=== PATIENT | male | born 1950 | race Caucasian/White ===

== ENCOUNTER 2025-01-16 09:28 | Outpatient (REF) | payer MEDICARE, SELFPAY ==
--- OUTSIDE RECORDS SUMMARY | 2025-01-16 10:49 | XMS_ITS | Clinical Summary ---
Author Organization [employer] Address [address] [place] [address] Care Team Providers Care Seasonal Warehouse Associate Name Role Phone Pcp, No Primary Care Provider [phone] Allergies Active Allergy Reactions Criticality Noted Date Comments Amlodipine Swelling 05/29/2024 Medications atorvastatin (LIPITOR) 10 MG tablet TAKE 1 TABLET BY MOUTH EVERY DAY 05/11/2023 Active hydroCHLOROthiaz bert (HYDRODIURIL) 25 MG tablet TAKE 1 TABLET BY MOUTH EVERY DAY 05/11/2023 Active metoprolol (LOPRESSOR) 50 MG tablet TAKE 1 TABLET BY MOUTH EVERY DAY 04/25/2023 Active metoprolol (TOPROL-XL) 50 MG 24 hr tablet Take 1 tablet (50 mg total) by mouth 02/10/2023 Active Social History Tobacco Use Types Packs/Day Years Used Date Smoking Tobacco: Never Smokeless Tobacco: Never PHQ-2 Answer Date Recorded PHQ-2 Score Patient declined 05/29/2024 Sex and Gender Information Value Date Recorded Sex Assigned at Not on file Legal Sex Male 2:14 PM EDT Gender Identity Not on file Sexual Orientation Not on file Last Filed Vital Signs Vital Sign Reading Time Taken Comments Blood Pressure 158/94 05/29/2024 3:25 PM EDT Pulse 67 05/29/2024 3:24 PM EDT Temperature 36.6 ??C (97.8 ??F) 05/29/2024 3:24 PM ED T Respiratory Rate 17 05/29/2024 3:24 PM EDT Oxygen Saturation 97% 05/29/2024 3:24 PM EDT Inhaled Oxygen Concentration - - Weight - - Height - - Body Mass Index - - Plan of Treatment Health Maintenance Due Date Last Done Comments Colorectal Cancer: COLONOSCO PY Screening every 10 yrs (or Modifier) 1952 Depression: Screening Annual ly using PHQ-2/9 in Adults 18 yrs or above (or HM Modifier)([facility]) 1970 Hepatitis C Virus Infection in Adolescents and Adults: Screening (or Modifier) ([facility]) 1970 SDRI Screening Reminder: Krystal bell for all adults ([facility]) 1970 DTaP/Tdap/Td Vaccines ([facility]) (1 - Tdap) 1971 Colorectal Cancer Screening 45 -75 Yrs (or HM Modifier) 1997 Colorectal Cancer: FLEXIBLE SIGMOIDOSCOPY Screening every 5 yrs 1997 Colorectal Cancer: Fecal Imm unochemical Test (FIT) Annually [facility] 1997 Colorectal Cancer: High-sens itivity gFOBT Screening Annually [facility] 1997 Colorectal Cancer: Stool Col oguard Screening every 3 yrs 1997 Colorectal Cancer:CT Colonog jillian Screening every 5 yrs 1997 Zoster/Shingles Vaccine Seri es Screening: Adults aged 18+ yrs (or HM Modifiers)([facility]) (1 of 2) 2002 Pneumococcal Vaccination Scr eening: Patients 65+ yrs of age ([facility]) (1 of 1 - PCV) 2017 Flu Vaccination: Ages 65+: Y early High Dose Recommended (or Modifier)([facility]) 06/21/2024 09/23/2023, COVID-19 Vaccine Screening: Initial Series and Booster Status ([facility]) ( - 2023-25 season) 2024 RSV Vaccines (1 - 1-dose 75+ series) 2027 Lipid Screening: Every 5 yrs for Men aged 35+ (or HM Modifier) ([facility]) 10/24/2028 10/24/2023 Medical Devices Not on file Insurance [employer] MEDICARE Care Teams Seasonal Warehouse Associate Relationship Specialty Start Date End Date Pcp, No PCP - General Family Medicine 06/13/23
--- OUTSIDE RECORDS SUMMARY | 2025-01-16 10:49 | XMS_ITS | Encounter Summary ---
Author Organization [place] [address] Care Team Providers Care Rewrite Editor Name Role Phone Antonio Castellanos MD Primary Care Provider [phone] Encounter Details Date Type Department Care Team (Late st Contact Info) Description 01/02/2025 Telephone Gastroenterology - [address] [place] [id number] Sin Garvin MD [address] [place] [address] Social History Tobacco Use Types Packs/Day Years Used Date Smoking Tobacco: Never Smokeless Tobacco: Never Alcohol Use Standard Drinks/Week Comments Yes 8 (1 standard drink = 0.6 oz pure alcohol) tues and thurs only, about 4 beers/day when drinking Housing Instability Answer Date Recorde d Are you worried that in the next 2 months you may not have stable housing? No 10/25/2024 Food Access & Nutrition Answer Date Rec orded Do you have access to a vari ety of food including fruits and vegetables? Yes 10/25/2024 Access to Healthcare Answer Date Record ed Within the last 3 months, carissa w many times did you visit the emergency department for your medical care? 0 10/25/2024 Health Literacy Answer Date Recorded How often do you need to hav e someone help you when you read instructions, pamphlets, or other written material from your doctor or pharmacy? Never 10/25/2024 Caregiver: How often do you need to have someone help you when you read instructions, pamphlets, or other written material from your doctor or pharmacy? Not on file 10/25/2024 Financial Risk Answer Date Recorded How hard is it for you to pa y for the very basics like food, housing, medical care, and air conditioning / heating? Not very hard 10/25/2024 Transportation Answer Date Recorded Has the lack of transportati on kept you from meetings, work, or from getting things needed for daily living? No Has the lack of transportati on kept you from medical appointments or from getting medications? No 10/25/2024 Social Isolation Answer Date Recorded How often do you feel lonely or isolated from th ose around you? Never 10/25/2024 Food Risk Answer Date Recorded Within the past 12 months we worried whether our food would run out before we got money to buy more. Never true 10/25/2024 Within the past 12 months th e food we bought just didn't last and we didn't have money to get more. Never true 10/25/2024 Dependent Care Answer Date Recorded Do you need help finding or paying for care for your loved ones. For example, child daycare worker or elderly care for an older adult? No 10/25/2024 Education Answer Date Recorded Do you think completing more education or training, like finishing a GED, going to college, or learning a trade, would be helpful for you? No 10/25/2024 Employment and Income Answer Date Recor ded During the last four weeks, have you been actively looking for work? No 10/25/2024 Living Situation Answer Date Recorded What is your living situation? 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 documented in this encounter Plan of Treatment Upcoming Encounters Date Type Department Care Team (Late st Contact Info) Description 03/20/2025 2:30 PM EDT Office Visit Adult Medicine [facility] [address] [place] [phone] Thomas King PA [address] [place] [phone] documented as of this encounter Visit Diagnoses Not on filedocumented in this encounter Additional Health Concerns Infection Onset Date Last Indicated Resolved Time Hepatitis A 12/14/2024 12/14/2024 01/07/2025 7:04 PM EST Assessment Noted Time PHQ-9 Depression Total Score: 0 10/25/20 11:55 AM EST A fall risk assessment has been complete d for the patient 10/25/2024 11:56 AM EST documented as of this encounter Care Teams Rewrite Editor Relationship Specialty Start Date End Date Antonio Castellanos MD [address] [place] [id number] PCP - General Internal Medicine 12/19/24 documented as of this encounter
--- OUTSIDE RECORDS SUMMARY | 2025-01-16 10:49 | XMS_ITS | Encounter Summary ---
Author Organization [employer] [place] [address] Care Team Providers Care Bean Sprout Grower Name Role Phone Antonio Castellanos MD Primary Care Provider [phone] Reason for Visit * Reason Onset Date Comments Results 01/14/2025 Encounter Details Date Type Department Care Team (Late st Contact Info) Description 01/14/2025 Telephone Gastroenterology - [address] [place] [address] Nahum EliseELI grider Results Social History Tobacco Use Types Packs/Day Years [...] Record ed Within the last 3 months, ho w many times did you visit the [...] care for your loved ones. For example, children's counselor or elderly care for an older adult? [...] Progress Notes * Elise Sidhu MA - 01/14/2025 10:56 AM EST Spoke with patient. US looked good unchanged from last time. Call phlebotomy in [place] to [facility] appt. After he is booked please call back to book a follow up with Nadine. * Elise Sidhu MA - 01/14/2025 10:55 AM EST ----- Message from ISMA Arguelles sent at 01/11/2025 4:17 PM EST ----- Liver ultrasound looks good. Stable, unchanged 10mm lesion on liver. Phlebotomy as planned follow up as scheduled. documented in this encounter Plan of Treatment Upcoming Encounters Date Type Department Care Team (Late st Contact Info) Description 03/20/2025 2:30 PM EDT Office Visit Adult Medicine [address] [phone] Thomas King PA [address] [place] [phone] documented as of this encounter Visit Diagnoses Not on filedocumented in this encounter Additional Health Concerns Assessment Noted Time PHQ-9 Depression Total Score: 0 10/25/20 11:55 AM EST A fall risk assessment has been complete d for the patient 10/25/2024 11:56 AM EST documented as of this encounter Care Teams Bean Sprout Grower Relationship Specialty Start Date End Date Antonio Castellanos MD [address] [place] [id number] PCP - General Internal Medicine 12/19/24 documented as of this encounter
--- OUTSIDE RECORDS SUMMARY | 2025-01-16 10:49 | XMS_ITS | Clinical Summary ---
Author Organization [facility] [id number] [facility] Address [address] [place] [phone] Phone Care Team Providers Care [employer] Name Role Phone Antonio Castellanos MD Primary Care Provider Allergies Active Allergy Reactions Criticality Noted Date Comments Amlodipine 01/29/2022 Bilateral leg swelling Medications omeprazole (PriLOSEC) [address] capsule Take 1 capsule (20 mg total) by mouth 1 (one) time each day. Active fluticasone propionate (FLONASE) 50 mcg/actuation nasal spray 1 [place] by Nasal route daily. 07/18/20 23 Active atorvastatin (LIPITOR) 10 mg tablet Take 1 tablet (10 mg total) by mouth at bedtime. 90 tablet 1 11/08/20 24 Active metoprolol tartrate (LOPRESSOR) 50 mg tablet Take 1 tablet (50 mg total) by mouth 1 (one) time each day. 90 tablet 1 12/20/19 25 Active hydroCHLOROthi azide (HYDRODIURIL) 25 mg tablet Take 1 tablet (25 mg total) by mouth 1 (one) time each day. 90 tablet 1 12/20/19 25 Active lisinopriL (PRINIVIL,ZEST RIL) 20 mg tablet Take 1 tablet (20 mg total) by mouth 1 (one) time each day. 90 each 1 12/20/19 25 Active metoprolol tartrate (LOPRESSOR) 50 mg tablet Take 1 tablet (50 mg total) by mouth 1 (one) time each day. 90 tablet 10/25/20 24 025 Discontinued(Re order) lisinopriL (PRINIVIL,ZEST RIL) 10 mg tablet Take 2 tablets (20 mg total) by mouth at bedtime. 11/08/20 24 025 Discontinued hydroCHLOROthi azide (HYDRODIURIL) 25 mg tablet Take 1 tablet (25 mg total) by mouth 1 (one) time each day. 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 Hepatic steatosis 07/31/2020 Hyperlipidemia 07/31/2020 Colonic polyp 09/08/2014 Overview (09/10/2024): Hyperplastic polyp 01/16/2014 Elevated ferritin 09/08/2014 Overview (09/10/2024): 2 copies of H63D, felt to be at low risk for clinical hemochromatosis although susceptible to iron overload by Dr. Cronin Type II diabetes mellitus with renal manifestati ons 09/08/2014 Transaminitis 09/18/2012 Assessment & Plan (12/14/2024 3:59 PM EST): Elevated LFTs and abnormal MRI findings. MRI recommended follow up in 4-6 months, however patient does not remember any further work up. -Will start with U/S liver for reevaluation -Likely liver cyst or hemangioma Patient unaware of transaminitis workup in past, will order comprehensive liver workup. Avoidance or cutting back on alcohol consumption is recommended. Orders: Hepatitis C virus quantitative molecular study; Future Hepatitis A antibody total with reflex IgM; Future CBC and differential; Future Hepatic function panel; Future GGT; Future CARMICHAEL fibrotest liver diease; Future Ceruloplasmin; Future DAVID IFA with titer and pattern; Future Antimitochondrial antibody; Future Tissue transglutaminase, IgA; Future Endomysial antibody, IgA; Future Ferritin; Future Iron and TIBC; Future Protein electrophoresis, serum; Future US Abdomen Limited; Future Hepatitis B core antibody IgM; Future Hepatitis B surface antibody; Future Hepatitis B surface antigen with reflex to confirmation; Future Smooth muscle antibody IgG; Future Thyroid stimulating hormone; Future Essential hypertension, benign 06/02/2006 Rosacea 06/02/2006 Encounters Date Type Department Care Team Description 01/14/2025 Telephone Gastroenterology - [address] [facility] [address] [place] [phone] Sin Garvin MD 01/14/2025 Telephone Gastroenterology - [address] [phone] Elise Sidhu MA Results 01/14/2025 Telephone Gastroenterology - [address] [phone] Elise Sidhu MA 01/04/2025 Telephone Gastroenterology - [address] [facility] [address] [place] [phone] Lisa Thao MA rescheduling 01/02/2025 Telephone Gastroenterology - [address] [facility] [address] [phone] Sin Garvin MD 01/01/2025 Telephone Gastroenterology - [address] [phone] Nadine Gautam PA 12/31/2024 Telephone Gastroenterology - [address] [facility] [address] [phone] Sin Garvin MD 12/28/2024 8:48 AM EST - 12/28/2024 11:59 PM EST Hospital Encounter [facility] Ultrasound [address] [place] [address] Transaminitis Discharge Disposition: Home or Self Care 12/20/2024 2:20 PM EST Lab Draw Station - [address] [place] [phone] Transaminitis; Elevated TSH; Abnormal results of thyroid function studies 12/20/2024 1:30 PM EST Office Visit Adult [address] [phone] Thomas King PA Essential hypertension, benign (Primary Dx); CKD (chronic kidney disease) stage 2, GFR 60-89 ml/min 12/19/2024 Telephone Gastroenterology - [address] [place] [phone] Nadine Gautam PA 12/17/2024 Telephone Gastroenterology - [address] [place] [phone] Nadine Gautam PA 12/14/2024 1:55 PM EST Lab Draw Station - [address] [place] [phone] Transaminitis; Other specified symptoms and signs involving the digestive system and abdomen 12/14/2024 1:00 PM EST Office Visit Gastroenterology - [address] [place] [phone] Nadine Gautam PA Colon cancer screening (Primary Dx); Transaminitis; Other specified symptoms and signs involving the digestive system and abdomen 11/08/2024 3:15 PM EST Office Visit [address] [phone] Patricia Workman PA Essential hypertension, benign (Primary Dx) 10/25/2024 11:15 AM EST Office Visit Adult [address] [phone] Patricia Workman PA Encounter for annual wellness visit (AWV) in Medicare patient (Primary Dx); 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); Mixed hyperlipidemia; Obesity (BMI 30.0-34.9); Essential hypertension, benign; Prostate cancer screening; Stage 3a chronic kidney disease (CMS/HCC); Type 2 diabetes mellitus with diabetic microalbuminuria, 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); Microalbuminuria; Hyperplastic colonic polyp, unspecified part of colon from Last 3 Months Immunizations Name Administration Dates Next Due Hepatitis A Adult (Havrix; V aqta) 19yo and older 02/15/2024,08/17/2023 Hepatitis B (Zulikho-I-Zhgxm , Recombivax HB-Adult) 19yo and older 02/22/2024,09/21/2023,08/17/2023 Influenza Quadravalent, 0.5m l (Fluzone High-dose) 65yo and older 09/27/2022 Influenza Quadravalent, MDCK , 0.5ml, with preservative (Flucelvax) 6mo and older 08/19/2017 Influenza trivalent, 0.5mL ( Fluad) 65yo and older 10/25/2024,09/23/2023,09/27/2022,09/25,11/27/2020,10/10/2019,08/21/2018 Influenza trivalent, 0.5mL ( Fluzone High-dose) 65yo and older 09/23/2023,09/25/2021,11/27/2020,10/10,08/21/2018 Influenza trivalent, 0.5mL, preservative free (Fluarix; FluLaval; Fluzone) ages 6mo and older (Afluria) 3 years and older 08/13/2016,09/25/2015,09/09/2014,09/06,08/04/2012,11/05/2011,11/20/2010 ,10/24/2008,09/01/2007 Influenza trivalent, with pr eservative (Fluzone; Afluria) 6mo and older 08/13/2016,09/25/2015,09/09/2014,09/06,08/04/2012,11/05/2011,11/20/2010 ,10/24/2008,09/01/2007 Moderna (age 6mo & older) Bi valent, COVID-19, 0.5 mL or 0.25 mL dosage 09/27/2022 Moderna Covid-19 Bivalent, O riginal + Ba.1 (Non-US Tradename Spikevax Bivalent) 09/27/2022 Moderna SARS-CoV-2 COVID-19, mRNA, LNP-S, preservative free 10/22/2021,02/18/2021,01/19/2021 Pneumococcal conjugate 13 va lent (Prevnar 13, PCV13) 2mo and older 08/21/2018 Pneumococcal polysaccharide 23 valent (Pneumovax 23) 2yo and older 10/10/2019 Td Tetanus diptheria (Tdvax) 7yo and older 03/25/2005 Td, Unspecified 03/25/2005 Tdap Tetanus diptheria acell ular pertussis (Boostrix; Adacel) 7yo and older 03/31/2022,03/27/2012 Surgical History Surgery Date Site/Laterality Comments COLONOSCOPY 2002 PROCEDURE: HISTORICAL COLONOSCOPY; COMMENT: negative COLONOSCOPY W/ BIOPSIES 2013 PROCEDURE: ND COLONOSCOPY W/BIOPSY SINGLE/MULTIPLE; COMMENT: 5 mm sigmoid colon polyp: Hyperplastic polyp. KNEE SURGERY 1982 Right PROCEDURE: HISTORICAL KNEE SURGERY; COMMENT: scope r knee CHOLECYSTECTOMY 11/21/2022 - 11/20/2023 Medical History Medical History Date Comments Essential hypertension, benign 06/02/2006 D X:Essential hypertension, benign Rosacea 06/02/2006 DX:Rosacea Renal cell carcinoma (CMS/HCC) 08/10/2023 D X:Renal cell carcinoma (HCC); COMMENT: 08/13 left partial nephrectomy Colon polyp Family History Medical History Relation Name Comments Stroke Brother 1 Pancreatic cancer Father Diabetes Mother Asthma Son Colon cancer Neg Hx Relation Name Status Comments Brother 1 Brother 2 Alive Brother 3 Alive Brother 4 Alive Brother 5 Alive Daughter Alive Father (Age 69) Maternal Grandfather Maternal Grandmother Mother (Age 92) Paternal Grandfather Paternal Grandmother Son Alive Social History Tobacco Use Types Packs/Day Years Used Date Smoking Tobacco: Never Smokeless Tobacco: Never Tobacco Cessation:Counseling Given: Not Answered Alcohol Use Standard Drinks/Week Comments Yes 8 [...] for your loved ones. For example, children's author or elderly care for an older adult? [...] Orientation Straight 12/19/2024 9: 38 AM EST Obstetrics History Last Filed Vital Signs Vital Sign Reading Time Taken Comments Blood Pressure 126/82 12/20/2024 1:55 PM EST Pulse 68 12/20/2024 1:28 PM EST Temperature 36.1 ??C (97 ??F) 12/20/2024 1:28 PM EST Respiratory Rate 16 10/25/2024 11:50 AM EST Oxygen Saturation 98% 12/20/2024 1:28 PM EST Inhaled Oxygen Concentration - - Weight 97.1 kg (214 lb) 12/20/2024 1:28 PM EST Height 180.3 cm (5' 10.98 ) 12/20/2024 1:[address] Body Mass Index 29.86 12/20/2024 1:28 PM EST Plan of Treatment Upcoming Encounters Date Type Department Care Team (Late st Contact Info) Description 03/20/2025 2:30 PM EDT Office Visit Adult Medicine [address] [phone] Thomas King PA [address] [place] [phone] Health Maintenance Due Date Last Done Comments Diabetes: Annual Foot Exam 1962 Diabetes: Annual Retina Eye Exam 1962 Zoster Vaccines (1 of 2) 1971 RSV Immunization Patients 60+ Years Old (1 - Risk 60-74 years 1-dose series) 2012 Colorectal Cancer Screening: Colonoscopy 10/30/2022 COVID-19 Vaccine ( season) 2024 09/27/2022, 09/27/2022, 10/22/2021, Additional history exists Diabetes: Blood Sugar Control Test (HGBA1C) 04/25/2025 10/25/2024, 05/02/2024, 05/02/2024 Depression Screening 10/25/2025 10/25/2024 Diabetes: Annual Urine Albumin-Creatinine Ratio (uACR) 10/25/2025 10/25/2024, 08/23/2023 Diabetes: Annual GFR (Glomerular Filtration Rate) 10/25/2025 10/25/2024, 05/02/2024, 05/02/2024 Falls Risk Assessment 10/25/2025 10/25/2024 Hypertension/CHF/CAD Annual BMP Blood Test 10/25/2025 10/25/2024, 05/02/2024, 05/02/2024 Medicare Annual Wellness Visit 10/25/2025 10/25/2024 Social Influencers of Health Screening 10/25/2025 10/25/2024 Cholesterol Screening (Lipid Panel) 10/25/2029 10/25/2024, 10/24/2023 DTaP,Tdap,and Td Vaccines (5 - Td or Tdap) 03/31/2032 03/31/2022, 03/27/2012, 03/25/2005, Additional history exists Pneumococcal Vaccine: 50+ Years Completed 10/10/2019, 08/21/2018 Hepatitis A Vaccines Aged Out 02/15/2024, 08/17/20 23 No longer eligible based on patient's age to complete this topic Hepatitis B Vaccines Completed 02/22/2024, 09/21/2023, 08/17/2023 Influenza Vaccine Completed 10/25/2024, , 09/23/2023, Additional history exists Hepatitis C Screening Completed 12/14/2024, 023 HIB Vaccines Aged Out No longer eligi ble based on patient's age to complete this topic HPV Vaccines Aged Out No longer eligi ble based on patient's age to complete this topic IPV Vaccines Aged Out No longer eligi ble based on patient's age to complete this topic MMR Vaccines Aged Out No longer eligi ble based on patient's age to complete this topic Meningococcal ACWY Vaccine Aged Out N o longer eligible based on patient's age to complete this topic Meningococcal B Vacine Aged Out No lo nger eligible based on patient's age to complete this topic RSV Immunization Patients Under 20 months Aged Out No longer eligible based on patient's age to complete this topic Varicella Vaccines Aged Out No longer eligible based on patient's age to complete this topic Procedures Procedure Name Priority Date/Time Associated Diagnosis Comments US ABDOMEN LIMITED Routine 12/28/2024 9: 44 AM EST Transaminitis THYROXINE TOTAL Routine 12/20/2024 2:26 PM EST Elevated TSH Abnormal results of thyroid function studies TRIIODOTHYRONINE FREE Routine 12/20/2024 2:26 PM EST Elevated TSH HEMOCHROMATOSIS MUTATION Routine 025 2:26 PM EST Transaminitis SMOOTH MUSCLE ANTIBODY IGG Routine 12/20/2024 2:26 PM EST Transaminitis CERULOPLASMIN Routine 12/20/2024 2:26 PM EST Transaminitis ND PROTEIN ELECTROPHORETIC FRACTIONATION & QUANTITATION SERUM Routine 12/14/2024 1:59 PM EST Transaminitis THYROID STIMULATING HORMONE Routine 12/14/2024 1:59 PM EST Transaminitis Other specified symptoms and signs involving the digestive system and abdomen HEPATITIS ELR STATE REPORTATBLES Routine 12/14/2024 1:59 PM EST Transaminitis AST, ALT, BILIRUBIN ELR STATE REPORTABLES Routine 12/14/2024 1:59 PM EST Transaminitis HEPATITIS A ANTIBODY IGM Routine 025 1:59 PM EST Transaminitis PROTEIN, TOTAL Routine 12/14/2024 1:59 PM EST Transaminitis CBC WITH AUTO DIFFERENTIAL Routine 12/14/2024 1:59 PM EST Transaminitis HEPATITIS B SURFACE ANTIGEN WITH CONFIRMATION Routine 12/14/2024 1:59 PM EST Transaminitis HEPATITIS B SURFACE ANTIBODY Routine 12/14/2024 1:59 PM EST Transaminitis HEPATITIS B CORE ANTIBODY IGM Routine 12/14/2024 1:59 PM EST Transaminitis PROTEIN ELECTROPHORESIS, SERUM Routine 12/14/2024 1:59 PM EST Transaminitis IRON AND TIBC Routine 12/14/2024 1:59 PM EST Transaminitis FERRITIN Routine 12/14/2024 1:59 PM EST Transaminitis ENDOMYSIAL ANTIBODY, IGA Routine 025 1:59 PM EST Transaminitis TISSUE TRANSGLUTAMINASE, IGA Routine 12/14/2024 1:59 PM EST Transaminitis ANTIMITOCHONDRIAL ANTIBODY Routine 12/14/2024 1:59 PM EST Transaminitis DAVID IFA WITH TITER AND PATTERN Routine 12/14/2024 1:59 PM EST Transaminitis CARMICHAEL FIBROSURE Routine 12/14/2024 1:59 PM EST Transaminitis GAMMA GLUTAMYL TRANSFERASE Routine 12/14/2024 1:59 PM EST Transaminitis HEPATIC FUNCTION PANEL Routine 1:59 PM EST Transaminitis CBC AND DIFFERENTIAL Routine 12/14/2024 1:59 PM EST Transaminitis HEPATITIS A ANTIBODY TOTAL WITH REFLEX IGM Routine 12/14/2024 1:59 PM EST Transaminitis HEPATITIS C VIRUS QUANTITATIVE PCR Routine 12/14/2024 1:59 PM EST Transaminitis PROSTATE SPECIFIC ANTIGEN SCREEN Routine 10/25/2024 12:47 PM EST Prostate cancer screening LIPID PANEL WITH REFLEX TO DIRECT LDL Routine 10/25/2024 12:47 PM EST Mixed hyperlipidemia HEMOGLOBIN A1C Routine 10/25/2024 12:47 PM EST Type 2 diabetes mellitus with diabetic microalbuminuria, 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) COMPREHENSIVE METABOLIC PANEL Routine 10/25/2024 12:47 PM EST 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) Mixed hyperlipidemia Obesity (BMI 30.0-34.9) Essential hypertension, benign Prostate cancer screening Stage 3a chronic kidney disease (CMS/HCC) Type 2 diabetes mellitus with diabetic microalbuminuria, 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) Microalbuminuria Hyperplastic colonic polyp, unspecified part of colon MICROALBUMIN CREATININE URINE RATIO Routine 10/25/2024 12:47 PM EST Type 2 diabetes mellitus with diabetic microalbuminuria, 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) Microalbuminuria from Last 3 Months Results * US Abdomen Limited (12/28/2024 9:44 AM EST) Anatomical Region Laterality Modality Body Ultrasound 01/07/2025 12:1 2 PM EST Impressions 01/07/2025 12:16 PM EST Impression: 1. Stable 10 mm hypoechoic lesion in the right hepatic lobe for at least 2 years, reassuring for a benign process. 2. Patent, hepatopedal portal vein. 3. Status post cholecystectomy. -------- FINAL REPORT -------- Dictated By: Amy Gale Dictated Date: 01/07/2025 12:12 ET Assigned Physician: Amy Gale Reviewed and Electronically Signed By: Amy Gale Signed Date: 01/07/2025 12:16 ET Workstation ID: [id number] Transcribed By: Self Edit Transcribed Date: 01/07/2025 12:12 ET Narrative 01/07/2025 12:16 PM EST History: Transaminitis. Comparison: Abdominal ultrasound 6 12/16/22, 07/24/20 (outside studies), abdominal MRI 12/21/22 ([facility]) Findings: Real-time imaging of the abdomen, limited to the right upper quadrant, was performed. The hepatic echogenicity is moderately increased, with poor visualization of the alegria of the peripheral portal venous vasculature and limited penetration of the liver, consistent with fatty infiltration and/or fibrosis. Redemonstrated is a 9 x 7 x 10 mm round hypoechoic lesion in the right hepatic lobe, stable in size and appearance from 12/16/22, reassuring for a benign process. No enhancing hepatic lesion was identified on the 2022 MRI. The portal vein is patent and exhibits normal, hepatopedal flow. The gallbladder is absent, in keeping with interim cholecystectomy. The common duct is not identified. No dilatation of the intrahepatic biliary tree is seen. There is no ascites in the right upper quadrant. A survey view of the right kidney is remarkable for a 1.5 cm simple cortical cyst in the lower pole, unchanged. The pancreas is obscured by bowel gas shadowing and cannot be evaluated. The spleen is homogeneous and normal in size, measuring 12.5 cm in length. Procedure Note Amy Gale MD - 01/07/2025 History: Transaminitis. Comparison: Abdominal ultrasound 6 12/16/22, 07/24/20 (outside studies),abdominal MRI 12/21/22 ([facility]) Findings: Real-time imaging of the abdomen, limited to the right upper quadrant, wasperformed. The hepatic echogenicity is moderately increased, with poor visualizationof the alegria of the peripheral portal venous vasculature and limitedpenetration of the liver, consistent with fatty infiltration and/orfibrosis. Redemonstrated is a 9 x 7 x 10 mm round hypoechoic lesion in theright hepatic lobe, stable in size and appearance from 12/16/22, reassuringfor a benign process. No enhancing hepatic lesion was identified on [id number] MRI. The portal vein is patent and exhibits normal, hepatopedalflow. The gallbladder is absent, in keeping with interim cholecystectomy. Thecommon duct is not identified. No dilatation of the intrahepatic biliarytree is seen. There is no ascites in the right upper quadrant. A survey view of theright kidney is remarkable for a 1.5 cm simple cortical cyst in the lowerpole, unchanged. The pancreas is obscured by bowel gas shadowing andcannot be evaluated. The spleen is homogeneous and normal in size, measuring 12.5 cm inlength. IMPRESSION: Impression: 1. Stable 10 mm hypoechoic lesion in the right hepatic lobe for at least 2years, reassuring for a benign process. 2. Patent, hepatopedal portal vein. 3. Status post cholecystectomy. 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 This patient is negative for the C282Y pathogenic variant. Only 1% of individuals with a biochemical diagnosis of hereditary hemochromatosis (HH) have this genotype. Therefore, this result is consistent with a diagnosis of HH in an individual with clinical evidence of HH. However, this genotype does not predict a diagnosis of HH in an asymptomatic individual, as less than 2% of individuals with this genotype will develop symptoms or clinical evidence of this disorder. Disease diagnosis can only be made by demonstration of elevated iron stores. Genetic counseling is recommended to discuss the potential clinical implications of this result. Laboratory results and submitted clinical information reviewed by Ernie Torres, Ph.D.,[facility]. DETAILED ASSAY INFORMATION: Hereditary hemochromatosis (HH) is an autosomal recessive disorder of iron metabolism that can result in iron overload and potential organ failure. It is one of the most common genetic disorders in individuals of - ancestry, with an estimated carrier frequency of 10%. HH is caused by pathogenic variants in the HFE gene. Most individuals with HH (60-90%) are homozygous for the C282Y pathogenic variant. A smaller percentage of affected individuals are either compound heterozygous for the C282Y and H63D pathogenic variants (3%-8%), or homozygous for the H63D pathogenic variant (approximately 1%). METHODOLOGY: This assay detects two pathogenic variants in the HFE gene, C282Y (NM 542640.2: c.845G>A, p.Cxi908Ima) and H63D (NM 545466.2: c.187C>G, p.Qpk95Pku), that are commonly associated with HH. These variants are detected by multiplex-polymerase chain reaction (PCR) amplification, followed by restriction enzyme digestion and capillary electrophoresis. LIMITATIONS: This assay does not detect other pathogenic variants in the HFE gene that may be associated with HH. Although rare, false positive or false negative results may occur. All results should be interpreted in the context of clinical findings, relevant history, and other laboratory data. Health care providers, please contact your local [facility] genetic counselor or call [phone] ( ) for assistance with the interpretation of these results. This test was developed and its analytical performance characteristics have been determined by [facility]. It has not been cleared or approved by FDA. This assay has been validated pursuant to the CLIA regulations and is used for clinical purposes. For more information, please refer to http://education.[employer]/faq/hemochromatosis. (This link is being provided for informational/educational purposes only.) A portion of the testing was performed at [facility]. Reviewed and signed by Laboratory results and submitted clinical information reviewed by Ernie Torres, Ph.D.,[facility], Signed on 01/01/2025 at 09:10 Test Performed at: [facility] [address] ??[id number] ? I Rachel SOLIMAN, PhD, SARAH Blood Venous blood specimen / Unknown Venipuncture / Unknown 12/20/2024 2:26 PM EST 12/20/2024 4:12 PM EST us Nadine [facility] MOLECULAR DIAGNOSTICS ORDER GANESH Final Result [facility]IO ALBERTO PUENTE [address] [place] [address] * Smooth muscle antibody IgG (12/20/2024 2:26 PM EST) Pathologist [facility] Smooth Muscle (F-Actin) IgG Ab 8 <20 UNITS 12/24/2024 1:28 PM EST [facility] Comment: Interpretation: Negative Test performed at [facility], [address] [place], [place] ??[address] ? [phone] Olivia Douglass MD, PhD - [employer] Blood Venous blood specimen / Unknown Venipuncture / Unknown 12/20/2024 2:26 PM EST 12/20/2024 4:11 PM EST us [employer] PA LAB BLOOD ORDERABLES Final Resu lt [facility] [address] [place] [address] * Ceruloplasmin (12/20/2024 2:26 PM EST) Pathologist [facility] Ceruloplasmin 29 20 - 60 mg/dL 12/24/2024 3:30 AM EST [facility] Comment: Test performed at [facility], [address] [place], [place] ??[address] ? [phone] Olivia Douglass MD, PhD - [employer] Operator Blood Venous blood specimen / Unknown Venipuncture / Unknown 12/20/2024 2:26 PM EST 12/20/2024 4:11 PM EST us Nadine Gautam PA LAB BLOOD ORDERABLES Final Resu lt [facility] [address] [facility] [place] [address] * Triiodothyronine free (12/20/2024 2:26 PM EST) Pathologist [facility] T3, Free 310 230 - 420 pcg/dL LAB CHEMISTRY METHOD 12/20/2024 5:00 PM EST [facility] Blood Venous blood specimen / Unknown Venipuncture / Unknown 12/20/2024 2:26 PM EST 12/20/2024 4:11 PM EST us Nadine ASHBY LAB BLOOD ORDERABLES Final Resu lt [facility] [address] [place] [address], [place] [phone] * Thyroxine total (12/20/2024 2:26 PM EST) [facility] T4, Total 6.6 4.5 - 10.9 mcg/dL LAB CHEMISTRY METHOD 12/20/2024 5:05 PM EST [facility] Blood Venous blood specimen / Unknown Venipuncture / Unknown 12/20/2024 2:26 PM EST 12/20/2024 4:11 PM EST Nadine Gautam [place] LAB BLOOD ORDERABLES Final Resu lt Performing Organization Address [facility]/ZIP Co de Phone Number [facility] [address] [place] [address], [place] [phone] * Hepatitis ELR State reportatbles (12/14/2024 1:59 PM EST) [facility] Hep B Core IgM Negative Negative LAB CHEMISTRY METHOD 12/14/2024 9:59 PM EST [facility] Hep B Core Total Ab 12/14/2024 9:59 PM EST [facility] Hep B Surface Ag Confirmation 12/14/2024 9:59 PM EST [facility] Blood Venous blood specimen / Unknown Venipuncture / Unknown 12/14/2024 1:59 PM EST 12/14/2024 3:59 PM EST Nadine Gautam [place] LAB BLOOD ORDERABLES Final Resu lt Performing Organization Address City/[facility]/ZIP Co de Phone Number [facility] [address] [place] [address], [place] [phone] * Hepatitis B surface antigen with reflex to confirmation (12/14/2024 1:59 PM EST) Pathologist [facility] Hepatitis B Surface Ag Negative Negative LAB CHEMISTRY METHOD 12/14/2024 8:16 PM EST [facility] Blood Venous blood specimen / Unknown Venipuncture / Unknown 12/14/2024 1:59 PM EST 12/14/2024 3:59 PM EST Narrative [facility] - 12/14/2024 8:16 PM EST Over the counter supplements containing high doses of biotin may interfere with this assay. ??If interference is suspected, patients shoud be retested after refraining from biotin supplements for 72 hours. Nadine Gautam [place] LAB BLOOD ORDERABLES Final Resu lt Performing Organization Address [facility]/ZIP Co de Phone Number [facility] [address] [place] [address], [place] [phone] * PATHOLOGIST REVIEW PROTEIN ELECTROPHORESIS (12/14/2024 1:59 PM EST) Pathologist [facility] Pathologist Interpretation Reviewed by Adriana Bangura MD 12/17/2024 11:57 AM EST [facility] Blood Venous blood specimen / Unknown Venipuncture / Unknown 12/14/2024 1:59 PM EST 12/14/2024 3:59 PM EST Nadine Gautam [place] LAB BLOOD ORDERABLES Final Resu lt Performing Organization Address City/[facility]/ZIP Co de Phone Number [facility] [address] [place] [address], [place] [phone] * (ABNORMAL) AST, ALT, Bilirubin ELR state reportables (12/14/2024 1:59 PM EST) Pathologist [facility] ALT (SGPT) 111(H) 10 - 60 unit/L LAB CHEMISTRY METHOD 12/14/2024 9:59 PM EST [facility] AST (SGOT) 64(H) 10 - 42 unit/L LAB CHEMISTRY METHOD 12/14/2024 9:59 PM EST [facility] Bilirubin, Direct 0.3 0.0 - 0.3 mg/dL LAB CHEMISTRY METHOD 12/14/2024 9:59 PM EST [facility] Total Bilirubin 1.1 0.0 - 1.4 mg/dL LAB CHEMISTRY METHOD 12/14/2024 9:59 PM EST [facility] Blood Venous blood specimen / Unknown Venipuncture / Unknown 12/14/2024 1:59 PM EST 12/14/2024 3:59 PM EST Nadine ASHBY LAB BLOOD ORDERABLES Final Resu lt Performing Organization Address [facility] Co de Phone Number [facility] [address] [place] [address], [place] [phone] * (ABNORMAL) Hepatitis A antibody total with reflex IgM (12/14/2024 1:59 PM EST) Hep A Total Ab Positive( A) Negative LAB CHEMISTRY METHOD 12/14/2024 8:44 PM EST [facility] Blood Venous blood specimen / Unknown Venipuncture / Unknown 12/14/2024 1:59 PM EST 12/14/2024 3:59 PM EST Narrative [facility] - 12/14/2024 8:44 PM EST Over the counter supplements containing high doses of biotin may interfere with this assay. ??If interference is suspected, patients shoud be retested after refraining from biotin supplements for 72 hours. Nadine SAHBY LAB BLOOD ORDERABLES Final Resu lt Performing Organization Address [facility]/ZIP Co de Phone Number [facility] [address] [place] [address], [place] [phone] * CARMICHAEL fibrotest liver diease (12/14/2024 1:59 PM EST) CARMICHAEL FibroSure SEE SCANS 12/20/2024 8:09 AM EST [facility] Comment: CARMICHAEL FibroSure(R) Plus SEE REPORT UNDER SEPARATE COVER. REPORT WILL BE SENT TO THE ORDERING LABORATORY VIA PRINTER OR FAX. ADDITIONAL COPIES OF THE ORIGINAL REPORT MAY ALSO BE OBTAINED BY CALLING [facility] at [phone] Corrected result: Previously reported as See Below on 12/19/2024 at 1657 EST. Blood Venous blood specimen / Unknown Venipuncture / Unknown 12/14/2024 1:59 PM EST 12/14/2024 3:59 PM EST Nadine [employer] LAB BLOOD ORDERABLES Edited Res ult - Final [facility] [address] [place] [id number] * Endomysial antibody, IgA (12/14/2024 1:59 PM EST) Pathologist [facility] Endomysial IgA Negative Negative 12/19/2024 11:56 AM EST [facility] Blood Venous blood specimen / Unknown Venipuncture / Unknown 12/14/2024 1:59 PM EST 12/14/2024 3:59 PM EST Nadine Gautam [place] LAB BLOOD ORDERABLES Final Resu lt [facility] [address] [place] [address], [place] [phone] * DAVID IFA with titer and pattern (12/14/2024 1:59 PM EST) Pathologist [facility] DAVID Negative Negative 12/17/2024 10:12 AM EST [facility] Blood Venous blood specimen / Unknown Venipuncture / Unknown 12/14/2024 1:59 PM EST 12/14/2024 3:59 PM EST [facility] LAB BLOOD ORDERABLES Final Resu lt Performing Organization Address City/[facility]/ZIP Co de Phone Number [facility] [address] [place] [address], [place] [phone] * Hepatitis C virus quantitative molecular study (12/14/2024 1:59 PM EST) [facility] HCV Qual Interp Not Detected Not Detected LAB MOLECULAR DIAGNOSTICS METHOD 12/18/2024 11:29 AM EST [facility] Comment:HCV RNA not detected , unable to report quantitative results. Blood Venous blood specimen / Unknown Venipuncture / Unknown 12/14/2024 1:59 PM EST 12/14/2024 3:59 PM EST [facility] LAB BLOOD ORDERABLES Final Resu lt Performing Organization Address City/[facility]/ZIP Co de Phone Number [facility] [address] [place] [address], [place] [phone] * (ABNORMAL) CBC auto differential (12/14/2024 1:59 PM EST) [facility] WBC 9.0 4.8 - 10.8 K/mcL LAB HEMETOLOGY METHOD 12/14/2024 4:15 PM [facility] RBC 5.20 4.50 - 5.50 M/mcL LAB HEMETOLOGY METHOD 12/14/2024 4:15 PM [facility] Hemoglobin 15.9 13.5 - 17.5 g/dL LAB HEMETOLOGY METHOD 12/14/2024 4:15 PM [facility] Hematocrit 46.1 42.0 - 54.0 % LAB HEMETOLOGY METHOD 12/14/2024 4:15 PM [facility] MCV 89.0 79.0 - 98.0 FL LAB HEMETOLOGY METHOD 12/14/2024 4:15 PM [facility] MCH 30.7 27.0 - 32.0 pcg LAB HEMETOLOGY METHOD 12/14/2024 4:15 PM [facility] MCHC 34.5 32.0 - 37.0 g/dL LAB HEMETOLOGY METHOD 12/14/2024 4:15 PM [facility] RDW 12.6 11.0 - 15.0 % LAB HEMETOLOGY METHOD 12/14/2024 4:15 PM [facility] Platelets 262 130 - 400 K/mcL LAB HEMETOLOGY METHOD 12/14/2024 4:15 PM [facility] MPV 10.9 7.0 - 11.0 FL LAB HEMETOLOGY METHOD 12/14/2024 4:15 PM [facility] NRBC 0.0 <1.0 % LAB HEMETOLOGY METHOD 12/14/2024 4:15 PM [facility] NRBC Absolute 0.00 <0.10 K/mcL LAB HEMETOLOGY METHOD 12/14/2024 4:15 PM [facility] Neutrophils Relative 57.4 % LAB HEMETOLOGY METHOD 12/14/2024 4:15 PM [facility] Lymphocytes Relative 31.8 % LAB HEMETOLOGY METHOD 12/14/2024 4:15 PM [facility] Monocytes Relative 7.8 % LAB HEMETOLOGY METHOD 12/14/2024 4:15 PM [facility] Eosinophils Relative 1.7 % LAB HEMETOLOGY METHOD 12/14/2024 4:15 PM [facility] Basophils Relative 0.7 % LAB HEMETOLOGY METHOD 12/14/2024 4:15 PM [facility] Immature Granulocytes Relative 0.6 % LAB HEMETOLOGY METHOD 12/14/2024 4:15 PM [facility] Neutrophils Absolute 5.16 1.50 - 7.00 K/mcL LAB HEMETOLOGY METHOD 12/14/2024 4:15 PM EST [facility] Lymphocytes Absolute 2.85 1.00 - 5.00 K/[facility] LAB HEMETOLOGY METHOD 12/14/2024 4:15 PM EST [facility] Monocytes Absolute 0.70 0.20 - 1.00 K/[facility] LAB HEMETOLOGY METHOD 12/14/2024 4:15 PM EST [facility] Eosinophils Absolute 0.15 0.00 - 0.50 K/[facility] LAB HEMETOLOGY METHOD 12/14/2024 4:15 PM EST [facility] Basophils Absolute 0.06 0.00 - 0.20 K/[facility] LAB HEMETOLOGY METHOD 12/14/2024 4:15 PM [facility] Immature Granulocytes Absolute 0.05(H) 0.00 - 0.03 K/[facility] LAB HEMETOLOGY METHOD 12/14/2024 4:15 PM [facility] Blood Venous blood specimen / Unknown Venipuncture / Unknown 12/14/2024 1:59 PM EST 12/14/2024 3:59 PM EST us Nadine ASHBY LAB BLOOD ORDERABLES Final Resu lt [facility] [address] [place] [address], * (ABNORMAL) Iron and TIBC (12/14/2024 1:59 PM EST) Iron 246(H) 50 - 160 mcg/dL LAB CHEMISTRY METHOD 12/14/2024 8:14 PM EST [facility] TIBC 393 250 - 450 mcg/dL LAB CHEMISTRY METHOD 12/14/2024 8:14 PM [facility] Iron Saturation 63(H) 20 - 50 % LAB CHEMISTRY METHOD 12/14/2024 8:14 PM [facility] Blood Venous blood specimen / Unknown Venipuncture / Unknown 12/14/2024 1:59 PM EST 12/14/2024 3:59 PM EST Nadine ASHBY LAB BLOOD ORDERABLES Final Resu lt Performing Organization Address [facility]/ZIP Co de Phone Number [facility] [address] [place] [address], [place] [phone] * (ABNORMAL) Hepatitis A antibody IgM (12/14/2024 1:59 PM EST) Pathologist [facility] Hepatitis A Antibody IgM Positive( A) Negative LAB CHEMISTRY METHOD 12/14/2024 9:51 PM EST [facility] Blood Venous blood specimen / Unknown Venipuncture / Unknown 12/14/2024 1:59 PM EST 12/14/2024 3:59 PM EST Narrative [facility] - 12/14/2024 9:51 PM EST Over the counter supplements containing high doses of biotin may interfere with this assay. ??If interference is suspected, patients shoud be retested after refraining from biotin supplements for 72 hours. Nadine ASHBY LAB BLOOD ORDERABLES Final Resu lt Performing Organization Address [facility] Co de Phone Number [facility] [address] [place] [address], * Tissue transglutaminase, IgA (12/14/2024 1:59 PM EST) Pathologist [facility] Tissue Transglutaminase Ab, IgA Quant 2 <4 unit/mL LAB CHEMISTRY METHOD 12/19/2024 12:06 PM EST [facility] Tissue Transglutaminase Ab, IgA Negative Negative LAB CHEMISTRY METHOD 12/19/2024 12:06 PM EST [facility] Blood Venous blood specimen / Unknown Venipuncture / Unknown 12/14/2024 1:59 PM EST 12/14/2024 3:59 PM EST Nadine Gautam [place] LAB BLOOD ORDERABLES Final Resu lt Performing Organization Address City/[facility]/ZIP Co de Phone Number [facility] [address] [place] [address], [place] [phone] * Hepatitis B core antibody IgM (12/14/2024 1:59 PM EST) Hep B Core IgM Negative Negative LAB CHEMISTRY METHOD 12/14/2024 8:44 PM EST [facility] Blood Venous blood specimen / Unknown Venipuncture / Unknown 12/14/2024 1:59 PM EST 12/14/2024 3:59 PM EST Narrative [facility] - 12/14/2024 8:44 PM EST Over the counter supplements containing high doses of biotin may interfere with this assay. ??If interference is suspected, patients shoud be retested after refraining from biotin supplements for 72 hours. Nadine Gautam [place] LAB BLOOD ORDERABLES Final Resu lt Performing Organization Address [facility] Co de Phone Number [facility] [address] [place] [address], [place] [phone] * Antimitochondrial antibody (12/14/2024 1:59 PM EST) Mitochondrial Antibody Quantitative 5.3 <=20.0 units LAB CHEMISTRY METHOD 12/19/2024 11:56 AM EST [facility] Mitochondrial Antibody Qualitative Negative Negative LAB CHEMISTRY METHOD 12/19/2024 11:56 AM EST [facility] Blood Venous blood specimen / Unknown Venipuncture / Unknown 12/14/2024 1:59 PM EST 12/14/2024 3:59 PM EST Nadine Gautam [place] LAB BLOOD ORDERABLES Final Resu lt Performing Organization Address City/[facility]/ZIP Co de Phone Number [facility] [address] [place] [address], [place] [phone] * Hepatitis B surface antibody (12/14/2024 1:59 PM EST) [facility] Hepatitis B Surface Ab Negative Negative LAB CHEMISTRY METHOD 12/14/2024 8:05 PM EST [facility] Hepatitis B Surface Ab Quantitative 7.8 mIU/mL LAB CHEMISTRY METHOD 12/14/2024 8:05 PM EST [facility] Blood Venous blood specimen / Unknown Venipuncture / Unknown 12/14/2024 1:59 PM EST 12/14/2024 3:59 PM EST Narrative [facility] - 12/14/2024 8:05 PM EST >=10 mIU/mL is considered to be consistent with immunity. Nadine ASHBY LAB BLOOD ORDERABLES Final Resu lt Performing Organization Address [facility]/ZIP Co de Phone Number [facility] [address] [place] [address], [place] [phone] * (ABNORMAL) Thyroid stimulating hormone (12/14/2024 1:59 PM EST) [facility] TSH 5.37(H) 0.40 - 4.00 mcIU/mL LAB CHEMISTRY METHOD 12/17/2024 9:27 AM EST [facility] Blood Venous blood specimen / Unknown Venipuncture / Unknown 12/14/2024 1:59 PM EST 12/14/2024 3:59 PM EST Nadine ASHBY LAB BLOOD ORDERABLES Final Resu lt Performing Organization Address City/[facility]/ZIP Co de Phone Number [facility] [address] [place] [address], [place] [phone] * Protein electrophoresis, serum (12/14/2024 1:59 PM EST) [facility] Total Protein 7.8 6.0 - 8.0 g/dL LAB CHEMISTRY METHOD 12/17/2024 12:04 PM [facility] Albumin, Serum 4.0 2.9 - 4.1 g/dL LAB CHEMISTRY METHOD 12/17/2024 12:04 PM [facility] Alpha 1 Globulin (g/dL) 0.2 0.1 - 0.5 g/dL LAB CHEMISTRY METHOD 12/17/2024 12:04 PM [facility] Alpha 2 Globulin (g/dL) 1.3 0.7 - 1.5 g/dL LAB CHEMISTRY METHOD 12/17/2024 12:04 PM [facility] Beta (g/dL) 1.2 0.7 - 1.5 g/dL LAB CHEMISTRY METHOD 12/17/2024 12:04 PM [facility] Gamma Globulin (g/dL) 1.2 0.7 - 1.9 g/dL LAB CHEMISTRY METHOD 12/17/2024 12:04 PM [facility] SPEP Interpretation Essentially normal pattern. No M-George seen. LAB CHEMISTRY METHOD 12/17/2024 12:04 PM [facility] Blood Venous blood specimen / Unknown Venipuncture / Unknown 12/14/2024 1:59 PM EST 12/14/2024 3:59 PM EST Nadine ASHBY LAB BLOOD ORDERABLES Final Resu lt [facility] [address] [place] [address], * Protein, total (12/14/2024 1:59 PM EST) Total Protein 7.8 6.0 - 8.0 g/dL LAB CHEMISTRY METHOD 12/14/2024 10:11 PM [facility] Blood Venous blood specimen / Unknown Venipuncture / Unknown 12/14/2024 1:59 PM EST 12/14/2024 3:59 PM EST Nadine Rushingner [place] LAB BLOOD ORDERABLES Final Resu lt Performing Organization Address [facility]/ZIP Co de Phone Number [facility] [address] [place] [address], [place] [phone] * GGT (12/14/2024 1:59 PM EST) [facility] GGT 49 7 - 64 unit/L LAB CHEMISTRY METHOD 12/14/2024 8:04 PM EST [facility] Blood Venous blood specimen / Unknown Venipuncture / Unknown 12/14/2024 1:59 PM EST 12/14/2024 3:59 PM EST Nadine Gautam [place] LAB BLOOD ORDERABLES Final Resu lt Performing Organization Address [facility] de Phone Number [facility] [address] [place] [address], [place] [phone] * (ABNORMAL) Ferritin (12/14/2024 1:59 PM EST) [facility] Ferritin 1,013(H) 26 - 388 ng/mL LAB CHEMISTRY METHOD 12/14/2024 8:15 PM EST [facility] Blood Venous blood specimen / Unknown Venipuncture / Unknown 12/14/2024 1:59 PM EST 12/14/2024 3:59 PM EST [facility] LAB BLOOD ORDERABLES Final Resu lt Performing Organization Address [facility]/ZIP Co de Phone Number [facility] [address] [place] [address], [place] [phone] * (ABNORMAL) Hepatic function panel (12/14/2024 1:59 PM EST) [facility] Total Protein 7.8 6.0 - 8.0 g/dL LAB CHEMISTRY METHOD 12/14/2024 8:14 PM [facility] Albumin 4.4 3.2 - 5.0 g/dL LAB CHEMISTRY METHOD 12/14/2024 8:14 PM [facility] Total Bilirubin 1.1 0.0 - 1.4 mg/dL LAB CHEMISTRY METHOD 12/14/2024 8:14 PM [facility] Bilirubin, Direct 0.3 0.0 - 0.3 mg/dL LAB CHEMISTRY METHOD 12/14/2024 8:14 PM [facility] Bilirubin, Indirect 0.8 0.0 - 1.1 mg/dL LAB CHEMISTRY METHOD 12/14/2024 8:14 PM [facility] ALT (SGPT) 111(H) 10 - 60 unit/L LAB CHEMISTRY METHOD 12/14/2024 8:14 PM [facility] AST (SGOT) 64(H) 10 - 42 unit/L LAB CHEMISTRY METHOD 12/14/2024 8:14 PM [facility] Alkaline Phosphatase 66 42 - 121 unit/L LAB CHEMISTRY METHOD 12/14/2024 8:14 PM [facility] Blood Venous blood specimen / Unknown Venipuncture / Unknown 12/14/2024 1:59 PM EST 12/14/2024 3:59 PM EST us Nadine ASHBY LAB BLOOD ORDERABLES Final Resu lt [facility] [address] [place] [address], * Prostate specific antigen screen (10/25/2024 12:47 PM EST) PSA 1.87 0.00 - 4.00 ng/mL LAB CHEMISTRY METHOD 10/25/2024 4:59 PM EST [facility] Blood Venous blood specimen / Unknown Venipuncture / Unknown 10/25/2024 12:47 PM EST 10/25/2024 12:47 PM EST Narrative [facility] - 10/25/2024 4:59 PM EST The Siemens Advia Centaur Chemiluminescent Immunoassay is used. Results obtained with different assay methods or kits cannot be used interchangeably. Results cannot be interpreted as absolute evidence of the presence or absence of malignant disease. Patricia ASHBY LAB BLOOD ORDERABLES Final Re sult [facility] [address] [place] [address], [place] [phone] * Lipid panel with reflex to direct LDL (10/25/2024 12:47 PM EST) Cholesterol 124 0 - 200 mg/dL LAB CHEMISTRY METHOD 10/25/2024 4:50 PM EST [facility] Triglycerides 88 0 - 150 mg/dL LAB CHEMISTRY METHOD 10/25/2024 4:50 PM EST [facility] HDL 47 >=40 mg/dL LAB CHEMISTRY METHOD 10/25/2024 4:50 PM EST [facility] LDL Calculated 59 0 - 100 mg/dL LAB CHEMISTRY METHOD 10/25/2024 4:50 PM EST [facility] VLDL Cholesterol Damian 17.6 mg/dL LAB CHEMISTRY METHOD 10/25/2024 4:50 PM EST [facility] Non HDL Chol. (LDL+VLDL) 77 <145 mg/dL LAB CHEMISTRY METHOD 10/25/2024 4:50 PM EST [facility] Chol/HDL Ratio 2.6 0.0 - 4.4 LAB CHEMISTRY METHOD 10/25/2024 4:50 PM [facility] Blood Venous blood specimen / Unknown Venipuncture / Unknown 10/25/2024 12:47 PM EST 10/25/2024 12:47 PM EST us Patricia ASHBY LAB BLOOD ORDERABLES Final Re sult Performing Organization Address [facility]/ZIP Co de Phone Number [facility] [address] [place] [address], [place] [phone] * (ABNORMAL) Microalbumin creatinine urine ratio (10/25/2024 12:47 PM EST) Creatinine, Urine 371.0 mg/dL LAB CHEMISTRY METHOD 10/25/2024 3:52 PM EST [facility] Microalb, Ur 35.4(H) 0.0 - 29.0 mg/L LAB CHEMISTRY METHOD 10/25/2024 3:52 PM EST [facility] Microalb/Crea t Ratio 10 <30 mg/g creat LAB CHEMISTRY METHOD 10/25/2024 3:52 PM EST [facility] Urine Urine specimen from urethra / Unknown Non-blood Collection / Unknown 10/25/2024 12:47 PM EST 10/25/2024 12:47 PM EST us Patricia ASHBY LAB URINE ORDERABLES Final Re sult Performing Organization Address [facility] de Phone Number [facility] [address] [place] [address], [place] [phone] * Hemoglobin A1c (10/25/2024 12:47 PM EST) Hemoglobin A1C 5.9 <6.5 % LAB CHEMISTRY METHOD 10/25/2024 8:13 PM EST [facility] Mean Bld Glu Estim. 123 mg/dL LAB CHEMISTRY METHOD 10/25/2024 8:13 PM EST [facility] Blood Venous blood specimen / Unknown Venipuncture / Unknown 10/25/2024 12:47 PM EST 10/25/2024 12:47 PM EST us Patricia ASHBY LAB BLOOD ORDERABLES Final Re sult Performing Organization Address [facility]/ZIP Co de Phone Number [facility] [address] [place] [address], [place] [phone] * (ABNORMAL) Comprehensive metabolic panel (10/25/2024 12:47 PM EST) Sodium 136 133 - 145 mmol/L LAB CHEMISTRY METHOD 10/25/2024 4:50 PM [facility] Potassium 3.9 3.5 - 5.5 mmol/L LAB CHEMISTRY METHOD 10/25/2024 4:50 PM [facility] Chloride 101 96 - 110 mmol/L LAB CHEMISTRY METHOD 10/25/2024 4:50 PM [facility] CO2 28 21 - 32 mmol/L LAB CHEMISTRY METHOD 10/25/2024 4:50 PM [facility] Anion Gap 7 3 - 11 LAB CHEMISTRY METHOD 10/25/2024 4:50 PM [facility] Glucose 126(H) 70 - 100 mg/dL LAB CHEMISTRY METHOD 10/25/2024 4:50 PM [facility] BUN 17 5 - 25 mg/dL LAB CHEMISTRY METHOD 10/25/2024 4:50 PM [facility] Creatinine 1.24 0.70 - 1.30 mg/dL LAB CHEMISTRY METHOD 10/25/2024 4:50 PM [facility] eGFR 62 >=60 mL/min/1. 73m2 LAB CHEMISTRY METHOD 10/25/2024 4:50 PM [facility] Comment:Calculation based on the??Chronic Kidney Disease Epidemiology Collaboration (CKD-EPI) equation refit??without adjustment for race. BUN/Creatinine Ratio 13.7 LAB CHEMISTRY METHOD 10/25/2024 4:50 PM [facility] Calcium 9.7 8.5 - 10.5 mg/dL LAB CHEMISTRY METHOD 10/25/2024 4:50 PM [facility] AST (SGOT) 55(H) 10 - 42 unit/L LAB CHEMISTRY METHOD 10/25/2024 4:50 PM [facility] [facility] ALT (SGPT) 87(H) 10 - 60 unit/L LAB CHEMISTRY METHOD 10/25/2024 4:50 PM [facility] Alkaline Phosphatase 61 42 - 121 unit/L LAB CHEMISTRY METHOD 10/25/2024 4:50 PM [facility] Total Protein 7.7 6.0 - 8.0 g/dL LAB CHEMISTRY METHOD 10/25/2024 4:50 PM [facility] Albumin 4.3 3.2 - 5.0 g/dL LAB CHEMISTRY METHOD 10/25/2024 4:50 PM [facility] Total Bilirubin 1.2 0.0 - 1.4 mg/dL LAB CHEMISTRY METHOD 10/25/2024 4:50 PM [facility] Blood Venous blood specimen / Unknown Venipuncture / Unknown 10/25/2024 12:47 PM EST 10/25/2024 12:47 PM EST us Patricia ASHBY LAB BLOOD ORDERABLES Final Re sult [facility] [address] [place] [address], from Last 3 Months Insurance [employer] MED[employer]ARE [employer]VANTAGE Care Teams [employer] Relationship Specialty Start Date End Date Antonoi Castellanos MD [address] [place] [address] PCP - General Internal Medicine 12/19/24
--- OUTSIDE RECORDS SUMMARY | 2025-01-16 10:49 | XMS_ITS | Encounter Summary ---
Author Organization [employer] [address] Care Team Providers Care Nut Grinder Name Role Phone Antonio Castellanos MD Primary Care Provider [phone] Reason for Visit * Reason Onset Date Comments rescheduling 01/04/2025 Encounter Details Date Type Department Care Team (Late st Contact Info) Description 01/04/2025 Telephone Gastroenterology - [address] [place] [address] Lisa Thao MA rescheduling Social History Tobacco Use Types Packs/Day Years [...] for your loved ones. For example, child guidance counselor or elderly care for an older [...] as of this encounter Progress Notes * Lisa Thao MA - 01/04/2025 2:25 PM EST R/s colon from 01/29/25 to 02/12/25 @ 9:30am pvsc slitkzy documented in this encounter Plan of Treatment Upcoming Encounters Date Type Department Care Team (Late st Contact Info) Description 03/20/2025 2:30 PM EDT Office Visit Adult Medicine [address] [phone] Thomas King PA [address] [place] [address] documented as of this encounter Visit Diagnoses [...] documented as of this encounter Care Teams Nut Grinder Relationship Specialty Start Date End Date Antonio Castellanos MD [address] [place] [phone] PCP - General Internal Medicine 12/19/24 documented as of this encounter
--- OUTSIDE RECORDS SUMMARY | 2025-01-16 10:49 | XMS_ITS | Encounter Summary ---
Author Organization [place] [address] Care Team Providers Care Branch Director Name Role Phone Antonio Castellanos MD Primary Care Provider [phone] Encounter Details Date Type Department Care Team (Late st Contact Info) Description 01/14/2025 Telephone Gastroenterology - [address] [place] [address] [place], [place] Social History Tobacco Use Types Packs/Day Years [...] Notes * Elise Sidhu MA - 01/14/2025 10:50 AM EST ----- Message from ISMA Arguelles sent at 01/11/2025 4:17 PM EST ----- Liver ultrasound looks good. Stable, unchanged 10mm lesion on liver. Phlebotomy as planned follow up as scheduled. documented in this encounter Plan of Treatment Upcoming Encounters Date Type Department Care Team (Late st Contact Info) Description 03/20/2025 2:30 PM EDT Office Visit Adult Medicine [facility] [address] [place] [phone] Thomas King PA [address] [place] [address] documented as of this encounter Visit Diagnoses Not on filedocumented in this encounter Additional Health Concerns Assessment Noted Time PHQ-9 Depression Total Score: 0 10/25/20 11:55 AM EST A fall risk assessment has been complete d for the patient 10/25/2024 11:56 AM EST documented as of this encounter Care Teams Branch Director Relationship Specialty Start Date End Date Antonio Castellanos MD [address] [place] [phone] PCP - General Internal Medicine 12/19/24 documented as of this encounter
--- OUTSIDE RECORDS SUMMARY | 2025-01-16 10:49 | XMS_ITS | Encounter Summary ---
Author Organization [employer] [address] Care Team Providers Care It Service Delivery Manager Name Role Phone Antonio Castellanos MD Primary Care Provider [phone] Encounter Details Date Type Department Care Team (Late st Contact Info) Description 12/19/2024 Telephone Gastroenterology - [address] [place] [phone] Nadine Gautam PA [address] [place], [place] [phone] Social History Tobacco Use Types Packs/Day Years [...] for your loved ones. For example, child care lead teacher or elderly care for an older adult? [...] as of this encounter Progress Notes * ISMA Cordero - 12/20/2024 4:12 PM EST Spoke with Coco, she informed me she has spoke with cresencio regarding this patient and does not require any more information. * Danay Short MA - 12/19/2024 1:56 PM EST [facility] DEPT.COCO UGALDE [phone] HAS QUESTIONS RE: HEP A DIAGNOSIS. documented in this encounter Plan of Treatment Upcoming Encounters Date Type Department Care Team (Late st Contact Info) Description 03/20/2025 2:30 PM EDT Office Visit Adult Medicine [address] [phone] Thomas King PA [address] [place] [address] documented as of this encounter Visit Diagnoses [...] documented as of this encounter Care Teams It Service Delivery Manager Relationship Specialty Start Date End Date Antonio Castellanos MD [address] [place] [address] PCP - General Internal Medicine 12/19/24 documented as of this encounter
--- OUTSIDE RECORDS SUMMARY | 2025-01-16 10:49 | XMS_ITS | Encounter Summary ---
Author Organization [place] [address] Care Team Providers Care Planograph Operator Name Role Phone Antonio Castellanos MD Primary Care Provider [phone] Encounter Details Date Type Department Care Team (Late st Contact Info) Description 12/17/2024 Telephone Gastroenterology - [address] [place] [phone] Eve Gautam PA [address] [place], [place] [phone] Social History Tobacco Use Types Packs/Day Years [...] for your loved ones. For example, children's service worker or elderly care for an older [...] encounter Progress Notes * ISMA Cordero - 12/17/2024 12:01 PM ESTAddended by: EVE GAUTAM on: 12/17/2024 12:01 PM Modules accepted: Orders * ISMA Cordero - 12/17/2024 11:52 AM EST Spoke with patient regarding lab work. Suspicious for hemachromatosis, will order genetic testing for this disease. Reviewed positive Hep A results, patient is asymptomatic. Likely positive from previous infection. Will call once remainder of labwork comes in. Reviewed hemachromatosis workup and treatment if positive. U/S ordered, patient has not received scheduling call yet. F/u via phone once labs result. Recommend alcohol cessation, discussed at office visit. * Danay Short MA - 12/17/2024 9:26 AM EST Pt returned your missed call * ISMA Cordero - 12/17/2024 9:12 AM EST Called patient on mobile phone, left message to call back and discuss bloodwork results. Would liketo order additional testing, will put in orders please call to discuss. documented in this encounter Plan of Treatment Upcoming Encounters Date Type Department Care Team (Late st Contact Info) Description 03/20/2025 2:30 PM EDT Office Visit Adult Medicine [address] [phone] Thomas King PA [address] [place] [address] documented as of this encounter Results * Thyroxine total (12/20/2024 2:26 PM EST) T4, Total 6.6 4.5 - 10.9 mcg/dL LAB CHEMISTRY METHOD 12/20/2024 5:05 PM EST [facility] Blood Venous blood specimen / Unknown Venipuncture / Unknown 12/20/2024 2:26 PM EST 12/20/2024 4:11 PM EST Eve Gautam [place] LAB BLOOD ORDERABLES Final Resu lt Performing Organization Address City/[facility]/ZIP Co de Phone Number [facility] [address] [place] [address], [place] [phone] * Triiodothyronine free (12/20/2024 2:26 PM EST) [facility] T3, Free [phone] - 420 pcg/dL LAB CHEMISTRY METHOD 12/20/2024 5:00 PM EST [facility] Blood Venous blood specimen / Unknown Venipuncture / Unknown 12/20/2024 2:26 PM EST 12/20/2024 4:11 PM EST [facility] BLOOD ORDERABLES Final Resu lt Performing Organization Address [facility] Co de Phone Number [facility] [address] [place] [address], [place] [phone] * Hemochromatosis mutation (12/20/2024 2:26 PM EST) [facility] Hereditary Hemochromatosis See Below 01/01/2025 1:37 PM [...] submitted clinical information reviewed by Ernie Torres, Ph.D.,[facility]. DETAILED ASSAY INFORMATION: Hereditary hemochromatosis (HH) is [...] variants in the HFE gene, C282Y (NM 633381.2: c.845G>A, p.[id number]) and H63D (NM 730679.2: c.187C>G, p.[id number]), that are commonly associated with HH. These [...] Health care providers, please contact your local [employer]' genetic counselor or call [phone] ( ) for assistance with the interpretation of these results. This test was developed and its analytical performance characteristics have been determined by [employer] [facility]. It has not been cleared or approved by FDA. This assay has been validated pursuant to the CLIA regulations and is used for clinical purposes. For more information, please refer to http://education.[employer].com/faq/hemochromatosis. (This link is being provided for informational/educational purposes only.) A portion of the testing was performed at [facility]. Reviewed and signed by Laboratory results and submitted clinical information reviewed by Ernie Torres, Ph.D.,[facility], Signed on 01/01/2025 at 09:10 Test Performed at: [employer] [address] ??[phone] ? I Rachel SOLIMAN, PhD, SARAH Blood Venous blood specimen / Unknown Venipuncture / Unknown 12/20/2024 2:26 PM EST 12/20/2024 4:12 PM EST us Eve ASHBY LAB MOLECULAR DIAGNOSTICS ORDER GANESH Final Result [facility] [address] [place] [address] documented in this encounter Visit Diagnoses Diagnosis Transaminitis- Primary Nonspecific elevation of levels of transaminase or lactic acid dehydrogenase (LDH) Elevated TSH Other abnormal blood chemistry Abnormal results of thyroid function studies Nonspecific abnormal results of thyroid function study documented in this encounter Additional Health Concerns Infection Onset Date Last Indicated Resolved Time Hepatitis A 12/14/2024 12/14/2024 01/07/2025 7:04 PM EST Assessment Noted Time PHQ-9 Depression Total Score: 0 10/25/20 11:55 AM EST A fall risk assessment has been complete d for the patient 10/25/2024 11:56 AM EST documented as of this encounter Care Teams Planograph Operator Relationship Specialty Start Date End Date Antonio Castellanos MD [address] [place] [phone] PCP - General Internal Medicine 05/30/20 12/18/24 documented as of this encounter
--- OUTSIDE RECORDS SUMMARY | 2025-01-16 10:50 | XMS_ITS | Encounter Summary ---
Author Organization [email or web address] [address] Care Team Providers Care Mixed Crop And Livestock Farm Worker Name Role Phone Antonio Catsellanos MD Primary Care Provider [phone] Encounter Details Date Type Department Care Team (Late st Contact Info) Description 12/20/2024 2:20 PM EST Lab Draw Station - [address] [address] Transaminitis; Elevated TSH; Abnormal results of thyroid function studies Social History Tobacco Use Types Packs/Day Years [...] care for your loved ones. For example, childbirth educator or elderly care for an older adult? [...] AM EST documented as of this encounter Plan of Treatment Upcoming Encounters Date Type Department Care Team (Late st Contact Info) Description 03/20/2025 2:30 PM EDT Office Visit Adult Medicine [address] [phone] Thomas King PA [address] [place] [address] documented as of this encounter Procedures Procedure Name Priority Date/Time Associated Diagnosis Comments HEMOCHROMATOSIS MUTATION Routine 025 2:26 PM EST Transaminitis SMOOTH MUSCLE ANTIBODY IGG Routine 12/20/2024 2:26 PM EST Transaminitis CERULOPLASMIN Routine 12/20/2024 2:26 PM EST Transaminitis TRIIODOTHYRONINE FREE Routine 12/20/2024 2:26 PM EST Elevated TSH THYROXINE TOTAL Routine 12/20/2024 2:26 PM EST Elevated TSH Abnormal results of thyroid function studies documented in this encounter Results * Thyroxine total (12/20/2024 2:26 PM EST) T4, Total 6.6 4.5 - 10.9 mcg/dL LAB CHEMISTRY METHOD 12/20/2024 5:05 PM EST [facility] Blood Venous blood specimen / Unknown Venipuncture / Unknown 12/20/2024 2:26 PM EST 12/20/2024 4:11 PM EST Nadine ASHBY LAB BLOOD ORDERABLES Final Resu lt Performing Organization Address [facility]/State/ZIP Co de Phone Number [facility] [address] [place] [address], [place] [phone] * Triiodothyronine free (12/20/2024 2:26 PM EST) T3, Free 310 230 - 420 pcg/dL LAB CHEMISTRY METHOD 12/20/2024 5:00 PM EST [facility] Blood Venous blood specimen / Unknown Venipuncture / Unknown 12/20/2024 2:26 PM EST 12/20/2024 4:11 PM EST Naidne Gautam [place] LAB BLOOD ORDERABLES Final Resu lt [facility]LECT [facility] [address] [place] [address], * Hemochromatosis mutation (12/20/2024 2:26 PM EST) [facility] Hereditary Hemochromatosis See Below 01/01/2025 1:37 PM [...] submitted clinical information reviewed by Ernie Torres, Ph.D.,[facility]. DETAILED ASSAY INFORMATION: Hereditary hemochromatosis (HH) is [...] variants in the HFE gene, C282Y (NM 892928.2: c.845G>A, p.[id number]) and H63D (NM 866425.2: c.187C>G, p.[id number]), that are commonly associated with HH. These [...] Health care providers, please contact your local [employer]' genetic counselor or call [phone] ( ) for assistance with the interpretation of these results. This test was developed and its analytical performance characteristics have been determined by [employer] [facility]. It has not been cleared or approved by FDA. This assay has been validated pursuant to the CLIA regulations and is used for clinical purposes. For more information, please refer to http://education.[employer]/faq/hemochromatosis. (This link is being provided for informational/educational purposes only.) A portion of the testing was performed at [facility]. Reviewed and signed by Laboratory results and submitted clinical information reviewed by Ernie Torres, Ph.D.,[facility], Signed on 01/01/2025 at 09:10 Test Performed at: [employer] [address] ??[phone] ? I Rachel SOLIMAN, PhD, SARAH Blood Venous blood specimen / Unknown Venipuncture / Unknown 12/20/2024 2:26 PM EST 12/20/2024 4:12 PM EST Nadine ASHBY LAB MOLECULAR DIAGNOSTICS ORDER GANESH Final Result [facility] [address] [place] [address] * Smooth muscle antibody IgG (12/20/2024 2:26 PM EST) Smooth Muscle (F-Actin) IgG Ab 8 <20 UNITS 12/24/2024 1:28 PM EST [facility] Comment: Interpretation: Negative Test performed at [facility], [address], [place], [place] ??[address] ? [phone] Olivia Douglass MD, PhD - Coin Machine Operator Blood Venous blood specimen / Unknown Venipuncture / Unknown 12/20/2024 2:26 PM EST 12/20/2024 4:11 PM EST us Nadine Gautam PA LAB BLOOD ORDERABLES Final Resu lt Performing Organization Address [facility]/ZIP Co de Phone Number [facility] [address] [place] [address] * Ceruloplasmin (12/20/2024 2:26 PM EST) Ceruloplasmin 29 20 - 60 mg/dL 12/24/2024 3:30 AM EST [facility] Comment: Test performed at [facility], [address] [place], [place] ??[address] ? [phone] Olivia Douglass MD, PhD - Coin Machine Operator Blood Venous blood specimen / Unknown Venipuncture / Unknown 12/20/2024 2:26 PM EST 12/20/2024 4:11 PM EST us Nadine Gautam PA LAB BLOOD ORDERABLES Final Resu lt Performing Organization Address [facility]/ZIP Co de Phone Number [facility] [address] [place] [address] documented in this encounter Visit Diagnoses Diagnosis Transaminitis Nonspecific elevation of levels of transaminase or [...] documented as of this encounter Care Teams Mixed Crop And Livestock Farm Worker Relationship Specialty Start Date End Date Antonio Castellanos MD [address] [place] [address] PCP - General Internal Medicine 12/19/24 documented as of this encounter
--- OUTSIDE RECORDS SUMMARY | 2025-01-16 10:50 | XMS_ITS | Encounter Summary ---
Author Organization [employer] Address [address] [place] [address] Care Team Providers Care Pantry Goods Worker Name Role Phone Antonio Castellanos MD Primary Care Provider [phone] Reason for Visit * Reason Comments med review Encounter Details Date Type Department Care Team (Late st Contact Info) Description 12/20/2024 1:30 PM EST Office Visit Adult Medicine [address] [phone] Thomas King PA [address] [place] [address] Essential hypertension, benign (Primary Dx); CKD (chronic kidney disease) stage 2, GFR 60-89 ml/min Social History Tobacco Use Types Packs/Day Years [...] care for your loved ones. For example, childcare aide or elderly care for an older adult? [...] AM EST documented as of this encounter Last Filed Vital Signs Vital Sign Reading Time Taken Comments Blood Pressure 126/82 12/20/2024 1:55 PM EST Pulse 68 12/20/2024 1:28 PM EST Temperature 36.1 ??C (97 ??F) 12/20/2024 1:28 PM EST Respiratory Rate - - Oxygen Saturation 98% 12/20/2024 1:28 PM EST Inhaled Oxygen Concentration - - Weight 97.1 kg (214 lb) 12/20/2024 1:28 PM EST Height 180.3 cm (5' 10.98 ) 12/20/2024 1:[address] Body Mass Index 29.86 12/20/2024 1:28 PM EST documented in this encounter Ordered Prescriptions Prescription Sig Dispense Quantity Refills Last Filled Start Date End Date lisinopriL (PRINIVIL,ZESTRIL) 20 mg tablet Take 1 tablet (20 mg total) by mouth 1 (one) time each day. 90 each 1 12/20/2024 hydroCHLOROthiazide (HYDRODIURIL) 25 mg tablet Take 1 tablet (25 mg total) by mouth 1 (one) time each day. 90 tablet 1 12/20/2024 metoprolol tartrate (LOPRESSOR) 50 mg tablet Take 1 tablet (50 mg total) by mouth 1 (one) time each day. 90 tablet 1 12/20/2024 documented in this encounter Progress Notes * ISMA Esteves - 12/20/2024 1:30 PM EST CHIEF COMPLAINT: med review IDENTIFIER: Desean Celeste is a 74 y.o. old male. HPI: Patient is a 74-year-old male with history of hypertension, hyperlipidemia and diabetes who presents to the office today for blood pressure follow up. This is my first visit with this patient, PCP isDr. Castellanos. Patient was seen by colleague 10/25/2024 and 11/08/2024 during which blood pressure was elevated. He was started on lisinopril 10 mg which was later increased to 20 mg in addition to hydrochlorothiazide 25 mg daily and metoprolol 50 mg daily. Today blood pressure is initially 120/80 with repeat at the end of visit 126/82. He endorses compliance with antihypertensives, denies adverse effects. He further denies chest pain, palpitations, dizziness, lightheadedness or headaches. ROS: GENERAL: No malaise, significant weight loss or fever RESPIRATORY: No cough, wheezing or shortness of breath CARDIOVASCULAR: No chest pain, leg swelling or palpitations NEURO: No persistent headache, syncope, seizures, weakness or numbness PAST MEDICAL HISTORY: Patient Active Problem List Diagnosis Date Noted Microalbuminuria 10/25/2024 CKD (chronic kidney disease) stage 2, GFR 60-89 ml/min 08/23/2023 Obesity (BMI 30.0-34.9) 08/23/2023 Clear cell carcinoma of kidney (CMS/HCC) 08/10/2023 Cholelithiasis 07/31/2020 Hepatic steatosis 07/31/2020 Hyperlipidemia 07/31/2020 Colonic polyp 09/08/2014 Elevated ferritin 09/08/2014 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 KNEE SURGERY Right 1982 PROCEDURE: HISTORICAL KNEE SURGERY; COMMENT: scope r knee SOCIAL HISTORY: Social History Tobacco Use Smoking status: Never Smokeless tobacco: Never Substance Use Topics Alcohol use: Yes Alcohol/week: 8.0 standard drinks of alcohol Types: 8 Cans of beer per week Comment: tues and thurs only, about 4 beers/day when drinking FAMILY HISTORY: Family History Problem Relation Name Age of Onset Diabetes Mother Pancreatic cancer Father Stroke Brother Asthma Son Colon cancer Neg Hx Family Status Relation Name Status Mother at age 92 Father at age 69 Brother Brother Alive Brother Alive Brother Alive Brother Alive Daughter Alive Son Alive MGM MGF PGM PGF Neg Hx (Not Specified) No partnership data on file MEDICATIONS DISCONTINUED/REORDERED: Medications Discontinued During This Encounter Medication Reason lisinopriL (PRINIVIL,ZESTRIL) 10 mg tablet metoprolol tartrate (LOPRESSOR) 50 mg tablet Reorder hydroCHLOROthiazide (HYDRODIURIL) 25 mg tablet Reorder ACTIVE MEDICATIONS: Outpatient Medications Marked as Taking for the 12/20/24 encounter (Office Visit) with ISMA Esteves Medication Sig Dispense Refill hydroCHLOROthiazide (HYDRODIURIL) 25 mg tablet Take 1 tablet (25 mg total) by mouth 1 (one) time each day. 90 tablet 1 metoprolol tartrate (LOPRESSOR) 50 mg tablet Take 1 tablet (50 mg total) by mouth 1 (one) time eachday. 90 tablet 1 [DISCONTINUED] hydroCHLOROthiazide (HYDRODIURIL) 25 mg tablet Take 1 tablet (25 mg total) by mouth 1 (one) time each day. 90 tablet 1 [DISCONTINUED] lisinopriL (PRINIVIL,ZESTRIL) 10 mg tablet Take 2 tablets (20 mg total) by mouth at bedtime. [DISCONTINUED] metoprolol tartrate (LOPRESSOR) 50 mg tablet Take 1 tablet (50 mg total) by mouth 1 (one) time each day. 90 tablet 0 ALLERGIES: Allergies Allergen Reactions Amlodipine Bilateral leg swelling PHYSICAL EXAM: Visit Vitals BP 126/82 Pulse 68 Temp 36.1 ??C (97 ??F) (Temporal) Ht 1.803 m (70.98 ) Wt 97.1 kg (214 lb) SpO2 98% BMI 29.86 kg/m?? Smoking Status Never BSA 2.17 m?? APPEARANCE: Alert and in no acute distress HEART: RRR with normal S1 and S2, no murmurs, no gallops LUNG: clear to auscultation, no wheezing, rales, or rhonchi. Able to talk in full complete sentences NEURO: Awake, alert and oriented x 3. No focal neurological deficits LABS: Lab Results Component Value Date NA 136 10/25/2024 K 3.9 10/25/2024 CL 101 10/25/2024 CO2 28 10/25/2024 GLUCOSE 126 (H) 10/25/2024 BUN 17 10/25/2024 CREATININE 1.24 10/25/2024 CALCIUM 9.7 10/25/2024 PROT 7.8 12/14/2024 PROT 7.8 12/14/2024 PROT 7.8 12/14/2024 ALBUMIN 4.4 12/14/2024 BILITOT 1.1 12/14/2024 BILITOT 1.1 12/14/2024 AST 64 (H) 12/14/2024 AST 64 (H) 12/14/2024 ALT 111 (H) 12/14/2024 ALT 111 (H) 12/14/2024 ALKPHOS 66 12/14/2024 EGFR 62 10/25/2024 IMPRESSION: 1. Essential hypertension, benign 2. CKD (chronic kidney disease) stage 2, GFR 60-89 ml/min PLAN: Patient presents for blood pressure follow up. BP today is at goal. Continue lisinopril 20 mg daily, hydrochlorothiazide 25 mg daily and metoprolol 50 mg daily. Advised patient to monitor BP and contact office for low readings or if he develops dizziness/lightheadedness. Most recent renal function stable. Follow up in 3 months for routine care/medication review. All questions and concerns were addressed. Desean Celeste verbalizes understanding and agrees with this treatment plan. Patient was reminded to call or return to the office if any new or existing problemsarise. No orders of the defined types were placed in this encounter. None ISMA Esteves on 12/20/2024 at 1:58 PM EST Today's documentation was made using voice recognition software.This note may contain grammatical errors secondary to this software. documented in this encounter Plan of Treatment Upcoming Encounters Date Type Department Care Team (Late st Contact Info) Description 03/20/2025 2:30 PM EDT Office Visit Adult Medicine [address] [phone] Thomas King PA [address] [place] [address] documented as of this encounter Visit Diagnoses Diagnosis Essential hypertension, benign- Primary CKD (chronic kidney disease) stage 2, GFR 60-89 ml/min Chronic kidney disease, Stage II (mild) documented in this encounter Discontinued Medications Medication Sig Discontinue Reason Start Date End Da te lisinopriL (PRINIVIL,ZESTRIL) 10 mg tablet Take 2 tablets (20 mg total) by mouth at bedtime. 11/08/2024 12/20/2024 metoprolol tartrate (LOPRESSOR) 50 mg tablet Take 1 tablet (50 mg total) by mouth 1 (one) time each day. Reorder 10/25/2024 12/20/2024 hydroCHLOROthiazide (HYDRODIURIL) 25 mg tablet Take 1 tablet (25 mg total) by mouth 1 (one) time each day. Reorder 11/08/2024 12/20/2024 documented as of this encounter Additional Health Concerns Infection Onset Date Last Indicated Resolved Time Hepatitis A 12/14/2024 12/14/2024 01/07/2025 7:04 PM EST Assessment Noted Time PHQ-9 Depression Total Score: 0 10/25/20 11:55 AM EST A fall risk assessment has been complete d for the patient 10/25/2024 11:56 AM EST documented as of this encounter Care Teams Pantry Goods Worker Relationship Specialty Start Date End Date Antonio Castellanos MD [address] [place] [address] PCP - General Internal Medicine 12/19/24 documented as of this encounter
--- OUTSIDE RECORDS SUMMARY | 2025-01-16 10:50 | XMS_ITS | Encounter Summary ---
Author Organization [facility] Address [address] [place] [address] Care Team Providers Care Flyer Maker Name Role Phone Antonio Castellanos MD Primary Care Provider [phone] Reason for Referral * Imaging (Routine) - Closed Specialty Diagnoses / Procedures Referred By Contac t Referred To Contact Radiology Diagnoses Transaminitis Procedures US Abdomen Limited Nadine Gautam PA [address] [address] Phone: tel: fax: [address] [address] Phone: tel: Referral ID Status Reason Start Date Expiration Date Visits Re quested Visits Authorized [id number] Closed 12/14/2024 12/14/2025 1 1 Reason for Visit * Imaging (Routine) - Closed Specialty Diagnoses / Procedures Referred By Contac t Referred To Contact Radiology Diagnoses Transaminitis Procedures US Abdomen Limited Nadine Gautam PA [address] [address] Phone: tel: fax: [address] [address] Phone: tel: Referral ID Status Reason Start Date Expiration Date Visits Re quested Visits Authorized [id number] Closed 12/14/2024 12/14/2025 1 1 Encounter Details Date Type Department Care Team (Latest Contact Info) Description 12/28/2024 8:48 AM EST - 12/28/2024 11:59 PM [facility] Hospital Encounter [facility] Ultrasound [address] [place] [address] Transaminitis Discharge Disposition: Home or Self Care Social History Tobacco Use Types Packs/Day Years [...] care for your loved ones. For example, director child abuse therapy or elderly care for an older adult? [...] AM EST documented as of this encounter Medications at Time of Discharge atorvastatin (LIPITOR) 10 mg tablet Take 1 tablet (10 mg total) by mouth at bedtime. 90 tablet 1 11/08/2024 fluticasone propionate (FLONASE) 50 mcg/actuation nasal spray 1 [place] by Nasal route daily. 07/18/2023 hydroCHLOROthiazi de (HYDRODIURIL) 25 mg tablet Take 1 tablet (25 mg total) by mouth 1 (one) time each day. 90 tablet 1 12/20/2024 lisinopriL (PRINIVIL,ZESTRIL ) 20 mg tablet Take 1 tablet (20 mg total) by mouth 1 (one) time each day. 90 each 1 12/20/2024 metoprolol tartrate (LOPRESSOR) 50 mg tablet Take 1 tablet (50 mg total) by mouth 1 (one) time each day. 90 tablet 1 12/20/2024 omeprazole (PriLOSEC) [address] capsule Take 1 capsule (20 mg total) by mouth 1 (one) time each day. documented as of this encounter Discharge Disposition Disposition Code Departure Means Destination Home or Self Care documented in this encounter Progress Notes * ISMA Cordero - 12/28/2024 9:00 AM EST Liver ultrasound looks good. Stable, unchanged 10mm lesion on liver. Phlebotomy as planned follow up as scheduled. documented in this encounter Plan of Treatment Upcoming Encounters Date Type Department Care Team (Late st Contact Info) Description 03/20/2025 2:30 PM EDT Office Visit [facility] [address] [place] [phone] Thomas King PA [address] [place] [address] documented as of this encounter Procedures Procedure Name Priority Date/Time Associated Diagnosis Comments US ABDOMEN LIMITED Routine 12/28/2024 9: 44 AM EST Transaminitis documented in this encounter Results * US Abdomen Limited (12/28/2024 9:44 [...] Signed Date: 01/07/2025 12:16 ET Workstation ID: [id number] Transcribed By: Self Edit Transcribed Date: 01/07/2025 12:12 ET Narrative 01/07/2025 12:16 PM EST History: Transaminitis. Comparison: Abdominal ultrasound 6 12/16/22, 07/24/20 (outside studies), abdominal MRI 12/21/22 ([facility]) Findings: Real-time imaging of the abdomen, [...] 6 12/16/22, 07/24/20 (outside studies),abdominal MRI 12/21/22 ([facility]) Findings: Real-time imaging of the abdomen, [...] No enhancing hepatic lesion was identified on [id number] MRI. The portal vein is patent and [...] Signed Date: 01/07/2025 12:16 ET Workstation ID: [id number] Transcribed By: Self Edit Transcribed Date: 01/07/2025 12:12 ET us Nadine ASHBY IMG US PROCEDURES Final Result documented in this encounter Visit Diagnoses Diagnosis Transaminitis Nonspecific elevation of levels of transaminase or lactic acid dehydrogenase (LDH) documented in this encounter Additional Health Concerns Infection Onset Date Last Indicated Resolved Time Hepatitis A 12/14/2024 12/14/2024 01/07/2025 7:04 PM EST Assessment Noted Time PHQ-9 Depression Total Score: 0 10/25/20 11:55 AM EST A fall risk assessment has been complete d for the patient 10/25/2024 11:56 AM EST documented as of this encounter Care Teams Flyer Maker Relationship Specialty Start Date End Date Antonio Castellanos MD [address] [place] [address] PCP - General Internal Medicine 12/19/24 documented as of this encounter
--- OUTSIDE RECORDS SUMMARY | 2025-01-16 10:50 | XMS_ITS | Encounter Summary ---
Author Organization [employer] [place] [address] Care Team Providers Care Tower Crane Operator Name Role Phone Antonio Castellanos MD Primary Care Provider [phone] Encounter Details Date Type Department Care Team (Late st Contact Info) Description 12/31/2024 Telephone Gastroenterology - [address] [facility] [address] [place] [phone] Sin Garvin MD [address] [place] [address] Social History Tobacco Use Types Packs/Day Years [...] for your loved ones. For example, children's literature professor or elderly care for an older adult? [...] as of this encounter Progress Notes * Caity Worley - 12/31/2024 4:05 PM EST Pt called to cx 01/03/25 colon, not feeling well, please call to r/s documented in this encounter Plan of Treatment Upcoming Encounters Date Type Department Care Team (Late st Contact Info) Description 03/20/2025 2:30 PM EDT Office Visit Adult Medicine [facility] [address] [place] [phone] Thomas King PA [address] [place] [address] documented as of this encounter Visit Diagnoses [...] documented as of this encounter Care Teams Tower Crane Operator Relationship Specialty Start Date End Date Antonio Castellanos MD [address] [place] [address] PCP - General Internal Medicine 12/19/24 documented as of this encounter
--- OUTSIDE RECORDS SUMMARY | 2025-01-16 10:50 | XMS_ITS | Encounter Summary ---
Author Organization [employer] [place] [address] Care Team Providers Care Plant Protection Supervisor Name Role Phone Antonio Castellanos MD Primary Care Provider [phone] Encounter Details Date Type Department Care Team (Late st Contact Info) Description 01/14/2025 Telephone Gastroenterology - [address] [facility] [address] [place] [phone] Sin Garvin MD [address] [place] [address] Social History Tobacco Use Types Packs/Day Years [...] your loved ones. For example, child care attendant school or elderly care for an older adult? [...] Notes * Elise Sidhu MA - 01/14/2025 3:07 PM EST Refaxed all information/ please call patient to book. * Maria Elena Beckett - 01/14/2025 2:44 PM EST PT CALLED STATING THAT [facility] DO[facility]T HAVE THE ORDER FOR THE WEEKLY BLOOD DRAW. PLEASE CALL PT AFTER ORDER IS PLACED. documented in this encounter Plan of Treatment Upcoming Encounters Date Type Department Care Team (Late st Contact Info) Description 03/20/2025 2:30 PM EDT Office Visit Adult Medicine [facility] [address] [place] [phone] Thomas King PA [address] [place] [address] documented as of this encounter Visit Diagnoses Not on filedocumented in this encounter Additional Health Concerns Assessment Noted Time PHQ-9 Depression Total Score: 0 10/25/20 11:55 AM EST A fall risk assessment has been complete d for the patient 10/25/2024 11:56 AM EST documented as of this encounter Care Teams Plant Protection Supervisor Relationship Specialty Start Date End Date Antonio Castellanos MD [address] [place] [address] PCP - General Internal Medicine 12/19/24 documented as of this encounter
--- OUTSIDE RECORDS SUMMARY | 2025-01-16 10:50 | XMS_ITS | Encounter Summary ---
Author Organization [place] [address] Care Team Providers Care Belting And Webbing Inspector Name Role Phone Antonio Castellanos MD Primary Care Provider Encounter Details Date Type Department Care Team (Late st Contact Info) Description 01/01/2025 Telephone Gastroenterology - [address] [place] [phone] Nadine Gautam PA [address] [place], [place] [phone] Social History Tobacco Use Types Packs/Day Years [...] care for your loved ones. 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 Reviewedthis diagnosis in depth, likely cause of elevated LFTs and iron levels. Please discuss these results with descendents as well as it is genetic. Treatment is phlebotomy with goal to reduce iron stores. This will manage symptoms, preventing complications like liver damage and heart disease. Plan: Phlebotomy weekly x 1 month Hold if hemoglobin less than 12 Will see patient after 1 month to recheck labs and likely decrease to every other week until ferritin at/around 50. We discussed after reaching the desired iron reduction, the patient will enter maintenance phase, where iron levels are kept within the normal range to prevent re-accumulation. Frequency of phlebotomy is typically performed every 2-3 months in this phase. Without phlebotomy, iron levels will re-accumulate. documented in this encounter Plan of Treatment Upcoming Encounters Date Type Department Care Team (Late st Contact Info) Description 03/20/2025 2:30 PM EDT Office Visit Adult Medicine [address] [phone] Thomas King PA [address] [place] [address] documented as of this encounter Visit Diagnoses [...] documented as of this encounter Care Teams Belting And Webbing Inspector Relationship Specialty Start Date End Date Antonio Castellanos MD [address] [place] [address] PCP - General Internal Medicine 12/19/24 documented as of this encounter
== END 2025-01-16 09:29 | disposition home or self-care (01) ==
LOC: HO.BBR 09:28
PROVIDERS: PCP Internal Medicine; Visit Provider Internal Medicine Gastroenterology
DX: Z13.89 Encounter for screening for other disorder (principal)

== ENCOUNTER 2025-01-23 10:42 | Outpatient (REF) | payer MEDICARE, SELFPAY ==
--- OUTSIDE RECORDS SUMMARY | 2025-01-23 12:46 | XMS_ITS | Encounter Summary ---
Author Organization [employer] [place] [address] Care Team Providers Care Assistant Professor Of Spanish Name Role Phone Antonio Castellanos MD Primary Care Provider [phone] Encounter Details Date Type Department Care Team (Late st Contact Info) Description 01/14/2025 Telephone Gastroenterology - [address] [place] [address] Hope [place], [place] Social History Tobacco Use Types Packs/Day [...] for your loved ones. For example, childcare center director or elderly care for an older adult? [...] 2:30 PM EDT Office Visit Adult Medicine [facility] [address] [place] [phone] Thomas King PA [address] [place] [address] documented as of this encounter Visit Diagnoses Not on filedocumented in this encounter Additional Health Concerns Assessment Noted Time PHQ-9 Depression Total Score: 0 10/25/20 11:55 AM EST A fall risk assessment has been complete d for the patient 10/25/2024 11:56 AM EST documented as of this encounter Care Teams Assistant Professor Of Spanish Relationship Specialty Start Date End Date Antonio Castellanos MD [address] [place] [address] PCP - General Internal Medicine 12/19/24 documented as of this encounter
--- OUTSIDE RECORDS SUMMARY | 2025-01-23 12:46 | XMS_ITS | Clinical Summary ---
Author Organization [facility] Address [address] [place] [address] Care Team Providers Care Portable Sawmill Operator Name Role Phone Pcp, No Primary Care Provider [phone] Allergies Active Allergy Reactions Criticality Noted Date [...] Adults 18 yrs or above (or HM Modifier)([facility]) 1970 Hepatitis C Virus Infection in Adolescents and Adults: Screening (or Modifier) ([facility]) 1970 SDMO Screening Reminder: Krystal bell for all adults ([facility]) 1970 DTaP/Tdap/Td Vaccines ([facility]) (1 - Tdap) 1971 Colorectal Cancer Screening 45 -75 Yrs (or HM Modifier) 1997 Colorectal Cancer: FLEXIBLE SIGMOIDOSCOPY Screening every 5 yrs 1997 Colorectal Cancer: Fecal Imm unochemical Test (FIT) Annually [facility] 1997 Colorectal Cancer: High-sens itivity gFOBT Screening Annually [facility] 1997 Colorectal Cancer: Stool Col oguard Screening every 3 yrs 1997 Colorectal Cancer:CT Colonog jillian Screening every 5 yrs 1997 Zoster/Shingles Vaccine Seri es Screening: Adults aged 18+ yrs (or HM Modifiers)([facility]) (1 of 2) 2002 Pneumococcal Vaccination Scr eening: Patients 65+ yrs of age ([facility]) (1 of 1 - PCV) 2017 Flu Vaccination: Ages 65+: Y early High Dose Recommended (or Modifier)([facility]) 06/21/2024 09/23/2023, COVID-19 Vaccine Screening: Initial Series and Booster Status ([facility]) ( - 2023-25 season) 2024 RSV Vaccines (1 - 1-dose 75+ series) 2027 Lipid Screening: Every 5 yrs for Men aged 35+ (or HM Modifier) ([facility]) 10/24/2028 10/24/2023 Medical Devices Not on file Insurance [employer] MEDICARE Care Teams Portable Sawmill Operator Relationship Specialty Start Date End Date Pcp, No PCP - General Family Medicine 06/13/23
--- OUTSIDE RECORDS SUMMARY | 2025-01-23 12:46 | XMS_ITS | Encounter Summary ---
Author Organization [place] [address] Care Team Providers Care Cold Rolling Machine Setter Name Role Phone Antonio Castellanos MD Primary Care Provider [phone] Encounter Details Date Type Department Care Team (Late st Contact Info) Description 01/14/2025 Telephone Gastroenterology - [address] [facility] [address] [place] [phone] Sin Garvin MD [address] [place] [address] Social History Tobacco Use Types Packs/Day Years [...] your loved ones. For example, child care giver or elderly care for an older adult? [...] 2:44 PM EST PT CALLED STATING THAT [facility] DOESN[facility]T HAVE THE ORDER FOR THE WEEKLY BLOOD DRAW. PLEASE CALL PT AFTER ORDER IS PLACED. documented in this encounter Plan of Treatment Upcoming Encounters Date Type Department Care Team (Late st Contact Info) Description 03/20/2025 2:30 PM EDT Office Visit Adult Medicine [facility] [address] [place] [phone] Thomas King PA [address] [place] [address] documented as of this encounter Visit Diagnoses Not on filedocumented in this encounter Additional Health Concerns Assessment Noted Time PHQ-9 Depression Total Score: 0 10/25/20 11:55 AM EST A fall risk assessment has been complete d for the patient 10/25/2024 11:56 AM EST documented as of this encounter Care Teams Cold Rolling Machine Setter Relationship Specialty Start Date End Date Antonio Castellanos MD [address] [place] [phone] PCP - General Internal Medicine 12/19/24 documented as of this encounter
--- OUTSIDE RECORDS SUMMARY | 2025-01-23 12:46 | XMS_ITS | Encounter Summary ---
Author Organization [facility] Address [address] [place] [address] Care Team Providers Care Money Market Dealer Name Role Phone Antonio Castellanos MD Primary Care Provider [phone] Reason for Referral * Imaging (Routine) - Closed Specialty Diagnoses / Procedures Referred By Contac t Referred To Contact Radiology Diagnoses Transaminitis Procedures US Abdomen Limited Nadine Gautam PA [address] [address] Phone: tel: fax: [address] [address] Phone: tel: Referral ID Status Reason Start Date Expiration Date Visits Re quested Visits Authorized [id number] Closed 12/14/2024 12/14/2025 1 1 Reason for Visit * Imaging (Routine) - Closed Specialty Diagnoses / Procedures Referred By Contac t Referred To Contact Radiology Diagnoses Transaminitis Procedures US Abdomen Limited Nadine Gautam PA [address] [address] Phone: tel: fax: [address] [phone] Phone: tel: Referral ID Status Reason Start Date Expiration Date Visits Re quested Visits Authorized [id number] Closed 12/14/2024 12/14/2025 1 1 Encounter Details Date Type Department Care Team (Latest Contact Info) Description 12/28/2024 8:48 AM EST - 12/28/2024 11:59 PM [facility] Hospital Encounter [facility] Ultrasound [address] [place] [address] Transaminitis Discharge Disposition: Home or [...] care for your loved ones. For example, early childhood teacher or elderly care for an older [...] propionate (FLONASE) 50 mcg/actuation nasal spray 1 [place] by Nasal route daily. 07/18/2023 hydroCHLOROthiazi de [...] Description 03/20/2025 2:30 PM EDT Office Visit [facility] [address] [place] [address] Thomas King PA [address] [place] [address] documented as of this encounter Procedures Procedure [...] Signed Date: 01/07/2025 12:16 ET Workstation ID: [id number] Transcribed By: Self Edit Transcribed Date: 01/07/2025 12:12 ET Narrative 01/07/2025 12:16 PM EST History: Transaminitis. Comparison: Abdominal ultrasound 6 12/16/22, 07/24/20 (outside studies), abdominal MRI 12/21/22 ([facility]) Findings: Real-time imaging of the abdomen, limited [...] 6 12/16/22, 07/24/20 (outside studies),abdominal MRI 12/21/[address] ([facility]) Findings: Real-time imaging of the abdomen, limited [...] No enhancing hepatic lesion was identified on [id number] MRI. The portal vein is patent and [...] Signed Date: 01/07/2025 12:16 ET Workstation ID: [id number] Transcribed By: Self Edit Transcribed Date: 01/07/2025 [...] documented as of this encounter Care Teams Money Market Dealer Relationship Specialty Start Date End Date Antonio Castellanos MD [address] [place] [id number] PCP - General Internal Medicine 12/19/24 documented as of this encounter
--- OUTSIDE RECORDS SUMMARY | 2025-01-23 12:46 | XMS_ITS | Encounter Summary ---
Author Organization [employer] [place] [address] Care Team Providers Care Customer Operations Representative Name Role Phone Antonio Castellanos MD Primary Care Provider [phone] Reason for Visit * Reason Onset Date Comments rescheduling 01/04/2025 Encounter Details Date Type Department Care Team (Late st Contact Info) Description 01/04/2025 Telephone Gastroenterology - [address] [place] [address] Lisa Thao MA rescheduling Social [...] as of this encounter Progress Notes * iLsa Thao MA - 01/04/2025 2:25 PM EST R/s colon from 01/29/25 to 02/12/25 @ 9:30am [email or web address] documented in this encounter Plan of Treatment Upcoming Encounters Date Type Department Care Team (Late st Contact Info) Description 03/20/2025 2:30 PM EDT Office Visit Adult Medicine [address] [address] Thomas King PA [address] [place] [address] documented as of this encounter Visit Diagnoses [...] documented as of this encounter Care Teams Customer Operations Representative Relationship Specialty Start Date End Date Antonio Castellanos MD [address] [place] [phone] PCP - General Internal Medicine 12/19/24 documented as of this encounter
--- OUTSIDE RECORDS SUMMARY | 2025-01-23 12:46 | XMS_ITS | Clinical Summary ---
Author Organization [facility] [address] [facility] Address [address] [place] [phone] Phone Care Team Providers Care Stair Builder Name Role Phone Antonio Castellanos MD Primary Care Provider [phone] Allergies Active Allergy Reactions Criticality Noted Date Comments Amlodipine 01/29/2022 Bilateral leg swelling Medications omeprazole (PriLOSEC) [address] capsule Take 1 capsule (20 mg total) by mouth 1 (one) time each day. Active fluticasone propionate (FLONASE) 50 mcg/actuation nasal spray 1 [place] by Nasal route daily. 07/18/2023 Active atorvastatin (LIPITOR) 10 mg tablet Take 1 tablet (10 mg total) by mouth at bedtime. 90 tablet 1 11/08/2024 Active metoprolol tartrate (LOPRESSOR) 50 mg tablet Take 1 tablet (50 mg total) by mouth 1 (one) time each day. 90 tablet 1 12/20/2024 Active hydroCHLOROthia zide (HYDRODIURIL) 25 mg tablet Take 1 tablet (25 mg total) by mouth 1 (one) time each day. 90 tablet 1 12/20/2024 Active lisinopriL (PRINIVIL,ZESTR IL) 20 mg tablet Take 1 tablet (20 mg total) by mouth 1 (one) time each day. 90 each 1 12/20/2024 Active Active Problems Problem Noted Date Diagnosed Date [...] 01/14/2025 Telephone Gastroenterology - 299 [address] 299 [facility] [address] [phone] Sin Garvin MD 01/14/2025 Telephone Gastroenterology - [address] [place] [phone] Elise Sidhu MA Results 01/14/2025 Telephone Gastroenterology - [address] [facility] [address] [phone] Elise Sidhu MA 01/04/2025 Telephone Gastroenterology - [address] [phone] Lisa Thao MA rescheduling 01/02/2025 Telephone Gastroenterology - [address] [place] [phone] Sin Garvin MD 01/01/2025 Telephone Gastroenterology - [address] [place] [phone] Nadine Gautam PA 12/31/2024 Telephone Gastroenterology - [address] [place] [phone] Sin Garvin MD 12/28/2024 8:48 AM EST - 12/28/2024 11:59 PM EST Hospital Encounter [facility] Ultrasound [address] [place] [address] Transaminitis Discharge Disposition: Home or Self Care 12/20/2024 2:20 PM EST Lab Draw Station - [address] [phone] Transaminitis; Elevated TSH; Abnormal results of thyroid function studies 12/20/2024 1:30 PM EST Office Visit Adult Medicine [address] [phone] Thomas King PA Essential hypertension, benign (Primary Dx); CKD (chronic kidney disease) stage 2, GFR 60-89 ml/min 12/19/2024 Telephone Gastroenterology - [address] [place] [phone] Nadine Gautam PA 12/17/2024 Telephone Gastroenterology - [address] [place] [phone] Nadine Gautam PA 12/14/2024 1:55 PM EST Lab Draw Station - [address] [place] [phone] Transaminitis; Other specified symptoms and signs involving the digestive system and abdomen 12/14/2024 1:00 PM EST Office Visit Gastroenterology - [address] [place] [phone] Nadine Gautam PA Colon cancer screening (Primary Dx); Transaminitis; Other specified symptoms and signs involving the digestive system and abdomen 11/08/2024 3:15 PM EST Office Visit Adult [address] [phone] Patricia Workman PA Essential hypertension, benign (Primary Dx) 10/25/2024 11:15 AM EST Office Visit Adult [address] [phone] Patricia Workman PA Encounter for annual wellness [...] aqta) 19yo and older 02/15/2024,08/17/2023 Hepatitis B (Muxbfar-C-Ebzls , Recombivax HB-Adult) 19yo and older 02/22/2024,09/21/2023,08/17/2023 [...] COMMENT: negative COLONOSCOPY W/ BIOPSIES 2013 PROCEDURE: MN COLONOSCOPY W/BIOPSY SINGLE/MULTIPLE; COMMENT: 5 mm sigmoid [...] cm (5' 10.98 ) 12/20/2024 1:28 PM EST Body Mass Index 29.86 12/20/2024 1:28 PM EST Plan of Treatment Upcoming Encounters Date Type Department Care Team (Late st Contact Info) Description 03/20/2025 2:30 PM EDT Office Visit Adult Medicine [facility] [address] [place] [phone] Thomas King PA [address] [place] [address] Health Maintenance Due Date Last Done Comments [...] Procedure Name Priority Date/Time Associated Diagnosis Comments EXTERNAL CLINICAL LAB 01/17/2025 US ABDOMEN LIMITED Routine 12/28/2024 9: 44 AM EST Transaminitis THYROXINE TOTAL Routine 12/20/2024 2:26 PM EST Elevated TSH Abnormal results of thyroid function studies TRIIODOTHYRONINE FREE Routine 12/20/2024 2:26 PM EST Elevated TSH HEMOCHROMATOSIS MUTATION Routine 025 2:26 PM EST Transaminitis SMOOTH MUSCLE ANTIBODY IGG Routine 12/20/2024 2:26 PM EST Transaminitis CERULOPLASMIN Routine 12/20/2024 2:26 PM EST Transaminitis MN PROTEIN ELECTROPHORETIC FRACTIONATION & QUANTITATION SERUM Routine [...] Microalbuminuria from Last 3 Months Results * External clinical lab (01/17/2025) us Provider [facility] LAB BLOOD ORDERABLES Fin al Result * US Abdomen Limited (12/28/2024 9:44 AM [...] Signed Date: 01/07/2025 12:16 ET Workstation ID: [id number] Transcribed By: Self Edit Transcribed Date: 01/07/2025 12:12 ET Narrative 01/07/2025 12:16 PM EST History: Transaminitis. Comparison: Abdominal ultrasound 6 12/16/22, 07/24/20 (outside studies), abdominal MRI 12/21/22 ([facility]) Findings: Real-time imaging of the abdomen, limited [...] 6 12/16/22, 07/24/20 (outside studies),abdominal MRI 12/21/22 ([facility]) Findings: Real-time imaging of the abdomen, limited [...] No enhancing hepatic lesion was identified on [id number] MRI. The portal vein is patent and [...] Signed Date: 01/07/2025 12:16 ET Workstation ID: [id number] Transcribed By: Self Edit Transcribed Date: 01/07/2025 12:12 ET Nadine ASHBY [facility] [place] PROCEDURES Final Result * Hemochromatosis mutation [...] clinical information reviewed by Ernie Torres, Ph.D.,[facility]. DETAILED ASSAY INFORMATION: Hereditary hemochromatosis (HH) is [...] variants in the HFE gene, C282Y (NM 014534.2: c.845G>A, p.Ihk149Asy) and H63D (NM 287941.2: c.187C>G, p.Pcp16Pod), that are commonly associated with HH. These [...] Health care providers, please contact your local [facility]' genetic counselor or call [phone] ( ) for assistance with the interpretation of these results. This test was developed and its analytical performance characteristics have been determined by [facility]. It has not been cleared or approved by FDA. This assay has been validated pursuant to the CLIA regulations and is used for clinical purposes. For more information, please refer to http://education.Getonic/faq/hemochromatosis. (This link is being provided for informational/educational purposes only.) A portion of the testing was performed at [facility]. Reviewed and signed by Laboratory results and submitted clinical information reviewed by Ernie Torres, Ph.D.,[facility], Signed on 01/01/2025 at 09:10 Test Performed at: [facility] [address] ??[phone] ? I Rachel SOLIMAN, PhD, SARAH Blood Venous blood specimen / Unknown Venipuncture / Unknown 12/20/2024 2:26 PM EST 12/20/2024 4:12 PM EST Nadine ASHBY LAB MOLECULAR DIAGNOSTICS ORDER GANESH Final Result [facility] [address] [place] [address] * Smooth muscle antibody IgG (12/20/2024 2:26 PM EST) Smooth Muscle (F-Actin) IgG Ab 8 <20 UNITS 12/24/2024 1:28 PM EST [facility] Comment: Interpretation: Negative Test performed at [facility], [address] , [place], [place] ??[address] ? [phone] Olivia Douglass MD, PhD - [employer] Blood Venous blood specimen / Unknown Venipuncture / Unknown 12/20/2024 2:26 PM EST 12/20/2024 4:11 PM EST Nadine Gautam PA LAB BLOOD ORDERABLES Final Resu lt [facility] [address] [place] [address] * Ceruloplasmin (12/20/2024 2:26 PM EST) Ceruloplasmin 29 20 - 60 mg/dL 12/24/2024 3:30 AM EST [facility] Comment: Test performed at [facility], [address] , [place], [place] ??[address] ? [phone] Olivia Douglass MD, PhD - [employer] Blood Venous blood specimen / Unknown Venipuncture / Unknown 12/20/2024 2:26 PM EST 12/20/2024 4:11 PM EST [employer] PA LAB BLOOD ORDERABLES Final Resu lt Performing Organization Address [facility]/ZIP Co de Phone Number [facility] [address] [place] [address] * Triiodothyronine free (12/20/2024 2:26 PM EST) T3, Free 310 230 - 420 pcg/dL LAB CHEMISTRY METHOD 12/20/2024 5:00 PM EST [facility] Blood Venous blood specimen / Unknown Venipuncture / Unknown 12/20/2024 2:26 PM EST 12/20/2024 4:11 PM EST [facility] Gautam PA LAB BLOOD ORDERABLES Final Resu lt Performing Organization Address City/[facility]/ZIP Co de Phone Number [facility] [address] [place] [address], [place] [phone] * Thyroxine total (12/20/2024 2:26 PM EST) [facility] T4, Total 6.6 4.5 - 10.9 mcg/dL LAB CHEMISTRY METHOD 12/20/2024 5:05 PM EST [facility] Blood Venous blood specimen / Unknown Venipuncture / Unknown 12/20/2024 2:26 PM EST 12/20/2024 4:11 PM EST Nadine Gautam RI LAB BLOOD ORDERABLES Final Resu lt [facility] [address] [place] [address], [place] [phone] * Hepatitis ELR State reportatbles (12/14/2024 1:59 PM EST) [facility] Hep B Core IgM Negative Negative LAB CHEMISTRY METHOD 12/14/2024 9:59 PM EST [facility] Hep B Core Total Ab 12/14/2024 9:59 PM EST [facility] Hep B Surface Ag Confirmation 12/14/2024 9:59 PM EST [facility] Blood Venous blood specimen / Unknown Venipuncture / Unknown 12/14/2024 1:59 PM EST 12/14/2024 3:59 PM EST Nadine Gautam RI LAB BLOOD ORDERABLES Final Resu lt [facility] [address] [place] [address], [place] [phone] * Hepatitis B surface antigen with reflex to confirmation (12/14/2024 1:59 PM EST) [facility] Hepatitis B Surface Ag Negative Negative LAB [...] ORDERABLES Final Resu lt Performing Organization Address City/[facility]/ZIP Co de Phone Number [facility] [address] [place] [address], [place] [phone] * PATHOLOGIST REVIEW PROTEIN ELECTROPHORESIS (12/14/2024 1:59 PM EST) Pathologist Interpretation Reviewed by Adriana Bangura MD 12/17/2024 11:57 AM EST [facility] Blood Venous blood specimen / Unknown Venipuncture / Unknown 12/14/2024 1:59 PM EST 12/14/2024 3:59 PM EST Nadine ASHBY LAB BLOOD ORDERABLES Final Resu lt Performing Organization Address [facility]/ZIP Co de Phone Number [facility] [address] [place] [address], [place] [phone] * (ABNORMAL) AST, ALT, Bilirubin ELR state reportables (12/14/2024 1:59 PM EST) ALT (SGPT) 111(H) 10 - 60 unit/L [...] EST 12/14/2024 3:59 PM EST Nadine Gautam RI LAB BLOOD ORDERABLES Final Resu lt Performing Organization Address [facility] de Phone Number [facility] [address] [place] [address], [place] [phone] * (ABNORMAL) Hepatitis A antibody total with reflex IgM (12/14/2024 1:59 PM EST) [facility] Hep A Total Ab Positive( A) Negative [...] Nadine ASHBY LAB BLOOD ORDERABLES Final Resu Performing Organization Address [facility] Co de Phone Number [facility] [address] [place] [address], [place] [phone] * CARMICHAEL fibrotest liver diease (12/14/2024 1:59 PM EST) [facility] CARMICHAEL FibroSure SEE SCANS 12/20/2024 8:09 AM EST [employer] Comment: CARMICHAEL FibroSure(R) Plus SEE REPORT UNDER SEPARATE COVER. REPORT WILL BE SENT TO THE ORDERING LABORATORY VIA PRINTER OR FAX. ADDITIONAL COPIES OF THE ORIGINAL REPORT MAY ALSO BE OBTAINED BY CALLING [facility] CLIENT [facility] at [phone] Corrected result: Previously reported as See Below on 12/19/2024 at 1657 EST. Blood Venous blood specimen / Unknown Venipuncture / Unknown 12/14/2024 1:59 PM EST 12/14/2024 3:59 PM EST [employer] PA LAB BLOOD ORDERABLES Edited Res ult - Final [facility] [address] [place] [address] * Endomysial antibody, IgA (12/14/2024 1:59 PM EST) Endomysial IgA Negative Negative 12/19/2024 11:56 AM EST [facility] Blood Venous blood specimen / Unknown Venipuncture / Unknown 12/14/2024 1:59 PM EST 12/14/2024 3:59 PM EST [facility] LAB BLOOD ORDERABLES Final Resu lt Performing Organization Address City/[facility]/ZIP Co de Phone Number [facility] [address] [place] [address], [place] [phone] * DAVID IFA with titer and pattern (12/14/2024 1:59 PM EST) DAVID Negative Negative 12/17/2024 10:12 AM EST [facility] Blood Venous blood specimen / Unknown Venipuncture / Unknown 12/14/2024 1:59 PM EST 12/14/2024 3:59 PM EST [facility] LAB BLOOD ORDERABLES Final Resu lt Performing Organization Address City/[facility]/ZIP Co de Phone Number [facility] [address] [place] [address], [place] [phone] * Hepatitis C virus quantitative molecular study (12/14/2024 1:59 PM EST) [facility] HCV Qual Interp Not Detected Not Detected LAB MOLECULAR DIAGNOSTICS METHOD 12/18/2024 11:29 AM EST [facility] Comment:HCV RNA not detected , unable to report quantitative results. Blood Venous blood specimen / Unknown Venipuncture / Unknown 12/14/2024 1:59 PM EST 12/14/2024 3:59 PM EST us Nadine ASHBY LAB BLOOD ORDERABLES Final Resu lt [facility] [address] [place] [address], * (ABNORMAL) CBC auto differential (12/14/2024 1:59 PM EST) [facility] WBC 9.0 4.8 - 10.8 K/mcL LAB HEMETOLOGY METHOD 12/14/2024 4:15 PM [facility] RBC 5.20 4.50 - 5.50 M/mcL LAB HEMETOLOGY METHOD 12/14/2024 4:15 PM [facility] Hemoglobin 15.9 13.5 - 17.5 g/dL LAB HEMETOLOGY METHOD 12/14/2024 4:15 PM [facility] Hematocrit 46.1 42.0 - 54.0 % LAB HEMETOLOGY METHOD 12/14/2024 4:15 PM [facility] MCV 89.0 79.0 - 98.0 FL LAB HEMETOLOGY METHOD 12/14/2024 4:15 PM [facility] MCH 30.7 27.0 - 32.0 pcg LAB HEMETOLOGY METHOD 12/14/2024 4:15 PM [facility] MCHC 34.5 32.0 - 37.0 g/dL LAB HEMETOLOGY METHOD 12/14/2024 4:15 PM [facility] RDW 12.6 11.0 - 15.0 % LAB HEMETOLOGY METHOD 12/14/2024 4:15 PM [facility] Platelets 262 130 - 400 K/mcL LAB HEMETOLOGY METHOD 12/14/2024 4:15 PM [facility] MPV 10.9 7.0 - 11.0 FL LAB HEMETOLOGY METHOD 12/14/2024 4:15 PM [facility] NRBC 0.0 <1.0 % LAB HEMETOLOGY METHOD 12/14/2024 4:15 PM [facility] NRBC Absolute 0.00 <0.10 K/mcL LAB HEMETOLOGY METHOD 12/14/2024 4:15 PM [facility] Neutrophils Relative 57.4 % LAB HEMETOLOGY METHOD 12/14/2024 4:15 PM [facility] Lymphocytes Relative 31.8 % LAB HEMETOLOGY METHOD 12/14/2024 4:15 PM [facility] Monocytes Relative 7.8 % LAB HEMETOLOGY METHOD 12/14/2024 4:15 PM [facility] Eosinophils Relative 1.7 % LAB HEMETOLOGY METHOD 12/14/2024 4:15 PM [facility] Basophils Relative 0.7 % LAB HEMETOLOGY METHOD 12/14/2024 4:15 PM [facility] Immature Granulocytes Relative 0.6 % LAB HEMETOLOGY METHOD 12/14/2024 4:15 PM [facility] Neutrophils Absolute 5.16 1.50 - 7.00 K/mcL LAB HEMETOLOGY METHOD 12/14/2024 4:15 PM [facility] Lymphocytes Absolute 2.85 1.00 - 5.00 K/mcL LAB HEMETOLOGY METHOD 12/14/2024 4:15 PM [facility] Monocytes Absolute 0.70 0.20 - 1.00 K/mcL LAB HEMETOLOGY METHOD 12/14/2024 4:15 PM EST [facility] Eosinophils Absolute 0.15 0.00 - 0.50 K/[facility] LAB HEMETOLOGY METHOD 12/14/2024 4:15 PM EST [facility] Basophils Absolute 0.06 0.00 - 0.20 K/mcL LAB HEMETOLOGY METHOD 12/14/2024 4:15 PM EST [facility] Immature Granulocytes Absolute 0.05(H) 0.00 - 0.03 K/[facility] LAB HEMETOLOGY METHOD 12/14/2024 4:15 PM EST [facility] Blood Venous blood specimen / Unknown Venipuncture / Unknown 12/14/2024 1:59 PM EST 12/14/2024 3:59 PM EST us Nadine ASHBY LAB BLOOD ORDERABLES Final Resu lt Performing Organization Address [facility]/ZIP Co de Phone Number [facility] [address] [place] [address], * (ABNORMAL) Iron and TIBC (12/14/2024 1:59 PM EST) Iron 246(H) 50 - 160 mcg/dL LAB CHEMISTRY METHOD 12/14/2024 8:14 PM EST [facility] TIBC 393 250 - 450 mcg/dL LAB CHEMISTRY METHOD 12/14/2024 8:14 PM EST [facility] Iron Saturation 63(H) 20 - 50 % LAB CHEMISTRY METHOD 12/14/2024 8:14 PM EST [facility] Blood Venous blood specimen / Unknown Venipuncture / Unknown 12/14/2024 1:59 PM EST 12/14/2024 3:59 PM EST Nadine ASHBY LAB BLOOD ORDERABLES Final Resu lt [facility] [address] [place] [address], [place] [phone] * (ABNORMAL) Hepatitis A antibody IgM (12/14/2024 1:59 PM EST) [facility] Hepatitis A Antibody IgM Positive( A) Negative [...] ORDERABLES Final Resu lt Performing Organization Address City/[facility]/ZIP Co de Phone Number [facility] [address] [place] [address], [place] [phone] * Tissue transglutaminase, IgA (12/14/2024 1:59 PM EST) [facility] Tissue Transglutaminase Ab, IgA Quant 2 <4 [...] Resu lt [facility] [address] [place] [address], [place] [phone] * Hepatitis B core antibody IgM (12/14/2024 1:59 PM EST) [facility] Hep B Core IgM Negative Negative LAB [...] Final Resu lt Performing Organization Address [facility]/ZIP Co de Phone Number [facility] [address] [place] [address], [place] [phone] * Antimitochondrial antibody (12/14/2024 1:59 PM EST) [facility] Mitochondrial Antibody Quantitative 5.3 <=20.0 units LAB CHEMISTRY METHOD 12/19/2024 11:56 AM EST [facility] Mitochondrial Antibody Qualitative Negative Negative LAB CHEMISTRY METHOD 12/19/2024 11:56 AM EST [facility] Blood Venous blood specimen / Unknown Venipuncture / Unknown 12/14/2024 1:59 PM EST 12/14/2024 3:59 PM EST Nadine ASHBY LAB BLOOD ORDERABLES Final Resu lt [facility] [address] [place] [address], [place] [phone] * Hepatitis B surface antibody (12/14/2024 1:59 PM EST) [facility] Hepatitis B Surface Ab Negative Negative LAB [...] considered to be consistent with immunity. Nadine Gautam RI LAB BLOOD ORDERABLES Final Resu lt Performing Organization Address [facility]/ZIP Co de Phone Number [facility] [address] [place] [address], [place] [phone] * (ABNORMAL) Thyroid stimulating hormone (12/14/2024 1:59 PM EST) TSH 5.37(H) 0.40 - 4.00 mcIU/mL LAB CHEMISTRY METHOD 12/17/2024 9:27 AM EST [facility] Blood Venous blood specimen / Unknown Venipuncture / Unknown 12/14/2024 1:59 PM EST 12/14/2024 3:59 PM EST Nadine Gautam RI LAB BLOOD ORDERABLES Final Resu lt Performing Organization Address City/[facility]/ZIP Co de Phone Number [facility] [address] [place] [address], [place] [phone] * Protein electrophoresis, serum (12/14/2024 1:59 PM EST) Total Protein 7.8 6.0 - 8.0 g/dL LAB CHEMISTRY METHOD 12/17/2024 12:04 PM EST [facility] Albumin, Serum 4.0 2.9 - 4.1 g/dL LAB CHEMISTRY METHOD 12/17/2024 12:04 PM EST [facility] Alpha 1 Globulin (g/dL) 0.2 0.1 - 0.5 g/dL LAB CHEMISTRY METHOD 12/17/2024 12:04 PM [facility] Alpha 2 Globulin (g/dL) 1.3 0.7 - 1.5 g/dL LAB CHEMISTRY METHOD 12/17/2024 12:04 PM [facility] Beta (g/dL) 1.2 0.7 - 1.5 g/dL LAB CHEMISTRY METHOD 12/17/2024 12:04 PM [facility] Gamma Globulin (g/dL) 1.2 0.7 - 1.9 g/dL LAB CHEMISTRY METHOD 12/17/2024 12:04 PM [facility] SPEP Interpretation Essentially normal pattern. No M-George seen. LAB CHEMISTRY METHOD 12/17/2024 12:04 PM [facility] Blood Venous blood specimen / Unknown Venipuncture / Unknown 12/14/2024 1:59 PM EST 12/14/2024 3:59 PM EST [employer] [facility] LAB BLOOD ORDERABLES Final Resu lt Performing Organization Address City/[facility]/ZIP Co de Phone Number [facility] [address] [place] [address], [place] [phone] * Protein, total (12/14/2024 1:59 PM EST) Total Protein 7.8 6.0 - 8.0 g/dL LAB CHEMISTRY METHOD 12/14/2024 10:11 PM EST [facility] Blood Venous blood specimen / Unknown Venipuncture / Unknown 12/14/2024 1:59 PM EST 12/14/2024 3:59 PM EST [facility] LAB BLOOD ORDERABLES Final Resu lt Performing Organization Address City/[facility]/ZIP Co de Phone Number [facility] [address] [place] [address], [place] [phone] * GGT (12/14/2024 1:59 PM EST) Pathologist [facility] GGT 49 7 - 64 unit/L LAB CHEMISTRY METHOD 12/14/2024 8:04 PM EST [facility] Blood Venous blood specimen / Unknown Venipuncture / Unknown 12/14/2024 1:59 PM EST 12/14/2024 3:59 PM EST Nadine Gautam RI LAB BLOOD ORDERABLES Final Resu lt [facility] [address] [place] [address], [place] [phone] * (ABNORMAL) Ferritin (12/14/2024 1:59 PM EST) Pathologist [facility] Ferritin 1,013(H) 26 - 388 ng/mL LAB CHEMISTRY METHOD 12/14/2024 8:15 PM EST [facility] Blood Venous blood specimen / Unknown Venipuncture / Unknown 12/14/2024 1:59 PM EST 12/14/2024 3:59 PM EST Nadine Gautam RI LAB BLOOD ORDERABLES Final Resu lt Performing Organization Address City/[facility]/ZIP Co de Phone Number [facility] [address] [place] [address], [place] [phone] * (ABNORMAL) Hepatic function panel (12/14/2024 1:59 PM EST) Pathologist [facility] Total Protein 7.8 6.0 - 8.0 g/dL LAB CHEMISTRY METHOD 12/14/2024 8:14 PM EST [facility] Albumin 4.4 3.2 - 5.0 g/dL LAB CHEMISTRY METHOD 12/14/2024 8:14 PM [facility] Total Bilirubin 1.1 0.0 - 1.4 mg/dL LAB CHEMISTRY METHOD 12/14/2024 8:14 PM EST [facility] Bilirubin, Direct 0.3 0.0 - 0.3 mg/dL LAB CHEMISTRY METHOD 12/14/2024 8:14 PM EST [facility] Bilirubin, Indirect 0.8 0.0 - 1.1 mg/dL LAB CHEMISTRY METHOD 12/14/2024 8:14 PM [facility] ALT (SGPT) 111(H) 10 - 60 unit/L LAB CHEMISTRY METHOD 12/14/2024 8:14 PM [facility] AST (SGOT) 64(H) 10 - 42 unit/L LAB CHEMISTRY METHOD 12/14/2024 8:14 PM [facility] Alkaline Phosphatase 66 42 - 121 unit/L LAB CHEMISTRY METHOD 12/14/2024 8:14 PM [facility] Blood Venous blood specimen / Unknown Venipuncture / Unknown 12/14/2024 1:59 PM EST 12/14/2024 3:59 PM EST us Nadine ASHBY LAB BLOOD ORDERABLES Final Resu lt [facility] [address] [place] [address], * Prostate specific antigen screen (10/25/2024 12:47 [...] the presence or absence of malignant disease. us Patricia ASHBY LAB BLOOD ORDERABLES Final Re sult [facility] [address] [place] [address], [place] [phone] * Lipid panel with reflex to direct [...] 4.4 LAB CHEMISTRY METHOD 10/25/2024 4:50 PM EST [facility] Blood Venous blood specimen / Unknown Venipuncture / Unknown 10/25/2024 12:47 PM EST 10/25/2024 12:47 PM EST us Patricia ASHBY LAB BLOOD ORDERABLES Final Re sult [facility] [address] [place] [address], [place] [phone] * (ABNORMAL) Microalbumin creatinine urine ratio (10/25/2024 12:47 PM EST) Creatinine, Urine 371.0 mg/dL LAB CHEMISTRY METHOD 10/25/2024 3:52 PM EST [facility] Microalb, Ur 35.4(H) 0.0 - 29.0 mg/L LAB CHEMISTRY METHOD 10/25/2024 3:52 PM [facility] Microalb/Crea t Ratio 10 <30 mg/g creat LAB CHEMISTRY METHOD 10/25/2024 3:52 PM EST [facility] Urine Urine specimen from urethra / Unknown Non-blood Collection / Unknown 10/25/2024 12:47 PM EST 10/25/2024 12:47 PM EST us Patricia ASHBY LAB URINE ORDERABLES Final Re sult Performing Organization Address [facility]/ZIP Co de Phone Number [facility] [address] [place] [address], [place] [phone] * Hemoglobin A1c (10/25/2024 12:47 PM EST) Hemoglobin A1C 5.9 <6.5 % LAB CHEMISTRY METHOD 10/25/2024 8:13 PM EST [facility] Mean Bld Glu Estim. 123 mg/dL LAB CHEMISTRY METHOD 10/25/2024 8:13 PM [facility] Blood Venous blood specimen / Unknown Venipuncture / Unknown 10/25/2024 12:47 PM EST 10/25/2024 12:47 PM EST us Patricia ASHBY LAB BLOOD ORDERABLES Final Re sult [facility] [address] [place] [address], [place] [phone] * (ABNORMAL) Comprehensive metabolic panel (10/25/2024 12:47 PM EST) Sodium 136 133 - 145 mmol/L LAB CHEMISTRY METHOD 10/25/2024 4:50 PM EST [facility] Potassium 3.9 3.5 - 5.5 mmol/L LAB CHEMISTRY METHOD 10/25/2024 4:50 PM [facility] Chloride 101 96 - 110 mmol/L LAB CHEMISTRY METHOD 10/25/2024 4:50 PM [facility] CO2 28 21 - 32 mmol/L LAB CHEMISTRY METHOD 10/25/2024 4:50 PM [facility] Anion Gap 7 3 - 11 LAB CHEMISTRY METHOD 10/25/2024 4:50 PM [facility] Glucose 126(H) 70 - 100 mg/dL LAB CHEMISTRY METHOD 10/25/2024 4:50 PM [facility] BUN 17 5 - 25 mg/dL LAB CHEMISTRY METHOD 10/25/2024 4:50 PM [facility] Creatinine 1.24 0.70 - 1.30 mg/dL LAB CHEMISTRY METHOD 10/25/2024 4:50 PM [facility] eGFR 62 >=60 mL/min/1. 73m2 LAB CHEMISTRY METHOD 10/25/2024 4:50 PM [facility] Comment:Calculation based on the??Chronic Kidney Disease Epidemiology Collaboration (CKD-EPI) equation refit??without adjustment for race. BUN/Creatinine Ratio 13.7 LAB CHEMISTRY METHOD 10/25/2024 4:50 PM [facility] Calcium 9.7 8.5 - 10.5 mg/dL LAB CHEMISTRY METHOD 10/25/2024 4:50 PM [facility] AST (SGOT) 55(H) 10 - 42 unit/L LAB CHEMISTRY METHOD 10/25/2024 4:50 PM [facility] ALT (SGPT) 87(H) 10 - 60 unit/L LAB CHEMISTRY METHOD 10/25/2024 4:50 PM [facility] Alkaline Phosphatase 61 42 - 121 unit/L LAB CHEMISTRY METHOD 10/25/2024 4:50 PM EST [facility] Total Protein 7.7 6.0 - 8.0 g/dL LAB CHEMISTRY METHOD 10/25/2024 4:50 PM EST [facility] Albumin 4.3 3.2 - 5.0 g/dL LAB CHEMISTRY METHOD 10/25/2024 4:50 PM EST [facility] Total Bilirubin 1.2 0.0 - 1.4 mg/dL LAB CHEMISTRY METHOD 10/25/2024 4:50 PM EST [facility] Blood Venous blood specimen / Unknown Venipuncture / Unknown 10/25/2024 12:47 PM EST 10/25/2024 12:47 PM EST us Patricia ASHBY LAB BLOOD ORDERABLES Final Re sult [facility] [address] [place] [address], from Last 3 Months Insurance [employer] MEDICARE [employer]VANTAGE Care Teams Stair Builder Relationship Specialty Start Date End Date Antonio Castellanos MD [address] [place] [id number] PCP - General Internal Medicine 12/19/24
--- OUTSIDE RECORDS SUMMARY | 2025-01-23 12:46 | XMS_ITS | Encounter Summary ---
Author Organization [place] [address] Care Team Providers Care Rag Cutting Machine Feeder Name Role Phone Antonio Castellanos MD Primary Care Provider [phone] Encounter Details Date Type Department Care Team (Late st Contact Info) Description 01/02/2025 Telephone Gastroenterology - [address] [facility] [address] [place] [phone] Sin Garvin MD [address] [place] [address] Social History Tobacco Use Types Packs/Day Years [...] your loved ones. For example, child care centre manager or elderly care for an older adult? 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 documented in this encounter Plan of Treatment Upcoming Encounters Date Type Department Care Team (Late st Contact Info) Description 03/20/2025 2:30 PM EDT Office Visit Adult Medicine [facility] [address] [place] [phone] Thomas King PA [address] [place] [address] documented as of this encounter Visit Diagnoses [...] documented as of this encounter Care Teams Rag Cutting Machine Feeder Relationship Specialty Start Date End Date Antonio Castellanos MD [address] [place] [address] PCP - General Internal Medicine 12/19/24 documented as of this encounter
--- OUTSIDE RECORDS SUMMARY | 2025-01-23 12:46 | XMS_ITS | Encounter Summary ---
Author Organization [email or web address] [address] Care Team Providers Care Slubber Hand Name Role Phone Antonio Castellanos MD Primary Care Provider [phone] Reason for Visit * Reason Onset Date Comments Results 01/14/2025 Encounter Details Date Type Department Care Team (Late st Contact Info) Description 01/14/2025 Telephone Gastroenterology - [address] [place] [address] Nahum EliseELI grider Results Social [...] for your loved ones. For example, child and family counselor or elderly care for an older [...] unchanged from last time. Call phlebotomy in [place] to counts include 234 beds at the [facility] appt. After he is booked please call [...] 2:30 PM EDT Office Visit Adult Medicine [address] [phone] Thomas King PA [address] [place] [address] documented as of this encounter Visit Diagnoses Not on filedocumented in this encounter Additional Health Concerns Assessment Noted Time PHQ-9 Depression Total Score: 0 10/25/20 11:55 AM EST A fall risk assessment has been complete d for the patient 10/25/2024 11:56 AM EST documented as of this encounter Care Teams Slubber Hand Relationship Specialty Start Date End Date Antonio Castellanos MD [address] [place] [address] PCP - General Internal Medicine 12/19/24 documented as of this encounter
--- OUTSIDE RECORDS SUMMARY | 2025-01-23 12:46 | XMS_ITS | Encounter Summary ---
Author Organization [place] [address] Care Team Providers Care Gang Worker Name Role Phone Antonio Castellanos MD Primary Care Provider [phone] Encounter Details Date Type Department Care Team (Late st Contact Info) Description 01/01/2025 Telephone Gastroenterology - [address] [place] [phone] Nadine Gautam PA [address] [place], [place] [phone] Social History Tobacco Use Types Packs/Day Years [...] for your loved ones. For example, child welfare specialist or elderly care for an older adult? [...] 2:30 PM EDT Office Visit Adult Medicine [address] [address] Thomas King PA [address] [place] [address] documented as of this encounter Visit Diagnoses [...] documented as of this encounter Care Teams Gang Worker Relationship Specialty Start Date End Date Antonio Castellanos MD [address] [place] [address] PCP - General Internal Medicine 12/19/24 documented as of this encounter
--- OUTSIDE RECORDS SUMMARY | 2025-01-23 12:46 | XMS_ITS | Encounter Summary ---
Author Organization [employer] [place] [address] Care Team Providers Care Marble Helper Name Role Phone Antonio Castellanos MD Primary Care Provider [phone] Encounter Details Date Type Department Care Team (Late st Contact Info) Description 12/31/2024 Telephone Gastroenterology - [address] [facility] [address] [place] [phone] Sin Garvin MD [address] [place] [address] Social History Tobacco Use Types Packs/Day Years [...] your loved ones. For example, child care group leader or elderly care for an older adult? [...] 2:30 PM EDT Office Visit Adult Medicine [facility] [address] [place] [phone] Thomas King PA [address] [place] [address] documented as of this encounter Visit Diagnoses [...] documented as of this encounter Care Teams Marble Helper Relationship Specialty Start Date End Date Antonio Castellanos MD [address] [place] [address] PCP - General Internal Medicine 12/19/24 documented as of this encounter
== END 2025-01-23 10:43 | disposition home or self-care (01) ==
LOC: HO.BBR 10:42
PROVIDERS: PCP Internal Medicine; Visit Provider Internal Medicine Gastroenterology
DX: Z13.89 Encounter for screening for other disorder (principal)

== ENCOUNTER 2025-01-30 09:52 | Outpatient (REF) | payer MEDICARE, SELFPAY ==
--- OUTSIDE RECORDS SUMMARY | 2025-01-30 11:00 | XMS_ITS | Encounter Summary ---
Author Organization [employer] [place] [address] Care Team Providers Care Carton Stenciler Name Role Phone Antonio Castellanos MD Primary Care Provider [phone] Reason for Visit * Reason Onset Date Comments Results 01/14/2025 Encounter Details Date Type Department Care Team (Late st Contact Info) Description 01/14/2025 Telephone Gastroenterology - [address] [place] [address] Nahum EliseELI grider Results Social [...] loved ones. For example, child care attendant or elderly care for an older adult? [...] unchanged from last time. Call phlebotomy in [place] to [facility] appt. After he is booked [...] 2:30 PM EDT Office Visit Adult Medicine [address] [phone] Thomas King PA [address] [place] [address] documented as of this encounter Visit Diagnoses Not on filedocumented in this encounter Additional Health Concerns Assessment Noted Time PHQ-9 Depression Total Score: 0 10/25/20 11:55 AM EST A fall risk assessment has been complete d for the patient 10/25/2024 11:56 AM EST documented as of this encounter Care Teams Carton Stenciler Relationship Specialty Start Date End Date Antonio Castellanos MD [address] [place] [address] PCP - General Internal Medicine 12/19/24 documented as of this encounter
--- OUTSIDE RECORDS SUMMARY | 2025-01-30 11:00 | XMS_ITS | Encounter Summary ---
Author Organization [place] [address] Care Team Providers Care Sort Operations Supervisor Name Role Phone Antonio Castellanos MD Primary Care Provider [phone] Reason for Visit * Reason Onset Date Comments rescheduling 01/04/2025 Encounter Details Date Type Department Care Team (Late st Contact Info) Description 01/04/2025 Telephone Gastroenterology - [address] [place] [address] Lisa Thao [place] rescheduling Social [...] for your loved ones. For example, child protection specialist or elderly care for an older [...] 2:30 PM EDT Office Visit Adult Medicine [address] [phone] Thomas King PA [address] [place] [address] documented as of this encounter Visit Diagnoses [...] documented as of this encounter Care Teams Sort Operations Supervisor Relationship Specialty Start Date End Date Antonio Castellanos MD [address] [place] [address] PCP - General Internal Medicine 12/19/24 documented as of this encounter
--- OUTSIDE RECORDS SUMMARY | 2025-01-30 11:00 | XMS_ITS | Encounter Summary ---
Author Organization [place] [address] Care Team Providers Care Supplier Relationship Director Name Role Phone Antonio Castellanos MD Primary Care Provider [phone] Encounter Details Date Type Department Care Team (Late st Contact Info) Description 01/01/2025 Telephone Gastroenterology - [address] [place] [phone] Nadine Gautam PA [address] [place], [place] [phone] Social History Tobacco Use Types Packs/Day Years [...] care for your loved ones. For example, manager child or elderly care for an older adult? [...] 2:30 PM EDT Office Visit Adult Medicine [address] [phone] Thomas King PA [address] [place] [address] documented as of this encounter Visit Diagnoses [...] documented as of this encounter Care Teams Supplier Relationship Director Relationship Specialty Start Date End Date Antonio Castellanos MD [address] [place] [address] PCP - General Internal Medicine 12/19/24 documented as of this encounter
--- OUTSIDE RECORDS SUMMARY | 2025-01-30 11:00 | XMS_ITS | Clinical Summary ---
Author Organization [facility] Address [address] [place] [phone] Phone Care Team Providers Care Well Shooter Name Role Phone Antonio Castellanos MD Primary Care Provider [phone] Allergies Active Allergy Reactions Criticality Noted Date Comments Amlodipine 01/29/2022 Bilateral leg swelling Medications omeprazole (PriLOSEC) [address] capsule Take 1 capsule (20 mg total) by mouth 1 (one) time each day. Active fluticasone propionate (FLONASE) 50 mcg/actuation nasal spray 1 [employer] by Nasal route daily. 07/18/2023 Active atorvastatin [...] 01/14/2025 Telephone Gastroenterology - 299 [address] 299 [facility] [address] [phone] Sin Garvin MD 01/14/2025 Telephone Gastroenterology - [address] [place] [phone] Elise Sidhu MA Results 01/14/2025 Telephone Gastroenterology - 299 [address] [facility] [address] [phone] Elise Sidhu MA 01/04/2025 Telephone Gastroenterology - [address] [phone] Lisa Thao MA rescheduling 01/02/2025 Telephone Gastroenterology - [address] [place] [phone] Sin Garvin MD 01/01/2025 Telephone Gastroenterology - [address] [place] [phone] Nadine Gautam PA 12/31/2024 Telephone Gastroenterology - [address] [place] [phone] Sin Garvin MD 12/28/2024 8:48 AM EST - 12/28/2024 11:59 PM EST Hospital Encounter [facility] Ultrasound [address] [place] [address] Transaminitis Discharge Disposition: Home or Self Care 12/20/2024 2:20 PM EST Lab Draw Station - [address] [phone] Transaminitis; Elevated TSH; Abnormal results of thyroid function studies 12/20/2024 1:30 PM EST Office Visit Adult Medicine [address] [phone] Thomas King PA Essential hypertension, benign (Primary Dx); CKD (chronic kidney disease) stage 2, GFR 60-89 ml/min 12/19/2024 Telephone Gastroenterology - [address] [place] [phone] Nadine Gautam PA 12/17/2024 Telephone Gastroenterology - [address] [place] [phone] Nadine Gautam PA 12/14/2024 1:55 PM EST Lab Draw Station - [address] [place] [phone] Transaminitis; Other specified symptoms and signs involving the digestive system and abdomen 12/14/2024 1:00 PM EST Office Visit Gastroenterology - [address] [phone] Nadine Gautam PA Colon cancer screening (Primary Dx); Transaminitis; Other specified symptoms and signs involving the digestive system and abdomen 11/08/2024 3:15 PM EST Office Visit Adult [address] [phone] Patricia Workman PA Essential hypertension, benign (Primary Dx) from Last 3 Months Immunizations Name Administration Dates Next Due Hepatitis A Adult (Havrix; V aqta) 19yo and older 02/15/2024,08/17/2023 Hepatitis B (Zwwlcna-G-Hwxeh , Recombivax HB-Adult) 19yo and older 02/22/2024,09/21/2023,08/17/2023 [...] COMMENT: negative COLONOSCOPY W/ BIOPSIES 2013 PROCEDURE: MA COLONOSCOPY W/BIOPSY SINGLE/MULTIPLE; COMMENT: 5 mm sigmoid colon polyp: Hyperplastic polyp. KNEE SURGERY 1983 Right PROCEDURE: HISTORICAL KNEE SURGERY; COMMENT: scope [...] loved ones. For example, child and family services specialist or elderly care for an older [...] 2:30 PM EDT Office Visit Adult Medicine [address] [phone] Thomas King PA [address] [place] [address] Health Maintenance Due Date Last Done Comments [...] Date/Time Associated Diagnosis Comments EXTERNAL CLINICAL LAB 01/24/2025 EXTERNAL CLINICAL LAB 01/17/2025 US ABDOMEN LIMITED Routine 12/28/2024 9: 44 AM EST Transaminitis THYROXINE TOTAL Routine 12/20/2024 2:26 PM EST Elevated TSH Abnormal results of thyroid function studies TRIIODOTHYRONINE FREE Routine 12/20/2024 2:26 PM EST Elevated TSH HEMOCHROMATOSIS MUTATION Routine 025 2:26 PM EST Transaminitis SMOOTH MUSCLE ANTIBODY IGG Routine 12/20/2024 2:26 PM EST Transaminitis CERULOPLASMIN Routine 12/20/2024 2:26 PM EST Transaminitis MA PROTEIN ELECTROPHORETIC FRACTIONATION & QUANTITATION SERUM Routine [...] PCR Routine 12/14/2024 1:59 PM EST Transaminitis MICROALBUMIN CREATININE URINE RATIO Routine 10/25/2024 12:47 PM EST Type 2 diabetes mellitus with diabetic microalbuminuria, 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) Microalbuminuria COMPREHENSIVE METABOLIC PANEL Routine 10/25/2024 12:47 PM EST 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) Mixed hyperlipidemia Obesity (BMI 30.0-34.9) Essential hypertension, benign Prostate cancer screening Stage 3a chronic kidney disease (CMS/HCC) Type 2 diabetes mellitus with diabetic microalbuminuria, 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 us Provider [facility] LAB BLOOD ORDERABLES [...] Signed Date: 01/07/2025 12:16 ET Workstation ID: [id number] Transcribed By: Self Edit Transcribed Date: 01/07/2025 [...] No enhancing hepatic lesion was identified on [id number] MRI. The portal vein is patent and [...] Signed Date: 01/07/2025 12:16 ET Workstation ID: [id number] Transcribed By: Self Edit Transcribed Date: 01/07/2025 12:12 ET us Nadine ASHBY Peter US PROCEDURES Final Result * Hemochromatosis mutation [...] submitted clinical information reviewed by Ernie Torres, Ph.D.,[facility], [place]. DETAILED ASSAY INFORMATION: Hereditary hemochromatosis (HH) is [...] variants in the HFE gene, C282Y (NM 417448.2: c.845G>A, p.[id number]) and H63D (NM 921632.2: c.187C>G, p.[id number]), that are commonly associated with HH. These [...] Health care providers, please contact your local [facility]' genetic counselor or call [phone] ( ) for assistance with the interpretation of these results. This test was developed and its analytical performance characteristics have been determined by [facility]. It has not been cleared or approved by FDA. This assay has been validated pursuant to the CLIA regulations and is used for clinical purposes. For more information, please refer to http://education.[employer]/faq/hemochromatosis. (This link is being provided for informational/educational purposes only.) A portion of the testing was performed at [facility]. Reviewed and signed by Laboratory results and submitted clinical information reviewed by Ernie Torres, Ph.D.,[facility] [place], Signed on 01/01/2025 at 09:10 Test Performed at: [facility] [address] ??[id number] ? I Rachel SOLIMAN, PhD, SARAH Blood Venous blood specimen / Unknown Venipuncture / Unknown 12/20/2024 2:26 PM EST 12/20/2024 4:12 PM EST us Nadine Gautam [employer] LAB MOLECULAR DIAGNOSTICS ORDER GANESH Final Result Performing Organization Address City/[facility]/ZIP Co de Phone Number [facility] [address] [place] [address] * Smooth muscle antibody IgG (12/20/2024 2:26 PM EST) Smooth Muscle (F-Actin) IgG Ab 8 <20 UNITS 12/24/2024 1:28 PM EST [facility] Comment: Interpretation: Negative Test performed at [facility], [address] [place], [place] ??[address] ? [phone] Olivia Douglass MD, PhD - [facility]ise [facility]er Blood Venous blood specimen / Unknown Venipuncture / Unknown 12/20/2024 2:26 PM EST 12/20/2024 4:11 PM EST [email or web address] PA LAB BLOOD ORDERABLES Final Resu lt Performing Organization Address City/[facility]/ZIP Co de Phone Number [facility] [address] [place] [address] * Ceruloplasmin (12/20/2024 2:26 PM EST) Ceruloplasmin 29 20 - 60 mg/dL 12/24/2024 3:30 AM EST [facility] Comment: Test performed at [facility], [address], [place], [place] ??[address] ? [phone] Olivia Douglass MD, PhD - Raise Miner Blood Venous blood specimen / Unknown Venipuncture / Unknown 12/20/2024 2:26 PM EST 12/20/2024 4:11 PM EST us Nadine Rushingner PA LAB BLOOD ORDERABLES Final Resu lt [facility] [address] [place] [address] * Triiodothyronine free (12/20/2024 2:26 PM EST) T3, Free 310 230 - 420 pcg/dL LAB CHEMISTRY METHOD 12/20/2024 5:00 PM EST [facility] Blood Venous blood specimen / Unknown Venipuncture / Unknown 12/20/2024 2:26 PM EST 12/20/2024 4:11 PM EST Nadine Gautam PA LAB BLOOD ORDERABLES Final Resu lt Performing Organization Address [facility]/ZIP Co de Phone Number [facility] [address] [place] [address], [place] [phone] * Thyroxine total (12/20/2024 2:26 PM EST) T4, Total 6.6 4.5 - 10.9 mcg/dL LAB CHEMISTRY METHOD 12/20/2024 5:05 PM EST [facility] Blood Venous blood specimen / Unknown Venipuncture / Unknown 12/20/2024 2:26 PM EST 12/20/2024 4:11 PM EST us SEJENT PA LAB BLOOD ORDERABLES Final Resu lt [facility] [address] [place] [address], [place] [phone] * Hepatitis ELR State reportatbles (12/14/2024 1:59 PM EST) Pathologist [facility] Hep B Core IgM Negative Negative LAB CHEMISTRY METHOD 12/14/2024 9:59 PM EST [facility] Hep B Core Total Ab 12/14/2024 9:59 PM EST [facility] Hep B Surface Ag Confirmation 12/14/2024 9:59 PM EST [facility] Blood Venous blood specimen / Unknown Venipuncture / Unknown 12/14/2024 1:59 PM EST 12/14/2024 3:59 PM EST Nadine ASHBY LAB BLOOD ORDERABLES Final Resu lt Performing Organization Address [facility] Co de Phone Number [facility] [address] [place] [address], [place] [phone] * Hepatitis B surface antigen with reflex to confirmation (12/14/2024 1:59 PM EST) [facility] Hepatitis B Surface Ag Negative Negative LAB CHEMISTRY METHOD 12/14/2024 8:16 PM EST [facility] Blood Venous blood specimen / Unknown Venipuncture / Unknown 12/14/2024 1:59 PM EST 12/14/2024 3:59 PM EST Narrative [facility] - 12/14/2024 8:16 PM EST Over the counter supplements containing high doses of biotin may interfere with this assay. ??If interference is suspected, patients shoud be retested after refraining from biotin supplements for 72 hours. us Nadine ASHBY LAB BLOOD ORDERABLES Final Resu lt Performing Organization Address City/[facility]/ZIP Co de Phone Number [facility] [address] [place] [address], [place] [phone] * PATHOLOGIST REVIEW PROTEIN ELECTROPHORESIS (12/14/2024 1:59 PM EST) Pathologist Interpretation Reviewed by Adriana Bangura MD 12/17/2024 11:57 AM [facility] Blood Venous blood specimen / Unknown Venipuncture / Unknown 12/14/2024 1:59 PM EST 12/14/2024 3:59 PM EST Nadine ASHBY LAB BLOOD ORDERABLES Final Resu lt Performing Organization Address City/[facility]/ZIP Co de Phone Number [facility] [address] [place] [address], [place] [phone] * (ABNORMAL) AST, ALT, Bilirubin ELR state reportables (12/14/2024 1:59 PM EST) ALT (SGPT) 111(H) 10 - 60 unit/L LAB CHEMISTRY METHOD 12/14/2024 9:59 PM [facility] AST (SGOT) 64(H) 10 - 42 unit/L LAB CHEMISTRY METHOD 12/14/2024 9:59 PM [facility] Bilirubin, Direct 0.3 0.0 - 0.3 mg/dL LAB CHEMISTRY METHOD 12/14/2024 9:59 PM [facility] Total Bilirubin 1.1 0.0 - 1.4 mg/dL LAB CHEMISTRY METHOD 12/14/2024 9:59 PM [facility] Blood Venous blood specimen / Unknown Venipuncture / Unknown 12/14/2024 1:59 PM EST 12/14/2024 3:59 PM EST Nadine Gautam AL LAB BLOOD ORDERABLES Final Resu lt Performing Organization Address City/[facility]/ZIP Co de Phone Number [facility] [address] [place] [address], [place] [phone] * (ABNORMAL) Hepatitis A antibody total with reflex IgM (12/14/2024 1:59 PM EST) Pathologist [facility] Hep A Total Ab Positive( A) Negative LAB CHEMISTRY METHOD 12/14/2024 8:44 PM EST [facility] Blood Venous blood specimen / Unknown Venipuncture / Unknown 12/14/2024 1:59 PM EST 12/14/2024 3:59 PM EST Narrative [facility] - 12/14/2024 8:44 PM EST Over the counter supplements containing high doses of biotin may interfere with this assay. ??If interference is suspected, patients shoud be retested after refraining from biotin supplements for 72 hours. Nadine Gautam [employer] LAB BLOOD ORDERABLES Final Resu lt Performing Organization Address [facility]/ZIP Co de Phone Number [facility] [address] [place] [address], [place] [phone] * CARMICHAEL fibrotest liver diease (12/14/2024 1:59 PM EST) Pathologist [facility] CARMICHAEL FibroSure SEE SCANS 12/20/2024 8:09 AM EST [facility] Comment: CARMICHAEL FibroSure(R) Plus SEE REPORT UNDER SEPARATE COVER. REPORT WILL BE SENT TO THE ORDERING LABORATORY VIA PRINTER OR FAX. ADDITIONAL COPIES OF THE ORIGINAL REPORT MAY ALSO BE OBTAINED BY CALLING [facility] CLIENT SERVICES at [phone] Corrected result: Previously reported as See Below on 12/19/2024 at 1657 EST. Blood Venous blood specimen / Unknown Venipuncture / Unknown 12/14/2024 1:59 PM EST 12/14/2024 3:59 PM EST Nadine Gautam [employer] LAB BLOOD ORDERABLES Edited Res ult - Final [facility] [address] [place] [address] * Endomysial antibody, IgA (12/14/2024 1:59 PM EST) [facility] Endomysial IgA Negative Negative 12/19/2024 11:56 AM EST [facility] Blood Venous blood specimen / Unknown Venipuncture / Unknown 12/14/2024 1:59 PM EST 12/14/2024 3:59 PM EST us Nadine Gautam PA LAB BLOOD ORDERABLES Final Resu lt Performing Organization Address City/[facility]/ZIP Co de Phone Number [facility] [address] [place] [address], [place] [phone] * DAVID IFA with titer and pattern (12/14/2024 1:59 PM EST) [facility] DAVID Negative Negative 12/17/2024 10:12 AM EST [facility] Blood Venous blood specimen / Unknown Venipuncture / Unknown 12/14/2024 1:59 PM EST 12/14/2024 3:59 PM EST us Nadine ASHBY LAB BLOOD ORDERABLES Final Resu lt Performing Organization Address [facility] Co de Phone Number [facility] [address] [place] [address], [place] [phone] * Hepatitis C virus quantitative molecular study (12/14/2024 1:59 PM EST) [facility] HCV Qual Interp Not Detected Not Detected LAB MOLECULAR DIAGNOSTICS METHOD 12/18/2024 11:29 AM EST [facility] Comment:HCV RNA not detected , unable to report quantitative results. Blood Venous blood specimen / Unknown Venipuncture / Unknown 12/14/2024 1:59 PM EST 12/14/2024 3:59 PM EST us Nadine Gautam PA LAB BLOOD ORDERABLES Final Resu lt Performing Organization Address City/[facility]/ZIP Co de Phone Number [facility] [address] [place] [address], * (ABNORMAL) CBC auto differential (12/14/2024 1:59 PM EST) [facility] WBC 9.0 4.8 - 10.8 K/mcL LAB HEMETOLOGY METHOD 12/14/2024 4:15 PM EST [facility] RBC 5.20 4.50 - 5.50 M/mcL LAB HEMETOLOGY METHOD 12/14/2024 4:15 PM EST [facility] Hemoglobin 15.9 13.5 - 17.5 g/dL LAB HEMETOLOGY METHOD 12/14/2024 4:15 PM [facility] Hematocrit 46.1 42.0 - 54.0 % LAB HEMETOLOGY METHOD 12/14/2024 4:15 PM [facility] MCV 89.0 79.0 - 98.0 FL LAB HEMETOLOGY METHOD 12/14/2024 4:15 PM [facility] MCH 30.7 27.0 - 32.0 pcg LAB HEMETOLOGY METHOD 12/14/2024 4:15 PM [facility] MCHC 34.5 32.0 - 37.0 g/dL LAB HEMETOLOGY METHOD 12/14/2024 4:15 PM [facility] RDW 12.6 11.0 - 15.0 % LAB HEMETOLOGY METHOD 12/14/2024 4:15 PM [facility] Platelets 262 130 - 400 K/mcL LAB HEMETOLOGY METHOD 12/14/2024 4:15 PM [facility] MPV 10.9 7.0 - 11.0 FL LAB HEMETOLOGY METHOD 12/14/2024 4:15 PM [facility] NRBC 0.0 <1.0 % LAB HEMETOLOGY METHOD 12/14/2024 4:15 PM [facility] NRBC Absolute 0.00 <0.10 K/mcL LAB HEMETOLOGY METHOD 12/14/2024 4:15 PM [facility] Neutrophils Relative 57.4 % LAB HEMETOLOGY METHOD 12/14/2024 4:15 PM [facility] Lymphocytes Relative 31.8 % LAB HEMETOLOGY METHOD 12/14/2024 4:15 PM [facility] Monocytes Relative 7.8 % LAB HEMETOLOGY METHOD 12/14/2024 4:15 PM [facility] Eosinophils Relative 1.7 % LAB HEMETOLOGY METHOD 12/14/2024 4:15 PM [facility] Basophils Relative 0.7 % LAB HEMETOLOGY METHOD 12/14/2024 4:15 PM [facility] Immature Granulocytes Relative 0.6 % LAB HEMETOLOGY METHOD 12/14/2024 4:15 PM [facility] Neutrophils Absolute 5.16 1.50 - 7.00 K/mcL LAB HEMETOLOGY METHOD 12/14/2024 4:15 PM [facility] Lymphocytes Absolute 2.85 1.00 - 5.00 K/mcL LAB HEMETOLOGY METHOD 12/14/2024 4:15 PM [facility] Monocytes Absolute 0.70 0.20 - 1.00 K/mcL LAB HEMETOLOGY METHOD 12/14/2024 4:15 PM [facility] Eosinophils Absolute 0.15 0.00 - 0.50 K/mcL LAB HEMETOLOGY METHOD 12/14/2024 4:15 PM [facility] Basophils Absolute 0.06 0.00 - 0.20 K/mcL LAB HEMETOLOGY METHOD 12/14/2024 4:15 PM [facility] Immature Granulocytes Absolute 0.05(H) 0.00 - 0.03 K/mcL LAB HEMETOLOGY METHOD 12/14/2024 4:15 PM EST [facility] Blood Venous blood specimen / Unknown Venipuncture / Unknown 12/14/2024 1:59 PM EST 12/14/2024 3:59 PM EST Nadine Gautam AL LAB BLOOD ORDERABLES Final Resu lt Performing Organization Address [facility]/ZIP Co de Phone Number [facility] [address] [place] [address], [place] [phone] * (ABNORMAL) Iron and TIBC (12/14/2024 1:59 PM EST) Pathologist [facility] Iron 246(H) 50 - 160 mcg/dL LAB CHEMISTRY METHOD 12/14/2024 8:14 PM EST [facility] TIBC 393 250 - 450 mcg/dL LAB CHEMISTRY METHOD 12/14/2024 8:14 PM EST [facility] Iron Saturation 63(H) 20 - 50 % LAB CHEMISTRY METHOD 12/14/2024 8:14 PM EST [facility] Blood Venous blood specimen / Unknown Venipuncture / Unknown 12/14/2024 1:59 PM EST 12/14/2024 3:59 PM EST Nadine Gautam AL LAB BLOOD ORDERABLES Final Resu lt Performing Organization Address City/[facility]/ZIP Co de Phone Number [facility] [address] [place] [address], [place] [phone] * (ABNORMAL) Hepatitis A antibody IgM (12/14/2024 1:59 PM EST) Hepatitis A Antibody IgM Positive( A) Negative LAB CHEMISTRY METHOD 12/14/2024 9:51 PM EST [facility] Blood Venous blood specimen / Unknown Venipuncture / Unknown 12/14/2024 1:59 PM EST 12/14/2024 3:59 PM EST Narrative [facility] - 12/14/2024 9:51 PM EST Over the counter supplements containing high doses of biotin may interfere with this assay. ??If interference is suspected, patients shoud be retested after refraining from biotin supplements for 72 hours. us Nadine ASHBY LAB BLOOD ORDERABLES Final Resu lt Performing Organization Address [facility] Co de Phone Number [facility] [address] [place] [address], [place] [phone] * Tissue transglutaminase, IgA (12/14/2024 1:59 PM EST) Tissue Transglutaminase Ab, IgA Quant 2 <4 unit/mL LAB CHEMISTRY METHOD 12/19/2024 12:06 PM EST [facility] Tissue Transglutaminase Ab, IgA Negative Negative LAB CHEMISTRY METHOD 12/19/2024 12:06 PM EST [facility] Blood Venous blood specimen / Unknown Venipuncture / Unknown 12/14/2024 1:59 PM EST 12/14/2024 3:59 PM EST Nadine ASHBY LAB BLOOD ORDERABLES Final Resu lt Performing Organization Address [facility] de Phone Number [facility] [address] [place] [address], [place] [phone] * Hepatitis B core antibody IgM (12/14/2024 1:59 PM EST) Pathologist [facility] Hep B Core IgM Negative Negative LAB CHEMISTRY METHOD 12/14/2024 8:44 PM EST [facility] Blood Venous blood specimen / Unknown Venipuncture / Unknown 12/14/2024 1:59 PM EST 12/14/2024 3:59 PM EST Narrative [facility] - 12/14/2024 8:44 PM EST Over the counter supplements containing high doses of biotin may interfere with this assay. ??If interference is suspected, patients shoud be retested after refraining from biotin supplements for 72 hours. Nadine ASHBY LAB BLOOD ORDERABLES Final Resu lt Performing Organization Address [facility]/ZIP Co de Phone Number [facility] [address] [place] [address], [place] [phone] * Antimitochondrial antibody (12/14/2024 1:59 PM EST) Pathologist [facility] Mitochondrial Antibody Quantitative 5.3 <=20.0 units LAB CHEMISTRY METHOD 12/19/2024 11:56 AM EST [facility] Mitochondrial Antibody Qualitative Negative Negative LAB CHEMISTRY METHOD 12/19/2024 11:56 AM EST [facility] Blood Venous blood specimen / Unknown Venipuncture / Unknown 12/14/2024 1:59 PM EST 12/14/2024 3:59 PM EST Nadine ASHBY LAB BLOOD ORDERABLES Final Resu lt Performing Organization Address [facility] de Phone Number [facility] [address] [place] [address], [place] [phone] * Hepatitis B surface antibody (12/14/2024 1:59 PM EST) [facility] Hepatitis B Surface Ab Negative Negative LAB CHEMISTRY METHOD 12/14/2024 8:05 PM EST [facility] Hepatitis B Surface Ab Quantitative 7.8 mIU/mL LAB CHEMISTRY METHOD 12/14/2024 8:05 PM EST [facility] Blood Venous blood specimen / Unknown Venipuncture / Unknown 12/14/2024 1:59 PM EST 12/14/2024 3:59 PM EST Narrative [facility] - 12/14/2024 8:05 PM EST >=10 mIU/mL is considered to be consistent with immunity. Nadine Gautam AL LAB BLOOD ORDERABLES Final Resu lt Performing Organization Address [facility]/ZIP Co de Phone Number [facility] [address] [place] [address], [place] [phone] * (ABNORMAL) Thyroid stimulating hormone (12/14/2024 1:59 PM EST) Pathologist [facility] TSH 5.37(H) 0.40 - 4.00 mcIU/mL LAB CHEMISTRY METHOD 12/17/2024 9:27 AM EST [facility] Blood Venous blood specimen / Unknown Venipuncture / Unknown 12/14/2024 1:59 PM EST 12/14/2024 3:59 PM EST Nadine ASHBY LAB BLOOD ORDERABLES Final Resu lt Performing Organization Address [facility]/ZIP Co de Phone Number [facility] [address] [place] [address], * Protein electrophoresis, serum (12/14/2024 1:59 PM EST) [facility] Total Protein 7.8 6.0 - 8.0 g/dL LAB CHEMISTRY METHOD 12/17/2024 12:04 PM [facility] Albumin, Serum 4.0 2.9 - 4.1 g/dL LAB CHEMISTRY METHOD 12/17/2024 12:04 PM [facility] Alpha 1 Globulin (g/dL) 0.2 0.1 - 0.5 g/dL LAB CHEMISTRY METHOD 12/17/2024 12:04 PM [facility] Alpha 2 Globulin (g/dL) 1.3 0.7 - 1.5 g/dL LAB CHEMISTRY METHOD 12/17/2024 12:04 PM [facility] Beta (g/dL) 1.2 0.7 - 1.5 g/dL LAB CHEMISTRY METHOD 12/17/2024 12:04 PM [facility] Gamma Globulin (g/dL) 1.2 0.7 - 1.9 g/dL LAB CHEMISTRY METHOD 12/17/2024 12:04 PM EST [facility] SPEP Interpretation Essentially normal pattern. No M-George seen. LAB CHEMISTRY METHOD 12/17/2024 12:04 PM EST [facility] Blood Venous blood specimen / Unknown Venipuncture / Unknown 12/14/2024 1:59 PM EST 12/14/2024 3:59 PM EST Nadine Gautam PA LAB BLOOD ORDERABLES Final Resu lt Performing Organization Address City/[facility]/ZIP Co de Phone Number [facility] [address] [place] [address], [place] [phone] * Protein, total (12/14/2024 1:59 PM EST) Total Protein 7.8 6.0 - 8.0 g/dL LAB CHEMISTRY METHOD 12/14/2024 10:11 PM EST [facility] Blood Venous blood specimen / Unknown Venipuncture / Unknown 12/14/2024 1:59 PM EST 12/14/2024 3:59 PM EST Nadine Gauatm PA LAB BLOOD ORDERABLES Final Resu lt Performing Organization Address [facility]/ZIP Co de Phone Number [facility] [address] [place] [address], [place] [phone] * GGT (12/14/2024 1:59 PM EST) Pathologist [facility] GGT 49 7 - 64 unit/L LAB CHEMISTRY METHOD 12/14/2024 8:04 PM EST [facility] Blood Venous blood specimen / Unknown Venipuncture / Unknown 12/14/2024 1:59 PM EST 12/14/2024 3:59 PM EST us Nadine Gautam PA LAB BLOOD ORDERABLES Final Resu lt [facility] [address] [place] [address], [place] [phone] * (ABNORMAL) Ferritin (12/14/2024 1:59 PM EST) [facility] Ferritin 1,013(H) 26 - 388 ng/mL LAB CHEMISTRY METHOD 12/14/2024 8:15 PM EST [facility] Blood Venous blood specimen / Unknown Venipuncture / Unknown 12/14/2024 1:59 PM EST 12/14/2024 3:59 PM EST us Nadine ASHBY LAB BLOOD ORDERABLES Final Resu lt [facility] [address] [place] [address], [place] [phone] * (ABNORMAL) Hepatic function panel (12/14/2024 1:59 PM EST) [facility] Total Protein 7.8 6.0 - 8.0 g/dL LAB CHEMISTRY METHOD 12/14/2024 8:14 PM [facility] Albumin 4.4 3.2 - 5.0 g/dL LAB CHEMISTRY METHOD 12/14/2024 8:14 PM [facility] Total Bilirubin 1.1 0.0 - 1.4 mg/dL LAB CHEMISTRY METHOD 12/14/2024 8:14 PM [facility] Bilirubin, Direct 0.3 0.0 - 0.3 mg/dL LAB CHEMISTRY METHOD 12/14/2024 8:14 PM [facility] Bilirubin, Indirect 0.8 0.0 - 1.1 mg/dL LAB CHEMISTRY METHOD 12/14/2024 8:14 PM [facility] ALT (SGPT) 111(H) 10 - 60 unit/L LAB CHEMISTRY METHOD 12/14/2024 8:14 PM [facility] AST (SGOT) 64(H) 10 - 42 unit/L LAB CHEMISTRY METHOD 12/14/2024 8:14 PM [facility] Alkaline Phosphatase 66 42 - 121 unit/L LAB CHEMISTRY METHOD 12/14/2024 8:14 PM [facility] Blood Venous blood specimen / Unknown Venipuncture / Unknown 12/14/2024 1:59 PM EST 12/14/2024 3:59 PM EST us Nadine ASHBY LAB BLOOD ORDERABLES Final Resu lt [facility] [address] [place] [address], [place] [phone] * Lipid panel with reflex to direct LDL (10/25/2024 12:47 PM EST) Cholesterol 124 0 - 200 mg/dL LAB CHEMISTRY METHOD 10/25/2024 4:50 PM [facility] Triglycerides 88 0 - 150 mg/dL LAB CHEMISTRY METHOD 10/25/2024 4:50 PM [facility] HDL 47 >=40 mg/dL LAB CHEMISTRY METHOD 10/25/2024 4:50 PM [facility] LDL Calculated 59 0 - 100 mg/dL LAB CHEMISTRY METHOD 10/25/2024 4:50 PM [facility] VLDL Cholesterol Damian 17.6 mg/dL LAB CHEMISTRY METHOD 10/25/2024 4:50 PM [facility] Non HDL Chol. (LDL+VLDL) 77 <145 mg/dL LAB CHEMISTRY METHOD 10/25/2024 4:50 PM [facility] Chol/HDL Ratio 2.6 0.0 - 4.4 LAB CHEMISTRY METHOD 10/25/2024 4:50 PM [facility] Blood Venous blood specimen / Unknown Venipuncture / Unknown 10/25/2024 12:47 PM EST 10/25/2024 12:47 PM EST us Patricia ASHBY LAB BLOOD ORDERABLES Final Re sult [facility] [address] [place] [address], [place] [phone] * (ABNORMAL) Microalbumin creatinine urine ratio (10/25/2024 12:47 PM EST) Creatinine, Urine 371.0 mg/dL LAB CHEMISTRY METHOD 10/25/2024 3:52 PM EST [facility] Microalb, Ur 35.4(H) 0.0 - 29.0 mg/L LAB CHEMISTRY METHOD 10/25/2024 3:52 PM EST [facility] Microalb/Crea t Ratio 10 <30 mg/g creat LAB CHEMISTRY METHOD 10/25/2024 3:52 PM EST [facility] Urine Urine specimen from urethra / Unknown Non-blood Collection / Unknown 10/25/2024 12:47 PM EST 10/25/2024 12:47 PM EST us Patricia ASHBY LAB URINE ORDERABLES Final Re sult [facility] [address] [place] [address], [place] [phone] * Hemoglobin A1c (10/25/2024 12:47 PM EST) Hemoglobin A1C 5.9 <6.5 % LAB CHEMISTRY METHOD 10/25/2024 8:13 PM EST [facility] Mean Bld Glu Estim. 123 mg/dL LAB CHEMISTRY METHOD 10/25/2024 8:13 PM EST [facility] Blood Venous blood specimen / Unknown Venipuncture / Unknown 10/25/2024 12:47 PM EST 10/25/2024 12:47 PM EST us Particia ASHBY LAB BLOOD ORDERABLES Final Re sult [facility] [address] [place] [address], [place] [phone] * (ABNORMAL) Comprehensive metabolic panel (10/25/2024 12:47 PM EST) Sodium 136 133 - 145 mmol/L LAB CHEMISTRY METHOD 10/25/2024 4:50 PM EST [facility] Potassium 3.9 3.5 - 5.5 mmol/L LAB CHEMISTRY METHOD 10/25/2024 4:50 PM [facility] Chloride 101 96 - 110 mmol/L LAB CHEMISTRY METHOD 10/25/2024 4:50 PM [facility] CO2 28 21 - 32 mmol/L LAB CHEMISTRY METHOD 10/25/2024 4:50 PM [facility] Anion Gap 7 3 - 11 LAB CHEMISTRY METHOD 10/25/2024 4:50 PM [facility] Glucose 126(H) 70 - 100 mg/dL LAB CHEMISTRY METHOD 10/25/2024 4:50 PM [facility] BUN 17 5 - 25 mg/dL LAB CHEMISTRY METHOD 10/25/2024 4:50 PM [facility] Creatinine 1.24 0.70 - 1.30 mg/dL LAB CHEMISTRY METHOD 10/25/2024 4:50 PM [facility] eGFR 62 >=60 mL/min/1. 73m2 LAB CHEMISTRY METHOD 10/25/2024 4:50 PM [facility] Comment:Calculation based on the??Chronic Kidney Disease Epidemiology Collaboration (CKD-EPI) equation refit??without adjustment for race. BUN/Creatinine Ratio 13.7 LAB CHEMISTRY METHOD 10/25/2024 4:50 PM [facility] Calcium 9.7 8.5 - 10.5 mg/dL LAB CHEMISTRY METHOD 10/25/2024 4:50 PM [facility] AST (SGOT) 55(H) 10 - 42 unit/L LAB CHEMISTRY METHOD 10/25/2024 4:50 PM [facility] ALT (SGPT) 87(H) 10 - 60 unit/L LAB CHEMISTRY METHOD 10/25/2024 4:50 PM [facility] Alkaline Phosphatase 61 42 - 121 unit/L LAB CHEMISTRY METHOD 10/25/2024 4:50 PM [facility] Total Protein 7.7 6.0 - 8.0 g/dL LAB CHEMISTRY METHOD 10/25/2024 4:50 PM [facility] Albumin 4.3 3.2 - 5.0 g/dL LAB CHEMISTRY METHOD 10/25/2024 4:50 PM [facility] Total Bilirubin 1.2 0.0 - 1.4 mg/dL LAB CHEMISTRY METHOD 10/25/2024 4:50 PM [facility] Blood Venous blood specimen / Unknown Venipuncture / Unknown 10/25/2024 12:47 PM EST 10/25/2024 12:47 PM EST Patricia ASHBY LAB BLOOD ORDERABLES Final Re sult [facility] [address] [place] [address], from Last 3 Months or Most Recently Relevant to Health Maintenance Insurance [employer]AGE Care Teams Well Shooter Relationship Specialty Start Date End Date Antonio Castellanos MD [address] [place] [phone] PCP - General Internal Medicine 12/19/24
--- OUTSIDE RECORDS SUMMARY | 2025-01-30 11:00 | XMS_ITS | Encounter Summary ---
Author [place] [address] Care Team Providers Care Drop Wire Aligner Name Role Phone Antonio Castellanos MD Primary Care Provider Encounter Details Date Type Department Care Team (Late st Contact Info) Description 01/14/2025 Telephone Gastroenterology - [address] [place] [address] [place], [place] Social History Tobacco Use Types Packs/Day [...] for your loved ones. 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 [...] 2:30 PM EDT Office Visit Adult Medicine [facility] [address] [place] [phone] Thomas King PA [address] [place] [address] documented as of this encounter Visit Diagnoses Not on filedocumented in this encounter Additional Health Concerns Assessment Noted Time PHQ-9 Depression Total Score: 0 10/25/20 11:55 AM EST A fall risk assessment has been complete d for the patient 10/25/2024 11:56 AM EST documented as of this encounter Care Teams Drop Wire Aligner Relationship Specialty Start Date End Date Antonio Castellanos MD [address] [place] [id number] PCP - General Internal Medicine 12/19/24 documented as of this encounter
--- OUTSIDE RECORDS SUMMARY | 2025-01-30 11:00 | XMS_ITS | Encounter Summary ---
Author Organization [employer] Address [address] [facility] [place] [address] Care Team Providers Care Sexual Assault Social Worker Name Role Phone Pcp, No Primary Care Provider [phone] Reason for Visit * Reason Comments Respiratory Encounter Details Date Type Department Care Team (Late st Contact Info) Description 01/24/2025 4:50 PM EST Office Visit Dario [id number] [place] [address] Roselia Gold NP [address] [place] [address] Other acute sinusitis, recurrence not specified (Primary Dx); Hypertension, unspecified type; Subacute cough Social History Tobacco Use Types Packs/Day Years Used Date Smoking Tobacco: Never Smokeless Tobacco: Never PHQ-2 Answer Date Recorded PHQ-2 Score Patient declined 01/24/2025 Sex and Gender Information Value Date Recorded Sex Assigned at Not on file Legal Sex Male 2:14 PM EDT Gender Identity Not on file Sexual Orientation Not on file documented as of this encounter Last Filed Vital Signs Vital Sign Reading Time Taken Comments Blood Pressure 109/76 01/24/2025 4:48 PM EST Pulse 96 01/24/2025 4:48 PM EST Temperature 36.8 ??C (98.2 ??F) 01/24/2025 4:48 PM ES T Respiratory Rate 18 01/24/2025 4:48 PM EST Oxygen Saturation 97% 01/24/2025 4:48 PM EST Inhaled Oxygen Concentration - - Weight - - Height - - Body Mass Index - - documented in this encounter Functional Status * Is the person deaf or does he/she have serious difficulty hearing? Answer Date of Assessment Author * Is this person blind or does he/she have serious difficulty seeing even when wearing glasses? Answer Date of Assessment Author * Does this person have serious difficulty walking or climbing stairs? Answer Date of Assessment Author * Does this person have difficulty dressing or bathing? Answer Date of Assessment Author * Because of a physical, mental, or emotional condition, does this person have difficulty doing errands alone such as visiting a doctor's office or shopping? Answer Date of Assessment Author documented as of this encounter Mental Status * Because of a physical, mental, or emotional condition, does this person have serious difficulty concentrating, remembering, or making decisions? Answer Entry Date Author documented in this encounter Patient Instructions * Patient Instructions* Roselia Gold NP - 01/24/2025 4:50 PM EST Images from the original note were not included. Seek immediate emergency medical attention if you experience sudden vision loss or eye pain, severeor worsening abdominal pain, difficulty swallowing, stiff neck, shortness of breath, coughing or vomiting up blood, chest pain, increased fever, unexplained weight loss, or blood in stool. Report to the nearest emergency department for any of the following: Fever >99.9??F, flank pain,nausea/vomiting, or abdominal pain. If symptoms do not improve within 2-3 days of treatment or do not fully resolve return to [facility] or primary care provider for re-evaluation. It is important to promptly share test results with your healthcare provider. [facility] is committed to supporting you with your chronic healthcare needs. It is important that you develop a relationship with a primary care provider who can manage your preventative and chronic care needs. [facility] cannot perform your annual physical or order your preventative screeningtests, all of which are an important part of your overall healthcare. If you do not have a primary care provider, [facility] can help you by giving you a list of primary care providers in your areathat are accepting new patients. If you have health insurance, your health insurance company can also assist you with finding a primary care provider. Your blood pressure was found to be in an acceptable range today and we recommend a follow up bloodpressure appointment in 3-4 months as long as your health does not change. Blood pressure varies from day to day and we want to ensure your blood pressure is not rising higher than recommended. Occasi onal/periodic blood pressure checks are always helpful. If changes in your health occur during thistime, please have your blood pressure checked sooner. High Blood Pressure Seek Medical Attention If You: Think you are have having a reaction to medications you are taking Have recurrent headaches or feel dizzy Have swelling in your ankles Have trouble with your vision What is High Blood Pressure? High blood pressure (also called hypertension) is when your blood moves through your arteries at a higher pressure than normal and that forces your heart to work harder to pump the blood. What are the Complications of High Blood Pressure? When your blood pressure gets too high or stayshigh for a long time, it can cause health problems such as: Kidney disease or kidney failure Heart attack and heart failure Stroke Vision problems Circulation problems, poor blood supply to the legs How are the causes of High Blood Pressure? There are many different causes and your provider can help you find out what might be causing your pressure to be too high. What are the Signs of High Blood Pressure? High blood pressure doesn???t usually have warning signsor symptoms, so many people don???t realize they have it and that is why regular monitoring is important. Prevention and Treatment: Often high blood pressure can be controlled with lifestyle changes and when necessary, medications. Adopting heart healthy habits can help: Maintain a Healthy Weight Eat a heart healthy diet full of vegetables, fruits and whole grains that are high in fiber Be Physically Active every day Find heart healthy ways to reduce stress and increase relaxation Don???t use tobacco products Limit your intake of alcohol, caffeine and salt Monitor your blood pressure regularly: ask your provider how often Take your medications as prescribed, even when you???re feeling well 12/2016 www.[employer] 1.866.389.MAXIMILIANO (6247 Blood Pressure Medications and You High Blood Pressure Medications Your provider has determined you need prescription medication, in addition to lifestyle changes, tocontrol your high blood pressure. By treating high blood pressure, you can help prevent a stroke, heart attack, heart failure, kidney failure and peripheral artery disease. What types of high blood pressure medications are available? There are many medications, known as antihypertensives, available by prescription to lower your blood pressure. Your provider has selected a medication determined to be most appropriate for you. People often respond differently to medications. Most people go through a trial period to find the medication that works best for them. Give your body a chance to adjust to the medication. It may take some time, but the results will usually be worth it. If you don't feel well after taking a medication, let your healthcare provider know so he/she can adjust your treatment. Never change or stop taking your blood pressure medication without discussing with your healthcare provider first. Tell all of your healthcare providers about all of the lkkh-ykn-jkhjukt and prescription medications you are taking. Always read the labels and warnings of myar-mgb-uiuhoio (OTC) medications. Some medications and supplements can raise your blood pressure and/or interfere with the effectiveness of your blood pressure medication. A few examples of OTC medications to be cautious of include cold and flu remedies suchas nasal decongestants, non-steroidal anti-inflammatory drugs (NSAIDs) such as ibuprofen, and diet pills. If you are unsure if you can take an OTC medication, ask your pharmacist or healthcare provider before taking. Even if you're feeling fine, NEVER cut back or stop taking your blood pressure medication. Take your medication exactly as prescribed and never adjust or stop taking without discussing with your healthcare provider. Taking your medication every other day or splitting in half to make them last longer may cause your blood pressure to rise to dangerous levels. If you feel your diet, increased physical activity or other lifestyle changes have lowered your blood pressure, review your measurements with your healthcare provider. Keep appointments with your healthcare providers. It's very important to monitor your progress and make adjustments to your treatment to keep your blood pressure under control. High blood pressure is a lifelong condition, and by partnering with yourhealthcare team, you can successfully reach your treatment goals and enjoy the benefits of better health. A catalan to better control of your blood pressure is a good partnership with your healthcare team. Seek immediate emergency medical attention if you experience severe or worsening abdominal pain, difficulty swallowing, stiff neck, shortness of breath, coughing or vomiting up blood, chest pain, increased fever, unexplained weight loss, or blood in stool. If your symptoms do not improve within 72 hours, follow up with [facility] or your primary care provider. If your symptoms are not resolved within 2 weeks, follow up with your primary care provider. If you are taking fqxb-oaw-fbwaspa medication(s), follow the dosing instructions included in the packaging, unless otherwise instructed by your provider. It is important to notify your primary care provider of all medications you are taking, including tdob-vtr-xhymzrs medications. /[id number] Sinusitis What is a Sinusitis? Sinusitis is redness, soreness and inflammation (or swelling) of the sinuses. The sinuses are air pockets within the bones of your face (above and below your eyes and in the middle of your forehead).Mucus normally drains out of the sinus space and air circulates through by way of your nose. The inflammation with sinusitis traps the air and mucus allowing bacterial and other germs to grow and possibly cause an infection. Causes of sinusitis Most sinus infections are caused by viruses (colds, upper respiratory infections) or allergies. Less common are infections caused by bacteria. Symptoms of sinusitis The symptoms of sinusitis (facial pain or pressure, headache, cough, feeling tired, etc) are similar if your condition is caused by a viral or bacterial infection. Treatment of sinusitis Most cases of sinusitis are related to a viral infection and resolve on their own within 10 days. Viral infections do not require antibiotic treatment however over the counter medications may be recommended to help relieve symptoms such as acetaminophen or ibuprofen for pain, saline sprays to moisten and clean the sinuses and/or decongestants. Take these medicines only as directed by your health care provider. REMEMBER: Do not give aspirin to children because of the association with Linda???s syndrome and decongestants such as pseudoephedrine (i.e. Sudafed) should not be taken if you have high blood pressure, heart disease, or a history of stroke. Sinusitis caused by a bacterial infection is treated with an antibiotic. These are medicines that will help kill the bacteria causing the infection. Home Care Recommendations: Rest and drink plenty of water/fluids (unless your doctor has told you otherwise) Use a humidifier or run a hot shower to create steam 3-4 times a day for approximately 10 minutes at a time (This helps lessen congestion) Use salt water sprays (saline sprays) as directed Apply a warm, moist washcloth to your face 3-4 times a day If you were prescribed an antibiotic finish it all even if you start to feel better Avoid tobacco smoke and other environmental irritants Seek Medical Care Immediately from your primary care doctor, urgent care center or emergency room, if: You have increasing pain or severe headaches You have nausea, vomiting, or drowsiness You have swelling around your face You have vision problems You have a stiff neck You have trouble breathing You develop a fever of 101.2 or higher. Follow up with your primary care provider if your symptoms get worse or do not improve within 3 to 5 days. Seek immediate emergency medical attention if you experience severe or worsening abdominal pain, difficulty swallowing, stiff neck, shortness of breath, coughing or vomiting up blood, chest pain, increased fever, unexplained weight loss, or blood in stool. If you are taking sijj-dzv-wmffmou medication(s) follow the dosing instructions included in the packaging, unless otherwise instructed by your provider. It is important to notify your primary care provider of all medications you are taking, including hona-tpy-duidcau medications. If your symptoms do not improve within 72 hours or if increasing frequency or severity of symptoms occurs, follow up with your primary care provider. /[id number] Bronchitis Instructions If your symptoms do not improve within 72 hours, follow up with your primary care provider. Bronchitis Facts What is bronchitis? Bronchitis is inflammation in the tubes (bronchial tubes) that carry air to your lungs. When you get bronchitis, the tubes become irritated and mucus (a thick fluid) is made. Bronchitis usually lasts10 days to 2 weeks, although a slight cough can last longer because of the irritation of the breathing tubes. What causes bronchitis? Most bronchitis (90%) is caused by viral infections that go away on their own. Only 10% is caused by bacteria (antibiotics only work against bacterial infections, not viral ones). Bronchitis may occur just when you think you are getting over a cold, since the same viruses that cause colds can also cause bronchitis. How is bronchitis spread? Bronchitis is spread when the germs are sprayed into the air or onto people???s hands when they cough or sneeze. You can get bronchitis by breathing in the germs or by touching an object or person that is coated with the germs and then touching your nose or mouth. If you smoke or are exposed to smoke or toxic fumes, you are more likely to get bronchitis and have it longer. What are the signs and symptoms of bronchitis? Coughing with or without phlegm Pain with breathing Wheezing (whistling when you breathe) Fever <100.4??F (usually lasts 48 hrs) Cold-like symptoms: stuffy or runny nose, sore or scratchy throat, or muscle aches How is bronchitis treated? Antibiotics are not needed for most people with bronchitis. Treating the symptoms is the best way to feel better. Some self-care remedies include: Try fdic-nrn-bdnaita pain and fever relievers. Acetaminophen (Tylenol??) or ibuprofen (Motrin?? or Advil??) may help reduce pain and low-grade fevers. Follow the directions and precautions printed onthe box. Do not take acetaminophen if you also take any other medicine that contains acetaminophen. Never give children aspirin because of its link to Linda???s syndrome. Use a cool mist humidifier. This helps to keep the air moist. Doing so helps thin out your mucus, making it easier to cough it up. Clean the humidifier daily to prevent bacteria and/or fungus from growing. Get extra rest. Sleep helps your body fight the infection. Unless your doctor told you to limit fluid intake, try to drink 8-10 (soda-can sized) glasses of liquids each day while awake. This helps thin the mucus so it can be coughed up more easily. Avoid caffeinated liquids. Wash your hands frequently and cover your mouth while coughing or sneezing. This will help prevent the spread of infection to other people. Avoid exposure to irritants, such as tobacco smoke. Wear a mask when the air is polluted, or if you???re exposed to irritants at work. How can I prevent bronchitis? Avoid smoking and exposure to secondhand smoke. Smoke prevents your lungs from fighting infection, it raises your risk of getting lung disease such as emphysema and harms the heart and lungs. If you are having trouble quitting, ask your primary care provider or [facility] practitioner for help. Get a flu shot every year. Many cases of bronchitis result from influenza viruses. Getting a flu shot every year can help protect you from getting the flu, and in turn, may reduce your risk of bronchitis. Consider getting a pneumonia shot. If you are 65 or older, smoke, or have risk factors such as heart disease, diabetes, asthma or emphysema, the pneumonia shot may help prevent complications from bronchitis. What if I don???t feel better? Bronchitis can turn into a more serious condition such as pneumonia. Follow up with your primary care provider within 72 hours if symptoms do not improve or sooner if any new symptoms develop. Seek immediate medical care if the following symptoms develop: Worsening cough Shortness of breath Difficulty breathing Chest pain Temperature is greater than 100.4??F Breathing fast (24 breaths/min or faster) Heart rate is greater than 100 documented in this encounter Progress Notes * Roselia Gold NP - 01/24/2025 4:50 PM EST Subjective Patient ID: Desean Celeste is a 74 y.o. male. Chief Complaint Patient presents with Respiratory HPI Pt presents with nasal congestion, runny nose, post nasal drip, and cough x3 weeks. No fevers/chills. No SOB/wheezing. Respiratory Duration of current symptoms: 3 weeks Onset quality: Suddenly Cough Characteristics: nonproductive Nonproductive Cough: dry Associated symptoms: cough, nasal congestion, postnasal drip and runny nose Associated symptoms: no myalgias, no chest pain, no chest tightness, no chills, no appetite change,no diarrhea, no ear pain, no fatigue, no fever, no headaches, no malaise, no nausea, no nocturnal dyspnea, no rash, no shortness of breath, no sinus pain, no sneezing, no sore throat, no diaphoresis,no swollen glands, no syncope, no unexpected weight change, no vomiting, no wheezing and no other Treatments tried: Oqce-ydo-xsdvcmx medication (Aspirin, cough syrup) Response to treatment: Relieved symptoms Relief: mild relief Special considerations: None apply Review of Systems Constitutional: Negative for appetite change, chills, diaphoresis, fatigue, fever and unexpected weight change. HENT: Positive for congestion, postnasal drip and rhinorrhea. Negative for ear pain, sinus pain, sneezing and sore throat. Respiratory: Positive for cough. Negative for chest tightness, shortness of breath and wheezing. Cardiovascular: Negative for chest pain. Gastrointestinal: Negative for diarrhea, nausea and vomiting. Musculoskeletal: Negative for myalgias. Skin: Negative for rash. Neurological: Negative for syncope and headaches. Social History Tobacco Use Smoking Status Never Smokeless Tobacco Never Past Medical History: Diagnosis Date Chronic kidney disease stage 2 High cholesterol Hypertension No past surgical history on file. No family history on file. Objective Physical Exam Constitutional: General: He is not in acute distress. Appearance: Normal appearance. He is well-developed. HENT: Head: Normocephalic. Right Ear: Hearing and external ear normal. There is impacted cerumen. Left Ear: Hearing and external ear normal. There is impacted cerumen. Nose: Mucosal edema, congestion and rhinorrhea present. Right Turbinates: Swollen. Left Turbinates: Swollen. Right Sinus: Maxillary sinus tenderness present. No frontal sinus tenderness. Left Sinus: Maxillary sinus tenderness present. No frontal sinus tenderness. Mouth/Throat: Lips: [place]. Mouth: Mucous membranes are moist. Pharynx: Oropharynx is clear. Uvula midline. Posterior oropharyngeal erythema present. Eyes: General: Right eye: No discharge. Left eye: No discharge. Conjunctiva/sclera: Conjunctivae normal. Cardiovascular: Rate and Rhythm: Normal rate and regular rhythm. Heart sounds: Normal heart sounds. No murmur heard. Pulmonary: Effort: Pulmonary effort is normal. No respiratory distress. Breath sounds: Normal breath sounds. No decreased breath sounds, wheezing or rhonchi. Musculoskeletal: Cervical back: Normal range of motion and neck supple. Lymphadenopathy: Cervical: No cervical adenopathy. Neurological: General: No focal deficit present. Mental Status: He is alert and oriented to person, place, and time. Mental status is at baseline. Psychiatric: Behavior: Behavior normal. Thought Content: Thought content normal. Judgment: Judgment normal. Assessment HPI provided by Self Based on today's visit:history and physical exam only, as no relevant testing deemed necessary patient's visit diagnosis is/includes 1. Hypertension, unspecified type Patient has a history of chronic conditions and those listed in the visit diagnoses were reviewed today. They are currently stable on medications. Treatment plan includes: Plan Orders Placed: No orders of the defined types were placed in this encounter. Medications ordered this visit No prescriptions requested or ordered in this encounter Current medication list and any new medications prescribed or recommended today were reviewed with the patient and specific instructions were provided Yes Provider Recommendations 1. Hypertension, unspecified type Blood pressure WNL at today???s visit, with history of hypertension. Encouraged patient to continuemedication as directed and return to [facility] or follow- up with PCP for re-evaluation of BP within the next 2-4 months. 2. Other acute sinusitis, recurrence not specified (Primary) - amoxicillin (AMOXIL) 875 MG tablet; Take 1 tablet (875 mg total) by mouth 2 (two) times a day for5 days Dispense: 10 tablet; Refill: 0 3. Subacute cough - benzonatate (TESSALON) 100 MG capsule; Swallow whole one (100mg) capsule by mouth 3 times a day as needed.Do not break, chew, dissolve, cut or crush. Dispense: 30 capsule; Refill: 0 Patient advised to contact PCP at the end of this visit to inform primary care provider of this visit, including any prescribed medications, and follow-up visit with provider if provider deems necessary. Patient advised to follow-up with PCP or urgent care if symptoms persist beyond 72 hours. If patient does not have PCP, advised to call insurance carrier or local hospital to help obtain one. Advised to follow-up with urgent care or emergency room immediately for new or worsening symptoms. [facility] or concerns at or in the event of an emergency, call [phone]. Discussed with patient proper administration and side effects of medications (OTC and/or prescribed). Discussed s/s that would warrant further treatment or examination and to follow-up with PCP/ UC if symptoms persist or worsen Patient/ guardian verbalizes understanding and agrees with plan of carein accordance with guidelines and scope of practice. Patient should go to the Emergency Department immediately if you experience any: -chest pain -shortness of breath -severe dizziness -acute abdominal pain -visual disturbances or eye pain -severe nausea/vomitting and unable to tolerate oral fluid replacement -drooling or difficulty swallowing Follow up care instructions were provided and reviewed?with the Patient. All questions were answered. Patient verbalized understanding of plan of care today. documented in this encounter Plan of Treatment Not on file documented as of this encounter Visit Diagnoses Diagnosis Other acute sinusitis, recurrence not specified- Primary Hypertension, unspecified type Subacute cough documented in this encounter Care Teams Sexual Assault Social Worker Relationship Specialty Start Date End Date Pcp, No PCP - General Family Medicine 06/13/23 documented as of this encounter
--- OUTSIDE RECORDS SUMMARY | 2025-01-30 11:00 | XMS_ITS | Clinical Summary ---
Author Organization [employer] [place] [employer] Address [address] [place] [address] Care Team Providers Care Instrumentation Chemist Name Role Phone Pcp, No Primary Care Provider [phone] Allergies Active Allergy Reactions Criticality Noted Date Comments Amlodipine Swelling 05/29/2024 Medications atorvastatin (LIPITOR) 10 MG tablet TAKE 1 TABLET BY MOUTH EVERY DAY 05/11/2023 Active hydroCHLOROthia zide (HYDRODIURIL) 25 MG tablet TAKE 1 TABLET BY MOUTH EVERY DAY 05/11/2023 Active metoprolol (LOPRESSOR) 50 MG tablet TAKE 1 TABLET BY MOUTH EVERY DAY 04/25/2023 Active metoprolol (TOPROL-XL) 50 MG 24 hr tablet Take 1 tablet (50 mg total) by mouth 02/10/2023 Active lisinopriL (PRINIVIL) 20 MG tablet Take 1 tablet (20 mg total) by mouth 12/20/2024 Active omeprazole (PriLOSEC) 20 MG capsule Take 1 capsule (20 mg total) by mouth Active benzonatate (TESSALON) 100 MG capsule Swallow whole one (100mg) capsule by mouth 3 times a day as needed.Do not break, chew, dissolve, cut or crush. 30 capsule 01/24/2025 02/01/20 25 Active amoxicillin (AMOXIL) 875 MG tablet Take 1 tablet (875 mg total) by mouth 2 (two) times a day for 5 days 10 tablet 01/24/2025 01/30/20 25 Encounters Date Type Department Care Team Description 01/24/2025 4:50 PM EST Office Visit [id number] [address] [place], [place] [id number] Roselia Gold NP Other acute sinusitis, recurrence not specified (Primary Dx); Hypertension, unspecified type; Subacute cough from Last 3 Months Social History Tobacco Use Types Packs/Day Years [...] Adults 18 yrs or above (or HM Modifier)([facility]) 1970 SDOH Screening Reminder: Krystal edlldoug for all adults ([facility]) 1970 Colorectal Cancer Screening 45 -75 Yrs (or HM Modifier) 1997 Colorectal Cancer: FLEXIBLE SIGMOIDOSCOPY Screening every 5 yrs 1997 Colorectal Cancer: Fecal Immunochemical Test (FIT) Annually [facility] 1997 Colorectal Cancer: High-sens itivity gFOBT Screening Annually [facility] 1997 Colorectal Cancer: Stool Col oguard Screening every 3 yrs 1997 Colorectal Cancer:CT Colonog jillian Screening every 5 yrs 1997 Zoster/Shingles Vaccine Seri es Screening: Adults aged 18+ yrs (or HM Modifiers)([facility]) (1 of 2) 2002 Flu Vaccination: Ages 65+: Y early High Dose Recommended (or Modifier)([facility]) 06/21/2024 09/23/2023, 09/23/2023, 09/27/2022 COVID-19 Vaccine Screening: Initial Series and Booster Status ([facility]) ( season) 2024 09/27/2022, 10/22/2021, 02/18/2021, Additional history exists RSV Vaccines (1 - 1-dose 75+ series) 2027 Lipid Screening: Every 5 yrs for Men aged 35+ (or HM Modifier) ([facility]) 10/25/2029 10/25/2024, 10/24/2023 DTaP/Tdap/Td Vaccines ([facility]) (3 - Td or Tdap) 03/31/2032 03/31/2022, 03/27/2012, 03/25/2005 Pneumococcal Vaccination Scr eening: Patients 65+ yrs of age ([facility]) Completed 10/10/2019, 08/21/2018 Hepatitis C Virus Infection in Adolescents and Adults: Screening (or Modifier) ([facility]) Completed 12/14/2024 Medical Devices Not on file Insurance [facility] MEDICARE Care Teams Instrumentation Chemist Relationship Specialty Start Date End Date Pcp, No PCP - General Family Medicine 06/13/23
--- OUTSIDE RECORDS SUMMARY | 2025-01-30 11:00 | XMS_ITS | Encounter Summary ---
Author Organization [place] [address] Care Team Providers Care Quarry Plant Crusher Operator Name Role Phone Antonio Castellanos MD Primary Care Provider [phone] Encounter Details Date Type Department Care Team (Late st Contact Info) Description 01/02/2025 Telephone Gastroenterology - [address] [facility] [address] [place] [phone] Sin Garvin MD [address] [place] [address] Social History Tobacco Use Types Packs/Day Years [...] care for your loved ones. For example, maternal child nurse or elderly care for an older adult? 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 documented in this encounter Plan of Treatment Upcoming Encounters Date Type Department Care Team (Late st Contact Info) Description 03/20/2025 2:30 PM EDT Office Visit Adult Medicine [facility] [address] [place] [phone] Thomas King PA [address] [place] [phone] documented as of this encounter Visit Diagnoses [...] documented as of this encounter Care Teams Quarry Plant Crusher Operator Relationship Specialty Start Date End Date Antonio Castellanos MD [address] [place] [id number] PCP - General Internal Medicine 12/19/24 documented as of this encounter
--- OUTSIDE RECORDS SUMMARY | 2025-01-30 11:00 | XMS_ITS | Encounter Summary ---
Author Organization [place] [address] Care Team Providers Care Social Work Program Coordinator Name Role Phone Antonio Castellanos MD Primary Care Provider [phone] Encounter Details Date Type Department Care Team (Late st Contact Info) Description 12/31/2024 Telephone Gastroenterology - [address] [facility] [address] [place] [phone] Sin Garvin MD [address] [place] [address] Social History Tobacco Use Types Packs/Day Years [...] 2:30 PM EDT Office Visit Adult Medicine [facility] [address] [place] [phone] Thomas King PA [address] [place] [address] documented as of this encounter Visit Diagnoses [...] documented as of this encounter Care Teams Social Work Program Coordinator Relationship Specialty Start Date End Date Antonio Castellanos MD [address] [place] [phone] PCP - General Internal Medicine 12/19/24 documented as of this encounter
--- OUTSIDE RECORDS SUMMARY | 2025-01-30 11:00 | XMS_ITS | Encounter Summary ---
Author Organization [place] [address] Care Team Providers Care Director Cost Name Role Phone Antonio Castellanos MD Primary Care Provider [phone] Encounter Details Date Type Department Care Team (Late st Contact Info) Description 01/14/2025 Telephone Gastroenterology - [address] [place] [phone] Sin Garvin MD [address] [place] [address] Social History Tobacco Use Types Packs/Day Years [...] for your loved ones. For example, child advocate or elderly care for an older adult? [...] 2:44 PM EST PT CALLED STATING THAT [facility] DOESN[facility]T HAVE THE ORDER FOR THE WEEKLY BLOOD DRAW. PLEASE CALL PT AFTER ORDER IS PLACED. documented in this encounter Plan of Treatment Upcoming Encounters Date Type Department Care Team (Late st Contact Info) Description 03/20/2025 2:30 PM EDT Office Visit Adult Medicine [facility] [address] [place] [phone] Thomas King PA [address] [place] [phone] documented as of this encounter Visit Diagnoses Not on filedocumented in this encounter Additional Health Concerns Assessment Noted Time PHQ-9 Depression Total Score: 0 10/25/20 11:55 AM EST A fall risk assessment has been complete d for the patient 10/25/2024 11:56 AM EST documented as of this encounter Care Teams Director Cost Relationship Specialty Start Date End Date Antonio Castellanos MD [address] [place] [phone] PCP - General Internal Medicine 12/19/24 documented as of this encounter
== END 2025-01-30 09:53 | disposition home or self-care (01) ==
LOC: HO.BBR 09:52
PROVIDERS: PCP Internal Medicine; Visit Provider Internal Medicine Gastroenterology
DX: Z13.89 Encounter for screening for other disorder (principal)

== ENCOUNTER 2025-02-06 08:43 | Outpatient (REF) | payer MEDICARE, SELFPAY | END 2025-02-06 08:44 | disposition home or self-care (01) | LOC: HO.BBR 08:43 | PROVIDERS: PCP Internal Medicine; Visit Provider Internal Medicine Gastroenterology | DX: Z13.89 Encounter for screening for other disorder (principal) ==

== ENCOUNTER 2025-02-27 12:52 | Outpatient (REF) | payer MEDICARE, SELFPAY ==
--- OUTSIDE RECORDS SUMMARY | 2025-02-27 15:01 | XMS_ITS | Encounter Summary ---
Author Organization [employer] Address [address] [facility] [place] [address] Care Team Providers Care Fortune Cookie Maker Name Role Phone Emanuel BLISS MD, Antonio Apairciotista Primary Care Provi fernando Reason for Visit * Reason Comments Nose Complaint Encounter Details Date Type Department Care Team (Late st Contact Info) Description 02/25/2025 10:00 AM EDT Office Visit [id number] [place] [address] Nitish Medina, AC [address] [place] [address] Subacute cough (Primary Dx); Acute pharyngitis, unspecified etiology; Hypertension, unspecified type; Postnasal drip Social History Tobacco Use Types Packs/Day Years Used Date Smoking Tobacco: Never Passive Smoke Exposure: Never Smokeless Tobacco: Never Tobacco Cessation:Counseling Given: Yes PHQ-2 Answer Date Recorded PHQ-2 Score Patient declined 02/25/2025 Sex and Gender Information Value Date Recorded Sex Assigned at Not on file Legal Sex Male 2:14 PM EDT Gender Identity Not on file Sexual Orientation Not on file documented as of this encounter Last Filed Vital Signs Vital Sign Reading Time Taken Comments Blood Pressure 115/75 02/25/2025 9:55 AM EDT Pulse 64 02/25/2025 9:55 AM EDT Temperature 36.5 ??C (97.7 ??F) 02/25/2025 9:55 AM ED T Respiratory Rate 18 02/25/2025 9:55 AM EDT Oxygen Saturation 100% 02/25/2025 9:55 AM EDT Inhaled Oxygen Concentration - - Weight [...] this encounter Patient Instructions * Patient Instructions* Nitish Medina NP - 02/25/2025 10:00 AM EDT Images from the original note were not included. Seek immediate emergency medical attention if you experience severe or worsening abdominal pain, difficulty swallowing, stiff neck, shortness of breath, coughing or vomiting up blood, chest pain, increased fever, unexplained weight loss, or blood in stool. If you are taking ketg-doi-cluirql medication(s) follow the dosing instructions included in the packaging, unless otherwise instructed by your provider. It is important to notify your primary care provider of all medications you are taking, including cadc-grp-pocrybj medications. If your symptoms do not improve within 72 hours or if increasing frequency or severity of symptoms occurs, follow up with your primary care provider. /[id number] Bronchitis Instructions If your symptoms do not [...] feel better. Some self-care remedies include: Try gqfu-fya-hanukba pain and fever relievers. Acetaminophen (Tylenol??) or [...] quitting, ask your primary care provider or [facility] practitioner for help. Get a flu shot [...] faster) Heart rate is greater than 100 Seek immediate emergency medical attention if you [...] or do not fully resolve return to [facility] or primary care provider for re-evaluation. It is important to promptly share test results with your healthcare provider. [facility] is committed to supporting you with your chronic healthcare needs. It is important that you develop a relationship with a primary care provider who can manage your preventative and chronic care needs. [facility] cannot perform your annual physical or order your preventative screeningtests, all of which are an important part of your overall healthcare. If you do not have a primary care provider, [facility] can help you by giving you a [...] thistime, please have your blood pressure checked sooner . High Blood Pressure Seek Medical Attention If [...] your blood pressure gets too high or stays high for a long time, it can cause [...] prescribed, even when you???re feeling well 12/2016 www.[email or web address] 1.866.389.MAXIMILIANO (1037 Blood Pressure Medications and You High Blood [...] your healthcare providers about all of the xzsl-luf-jijsmts and prescription medications you are taking. Always read the labels and warnings of ithc-xfa-jekgvci (OTC) medications. Some medications and supplements can [...] a good partnership with your healthcare team. documented in this encounter Progress Notes * Nitish Medina NP - 02/25/2025 10:00 AM EDT Subjective Patient ID: Desean Celeste is a 74 y.o. male. Chief Complaint Patient presents with Nose Complaint HPI Patient reports cough triggered by a tickling sensation back of the throat for 7 weeks, worsening over the last 2 days. Respiratory Duration of current symptoms: 2 days Onset quality: Suddenly Cough Characteristics: productive of sputum Productive Cough comment: Unknown Associated symptoms: cough, postnasal drip, runny nose and sore throat Associated symptoms: no myalgias, no chest pain, no chest tightness, no chills, no congestion, no appetite change, no diarrhea, no ear pain, no fatigue, no fever, no headaches, no malaise, no nausea,no nocturnal dyspnea, no rash, no shortness of breath, no sinus pain, no sneezing, no diaphoresis, no swollen glands, no syncope, no unexpected weight change, no vomiting, no wheezing and no other Treatments tried: Prescription medication Response to treatment: No change Review of Systems Constitutional: Negative for activity change, appetite change, chills, diaphoresis, fatigue, fever and unexpected weight change. HENT: Positive for postnasal drip, rhinorrhea and sore throat. Negative for congestion, dental problem, ear pain, sinus pressure, sinus pain and sneezing. Respiratory: Positive for cough. Negative for apnea, chest tightness, shortness of breath and wheezing. Cardiovascular: Negative for chest pain and palpitations. Gastrointestinal: Negative for abdominal pain, diarrhea, nausea and vomiting. Musculoskeletal: Negative for arthralgias and myalgias. Skin: Negative for rash. Neurological: Negative for dizziness, syncope and headaches. Hematological: Negative for adenopathy. Social History Tobacco Use Smoking Status Never Passive exposure: Never Smokeless Tobacco Never Past Medical History: Diagnosis Date Chronic kidney disease stage 2 GERD (gastroesophageal reflux disease) High cholesterol Hypertension Past Surgical History: Procedure Laterality Date CHOLECYSTECTOMY 2022 LAPAROSCOPIC PARTIAL NEPHRECTOMY Left 2022 No family history on file. Objective Physical Exam Constitutional: General: He is not in acute distress. Appearance: Normal appearance. He is well-developed and well-groomed. He is not ill-appearing, toxic-appearing or diaphoretic. HENT: Head: Normocephalic and atraumatic. Right Ear: Hearing, tympanic membrane, ear canal and external ear normal. Left Ear: Hearing, tympanic membrane, ear canal and external ear normal. Nose: Nose normal. Mouth/Throat: Lips: [place]. Mouth: Mucous membranes are moist. Pharynx: Oropharynx is clear. Uvula midline. Posterior oropharyngeal erythema and postnasal drip present. No pharyngeal swelling, oropharyngeal exudate or uvula swelling. Tonsils: No tonsillar exudate or tonsillar abscesses. 0 on the right. 0 on the left. Neck: Trachea: Trachea normal. Cardiovascular: Rate and Rhythm: Normal rate and regular rhythm. Pulses: Normal pulses. Heart sounds: Normal heart sounds, S1 normal and S2 normal. No systolic murmur is present. No diastolic murmur is present. Pulmonary: Effort: Pulmonary effort is normal. Breath sounds: Normal breath sounds and air entry. No stridor, decreased air movement or transmitted upper airway sounds. No decreased breath sounds, wheezing, rhonchi or rales. Musculoskeletal: Cervical back: Normal range of motion and neck supple. Lymphadenopathy: Head: Right side of head: No submental, submandibular, tonsillar, preauricular, posterior auricular or occipital adenopathy. Left side of head: No submental, submandibular, tonsillar, preauricular, posterior auricular or occipital adenopathy. Cervical: No cervical adenopathy. Right cervical: No superficial, deep or posterior cervical adenopathy. Left cervical: No superficial, deep or posterior cervical adenopathy. Skin: General: Skin is warm and dry. Capillary Refill: Capillary refill takes less than 2 seconds. Findings: No rash. Neurological: General: No focal deficit present. Mental Status: He is alert and oriented to person, place, and time. Psychiatric: Attention and Perception: Attention and perception normal. Mood and Affect: Mood and affect normal. Speech: Speech normal. Behavior: Behavior normal. Behavior is cooperative. Thought Content: Thought content normal. Judgment: Judgment normal. Assessment HPI provided by Self Based on today's visit:history, physical exam and all relevant testing completed in clinic today patient's visit diagnosis is/includes 1. Subacute cough 2. Acute pharyngitis, unspecified etiology 3. Hypertension, unspecified type 4. Postnasal drip Patient has a history of chronic conditions and those listed in the visit diagnoses were reviewed today. They are currently stable on medications. Treatment plan includes: Plan Orders Placed: Orders Placed This Encounter Procedures Strep Molecular POCT Medications ordered this visit No prescriptions requested or ordered in this encounter Current medication list and any new medications prescribed or recommended today were reviewed with the patient and specific instructions were provided Yes Provider Recommendations Follow up with PCP for further evaluation of cough to rule out adverse effect from PEDRO PABLO inhibitor, patient verbalizes understanding. Follow up care instructions were provided and reviewed?with the Patient. All questions were answered. Patient verbalized understanding of plan of care today. I have reviewed with the patient the importance of following up with a Primary Care Provider (PCP) for overall management of preventative and chronic care needs. : Yes, PHQ-2 Total Score: (Proxy-Rptd) 0 documented in this encounter Plan of Treatment Not on file documented as of this encounter Procedures Procedure Name Priority Date/Time Associated Diagnosis Comments STREP MOLECULAR POCT Routine 02/25/2025 10:13 AM EDT Acute pharyngitis, unspecified etiology documented in this encounter Results * Strep Molecular POCT (02/25/2025 10:13 AM EDT) Pathologist [facility] POC MOLECULAR STREP A Negative Negative, Invalid, Not Tested, ERRONEOUS [place] [id number] INTERNAL CONTROLS VALID Yes--Test working appropriately [place] [id number] Expiration Date [id number] [place] [id number] Lot Number [id number] [place] [id number] TEST BRAND NAME_ STREP MOLECULAR ID Now Strep [place] [id number] Throat 02/25/2025 10:1 3 AM EDT Nitish Medina NP POINT OF CARE TEST ORDERABLES Final Result [facility] [id number] [address] [place] [address], documented in this encounter Visit Diagnoses Diagnosis Subacute cough- Primary Acute pharyngitis, unspecified etiology Hypertension, unspecified type Postnasal drip documented in this encounter Care Teams Fortune Cookie Maker Relationship Specialty Start Date End Date Antonio Castellanos III, MD [address] [place], [place] PCP - General Internal Medicine 02/25/25 documented as of this encounter
--- OUTSIDE RECORDS SUMMARY | 2025-02-27 15:01 | XMS_ITS | Encounter Summary ---
Author Organization [facility] Address [address] [place] [address] Care Team Providers Care Freight Claim Investigator Name Role Phone Antonio Castellanos MD Primary Care Provider [phone] Reason for Visit * Reason Comments Follow-up labwork Encounter Details Date Type Department Care Team (Latest Contact Info) Description 02/21/2025 10:30 AM EDT Office Visit Gastroenterology - [address] [place] [phone] Nadine Gautam PA [address] [place], [place] [id number] Hereditary hemochromatosis (CMS/HCC) (Primary Dx) Social History Tobacco Use Types Packs/Day Years [...] your loved ones. For example, early childhood specialist or elderly care for an older [...] Sign Reading Time Taken Comments Blood Pressure - - Pulse - - Temperature - - Respiratory Rate - - Oxygen Saturation - - Inhaled Oxygen Concentration - - Weight 94.8 kg (209 lb) 02/21/2025 10:07 AM EDT Height 180.3 cm (5' 11 ) 02/21/2025 10:07 AM EDT Body Mass Index 29.15 02/21/2025 10:07 AM EDT documented in this encounter Progress Notes * ISMA Cordero - 02/21/2025 10:30 AM EDTAssociated Problem(s): Hereditary hemochromatosis (CMS/HCC) Marked improvement in liver function tests and ferritin since Dec 2024 on repeat lab work completedtoday. Decrease phlebotomy to every other week x 4 weeks then recheck lab work. Order placed for future labs, phlebotomy schedule pending ferritin goal of <50. Maintenance phlebotomy every 2-3 months when target ferritin level achieved. Orders: CBC and differential; Future Iron and TIBC; Future Ferritin; Future Hepatic function panel; Future CBC and differential; Standing Iron and TIBC; Standing Ferritin; Standing Hepatic function panel; Future * ISMA Cordero - 02/21/2025 10:30 AM EDT Images from the original note were not included. CHIEF COMPLAINT: Follow-up (labwork) HPI: Desean Celeste is a 74 y.o. old male who was originally referred to us by Antonio Castellanos MD now presents to the gastroenterology department today for a follow up of hemachromatosis Started weekly phlebotomies around first week of January. Completed weekly x 4 weeks. Last phlebotomywas February 13. Feeling well Denies GI concerns. Tolerating phlebotomy well. Colonoscopy recently completed, polyp resected, recommend 5-year recall. ROS: GENERAL: No malaise, significant weight loss or fever HEENT: No changes in hearing or vision, nose bleeds or swallowing problems NECK: No lumps, goiter, pain or significant neck swelling RESPIRATORY: No cough, wheezing or shortness of breath CARDIOVASCULAR: No chest pain, leg swelling or palpitations GI: No hematochezia, melena, nausea/vomiting MUSCULOSKELETAL: No joint pain or swelling, back pain, or muscle pain. SKIN: No lesions, rash or itching The remainder of the review of systems is reviewed and negative. 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) Microalbuminuria Hereditary hemochromatosis (CMS/HCC) Past Medical History: Diagnosis Date Colon polyp Essential hypertension, benign 06/02/2006 DX:Essential hypertension, benign Renal cell carcinoma 08/10/2023 DX:Renal cell carcinoma (HCC); COMMENT: 08/13 left partial nephrectomy Rosacea 06/02/2006 DX:Rosacea PAST SURGICAL HISTORY: Past Surgical History: Procedure Laterality Date CHOLECYSTECTOMY 2022 COLONOSCOPY 2002 PROCEDURE: HISTORICAL COLONOSCOPY; COMMENT: negative COLONOSCOPY W/ BIOPSIES 2013 PROCEDURE: [place] COLONOSCOPY W/BIOPSY SINGLE/MULTIPLE; COMMENT: 5 mm sigmoid [...] Brother Asthma Son Colon cancer Neg Hx ACTIVE MEDICATIONS: Current Outpatient Medications Medication Sig Dispense Refill atorvastatin (LIPITOR) 10 mg tablet TAKE 1 TABLET BY MOUTH EVERYDAY AT BEDTIME 90 tablet 1 fluticasone propionate (FLONASE) 50 mcg/actuation nasal spray 1 Supply by Nasal route daily. hydroCHLOROthiazide (HYDRODIURIL) 25 mg tablet Take 1 tablet (25 mg total) by mouth 1 (one) time each day. 90 tablet 1 lisinopriL (PRINIVIL,ZESTRIL) 20 mg tablet Take 1 tablet (20 mg total) by mouth 1 (one) time each day. 90 each 1 metoprolol tartrate (LOPRESSOR) 50 mg tablet Take 1 tablet (50 mg total) by mouth 1 (one) time eachday. 90 tablet 1 omeprazole (PriLOSEC) [address] capsule Take 1 capsule (20 mg total) by mouth 1 (one) time each day. No current facility-administered medications for this visit. ALLERGIES: Allergies Allergen Reactions Amlodipine Bilateral leg swelling PHYSICAL EXAM: Visit Vitals Ht 1.803 m (71 ) Wt 94.8 kg (209 lb) BMI 29.15 kg/m?? Smoking Status Never BSA 2.15 m?? APPEARANCE: Alert and in no acute distress EYES: PERRLA, conjunctiva and sclera normal. MOUTH/THROAT: no erythema or exudates ABDOMEN: soft non tender, no ascites, guarding, or rebound, no organomegaly. EXTREMITIES: Extremities warm and well perfused SKIN: Skin color, texture, turgor normal. NEURO: Awake, alert and oriented, normal ROM LABS: Lab Results Component Value Date WBC 6.9 02/21/2025 HGB 14.1 02/21/2025 HCT 41.6 (L) 02/21/2025 MCV 93.5 02/21/2025 PLT 279 02/21/2025 Lab Results Component Value Date NA 136 10/25/2024 K 3.9 10/25/2024 CL 101 10/25/2024 CO2 28 10/25/2024 BUN 17 10/25/2024 CREATININE 1.24 10/25/2024 CALCIUM 9.7 10/25/2024 PROT 7.2 02/21/2025 BILITOT 0.8 02/21/2025 ALKPHOS 67 02/21/2025 ALT 52 02/21/2025 AST 43 (H) 02/21/2025 GLUCOSE 126 (H) 10/25/2024 ntains abnormal data Hepatic function panel Order: [id number] Status: Final result Visible to patient: Yes (seen) Dx: Hereditary hemochromatosis (CMS/HCC) 0 Result Notes Component Ref Range & Units 10:54 (02/21/25) 2 mo ago (12/14/24) 2 mo ago (12/14/24) 2 mo ago (12/14/24) 2 mo ago (12/14/24) 3 mo ago (10/25/24) Total Protein 6.0 - 8.0 g/dL 7.2 7.8 7.8 7.8 7.7 Albumin 3.2 - 5.0 g/dL 3.8 4.4 4.3 Total Bilirubin 0.0 - 1.4 mg/dL 0.8 1.1 1.1 1.2 Bilirubin, Direct 0.0 - 0.3 mg/dL 0.2 0.3 0.3 Bilirubin, Indirect 0.0 - 1.1 mg/dL 0.6 0.8 ALT (SGPT) 10 - 60 unit/L 52 111 High 111 High 87 High AST (SGOT) 10 - 42 unit/L 43 High 64 High 64 High 55 High Alkaline Phosphatase 42 - 121 unit/L 67 66 61 Ferritin Order: [id number] Status: Final result Visible to patient: Yes (seen) Dx: Hereditary hemochromatosis (CMS/HCC) 0 Result Notes Component Ref Range & Units 10:54 2 mo ago Ferritin 26 - 388 ng/mL 234 1,013 [facility] Order: [id number] Status: Final result Visible to patient: Yes (seen) Dx: Hereditary hemochromatosis (CMS/HCC) 0 Result Notes Component Ref Range & Units 10:54 2 mo ago Iron 50 - 160 mcg/dL 137 246 High TIBC 250 - 450 mcg/dL 408 393 Iron Saturation 20 - 50 % 34 63 [facility] Spec[facility] Collected: 02/21/25 10:54 EDT Last Resulted: 02/21/25 12:57 EDT Assessment/Plan Assessment & Plan Hereditary hemochromatosis (CMS/HCC) Marked improvement in liver function tests and ferritin since Dec 2024 on repeat lab work completedtoday. Decrease phlebotomy to every other week x 4 weeks then recheck lab work. Order placed for future labs, phlebotomy schedule pending ferritin goal of <50. Maintenance phlebotomy every 2-3 months when target ferritin level achieved. Orders: CBC and differential; Future Iron and TIBC; Future Ferritin; Future Hepatic function panel; Future CBC and differential; Standing Iron and TIBC; Standing Ferritin; Standing Hepatic function panel; Future Follow up in about 6 months (around 08/23/2025) for Recheck. Gastroenterology and Hepatology Practice [facility] [email or web address] [phone] [place] [id number] ISMA Cordero * Lisa Thao MA - 02/21/2025 10:30 AM EDT SENT NEW ORDER FOR TO [facility] FOR BI WEEKLY PHLEBOTOMIES documented in this encounter Plan of Treatment Upcoming Encounters Date Type Department Care Team (Late st Contact Info) Description 03/20/2025 2:30 PM EDT Office Visit [facility] [address] [place] [phone] Thomas King PA [address] [place] [address] Scheduled Orders Name Type Priority Associated Diagnoses Orde r Schedule CBC and differential Lab Routine Hereditary hemochromatosis (CMS/HCC) Every 4 weeks for 3 Occurrences starting 02/21/2025 until 02/21/2026 Iron and TIBC Lab Routine Hereditary hemochromatosis (CMS/HCC) Every 4 weeks for 3 Occurrences starting 02/21/2025 until 02/21/2026 Ferritin Lab Routine Hereditary hemochromatosis (CMS/HCC) Every 4 weeks for 3 Occurrences starting 02/21/2025 until 02/21/2026 Hepatic function panel Lab Routine Hereditary hemochromatosis (CMS/HCC) Expected: 03/23/2025, Expires: 02/21/2026 documented as of this encounter Results * (ABNORMAL) Hepatic function panel (02/21/2025 10:54 AM EDT) Total Protein 7.2 6.0 - 8.0 g/dL LAB CHEMISTRY METHOD 02/21/2025 1:02 PM EDT [facility] Albumin 3.8 3.2 - 5.0 g/dL LAB CHEMISTRY METHOD 02/21/2025 1:02 PM EDT [facility] Total Bilirubin 0.8 0.0 - 1.4 mg/dL LAB CHEMISTRY METHOD 02/21/2025 1:02 PM EDT [facility] Bilirubin, Direct 0.2 0.0 - 0.3 mg/dL LAB CHEMISTRY METHOD 02/21/2025 1:02 PM EDT [facility] Bilirubin, Indirect 0.6 0.0 - 1.1 mg/dL LAB CHEMISTRY METHOD 02/21/2025 1:02 PM EDT [facility] ALT (SGPT) 52 10 - 60 unit/L LAB CHEMISTRY METHOD 02/21/2025 1:02 PM EDT [facility] AST (SGOT) 43(H) 10 - 42 unit/L LAB CHEMISTRY METHOD 02/21/2025 1:02 PM EDT [facility] Alkaline Phosphatase 67 42 - 121 unit/L LAB CHEMISTRY METHOD 02/21/2025 1:02 PM EDT [facility] Blood Venous blood specimen / Unknown Venipuncture / Unknown 02/21/2025 10:54 AM EDT 02/21/2025 11:23 AM EDT Nadine ASHBY LAB BLOOD ORDERABLES Final Resu lt Performing Organization Address City/[facility]/ZIP Co de Phone Number [facility] [address] [place] [address], * Ferritin (02/21/2025 10:54 AM EDT) [facility] Ferritin 234 26 - 388 ng/mL LAB CHEMISTRY METHOD 02/21/2025 1:02 PM EDT [facility] Blood Venous blood specimen / Unknown Venipuncture / Unknown 02/21/2025 10:54 AM EDT 02/21/2025 11:23 AM EDT Nadine Gautam DC LAB BLOOD ORDERABLES Final Resu lt [facility] [address] [place] [address], [place] [phone] * Iron and TIBC (02/21/2025 10:54 AM EDT) Iron 137 50 - 160 mcg/dL LAB CHEMISTRY METHOD 02/21/2025 12:57 PM EDT [facility] TIBC 408 250 - 450 mcg/dL LAB CHEMISTRY METHOD 02/21/2025 12:57 PM EDT [facility] Iron Saturation 34 20 - 50 % LAB CHEMISTRY METHOD 02/21/2025 12:57 PM EDT [facility] Blood Venous blood specimen / Unknown Venipuncture / Unknown 02/21/2025 10:54 AM EDT 02/21/2025 11:23 AM EDT us Nadine ASHBY LAB BLOOD ORDERABLES Final Resu lt [facility] [address] [place] [address], documented in this encounter Visit Diagnoses Diagnosis Hereditary hemochromatosis (CMS/HCC)- Primary Hereditary hemochromatosis documented in this encounter Additional Health Concerns Assessment Noted Time PHQ-9 Depression Total Score: 0 10/25/20 24 11:55 AM EST A fall risk assessment has been complete d for the patient 10/25/2024 11:56 AM EST documented as of this encounter Care Teams Freight Claim Investigator Relationship Specialty Start Date End Date Antonio Castellanos MD [address] [place] [phone] PCP - General Internal Medicine 12/19/24 documented as of this encounter
--- OUTSIDE RECORDS SUMMARY | 2025-02-27 15:01 | XMS_ITS | Clinical Summary ---
Author Organization [facility] [address] [facility] Address [address] [place] [phone] Phone Care Team Providers Care Director [employer] Name Role Phone Antonio Castellanos MD Primary Care Provider Allergies Active Allergy Reactions Criticality Noted Date Comments Amlodipine 01/29/2022 Bilateral leg swelling Medications omeprazole (PriLOSEC) [address] capsule Take 1 capsule (20 mg total) by mouth 1 (one) time each day. Active metoprolol tartrate (LOPRESSOR) 50 mg tablet [...] day. 90 each 1 12/20/19 25 Active atorvastatin (LIPITOR) 10 mg tablet TAKE 1 TABLET BY MOUTH EVERYDAY AT BEDTIME 90 tablet 1 02/13/20 25 Active fluticasone propionate (FLONASE) 50 mcg/actuation nasal spray Administer 1 spray into each nostril 2 (two) times a day. Shake gently. Before first use, prime pump. After use, clean tip and replace cap. 16 g 02/28/20 25 Active cetirizine (ZyrTEC) 10 mg tablet Take 1 tablet (10 mg total) by mouth 1 (one) time each day. 90 each 02/28/20 25 Active fluticasone propionate (FLONASE) 50 mcg/actuation nasal spray 1 [place] by Nasal route daily. 07/18/20 23 025 Discontinued(Re order) atorvastatin (LIPITOR) 10 mg tablet Take 1 tablet (10 mg total) by mouth at bedtime. 90 tablet 1 11/08/20 24 025 Discontinued Active Problems Problem Noted Date Diagnosed Date Hereditary hemochromatosis 02/21/2025 Assessment & Plan (02/21/2025 4:58 PM EDT): Marked improvement in liver function tests and ferritin since Dec 2024 on repeat lab work completed today. Decrease phlebotomy to every other week x [...] Standing Ferritin; Standing Hepatic function panel; Future Microalbuminuria 10/25/2024 CKD (chronic kidney disease) stage [...] Encounters Date Type Department Care Team Description 02/27/2025 10:00 AM EDT Hospital Encounter [address] [phone] Subacute cough 02/27/2025 9:45 AM EDT Office Visit Adult Medicine [address] [phone] Patricia Workman PA Subacute cough (Primary Dx) 02/25/2025 Telephone Gastroenterology - [address] [place] [phone] Lisa Thao MA Results 02/21/2025 10:30 AM EDT Office Visit Gastroenterology - [address] [phone] Nadine Gautam PA Hereditary hemochromatosis (CMS/HCC) (Primary Dx) 02/14/2025 Telephone Gastroenterology - [address] [phone] Lisa Thao MA Results 02/12/2025 Lab Requisition [facility] - Main Lab [address] [place] [phone] Sin Garvin MD Encounter for screening for malignant neoplasm of colon 02/01/2025 Telephone Gastroenterology - [address] [place] [address] Lindsay Lowery MA 01/14/2025 Telephone Gastroenterology - [address] [place] [address] Sin Garvin MD 01/14/2025 Telephone Gastroenterology - [address] [place] [phone] Elise Sidhu MA Results 01/14/2025 Telephone Gastroenterology - [address] [place] [phone] Elise Sidhu MA 01/04/2025 Telephone Gastroenterology - [address] [place] [phone] Lisa Thao MA rescheduling 01/02/2025 Telephone Gastroenterology - [address] [place] [phone] Sin Garvin MD 01/01/2025 Telephone Gastroenterology - [address] [place] [phone] Nadine Gautam PA 12/31/2024 Telephone Gastroenterology - [address] [place] [phone] Sin Garvin MD 12/28/2024 8:48 AM EST - 12/28/2024 11:59 PM EST Hospital Encounter [facility] Ultrasound [address] [place] [address] Transaminitis Discharge Disposition: Home or Self Care 12/20/2024 2:20 PM EST Lab Draw Station - [address] [place] [phone] Transaminitis; Elevated TSH; Abnormal results of thyroid function studies 12/20/2024 1:30 PM EST Office Visit Adult [address] [phone] Thomas King PA Essential hypertension, benign (Primary Dx); CKD (chronic kidney disease) stage 2, GFR 60-89 ml/min 12/19/2024 Telephone Gastroenterology - [address] [place] [phone] Nadine Gautam PA 12/17/2024 Telephone Gastroenterology - [address] [phone] Nadine Gautam PA 12/14/2024 1:55 PM EST Lab Draw Station - [address] [place] [address] [place] [address] Transaminitis; Other specified symptoms and signs involving the digestive system and abdomen 12/14/2024 1:00 PM EST Office Visit Gastroenterology - [address] [phone] Nadine Gautam PA Colon cancer screening (Primary Dx); Transaminitis; Other specified symptoms and signs involving the digestive system and abdomen from Last 3 Months Immunizations Name Administration Dates Next Due Hepatitis A Adult (Havrix; V aqta) 19yo and older 02/15/2024,08/17/2023 Hepatitis B (Xojpxym-V-Fmseu , Recombivax HB-Adult) 19yo and older 02/22/2024,09/21/2023,08/17/2023 [...] COMMENT: negative COLONOSCOPY W/ BIOPSIES 2013 PROCEDURE: UT COLONOSCOPY W/BIOPSY SINGLE/MULTIPLE; COMMENT: 5 mm sigmoid colon polyp: Hyperplastic polyp. KNEE SURGERY 1983 Right PROCEDURE: HISTORICAL KNEE SURGERY; COMMENT: scope r knee CHOLECYSTECTOMY 11/21/2022 - 11/20/2023 Medical History Medical History Date Comments Essential hypertension, benign 06/02/2006 D X:Essential hypertension, benign Rosacea 06/02/2006 DX:Rosacea Renal cell carcinoma 08/10/2023 DX:Renal ce ll carcinoma (HCC); COMMENT: 08/13 left partial nephrectomy [...] for your loved ones. For example, child adolescent care or elderly care for an older adult? [...] Sign Reading Time Taken Comments Blood Pressure 114/74 02/27/2025 9:49 AM EDT Pulse 56 02/27/2025 9:49 AM EDT Temperature 36.3 ??C (97.3 ??F) 02/27/2025 9:49 AM ED T Respiratory Rate 16 10/25/2024 11:50 AM EST Oxygen Saturation 98% 02/27/2025 9:49 AM EDT Inhaled Oxygen Concentration - - Weight 94.9 kg (209 lb 4.8 oz) 02/27/2025 9:49 A M EDT Height 180.3 cm (5' 10.98 ) 02/27/2025 9:49 AM E DT Body Mass Index 29.2 02/27/2025 9:49 AM EDT Plan of Treatment Upcoming Encounters Date Type Department Care Team (Late st Contact Info) Description 03/20/2025 2:30 PM EDT Office Visit Adult Medicine [facility] [address] [place] [phone] Thomas King PA [address] [place] [address] Health Maintenance Due Date Last Done Comments Diabetes: Annual Foot Exam 1962 Diabetes: Annual Retina Eye Exam 1962 Zoster Vaccines (1 of 2) 1971 RSV Immunization Adult Patients (1 - Risk 60-74 years 1-dose series) 2012 COVID-19 Vaccine ( season) 2024 09/27/2022, 09/27/2022, 10/22/2021, Additional history exists Diabetes: Blood Sugar Control Test (HGBA1C) 04/25/2025 10/25/2024, 05/02/2024, 05/02/2024 Diabetes: Annual Urine Albumin-Creatinine Ratio (uACR) 10/25/2025 10/25/2024, 08/23/2023 Diabetes: Annual GFR (Glomerular Filtration Rate) 10/25/2025 10/25/2024, 05/02/2024, 05/02/2024 Falls Risk Assessment 10/25/2025 10/25/2024 Hypertension/CHF/CAD Annual BMP Blood Test 10/25/2025 10/25/2024, 05/02/2024, 05/02/2024 Medicare Annual Wellness Visit 10/25/2025 10/25/2024 Social Influencers of Health Screening 10/25/2025 10/25/2024 Depression Screening 02/25/2026 02/25/2025 Cholesterol Screening (Lipid Panel) 10/25/2029 10/25/2024, 10/24/2023 DTaP,Tdap,and Td Vaccines (5 - Td or Tdap) 03/31/2032 03/31/2022, 03/27/2012, 03/25/2005, Additional history exists Colorectal Cancer Screening: Colonoscopy 02/12/2035 02/12/2025, 09/18/2010 Pneumococcal Vaccine: 50+ Years Completed 10/10/2019, 08/21/2018 [...] age to complete this topic Meningococcal B Vaccine Aged Out No l onger eligible based on patient's age to complete this topic RSV Immunization Patients Under 20 months Aged Out No longer eligible based on patient's age to complete this topic Varicella Vaccines Aged Out No longer eligible based on patient's age to complete this topic Procedures Procedure Name Priority Date/Time Associated Diagnosis Comments XR CHEST 2 VIEWS Routine 02/27/2025 10:27 AM EDT Subacute cough CBC WITH AUTO DIFFERENTIAL Routine 02/21/2025 10:54 AM EDT Hereditary hemochromatosis (CMS/HCC) HEPATIC FUNCTION PANEL Routine 10:54 AM EDT Hereditary hemochromatosis (CMS/HCC) FERRITIN Routine 02/21/2025 10:54 AM EDT Hereditary hemochromatosis (CMS/HCC) IRON AND TIBC Routine 02/21/2025 10:54 AM EDT Hereditary hemochromatosis (CMS/HCC) CBC AND DIFFERENTIAL Routine 02/21/2025 10:54 AM EDT Hereditary hemochromatosis (CMS/HCC) EXTERNAL COLONOSCOPY REPORT Routine 02/12/2025 4:49 PM EDT TISSUE EXAM Routine 02/12/2025 Encounter for screening for malignant neoplasm of colon EXTERNAL CLINICAL LAB 01/31/2025 EXTERNAL CLINICAL LAB 01/24/2025 EXTERNAL CLINICAL LAB [...] CERULOPLASMIN Routine 12/20/2024 2:26 PM EST Transaminitis UT PROTEIN ELECTROPHORETIC FRACTIONATION & QUANTITATION SERUM Routine [...] microalbuminuria, without long-term current use of insulin ([facility]) Microalbuminuria COMPREHENSIVE METABOLIC PANEL Routine 10/25/2024 12:47 PM EST 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) Mixed hyperlipidemia Obesity (BMI 30.0-34.9) Essential hypertension, benign Prostate cancer screening Stage 3a chronic kidney disease ([facility]/HCC) Type 2 diabetes mellitus with diabetic microalbuminuria, without long-term current use of insulin ([facility]/HCC) Microalbuminuria Hyperplastic colonic polyp, unspecified part of colon HEMOGLOBIN A1C Routine 10/25/2024 12:47 PM EST Type 2 diabetes mellitus with diabetic microalbuminuria, without long-term current use of insulin ([facility]) LIPID PANEL WITH REFLEX TO DIRECT LDL Routine 10/25/2024 12:47 PM EST Mixed hyperlipidemia from Last 3 Months or Most Recently Relevant to Health Maintenance Results * XR Chest 2 Views (02/27/2025 10:27 AM EDT) Anatomical Region Laterality Modality Body Radiographic Tammy ging 02/27/2025 1:39 PM EDT Impressions 02/27/2025 1:46 PM EDT Possible nipple shadow in the left lower lung. ??Recommend repeat imaging with nipple markers. ??No evidence of an acute chest process. POS - [id number] -------- FINAL REPORT -------- Dictated By: Flor Gonzalez Dictated Date: 02/27/2025 13:39 ET Assigned Physician: Flor Gonzalez Reviewed and Electronically Signed By: Flor Gonzalez Signed Date: 02/27/2025 13:46 ET Workstation ID: [id number] Transcribed By: Self Edit Transcribed Date: 02/27/2025 13:39 ET Narrative 02/27/2025 1:46 PM EDT EXAM: Chest x-ray HISTORY: ??Cough. COMPARISON: 02/18/2020 FINDINGS: PA and lateral views of the chest were performed. ?? No focal infiltrate, pleural effusion, or evidence of pulmonary edema. ??Subcentimeter nodular opacity in the left lower lung could potentially represent a nipple shadow. ??Heart is not enlarged. ??Mediastinal contours are stable. Multilevel bridging endplate osteophytes. Procedure Note Flor Gonzalez MD - 02/27/2025 EXAM: Chest x-ray HISTORY: Cough. COMPARISON: 02/18/2020 FINDINGS: PA and lateral views of the chest were performed. No focal infiltrate, pleural effusion, or evidence of pulmonary edema.Subcentimeter nodular opacity in the left lower lung could potentiallyrepresent a nipple shadow. Heart is not enlarged. Mediastinal contoursare stable. Multilevel bridging endplate osteophytes. IMPRESSION: Possible nipple shadow in the left lower lung. Recommend repeat imagingwith nipple markers. No evidence of an acute chest process. POS - [id number] -------- FINAL REPORT -------- Dictated By: Flor Gonzalez Dictated Date: 02/27/2025 13:39 ET Assigned Physician: Flor Gonzalez Reviewed and Electronically Signed By: Flor Gonzalez Signed Date: 02/27/2025 13:46 ET Workstation ID: [id number] Transcribed By: Self Edit Transcribed Date: 02/27/2025 13:39 ET us Patricia ASHBY IMG XR PROCEDURES Final Resul t * (ABNORMAL) CBC auto differential (02/21/2025 10:54 AM EDT) Only the most recent of2 resultswithin the time period is included. WBC 6.9 4.8 - 10.8 K/mcL LAB HEMETOLOGY METHOD 02/21/2025 11:37 AM EDT [facility] RBC 4.50 4.50 - 5.50 M/mcL LAB HEMETOLOGY METHOD 02/21/2025 11:37 AM EDT [facility] Hemoglobin 14.1 13.5 - 17.5 g/dL LAB HEMETOLOGY METHOD [facility]25 [facility] Hematocrit 41.6(L) 42.0 - 54.0 % LAB HEMETOLOGY METHOD 02/21/2025 11:37 AM [facility] MCV 93.5 79.0 - 98.0 FL LAB HEMETOLOGY METHOD 02/21/2025 11:37 AM [facility] MCH 31.7 27.0 - 32.0 pcg LAB HEMETOLOGY METHOD 02/21/2025 11:37 AM [facility] MCHC 33.9 32.0 - 37.0 g/dL LAB HEMETOLOGY METHOD 02/21/2025 11:37 AM [facility] RDW 13.2 11.0 - 15.0 % LAB HEMETOLOGY METHOD 02/21/2025 11:37 AM [facility] Platelets 279 130 - 400 K/mcL LAB HEMETOLOGY METHOD 02/21/2025 11:37 AM [facility] MPV 10.9 7.0 - 11.0 FL LAB HEMETOLOGY METHOD 02/21/2025 11:37 AM [facility] NRBC 0.0 <1.0 % LAB HEMETOLOGY METHOD 02/21/2025 11:37 AM [facility] NRBC Absolute 0.00 <0.10 K/mcL LAB HEMETOLOGY METHOD 02/21/2025 11:37 AM [facility] Neutrophils Relative 58.3 % LAB HEMETOLOGY METHOD 02/21/2025 11:37 AM [facility] Lymphocytes Relative 28.0 % LAB HEMETOLOGY METHOD 02/21/2025 11:37 AM [facility] Monocytes Relative 9.9 % LAB HEMETOLOGY METHOD 02/21/2025 11:37 AM [facility] Eosinophils Relative 2.6 % LAB HEMETOLOGY METHOD 02/21/2025 11:37 AM EDT [facility] Basophils Relative 0.9 % LAB HEMETOLOGY METHOD 02/21/2025 11:37 AM EDT [facility] Immature Granulocytes Relative 0.3 % LAB HEMETOLOGY METHOD 02/21/2025 11:37 AM EDT [facility] Neutrophils Absolute 4.05 1.50 - 7.00 K/mcL LAB HEMETOLOGY METHOD 02/21/2025 11:37 AM EDT [facility] Lymphocytes Absolute 1.94 1.00 - 5.00 K/mcL LAB HEMETOLOGY METHOD 02/21/2025 11:37 AM EDT [facility] Monocytes Absolute 0.69 0.20 - 1.00 K/mcL LAB HEMETOLOGY METHOD 02/21/2025 11:37 AM EDT [facility] Eosinophils Absolute 0.18 0.00 - 0.50 K/mcL LAB HEMETOLOGY METHOD 02/21/2025 11:37 AM EDT [facility] Basophils Absolute 0.06 0.00 - 0.20 K/mcL LAB HEMETOLOGY METHOD 02/21/2025 11:37 AM EDT [facility] Immature Granulocytes Absolute 0.02 0.00 - 0.03 K/mcL LAB HEMETOLOGY METHOD 02/21/2025 11:37 AM EDT [facility] Blood Venous blood specimen / Unknown Venipuncture / Unknown 02/21/2025 10:54 AM EDT 02/21/2025 11:25 AM EDT us Nadine ASHBY LAB BLOOD ORDERABLES Final Resu lt [facility] [address] [place] [address], * Iron and TIBC (02/21/2025 10:54 AM EDT) Only the most recent of2 resultswithin the time period is included. Iron 137 50 - 160 mcg/dL LAB CHEMISTRY METHOD 02/21/2025 12:57 PM EDT [facility] TIBC 408 250 - 450 mcg/dL LAB CHEMISTRY METHOD 02/21/2025 12:57 PM EDT [facility] Iron Saturation 34 20 - 50 % LAB CHEMISTRY METHOD 02/21/2025 12:57 PM EDT [facility] Blood Venous blood specimen / Unknown Venipuncture / Unknown 02/21/2025 10:54 AM EDT 02/21/2025 11:23 AM EDT Nadine Gautam [place] LAB BLOOD ORDERABLES Final Resu lt Performing Organization Address [facility]/ZIP Co de Phone Number [facility] [address] [place] [address], * Ferritin (02/21/2025 10:54 AM EDT) Only the most recent of2 resultswithin the time period is included. Pathologist [facility] Ferritin 234 26 - 388 ng/mL LAB CHEMISTRY METHOD 02/21/2025 1:02 PM EDT [facility] Blood Venous blood specimen / Unknown Venipuncture / Unknown 02/21/2025 10:54 AM EDT 02/21/2025 11:23 AM EDT Nadine [facility] LAB BLOOD ORDERABLES Final Resu lt Performing Organization Address City/[facility]/ZIP Co de Phone Number [facility] [address] [place] [address], [place] [phone] * (ABNORMAL) Hepatic function panel (02/21/2025 10:54 AM EDT) Only the most recent of2 resultswithin the time period is included. Total Protein 7.2 6.0 - 8.0 g/dL LAB CHEMISTRY METHOD 02/21/2025 1:02 PM EDT [facility] Albumin 3.8 3.2 - 5.0 g/dL LAB CHEMISTRY METHOD 02/21/2025 1:02 PM EDT [facility] Total Bilirubin 0.8 0.0 - 1.4 mg/dL LAB CHEMISTRY METHOD 02/[facility]2025 [facility] Bilirubin, Direct 0.2 0.0 - 0.3 mg/dL LAB CHEMISTRY METHOD 02/21/2025 1:02 PM EDT [facility] Bilirubin, Indirect 0.6 0.0 - 1.1 mg/dL LAB CHEMISTRY METHOD 02/21/2025 1:02 PM [facility] ALT (SGPT) 52 10 - 60 unit/L LAB CHEMISTRY METHOD 02/21/2025 1:02 PM [facility] AST (SGOT) 43(H) 10 - 42 unit/L LAB CHEMISTRY METHOD 02/21/2025 1:02 PM [facility] Alkaline Phosphatase 67 42 - 121 unit/L LAB CHEMISTRY METHOD 02/21/2025 1:02 PM [facility] Blood Venous blood specimen / Unknown Venipuncture / Unknown 02/21/2025 10:54 AM EDT 02/21/2025 11:23 AM EDT Nadine ASHBY LAB BLOOD ORDERABLES Final Resu lt [facility] [address] [place] [address], * External Colonoscopy Report (02/12/2025 4:49 PM EDT) Anatomical Region Laterality Modality Endoscopy Historical Provider GI~PROCEDURE ORDERABLES F inal Result * Tissue Exam (02/12/2025) Final Diagnosis Rectum, polyp: Tubular adenoma. 02/13/2025 3:06 PM EDT [facility] Clinical Information Screening for colorectal malignant neoplasm Polyp 02/13/2025 3:06 PM EDT [facility] Gross Description A. Colon, rectum polyp: With labeled rectum polyp . Received in formalin is a 0.3 cm irregular gasca mucosal tissue fragment which is wrapped in paper and submitted in toto in one cassette, one piece, multiple levels on one slide. PARAS 02/13/2025 3:06 PM EDT [facility] Disclaimer Unless otherwise specified, all tissue is 10% NB formalin fixed and paraffin embedded. 02/13/2025 3:06 PM EDT [facility] Tissue Colon structure / Unknown 02/12/2025 02/12/2025 3:34 PM EDT Sin Garvin MD LAB PATHOLOGY ORDERABLES Yasmin l Result [facility] [address] [place] [address], [place] [phone] * External clinical lab (01/31/2025) Only the most recent of3 resultswithin the time period is included. us [...] Signed Date: 01/07/2025 12:16 ET Workstation ID: [id number] Transcribed By: Self Edit Transcribed Date: 01/07/2025 12:12 ET Narrative 01/07/2025 12:16 PM EST History: Transaminitis. Comparison: Abdominal ultrasound 6 12/16/22, 07/24/20 (outside studies), abdominal MRI 12/21/22 ([facility]) Findings: Real-time imaging of the abdomen, limited [...] 6 12/16/22, 07/24/20 (outside studies),abdominal MRI 12/21/22 ([facility]) Findings: Real-time imaging of the abdomen, limited [...] No enhancing hepatic lesion was identified on [id number] MRI. The portal vein is patent and [...] Signed Date: 01/07/2025 12:16 ET Workstation ID: [id number] Transcribed By: Self Edit Transcribed Date: 01/07/2025 12:12 ET Nadine ASHBY [facility] US PROCEDURES Final Result * Hemochromatosis mutation [...] submitted clinical information reviewed by Ernie Torres, Ph.D.,MINO,[facility]. DETAILED ASSAY INFORMATION: Hereditary hemochromatosis (HH) [...] variants in the HFE gene, C282Y (NM 951989.2: c.845G>A, p.Lab466Mez) and H63D (NM 239838.2: c.187C>G, p.Otk35Iuu), that are commonly associated with HH. These [...] Health care providers, please contact your local [employer]' genetic counselor or call [phone] ( ) for assistance with the interpretation of these results. This test was developed and its analytical performance characteristics have been determined by [employer] [facility]. It has not been cleared or approved by FDA. This assay has been validated pursuant to the CLIA regulations and is used for clinical purposes. For more information, please refer to http://education.[employer].com/faq/hemochromatosis. (This link is being provided for informational/educational purposes only.) A portion of the testing was performed at [facility]. Reviewed and signed by Laboratory results and submitted clinical information reviewed by Ernie Torres, Ph.D.,MINO,[employer], Signed on 01/01/2025 at 09:10 Test Performed at: [employer] [address] ??[id number] ? I Rachel SOLIMAN, PhD, SARAH Blood Venous blood specimen / Unknown Venipuncture / Unknown 12/20/2024 2:26 PM EST 12/20/2024 4:12 PM EST [employer] [facility] LAB MOLECULAR DIAGNOSTICS ORDER GANESH Final Result Performing Organization Address City/[facility]/ZIP Co de Phone Number [facility] [address] [place] [address] * Smooth muscle antibody IgG (12/20/2024 2:26 PM EST) Smooth Muscle (F-Actin) IgG Ab 8 <20 UNITS 12/24/2024 1:28 PM EST [facility] Comment: Interpretation: Negative Test performed at [facility], [email or web address] [place], [place] ??[address] ? [phone] Olivia Douglass MD, PhD - [employer] Blood Venous blood specimen / Unknown Venipuncture / Unknown 12/20/2024 2:26 PM EST 12/20/2024 4:11 PM EST Nadine Gautam PA LAB BLOOD ORDERABLES Final Resu lt Performing Organization Address City/[facility]/ZIP Co de Phone Number [facility] [address] [place] [address] * Ceruloplasmin (12/20/2024 2:26 PM EST) Ceruloplasmin 29 20 - 60 mg/dL 12/24/2024 3:30 AM EST [facility] Comment: Test performed at [facility], [address] [place], [place] ??[address] ? [phone] Olivia Douglass MD, PhD - [employer] Inspector Blood Venous blood specimen / Unknown Venipuncture / Unknown 12/20/2024 2:26 PM EST 12/20/2024 4:11 PM EST Nadine ASHBY LAB BLOOD ORDERABLES Final Resu lt [address] [place] [address] * Triiodothyronine free (12/20/2024 2:26 PM EST) Pathologist [facility] T3, Free 310 230 - 420 pcg/dL LAB CHEMISTRY METHOD 12/20/2024 5:00 PM EST [facility] Blood Venous blood specimen / Unknown Venipuncture / Unknown 12/20/2024 2:26 PM EST 12/20/2024 4:11 PM EST Nadine ASHBY LAB BLOOD ORDERABLES Final Resu lt Performing Organization Address [facility]/ZIP Co de Phone Number [facility] [address] [place] [address], [place] [phone] * Thyroxine total (12/20/2024 2:26 PM EST) [facility] T4, Total 6.6 4.5 - 10.9 mcg/dL LAB CHEMISTRY METHOD 12/20/2024 5:05 PM EST [facility] Blood Venous blood specimen / Unknown Venipuncture / Unknown 12/20/2024 2:26 PM EST 12/20/2024 4:11 PM EST Nadine Gautam [place] LAB BLOOD ORDERABLES Final Resu lt Performing Organization Address City/[facility]/ZIP Co de Phone Number [facility] [address] [place] [address], [place] [phone] * Hepatitis ELR State reportatbles (12/14/2024 1:59 PM EST) [facility] Hep B Core IgM Negative Negative LAB CHEMISTRY METHOD 12/14/2024 9:59 PM EST [facility] Hep B Core Total Ab 12/14/2024 9:59 PM EST [facility] Hep B Surface Ag Confirmation 12/14/2024 9:59 PM EST [facility] Blood Venous blood specimen / Unknown Venipuncture / Unknown 12/14/2024 1:59 PM EST 12/14/2024 3:59 PM EST Nadine [facility] LAB BLOOD ORDERABLES Final Resu lt Performing Organization Address [facility]/ZIP Co de Phone Number [facility] [address] [place] [address], [place] [phone] * Hepatitis B surface antigen with reflex to confirmation (12/14/2024 1:59 PM EST) Pathologist [facility] Hepatitis B Surface Ag Negative Negative LAB CHEMISTRY METHOD 12/14/2024 8:16 PM EST [facility] Blood Venous blood specimen / Unknown Venipuncture / Unknown 12/14/2024 1:59 PM EST 12/14/2024 3:59 PM EST Narrative [facility] - 12/14/2024 8:16 PM EST Over the counter supplements containing high doses of biotin may interfere with this assay. ??If interference is suspected, patients shoud be retested after refraining from biotin supplements for 72 hours. [facility] BLOOD ORDER[facility]LES Final Resu lt [facility] [address] [place] [address], [place] [phone] * PATHOLOGIST REVIEW PROTEIN ELECTROPHORESIS (12/14/2024 1:59 PM EST) Pathologist Interpretation Reviewed by Adriana Bangura MD 12/17/2024 11:57 AM EST [facility] Blood Venous blood specimen / Unknown Venipuncture / Unknown 12/14/2024 1:59 PM EST 12/14/2024 3:59 PM EST Nadine ASHBY LAB BLOOD ORDERABLES Final Resu lt [facility] [address] [place] [address], [place] [phone] * (ABNORMAL) AST, ALT, Bilirubin ELR state reportables (12/14/2024 1:59 PM EST) Pathologist [facility] ALT (SGPT) 111(H) 10 - 60 unit/L LAB CHEMISTRY METHOD 12/14/2024 9:59 PM EST [facility] AST (SGOT) 64(H) 10 - 42 unit/L LAB CHEMISTRY METHOD 12/14/2024 9:59 PM EST [facility] Bilirubin, Direct 0.3 0.0 - 0.3 mg/dL LAB CHEMISTRY METHOD 12/14/2024 9:59 PM EST [facility] Total Bilirubin 1.1 0.0 - 1.4 mg/dL LAB CHEMISTRY METHOD 12/14/2024 9:59 PM EST [facility] Blood Venous blood specimen / Unknown Venipuncture / Unknown 12/14/2024 1:59 PM EST 12/14/2024 3:59 PM EST Nadine Gautam [facility] LAB BLOOD ORDERABLES Final Resu lt [facility] [address] [place] [address], [place] [phone] * (ABNORMAL) Hepatitis A antibody total with reflex IgM (12/14/2024 1:59 PM EST) Pathologist [facility] Hep A Total Ab Positive( A) Negative LAB CHEMISTRY METHOD 12/14/2024 8:44 PM EST [facility] Blood Venous blood specimen / Unknown Venipuncture / Unknown 12/14/2024 1:59 PM EST 12/14/2024 3:59 PM EST Narrative [facility] - 12/14/2024 8:44 PM EST Over the counter supplements containing high doses of biotin may interfere with this assay. ??If interference is suspected, patients shoud be retested after refraining from biotin supplements for 72 hours. Nadine ASHBY LAB BLOOD ORDERABLES Final Resu lt [facility] [address] [place] [address], [place] [phone] * CARMICHAEL fibrotest liver diease (12/14/2024 1:59 PM EST) Pathologist [facility] CARMICHAEL FibroSure SEE SCANS 12/20/2024 8:09 AM EST [facility] Comment: CARMICHAEL FibroSure(R) Plus SEE REPORT UNDER SEPARATE COVER. REPORT WILL BE SENT TO THE ORDERING LABORATORY VIA PRINTER OR FAX. ADDITIONAL COPIES OF THE ORIGINAL REPORT MAY ALSO BE OBTAINED BY CALLING [facility] CLIENT SERVICES at [phone] Corrected result: Previously reported as See Below on 12/19/2024 at 1657 EST. Blood Venous blood specimen / Unknown Venipuncture / Unknown 12/14/2024 1:59 PM EST 12/14/2024 3:59 PM EST Nadine ASHBY LAB BLOOD ORDERABLES Edited Res ult - Final [facility] [address] [place] [address] * Endomysial antibody, IgA (12/14/2024 1:59 PM EST) Pathologist [facility] Endomysial IgA Negative Negative 12/19/2024 11:56 AM EST [facility] Blood Venous blood specimen / Unknown Venipuncture / Unknown 12/14/2024 1:59 PM EST 12/14/2024 3:59 PM EST Nadine ASHBY LAB BLOOD ORDERABLES Final Resu lt Performing Organization Address City/[facility]/ZIP Co de Phone Number [facility] [address] [place] [address], [place] [phone] * DAVID IFA with titer and pattern (12/14/2024 1:59 PM EST) [facility] DAVID Negative Negative 12/17/2024 10:12 AM EST [facility] Blood Venous blood specimen / Unknown Venipuncture / Unknown 12/14/2024 1:59 PM EST 12/14/2024 3:59 PM EST Nadine Gautam [facility] LAB BLOOD ORDERABLES Final Resu lt Performing Organization Address [facility]/ZIP Co de Phone Number [facility] [address] [place] [address], [place] [phone] * Hepatitis C virus quantitative molecular study (12/14/2024 1:59 PM EST) [facility] HCV Qual Interp Not Detected Not Detected LAB MOLECULAR DIAGNOSTICS METHOD 12/18/2024 11:29 AM EST [facility] Comment:HCV RNA not detected , unable to report quantitative results. Blood Venous blood specimen / Unknown Venipuncture / Unknown 12/14/2024 1:59 PM EST 12/14/2024 3:59 PM EST Nadine Gautam [facility] LAB BLOOD ORDERABLES Final Resu lt Performing Organization Address City/[facility]/ZIP Co de Phone Number [facility] [address] [place] [address], [place] [phone] * (ABNORMAL) Hepatitis A antibody IgM (12/14/2024 1:59 PM EST) [facility] Hepatitis A Antibody IgM Positive( A) Negative LAB CHEMISTRY METHOD 12/14/2024 9:51 PM EST [facility] Blood Venous blood specimen / Unknown Venipuncture / Unknown 12/14/2024 1:59 PM EST 12/14/2024 3:59 PM EST Narrative [facility] - 12/14/2024 9:51 PM EST Over the counter supplements containing high doses of biotin may interfere with this assay. ??If interference is suspected, patients shoud be retested after refraining from biotin supplements for 72 hours. Nadine ASHBY LAB BLOOD ORDERABLES Final Resu lt [facility] [address] [place] [address], [place] [phone] * Tissue transglutaminase, IgA (12/14/2024 1:59 PM EST) Tissue Transglutaminase Ab, IgA Quant 2 <4 unit/mL LAB CHEMISTRY METHOD 12/19/2024 12:06 PM EST [facility] Tissue Transglutaminase Ab, IgA Negative Negative LAB CHEMISTRY METHOD 12/19/2024 12:06 PM EST [facility] Blood Venous blood specimen / Unknown Venipuncture / Unknown 12/14/2024 1:59 PM EST 12/14/2024 3:59 PM EST Nadine Gautam [place] LAB BLOOD ORDERABLES Final Resu lt [facility] [address] [place] [address], [place] [phone] * Hepatitis B core antibody IgM (12/14/2024 1:59 PM EST) Hep B Core IgM Negative Negative LAB CHEMISTRY METHOD 12/14/2024 8:44 PM EST [facility] Blood Venous blood specimen / Unknown Venipuncture / Unknown 12/14/2024 1:59 PM EST 12/14/2024 3:59 PM EST Narrative [facility] - 12/14/2024 8:44 PM EST Over the counter supplements containing high doses of biotin may interfere with this assay. ??If interference is suspected, patients shoud be retested after refraining from biotin supplements for 72 hours. Nadine ASHBY LAB BLOOD ORDERABLES Final Resu lt Performing Organization Address [facility]/ZIP Co de Phone Number [facility] [address] [place] [address], [place] [phone] * Antimitochondrial antibody (12/14/2024 1:59 PM EST) Pathologist [facility] Mitochondrial Antibody Quantitative 5.3 <=20.0 units LAB CHEMISTRY METHOD 12/19/2024 11:56 AM EST [facility] Mitochondrial Antibody Qualitative Negative Negative LAB CHEMISTRY METHOD 12/19/2024 11:56 AM EST [facility] Blood Venous blood specimen / Unknown Venipuncture / Unknown 12/14/2024 1:59 PM EST 12/14/2024 3:59 PM EST Nadine Gautam [facility] LAB BLOOD ORDERABLES Final Resu lt Performing Organization Address [facility] Co de Phone Number [facility] [address] [place] [address], [place] [phone] * Hepatitis B surface antibody (12/14/2024 1:59 PM EST) Hepatitis B Surface Ab Negative Negative LAB CHEMISTRY METHOD 12/14/2024 8:05 PM EST [facility] Hepatitis B Surface Ab Quantitative 7.8 mIU/mL LAB CHEMISTRY METHOD 12/14/2024 8:05 PM EST [facility] Blood Venous blood specimen / Unknown Venipuncture / Unknown 12/14/2024 1:59 PM EST 12/14/2024 3:59 PM EST Narrative [facility] - 12/14/2024 8:05 PM EST >=10 mIU/mL is considered to be consistent with immunity. Nadine Gautam [facility] LAB BLOOD ORDERABLES Final Resu lt Performing Organization Address [facility]/ZIP Co de Phone Number [facility] [address] [place] [address], [place] [phone] * (ABNORMAL) Thyroid stimulating hormone (12/14/2024 1:59 PM EST) Pathologist [facility] TSH 5.37(H) 0.40 - 4.00 mcIU/mL LAB CHEMISTRY METHOD 12/17/2024 9:27 AM EST [facility] Blood Venous blood specimen / Unknown Venipuncture / Unknown 12/14/2024 1:59 PM EST 12/14/2024 3:59 PM EST Nadine [facility] LAB BLOOD ORDERABLES Final Resu lt Performing Organization Address [facility]/ZIP Co de Phone Number [facility] [address] [place] [address], [place] [phone] * Protein electrophoresis, serum (12/14/2024 1:59 PM EST) [facility] Total Protein 7.8 6.0 - 8.0 g/dL LAB CHEMISTRY METHOD 12/17/2024 12:04 PM EST [facility] Albumin, Serum 4.0 2.9 - 4.1 g/dL LAB CHEMISTRY METHOD 12/17/2024 12:04 PM [facility] Alpha 1 Globulin (g/dL) 0.2 0.1 - 0.5 g/dL LAB CHEMISTRY METHOD 12/17/2024 12:04 PM EST [facility] Alpha 2 Globulin (g/dL) 1.3 0.7 - 1.5 g/dL LAB CHEMISTRY METHOD 12/17/2024 12:04 PM EST [facility] Beta (g/dL) 1.2 0.7 - 1.5 g/dL LAB CHEMISTRY METHOD 12/17/2024 12:04 PM [facility] Gamma Globulin (g/dL) 1.2 0.7 - 1.9 g/dL LAB CHEMISTRY METHOD 12/17/2024 12:04 PM [facility] SPEP Interpretation Essentially normal pattern. No M-George seen. LAB CHEMISTRY METHOD 12/17/2024 12:04 PM [facility] Blood Venous blood specimen / Unknown Venipuncture / Unknown 12/14/2024 1:59 PM EST 12/14/2024 3:59 PM EST Nadine Gautam [facility] LAB BLOOD ORDERABLES Final Resu lt Performing Organization Address [facility]/ZIP Co de Phone Number [facility] [address] [place] [address], [place] [phone] * Protein, total (12/14/2024 1:59 PM EST) Pathologist [facility] Total Protein 7.8 6.0 - 8.0 g/dL LAB CHEMISTRY METHOD 12/14/2024 10:11 PM EST [facility] Blood Venous blood specimen / Unknown Venipuncture / Unknown 12/14/2024 1:59 PM EST 12/14/2024 3:59 PM [facility] Final Resu lt [facility] [address] [place] [address], [place] [phone] * GGT (12/14/2024 1:59 PM EST) Pathologist [facility] GGT 49 7 - 64 unit/L LAB CHEMISTRY METHOD 12/14/2024 8:04 PM [facility] Blood Venous blood specimen / Unknown Venipuncture / Unknown 12/14/2024 1:59 PM EST 12/14/2024 3:59 PM EST Nadine ASHBY LAB BLOOD ORDERABLES Final Resu lt [facility] [address] [place] [address], [place] [phone] * Lipid panel with reflex to direct LDL (10/25/2024 12:47 PM EST) Pathologist [facility] Cholesterol 124 0 - 200 mg/dL LAB CHEMISTRY METHOD 10/25/2024 4:50 PM EST [facility] Triglycerides 88 0 - 150 mg/dL LAB CHEMISTRY METHOD 10/25/2024 4:50 PM [facility] HDL 47 >=40 mg/dL LAB CHEMISTRY METHOD 10/25/2024 4:50 PM [facility] LDL Calculated 59 0 - 100 mg/dL LAB CHEMISTRY METHOD 10/25/2024 4:50 PM EST [facility] VLDL Cholesterol Damian 17.6 mg/dL LAB CHEMISTRY METHOD 10/25/2024 4:50 PM EST [facility] Non HDL Chol. (LDL+VLDL) 77 <145 mg/dL LAB CHEMISTRY METHOD 10/25/2024 4:50 PM [facility] Chol/HDL Ratio 2.6 0.0 - 4.4 LAB CHEMISTRY METHOD 10/25/2024 4:50 PM [facility] Blood Venous blood specimen / Unknown Venipuncture / Unknown 10/25/2024 12:47 PM EST 10/25/2024 12:47 PM EST Patricia ASHBY LAB BLOOD ORDERABLES Final Re sult Performing Organization Address [facility]/ZIP Co de Phone Number [facility] [address] [place] [address], [place] [phone] * (ABNORMAL) Microalbumin creatinine urine ratio (10/25/2024 12:47 PM EST) [facility] Creatinine, Urine 371.0 mg/dL LAB CHEMISTRY METHOD 10/25/2024 3:52 PM EST [facility] Microalb, Ur 35.4(H) 0.0 - 29.0 mg/L LAB CHEMISTRY METHOD 10/25/2024 3:52 PM EST [facility] Microalb/Crea t Ratio 10 <30 mg/g creat LAB CHEMISTRY METHOD 10/25/2024 3:52 PM EST [facility] Urine Urine specimen from urethra / Unknown Non-blood Collection / Unknown 10/25/2024 12:47 PM EST 10/25/2024 12:47 PM EST us Patricia ASHBY LAB URINE ORDERABLES Final Re sult Performing Organization Address [facility]/ZIP Co de Phone Number [facility] [address] [place] [address], [place] [phone] * Hemoglobin A1c (10/25/2024 12:47 PM EST) [facility] Hemoglobin A1C 5.9 <6.5 % LAB CHEMISTRY METHOD 10/25/2024 8:13 PM EST [facility] Mean Bld Glu Estim. 123 mg/dL LAB CHEMISTRY METHOD 10/25/2024 8:13 PM EST [facility] Blood Venous blood specimen / Unknown Venipuncture / Unknown 10/25/2024 12:47 PM EST 10/25/2024 12:47 PM EST us Patricia ASHBY LAB BLOOD ORDERABLES Final Re sult Performing Organization Address [facility]/ZIP Co de Phone Number [facility] [address] [place] [address], [place] [phone] * (ABNORMAL) Comprehensive metabolic panel (10/25/2024 12:47 PM EST) Sodium 136 133 - 145 mmol/L LAB CHEMISTRY METHOD 10/25/2024 4:50 PM [facility] Potassium 3.9 3.5 - 5.5 mmol/L LAB CHEMISTRY METHOD 10/25/2024 4:50 PM [facility] Chloride 101 96 - 110 mmol/L LAB CHEMISTRY METHOD 10/25/2024 4:50 PM [facility] CO2 28 21 - 32 mmol/L LAB CHEMISTRY METHOD 10/25/2024 4:50 PM [facility] Anion Gap 7 3 - 11 LAB CHEMISTRY METHOD 10/25/2024 4:50 PM [facility] Glucose 126(H) 70 - 100 mg/dL LAB CHEMISTRY METHOD 10/25/2024 4:50 PM [facility] BUN 17 5 - 25 mg/dL LAB CHEMISTRY METHOD 10/25/2024 4:50 PM [facility] Creatinine 1.24 0.70 - 1.30 mg/dL LAB CHEMISTRY METHOD 10/25/2024 4:50 PM [facility] eGFR 62 >=60 mL/min/1. 73m2 LAB CHEMISTRY METHOD 10/25/2024 4:50 PM [facility] Comment:Calculation based on the??Chronic Kidney Disease Epidemiology Collaboration (CKD-EPI) equation refit??without adjustment for race. BUN/Creatinine Ratio 13.7 LAB CHEMISTRY METHOD 10/25/2024 4:50 PM [facility] Calcium 9.7 8.5 - 10.5 mg/dL LAB CHEMISTRY METHOD 10/25/2024 4:50 PM [facility] AST (SGOT) 55(H) 10 - 42 unit/L LAB CHEMISTRY METHOD 10/25/2024 4:50 PM [facility] ALT (SGPT) 87(H) 10 - 60 unit/L LAB CHEMISTRY METHOD 10/25/2024 4:50 PM [facility] Alkaline Phosphatase 61 42 - 121 unit/L LAB CHEMISTRY METHOD 10/25/2024 4:50 PM EST [facility] Total Protein 7.7 6.0 - 8.0 g/dL LAB CHEMISTRY METHOD 10/25/2024 4:50 PM EST [facility] Albumin 4.3 3.2 - 5.0 g/dL LAB CHEMISTRY METHOD 10/25/2024 4:50 PM [facility] Total Bilirubin 1.2 0.0 - 1.4 mg/dL LAB CHEMISTRY METHOD 10/25/2024 4:50 PM EST [facility] Blood Venous blood specimen / Unknown Venipuncture / Unknown 10/25/2024 12:47 PM EST 10/25/2024 12:47 PM EST us Patricia ASHBY LAB BLOOD ORDERABLES Final Re sult [facility] [address] [place] [address], from Last 3 Months or Most Recently Relevant to Health Maintenance Insurance [employer] MED[employer]ARE [employer]AGE Care Teams Director [employer] Relationship Specialty Start Date End Date Antonio Castellanos MD [address] [place] [id number] PCP - General Internal Medicine 12/19/24
--- OUTSIDE RECORDS SUMMARY | 2025-02-27 15:01 | XMS_ITS | Encounter Summary ---
Author Organization [employer] Address [address] [place] [address] Care Team Providers Care Police Officer Name Role Phone Antonio Castellanos MD Primary Care Provider [phone] Reason for Visit * Reason Comments Cough X 1 and 1/2 month Encounter Details Date Type Department Care Team (Late st Contact Info) Description 02/27/2025 9:45 AM EDT Office Visit Adult Medicine [facility] [address] [place] [address] Patricia Workman PA [address] [place] [address] Subacute cough (Primary Dx) Social History Tobacco Use Types [...] your loved ones. For example, director child development center or elderly care for an older adult? [...] 02/27/2025 9:49 AM ED T Respiratory Rate - - Oxygen Saturation 98% 02/27/2025 9:49 AM EDT Inhaled Oxygen Concentration - - Weight 94.9 kg (209 lb 4.8 oz) 02/27/2025 9:49 A M EDT Height 180.3 cm (5' 10.98 ) 02/27/2025 9:49 AM E DT Body Mass Index 29.2 02/27/2025 9:49 AM EDT documented in this encounter Ordered Prescriptions Prescription Sig Dispense Quantity Refills Last Filled Start Date End Date cetirizine (ZyrTEC) 10 mg tablet Take 1 tablet (10 mg total) by mouth 1 (one) time each day. 90 each 02/27/2025 fluticasone propionate (FLONASE) 50 mcg/actuation nasal spray Administer 1 spray into each nostril 2 (two) times a day. Shake gently. Before first use, prime pump. After use, clean tip and replace cap. 16 g 02/27/2025 documented in this encounter Plan of Treatment Upcoming Encounters Date Type Department Care Team (Late st Contact Info) Description 03/20/2025 2:30 PM EDT Office Visit Adult Medicine [address] [phone] Thomas King PA [address] [place] [phone] documented as of this encounter Results * XR Chest 2 Views (02/27/2025 10:27 AM EDT) Anatomical Region Laterality Modality Body Radiographic Tammy ging 02/27/2025 1:39 PM EDT Impressions 02/27/2025 1:46 PM EDT Possible nipple shadow in the left lower lung. ??Recommend repeat imaging with nipple markers. ??No evidence of an acute chest process. POS - [id number] -------- FINAL REPORT -------- Dictated By: Flor Gonzalez Dictated Date: 02/27/2025 13:39 ET Assigned Physician: Flor Gonzalez Reviewed and Electronically Signed By: Flor Gonzalez Signed Date: 02/27/2025 13:46 ET Workstation ID: [id number] Transcribed By: Self Edit Transcribed Date: 02/27/2025 [...] of an acute chest process. POS - [id number] -------- FINAL REPORT -------- Dictated By: Flor Gonzalez Dictated Date: 02/27/2025 13:39 ET Assigned Physician: Flor Gonzalez Reviewed and Electronically Signed By: Flor Gonzalez Signed Date: 02/27/2025 13:46 ET Workstation ID: [id number] Transcribed By: Self Edit Transcribed Date: 02/27/2025 13:39 ET us Patricia ASHBY IMG XR PROCEDURES Final Resul t documented in this encounter Visit Diagnoses Diagnosis Subacute cough- Primary Subacute cough documented in this encounter Discontinued Medications Medication Sig Discontinue Reason Start Date End Da te fluticasone propionate (FLONASE) 50 mcg/actuation nasal spray 1 [place] by Nasal route daily. Reorder 07/18/2023 02/27/2025 documented as of this encounter Additional Health Concerns Assessment Noted Time PHQ-9 Depression Total Score: 0 02/26/20 10:45 AM EDT A fall risk assessment has been complete d for the patient 10/25/2024 11:56 AM EST documented as of this encounter Care Teams Police Officer Relationship Specialty Start Date End Date Antonio Castellanos MD [address] [place] [id number] PCP - General Internal Medicine 12/19/24 documented as of this encounter
--- OUTSIDE RECORDS SUMMARY | 2025-02-27 15:01 | XMS_ITS | Encounter Summary ---
Author Organization [email or web address] [address] Care Team Providers Care Licensed Veterinary Technician Name Role Phone Antonio Castellanos MD Primary Care Provider [phone] Reason for Visit * Reason Onset Date Comments Results 02/25/2025 Encounter Details Date Type Department Care Team (Late st Contact Info) Description 02/25/2025 Telephone Gastroenterology - [address] [place] [address] Lisa Thao MA Results Social History Tobacco Use Types Packs/Day [...] your loved ones. For example, child welfare director or elderly care for an older [...] Progress Notes * Lisa Thao MA - 02/25/2025 2:44 PM EDT Per Nadine bautista pt below message ----- Message from ISMA Arguelles sent at 02/21/2025 5:00 PM EDT ----- Please let patient know marked improvement in liver and ferritin levels. LFTs are basically back tonormal ranges (yay!) and ferritin is 234 (like expected). Decrease to every other week phlebotomy and repeat labwork after 4 weeks as discussed in off ice. documented in this encounter Plan of Treatment Upcoming Encounters Date Type Department Care Team (Late st Contact Info) Description 03/20/2025 2:30 PM EDT Office Visit Adult Medicine [facility] [address] [place] [phone] Thomas King PA [address] [place] [address] documented as of this encounter Visit Diagnoses Not on filedocumented in this encounter Additional Health Concerns Assessment Noted Time PHQ-9 Depression Total Score: 0 02/26/20 10:45 AM EDT A fall risk assessment has been complete d for the patient 10/25/2024 11:56 AM EST documented as of this encounter Care Teams Licensed Veterinary Technician Relationship Specialty Start Date End Date Antonio Castellanos MD [address] [place] [address] PCP - General Internal Medicine 12/19/24 documented as of this encounter
--- OUTSIDE RECORDS SUMMARY | 2025-02-27 15:01 | XMS_ITS | Encounter Summary ---
Author Organization [place] [address] Care Team Providers Care Central Office Maintainer Name Role Phone Antonio Castellanos MD Primary Care Provider [phone] Encounter Details Date Type Department Care Team (Late st Contact Info) Description 02/27/2025 10:00 AM EDT Hospital Encounter XRAY - [place] [address] [place] [address] Subacute cough Social History Tobacco Use Types [...] your loved ones. For example, early childhood associate or elderly care for an older adult? [...] 2:30 PM EDT Office Visit Adult Medicine [address] [phone] Thomas King PA [address] [place] [address] documented as of this encounter Procedures Procedure Name Priority Date/Time Associated Diagnosis Comments XR CHEST 2 VIEWS Routine 02/27/2025 10:2 7 AM EDT Subacute cough documented in this encounter Results * XR Chest 2 Views (02/27/2025 10:27 AM EDT) Anatomical Region Laterality Modality Body Radiographic Tammy ging 02/27/2025 1:39 PM EDT Impressions 02/27/2025 1:46 PM EDT Possible nipple shadow in the left lower lung. ??Recommend repeat imaging with nipple markers. ??No evidence of an acute chest process. POS - [id number] -------- FINAL REPORT -------- Dictated By: Flor Gonzalez Dictated Date: 02/27/2025 13:39 ET Assigned Physician: Flor Gonzalez Reviewed and Electronically Signed By: Flor Gonzalez Signed Date: 02/27/2025 13:46 ET Workstation ID: [id number] Transcribed By: Self Edit Transcribed Date: 02/27/2025 [...] of an acute chest process. POS - [id number] -------- FINAL REPORT -------- Dictated By: Flor Gonzalez Dictated Date: 02/27/2025 13:39 ET Assigned Physician: Flor Gonzalez Reviewed and Electronically Signed By: Flor Gonzalez Signed Date: 02/27/2025 13:46 ET Workstation ID: [id number] Transcribed By: Self Edit Transcribed Date: 02/27/2025 13:39 ET us Patricia ASHBY IMG XR PROCEDURES Final Resul t documented in this encounter Visit Diagnoses Diagnosis Subacute cough documented in this encounter Additional Health Concerns Assessment Noted Time PHQ-9 Depression Total Score: 0 02/26/20 25 10:45 AM EDT A fall risk assessment has been complete d for the patient 10/25/2024 11:56 AM EST documented as of this encounter Care Teams Central Office Maintainer Relationship Specialty Start Date End Date Antonio Castellanos MD [address] [place] [id number] PCP - General Internal Medicine 12/19/24 documented as of this encounter
--- OUTSIDE RECORDS SUMMARY | 2025-02-27 15:01 | XMS_ITS | Clinical Summary ---
Author Organization [id number] Address [address] [place] [address] Care Team Providers Care Die Engraver Name Role Phone Emanuel BLISS MD, Antonio Sheikh Primary Care Provi fernando Allergies Active Allergy Reactions Criticality Noted Date Comments Amlodipine Swelling 05/29/2024 Medications atorvastatin (LIPITOR) 10 MG tablet TAKE 1 TABLET BY MOUTH EVERY DAY 3 Active hydroCHLOROthia zide (HYDRODIURIL) 25 MG tablet TAKE 1 TABLET BY MOUTH EVERY DAY 3 Active metoprolol (LOPRESSOR) 50 MG tablet TAKE 1 TABLET BY MOUTH EVERY DAY 3 Active lisinopriL (PRINIVIL) 20 MG tablet Take 1 tablet (20 mg total) by mouth 5 Active omeprazole (PriLOSEC) 20 MG capsule Take 1 capsule (20 mg total) by mouth Active fluticasone propionate (Flonase Allergy Relief) 50 mcg/actuation nasal spray Instill 1 spray into each nostril daily Active metoprolol (TOPROL-XL) 50 MG 24 hr tablet Take 1 tablet (50 mg total) by mouth 3 02/26/20 25 Discontinue d(Duplicate order) amoxicillin (AMOXIL) 875 MG tablet Take 1 tablet (875 mg total) by mouth 2 (two) times a day for 5 days 10 tablet 5 01/30/20 25 benzonatate (TESSALON) 100 MG capsule Swallow whole one (100mg) capsule by mouth 3 times a day as needed.Do not break, chew, dissolve, cut or crush. 30 capsule 5 02/01/20 25 Encounters Date Type Department Care Team Description 02/25/2025 10:00 AM EDT Office Visit [id number] [address] [place] [address] Nitish Medina NP Subacute cough (Primary Dx); Acute pharyngitis, unspecified etiology; Hypertension, unspecified type; Postnasal drip 01/24/2025 4:50 PM EST Office Visit [id number] [place] [address] Roselia Gold NP Other acute sinusitis, recurrence not specified (Primary Dx); Hypertension, unspecified type; Subacute cough from Last 3 Months Immunizations Name Administration Dates Next Due Hepatitis A 02/15/2024,08/17/2023 Hepatitis B 02/22/2024,09/21/2023,08/17/2023 Tdap 03/31/2022,03/27/2012 Social History Tobacco Use Types Packs/Day Years [...] Screening every 10 yrs (or Modifier) 1950 [facility] Screening Reminder: Krystal bell for all adults ([facility]) 1970 Colorectal Cancer Screening 45 -75 Yrs (or HM Modifier) 1997 Colorectal Cancer: FLEXIBLE SIGMOIDOSCOPY Screening every 5 yrs 1997 Colorectal Cancer: Fecal Immunochemical Test (FIT) Annually [facility] 1997 Colorectal Cancer: High-sens itivity gFOBT Screening Annually [facility] 1997 Colorectal Cancer: Stool Col oguard Screening every 3 yrs 1997 Colorectal Cancer:CT Colonog jillian Screening every 5 yrs 1997 Zoster/Shingles Vaccine Seri es Screening: Adults aged 18+ yrs (or HM Modifiers)([facility]) (1 of 2) 2002 COVID-19 Vaccine Screening: Initial Series and Booster Status ([facility]) ( season) 2024 09/27/2022, 10/22/2021, 02/18/2021, Additional history exists Flu Vaccination: Ages 65+: Y early High Dose Recommended (or Modifier)([facility]) 06/21/2025 09/23/2023, 09/23/2023, 09/27/2022 Depression: Screening Annual ly using PHQ-2/9 in Adults 18 yrs or above (or HM Modifier)([facility]) 02/23/2026 02/23/2025 RSV Vaccines (1 - 1-dose 75+ series) 2027 Lipid Screening: Every 5 yrs for Men aged 35+ (or HM Modifier) ([facility]) 10/25/2029 10/25/2024, 10/24/2023 DTaP/Tdap/Td Vaccines ([facility]) (3 - Td or Tdap) 03/31/2032 03/31/2022, 03/27/2012, 03/25/2005 Pneumococcal Vaccination Scr eening: Patients 50+ yrs of age ([facility]) Completed 10/10/2019, 08/21/2018 Hepatitis C Virus Infection in Adolescents and Adults: Screening (or Modifier) ([facility]) Completed 12/14/2024 [employer] Devices Not on file Procedures Procedure Name Priority Date/Time Associated Diagnosis Comments STREP MOLECULAR POCT Routine 02/25/2025 10:13 AM EDT Acute pharyngitis, unspecified etiology from Last 3 Months Results * Strep Molecular POCT (02/25/2025 10:13 AM EDT) Pathologist [facility] POC MOLECULAR STREP A Negative Negative, Invalid, Not Tested, STACEY MONTROSE [id number] INTERNAL CONTROLS VALID Yes--Test working appropriately GALO [id number] Expiration Date [id number] GALO [id number] Lot Number [id number] GALO [id number] TEST BRAND NAME_ STREP MOLECULAR ID Now Strep GALO [id number] [facility] 02/25/2025 10:1 3 AM EDT us Nitish Medina [facility] LE[facility]ER POINT OF CARE TEST ORDERABLES Final Result GALO [id number] [address] [place] [address], [place] from Last 3 Months Insurance [employer] MEDICARE Care Teams Die Engraver Relationship Specialty Start Date End Date Antonio Castellanos III, MD [address] [place] [address] PCP - General Internal Medicine 02/25/25
--- OUTSIDE RECORDS SUMMARY | 2025-02-27 15:01 | XMS_ITS | Encounter Summary ---
Author [place] [address] Care Team Providers Care Manufacturing Controls Engineer Name Role Phone Antonio Castellanos MD Primary Care Provider [phone] Encounter Details Date Type Department Care Team (Late st Contact Info) Description 02/12/2025 Lab Requisition [facility] - Main Lab [address] [facility] [place] [phone] Sin Garvin MD [address] [address] Encounter for screening for malignant neoplasm of colon Social History Tobacco Use Types Packs/Day Years [...] your loved ones. 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 [...] PM EDT Office Visit Adult Medicine [address] [phone] Thomas King PA [address] [place] [address] documented as of this encounter Procedures Procedure Name Priority Date/Time Associated Diagnosis Comments TISSUE EXAM Routine 02/12/2025 Encounter for screening for malignant neoplasm of colon documented in this encounter Results * Tissue Exam (02/12/2025) Final Diagnosis Rectum, polyp: Tubular adenoma. 02/13/2025 3:06 PM EDT [facility] Clinical Information Screening for colorectal malignant neoplasm Polyp 02/13/2025 3:06 PM EDT [facility] Gross Description A. Colon, rectum polyp: With labeled rectum polyp . Received in formalin is a 0.3 cm irregular gasca mucosal tissue fragment which is wrapped in paper and submitted in toto in one cassette, one piece, multiple levels on one slide. PARAS 02/13/2025 3:06 PM EDT [facility] Disclaimer Unless otherwise specified, all tissue is 10% NB formalin fixed and paraffin embedded. 02/13/2025 3:06 PM EDT [facility] Tissue Colon structure / Unknown 02/12/2025 02/12/2025 3:34 PM EDT us Sin Garvin MD LAB PATHOLOGY ORDERABLES Yasmin isaac Result [facility] [address] [place] [address], documented in this encounter Visit Diagnoses Diagnosis Encounter for screening for malignant neoplasm of colon documented in this encounter Additional Health Concerns Assessment Noted Time PHQ-9 Depression Total Score: 0 10/25/20 11:55 AM EST A fall risk assessment has been complete d for the patient 10/25/2024 11:56 AM EST documented as of this encounter Care Teams Manufacturing Controls Engineer Relationship Specialty Start Date End Date Antonio Castellanos MD [address] [place] [address] PCP - General Internal Medicine 12/19/24 documented as of this encounter
== END 2025-02-27 12:53 | disposition home or self-care (01) ==
LOC: HO.BBR 12:52
PROVIDERS: PCP Internal Medicine; Visit Provider Internal Medicine Gastroenterology
DX: Z13.89 Encounter for screening for other disorder (principal)

== ENCOUNTER 2025-03-13 08:50 | Outpatient (REF) | payer MEDICARE, SELFPAY ==
--- OUTSIDE RECORDS SUMMARY | 2025-03-13 09:22 | XMS_ITS | Encounter Summary ---
Author Organization [place] [address] Care Team Providers Care Timber Grader Name Role Phone Antonio Castellanos MD Primary Care Provider [phone] Encounter Details Date Type Department Care Team (Late st Contact Info) Description 02/12/2025 Lab Requisition [facility] - Main Lab [address] [facility] [employer] [place] [phone] Sin Garvin MD [address] [address] Encounter for screening for malignant neoplasm of [...] for your loved ones. For example, childcare worker or elderly care for an older [...] 2:30 PM EDT Office Visit Adult Medicine [address] [phone] Thomas King PA [address] [place] [address] documented as of this encounter Procedures Procedure Name Priority Date/Time Associated Diagnosis Comments TISSUE EXAM Routine 02/12/2025 Encounter for screening for malignant neoplasm of colon documented in this encounter Results * Tissue Exam (02/12/2025) Final Diagnosis Rectum, polyp: Tubular adenoma. 02/13/2025 3:06 PM EDT [facility] Clinical Information Screening for colorectal malignant neoplasm Polyp 02/13/2025 3:06 PM EDT [facility] Gross Description A. Colon, rectum polyp: With labeled rectum polyp . Received in formalin is a 0.3 cm irregular gasca mucosal tissue fragment which is wrapped in paper and submitted in toto in one cassette, one piece, multiple levels on one slide. PARAS 02/13/2025 3:06 PM EDT [facility] Disclaimer Unless otherwise specified, all tissue is 10% NB formalin fixed and paraffin embedded. 02/13/2025 3:06 PM EDT [facility] Tissue Colon structure / Unknown 02/12/2025 02/12/2025 3:34 PM EDT us Sin Garvin MD LAB PATHOLOGY ORDERABLES Yasmin isaac Result [facility]) [facility] [address] [place] [address], documented in this encounter Visit Diagnoses Diagnosis Encounter for screening for malignant neoplasm of colon documented in this encounter Additional Health Concerns Assessment Noted Time PHQ-9 Depression Total Score: 0 10/25/20 11:55 AM EST A fall risk assessment has been complete d for the patient 10/25/2024 11:56 AM EST documented as of this encounter Care Teams Timber Grader Relationship Specialty Start Date End Date Antonio Castellanos MD [address] [place] [address] PCP - General Internal Medicine 12/19/24 documented as of this encounter
--- OUTSIDE RECORDS SUMMARY | 2025-03-13 09:22 | XMS_ITS | Clinical Summary ---
Author Organization [facility] Address [address] [place] [phone] Phone Care Team Providers Care Manager Wind Name Role Phone Antonio Castellanos MD Primary Care Provider [phone] Allergies Active Allergy Reactions Criticality Noted Date [...] day. 90 tablet 1 12/20/19 25 Active atorvastatin (LIPITOR) 10 [...] each day. 90 each 02/28/20 25 Active losartan (Cozaar) 50 mg tablet Take 1 tablet (50 mg total) by mouth 1 (one) time each day. 90 each 1 03/06/20 25 Active fluticasone propionate (FLONASE) 50 mcg/actuation nasal spray 1 [place] by Nasal route daily. 07/18/20 23 025 Discontinued(Re order) atorvastatin (LIPITOR) 10 mg tablet Take 1 tablet (10 mg total) by mouth at bedtime. 90 tablet 1 11/08/20 24 025 Discontinued lisinopriL (PRINIVIL,ZEST RIL) 20 mg tablet Take 1 tablet (20 mg total) by mouth 1 (one) time each day. 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 Hepatic steatosis 07/31/2020 Hyperlipidemia 07/31/2020 Colonic polyp 09/08/2014 Overview (09/10/2024): Hyperplastic polyp 01/16/2014 Elevated ferritin 09/08/2014 Overview (09/10/2024): 2 copies of H63D, felt to be at low risk for clinical hemochromatosis although susceptible to iron overload by Dr. Cronin Type II diabetes mellitus wi th renal manifestations (CMS/HCC V24, CMS/HCC V28) 09/08/2014 Transaminitis 09/18/2012 Assessment & Plan (12/14/2024 [...] Encounters Date Type Department Care Team Description 03/06/2025 3:30 PM EDT Office Visit Adult Medicine [address] [phone] Chaparrita De La Torre MD Subacute cough (Primary Dx); Type 2 diabetes mellitus with diabetic microalbuminuria, 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 V24, CMS/HCC V28); Essential hypertension, benign 03/06/2025 2:25 PM EDT - 03/06/2025 11:59 PM EDT Hospital Encounter [address] [phone] Subacute cough Discharge Disposition: Home or Self Care 03/05/2025 Telephone Adult Medicine [address] [phone] Aline Salgado RN 02/27/2025 10:00 AM EDT - 02/27/2025 11:59 PM EDT Hospital Encounter [address] [phone] Subacute cough Discharge Disposition: Home or Self Care 02/27/2025 9:45 AM EDT Office Visit Adult [address] [phone] Patricia Workman PA Subacute cough (Primary Dx) 02/25/2025 Telephone Gastroenterology - [address] [phone] Lisa Thao MA Results 02/21/2025 10:30 AM EDT Office Visit Gastroenterology - [address] [phone] Nadine Gautam PA Hereditary hemochromatosis (CMS/HCC V24) (Primary Dx) 02/14/2025 Telephone Gastroenterology - [address] [phone] Lisa Thao MA Results 02/12/2025 Lab Requisition [facility] [address] [facility] [place] [phone] Sin Garvin MD Encounter for screening for malignant neoplasm of colon 02/01/2025 Telephone Gastroenterology - [address] [phone] Lindsay Lowery MA 01/14/2025 Telephone Gastroenterology - [address] [phone] Sin Garvin MD 01/14/2025 Telephone Gastroenterology - [address] [phone] Elise Sidhu MA Results 01/14/2025 Telephone Gastroenterology - [address] [facility] [address] [place] [phone] Elise Sidhu MA 01/04/2025 Telephone Gastroenterology - [address] [phone] Lisa Thao MA rescheduling 01/02/2025 Telephone Gastroenterology - [address] [phone] Sin Garvin MD 01/01/2025 Telephone Gastroenterology - [address] [phone] Nadine Gautam PA 12/31/2024 Telephone Gastroenterology - [address] [place] [phone] Sin Garvin MD 12/28/2024 8:48 AM EST - 12/28/2024 11:59 PM EST Hospital Encounter [facility] Ultrasound [address] [place] [address] Transaminitis Discharge Disposition: Home or Self Care 12/20/2024 2:20 PM EST Lab Draw Station - [address] [phone] Transaminitis; Elevated TSH; Abnormal results of thyroid function studies 12/20/2024 1:30 PM EST Office Visit Adult Medicine [address] [phone] Thomas King PA Essential hypertension, benign (Primary Dx); CKD (chronic kidney disease) stage 2, GFR 60-89 ml/min 12/19/2024 Telephone Gastroenterology - [address] [phone] Nadine Gautam PA 12/17/2024 Telephone Gastroenterology - [address] [place] [phone] Nadine Gautam PA 12/14/2024 1:55 PM EST Lab Draw Station - [address] [facility] [address] [place] [address] Transaminitis; Other specified symptoms and signs involving the digestive system and abdomen 12/14/2024 1:00 PM EST Office Visit Gastroenterology - [address] [facility] [address] [place] [address] Nadine Gautam PA Colon cancer screening (Primary Dx); Transaminitis; Other specified symptoms and signs involving the digestive system and abdomen from Last 3 Months Immunizations Name Administration Dates Next Due Hepatitis A Adult (Havrix; V aqta) 19yo and older 02/15/2024,08/17/2023 Hepatitis B (Wufrgqk-E-Jjkaz , Recombivax HB-Adult) 19yo and older 02/22/2024,09/21/2023,08/17/2023 [...] COMMENT: negative COLONOSCOPY W/ BIOPSIES 2013 PROCEDURE: FL COLONOSCOPY W/BIOPSY SINGLE/MULTIPLE; COMMENT: 5 mm sigmoid colon polyp: Hyperplastic polyp. KNEE SURGERY 1982 Right PROCEDURE: HISTORICAL KNEE SURGERY; COMMENT: scope r knee CHOLECYSTECTOMY 11/21/2022 - 11/20/2023 Medical History Medical History Date Comments Essential hypertension, benign 06/02/2006 D X:Essential hypertension, benign Rosacea 06/02/2006 DX:Rosacea Renal cell carcinoma (CMS/HC C V24, CMS/HCC V28) 08/10/2023 DX:Renal cell carcinoma (HCC ); COMMENT: 08/13 left partial nephrectomy Colon polyp [...] care for your loved ones. For example, attendant children's institution or elderly care for an older adult? [...] Sign Reading Time Taken Comments Blood Pressure 110/60 03/06/2025 3:16 PM EDT Pulse 74 03/06/2025 3:16 PM EDT Temperature 36.1 ??C (97 ??F) 03/06/2025 3:16 PM EDT Respiratory Rate 16 03/06/2025 3:16 PM EDT Oxygen Saturation 97% 03/06/2025 3:16 PM EDT Inhaled Oxygen Concentration - - Weight 94 kg (207 lb 3.2 oz) 03/06/2025 3:16 PM EDT Height 180.3 cm (5' 11 ) 03/06/2025 3:16 PM EDT Body Mass Index 28.9 03/06/2025 3:16 PM EDT Plan of Treatment Upcoming Encounters Date Type Department Care Team (Late st Contact Info) Description 03/20/2025 2:30 PM EDT Office Visit Adult Medicine [address] [phone] Thomas King PA [address] [place] [phone] Health Maintenance Due Date Last Done Comments [...] (Glomerular Filtration Rate) 10/25/2025 10/25/2024, 05/02/2024, 05/02/2024 Hypertension/CHF/CAD Annual BMP Blood Test 10/25/2025 10/25/2024, 05/02/2024, 05/02/2024 Medicare Annual Wellness Visit 10/25/2025 10/25/2024 Social Influencers of Health Screening 10/25/2025 10/25/2024 Depression Screening 03/04/2026 03/04/2025 Falls Risk Assessment 03/06/2026 03/06/2025, 024 Cholesterol Screening (Lipid Panel) 10/25/2029 10/25/2024, 10/24/2023 [...] Diagnosis Comments XR CHEST 2 VIEWS Routine 03/06/2025 2:36 PM EDT Subacute cough XR CHEST 2 VIEWS Routine 02/27/2025 10:27 AM EDT Subacute cough CBC WITH AUTO DIFFERENTIAL Routine 02/21/2025 10:54 AM EDT Hereditary hemochromatosis (CMS/HCC V24) HEPATIC FUNCTION PANEL Routine 10:54 AM EDT Hereditary hemochromatosis (CMS/HCC V24) FERRITIN Routine 02/21/2025 10:54 AM EDT Hereditary hemochromatosis (CMS/HCC V24) IRON AND TIBC Routine 02/21/2025 10:54 AM EDT Hereditary hemochromatosis (CMS/HCC V24) CBC AND DIFFERENTIAL Routine 02/21/2025 10:54 AM EDT Hereditary hemochromatosis (CMS/HCC V24) EXTERNAL COLONOSCOPY REPORT Routine 02/12/2025 4:49 PM [...] CERULOPLASMIN Routine 12/20/2024 2:26 PM EST Transaminitis FL PROTEIN ELECTROPHORETIC FRACTIONATION & QUANTITATION SERUM Routine [...] microalbuminuria, 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 V24, CMS/HCC V28) Microalbuminuria COMPREHENSIVE METABOLIC PANEL Routine 10/25/2024 12:47 PM EST 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, CMS/HCC V28) Mixed hyperlipidemia Obesity (BMI 30.0-34.9) Essential hypertension, benign Prostate cancer screening Stage 3a chronic kidney disease (CMS/HCC V24, CMS/HCC V28) Type 2 diabetes mellitus with diabetic microalbuminuria, 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 V24, CMS/HCC V28) Microalbuminuria Hyperplastic colonic polyp, unspecified part of colon HEMOGLOBIN A1C Routine 10/25/2024 12:47 PM EST Type 2 diabetes mellitus with diabetic microalbuminuria, 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 V24, CMS/HCC V28) LIPID PANEL WITH REFLEX TO DIRECT LDL Routine 10/25/2024 12:47 PM EST Mixed hyperlipidemia from Last 3 Months or Most Recently Relevant to Health Maintenance Results * XR Chest 2 Views (03/06/2025 2:36 PM EDT) Only the most recent of2 resultswithin the time period is included. Anatomical Region Laterality Modality Body Radiographic Tammy ging 03/06/2025 5:42 PM EDT Impressions 03/06/2025 5:43 PM EDT No acute cardiopulmonary process. -------- FINAL REPORT -------- Dictated By: Max Briggs Dictated Date: 03/06/2025 17:42 ET Assigned Physician: Max Briggs Reviewed and Electronically Signed By: Max Briggs Signed Date: 03/06/2025 17:43 ET Workstation ID: [id number] Transcribed By: Self Edit Transcribed Date: 03/06/2025 17:42 ET Narrative 03/06/2025 5:43 PM EDT HISTORY: callback, nipple markers requested TECHNIQUE: Frontal radiographs of the chest COMPARISON: Chest radiograph from 02/27/2025 FINDINGS: There is a normal cardiomediastinal silhouette. The lungs are clear. The osseous structures are intact. ??Previously identified nodules correspond to nipples. Procedure Note Max Briggs MD - 03/06/2025 HISTORY: callback, nipple markers requested TECHNIQUE: Frontal radiographs of the chest COMPARISON: Chest radiograph from 02/27/2025 FINDINGS: There is a normal cardiomediastinal silhouette. The lungs are clear. Theosseous structures are intact. Previously identified nodules correspondto nipples. IMPRESSION: No acute cardiopulmonary process. -------- FINAL REPORT -------- Dictated By: Max Briggs Dictated Date: 03/06/2025 17:42 ET Assigned Physician: Max Briggs Reviewed and Electronically Signed By: Max Briggs Signed Date: 03/06/2025 17:43 ET Workstation ID: [id number] Transcribed By: Self Edit Transcribed Date: 03/06/2025 17:42 ET us Patricia ASHBY IMG XR PROCEDURES Final Resul t * (ABNORMAL) CBC auto differential (02/21/2025 10:54 AM EDT) Only the most recent of2 resultswithin the time period is included. WBC 6.9 4.8 - 10.8 K/mcL LAB HEMETOLOGY METHOD [facility]2025 [facility] RBC 4.50 4.50 - 5.50 M/mcL LAB HEMETOLOGY METHOD 02/21/2025 11:37 [facility] Hemoglobin 14.1 13.5 - 17.5 g/dL LAB HEMETOLOGY METHOD 02/21/2025 11:37 [facility] Hematocrit 41.6(L) 42.0 - 54.0 % LAB HEMETOLOGY METHOD 02/21/2025 11:37 AM [facility] MCV 93.5 79.0 - 98.0 FL LAB HEMETOLOGY METHOD 02/21/2025 11:37 AM EDT [facility] MCH 31.7 27.0 - 32.0 pcg LAB HEMETOLOGY METHOD 02/21/2025 11:[address] [facility] MCHC 33.9 32.0 - 37.0 g/dL LAB HEMETOLOGY METHOD 02/21/2025 11:[address] [facility] RDW 13.2 11.0 - 15.0 % LAB HEMETOLOGY METHOD 02/21/2025 11:[address] [facility] Platelets 279 130 - 400 K/mcL LAB HEMETOLOGY METHOD 02/21/2025 11:[address] [facility] MPV 10.9 7.0 - 11.0 FL LAB HEMETOLOGY METHOD 02/21/2025 11:[address] [facility] NRBC 0.0 <1.0 % LAB HEMETOLOGY METHOD 02/21/2025 11:[address] [facility] NRBC Absolute 0.00 <0.10 K/mcL LAB HEMETOLOGY METHOD 02/21/2025 11:[address] [facility] Neutrophils Relative 58.3 % LAB HEMETOLOGY METHOD 02/21/2025 11:[address] [facility] Lymphocytes Relative 28.0 % LAB HEMETOLOGY METHOD 02/21/2025 11:[address] [facility] Monocytes Relative 9.9 % LAB HEMETOLOGY METHOD 02/21/2025 11:[address] [facility] Eosinophils Relative 2.6 % LAB HEMETOLOGY METHOD 02/21/2025 11:[address] [facility] Basophils Relative 0.9 % LAB HEMETOLOGY METHOD 02/21/2025 11:[address] [facility] Immature Granulocytes Relative 0.3 % LAB HEMETOLOGY METHOD 02/21/2025 11:[address] [facility] Neutrophils Absolute 4.05 1.50 - 7.00 K/mcL LAB HEMETOLOGY METHOD 02/21/2025 11:[address] [facility] Lymphocytes Absolute 1.94 1.00 - 5.00 K/mcL LAB HEMETOLOGY METHOD 02/21/2025 11:[address] [facility] Monocytes Absolute 0.69 0.20 - 1.00 K/mcL LAB HEMETOLOGY METHOD 02/21/2025 11:37 AM EDT [facility] Eosinophils Absolute 0.18 0.00 - 0.50 K/[facility] LAB HEMETOLOGY METHOD 02/21/2025 11:37 AM EDT [facility] Basophils Absolute 0.06 0.00 - 0.20 K/[facility] LAB HEMETOLOGY METHOD 02/21/2025 11:37 AM EDT [facility] Immature Granulocytes Absolute 0.02 0.00 - 0.03 K/[facility] LAB HEMETOLOGY METHOD 02/21/2025 11:37 AM EDT [facility] Blood Venous blood specimen / Unknown Venipuncture / Unknown 02/21/2025 10:54 AM EDT 02/21/2025 11:25 AM EDT Nadine ASHBY LAB BLOOD ORDERABLES Final Resu lt [facility] [address] [place] [address], [place] [phone] * Iron and TIBC (02/21/2025 10:54 AM EDT) Only the most recent of2 resultswithin the time period is included. Iron 137 50 - 160 mcg/dL LAB CHEMISTRY METHOD 02/21/2025 12:57 PM EDT [facility] TIBC 408 250 - 450 mcg/dL LAB CHEMISTRY METHOD 02/21/2025 12:57 PM EDT [facility] Iron Saturation 34 20 - 50 % LAB CHEMISTRY METHOD 02/21/2025 12:57 PM EDT [facility] Blood Venous blood specimen / Unknown Venipuncture / Unknown 02/21/2025 10:54 AM EDT 02/21/2025 11:23 AM EDT us Nadine ASHBY LAB BLOOD ORDERABLES Final Resu lt Performing Organization Address [facility]/ZIP Co de Phone Number [facility] [address] [place] [address], * Ferritin (02/21/2025 10:54 AM EDT) Only the most recent of2 resultswithin the time period is included. [facility] Ferritin 234 26 - 388 ng/mL LAB CHEMISTRY METHOD 02/21/2025 1:02 PM EDT [facility] Blood Venous blood specimen / Unknown Venipuncture / Unknown 02/21/2025 10:54 AM EDT 02/21/2025 11:23 AM EDT Nadine ASHBY LAB BLOOD ORDERABLES Final Resu lt Performing Organization Address [facility] de Phone Number [facility] [address] [place] [address], [place] [phone] * (ABNORMAL) Hepatic function panel (02/21/2025 10:54 AM EDT) Only the most recent of2 resultswithin the time period is included. [facility] Total Protein 7.2 6.0 - 8.0 g/dL LAB CHEMISTRY METHOD 02/21/2025 1:02 [facility] Albumin 3.8 3.2 - 5.0 g/dL LAB CHEMISTRY METHOD 02/21/2025 1:02 PM [facility] Total Bilirubin 0.8 0.0 - 1.4 mg/dL LAB CHEMISTRY METHOD 02/21/2025 1:02 PM [facility] Bilirubin, Direct 0.2 0.0 - 0.3 mg/dL LAB CHEMISTRY METHOD 02/21/2025 1:02 PM [facility] Bilirubin, Indirect 0.6 0.0 - 1.1 mg/dL LAB CHEMISTRY METHOD 02/21/2025 1:02 PM [facility] ALT (SGPT) 52 10 - 60 unit/L LAB CHEMISTRY METHOD 02/21/2025 1:02 PM EDT [facility] AST (SGOT) 43(H) 10 - 42 unit/L LAB CHEMISTRY METHOD 02/21/2025 1:02 PM EDT [facility] Alkaline Phosphatase 67 42 - 121 unit/L LAB CHEMISTRY METHOD 02/21/2025 1:02 PM EDT [facility] Blood Venous blood specimen / Unknown Venipuncture / Unknown 02/21/2025 10:54 AM EDT 02/21/2025 11:23 AM EDT Nadine ASHBY LAB BLOOD ORDERABLES Final Resu lt [facility] [address] [place] [address], [place] [phone] * External Colonoscopy Report (02/12/2025 4:49 PM EDT) Anatomical Region Laterality Modality Endoscopy [facility] Provider GI~PROCEDURE ORDERABLES F inal Result * Tissue Exam (02/12/2025) Final Diagnosis Rectum, polyp: Tubular adenoma. 02/13/2025 3:06 PM EDT [facility] Clinical Information Screening for colorectal malignant neoplasm Polyp 02/13/2025 3:06 PM EDT [facility] Gross Description A. Colon, rectum polyp: With labeled rectum polyp . Received in formalin is a 0.3 cm irregular gasca mucosal tissue fragment which is wrapped in paper and submitted in toto in one cassette, one piece, multiple levels on one slide. PARAS 02/13/2025 3:06 PM EDT [facility] Disclaimer Unless otherwise specified, all tissue is 10% NB formalin fixed and paraffin embedded. 02/13/2025 3:06 PM EDT [facility] Tissue Colon structure / Unknown 02/12/2025 02/12/2025 3:34 PM EDT us Sin Garvin MD LAB PATHOLOGY ORDERABLES Yasmin isaac Result [facility] [address] [place] [address], [place] [phone] * External clinical lab (01/31/2025) Only the [...] Signed Date: 01/07/2025 12:16 ET Workstation ID: [id number] Transcribed By: Self Edit Transcribed Date: 01/07/2025 12:12 ET Narrative 01/07/2025 12:16 PM EST History: Transaminitis. Comparison: Abdominal ultrasound 6 12/16/22, 07/24/20 (outside studies), abdominal MRI 12/21/22 ([facility]) Findings: Real-time imaging of the abdomen, limited [...] 6 12/16/22, 07/24/20 (outside studies),abdominal MRI 12/21/22 ([facility]) Findings: Real-time imaging of the abdomen, limited [...] No enhancing hepatic lesion was identified on [id number] MRI. The portal vein is patent and [...] -------- FINAL REPORT -------- Dictated By: Amy Gael Dictated Date: 01/07/2025 12:12 ET Assigned Physician: Amy Gale Reviewed and Electronically Signed By: Amy Gale Signed Date: 01/07/2025 12:16 ET Workstation ID: [id number] Transcribed By: Self Edit Transcribed Date: 01/07/2025 12:12 ET us Nadine ASHBY [facility] [place] PROCEDURES Final Result * Hemochromatosis mutation [...] submitted clinical information reviewed by Ernie Torres, Ph.D.,[facility]. DETAILED ASSAY INFORMATION: Hereditary hemochromatosis (HH) [...] variants in the HFE gene, C282Y (NM 648979.2: c.845G>A, p.Tlo333Ktz) and H63D (NM 406959.2: c.187C>G, p.Nsl55Cdl), that are commonly associated with HH. These [...] Health care providers, please contact your local [facility]' genetic counselor or call [phone] ( ) for assistance with the interpretation of these results. This test was developed and its analytical performance characteristics have been determined by [facility]. It has not been cleared or approved by FDA. This assay has been validated pursuant to the CLIA regulations and is used for clinical purposes. For more information, please refer to http://education.Elementum.HeyBubble/faq/hemochromatosis. (This link is being provided for informational/educational purposes only.) A portion of the testing [place] [facility] [place]. Reviewed and signed by Laboratory results and submitted clinical information reviewed by Ernie Torres, Ph.D.,[facility], Signed on 01/01/2025 at 09:10 Test Performed at: [facility] [address] ??[phone] ? I Rachel SOLIMAN, PhD, SARAH Blood Venous blood specimen / Unknown Venipuncture / Unknown 12/20/2024 2:26 PM EST 12/20/2024 4:12 PM EST us Nadine ASHBY LAB MOLECULAR DIAGNOSTICS ORDER GANESH Final Result [facility] ALBERTO PUENTE [address] [place] [address] * Smooth muscle antibody IgG (12/20/2024 2:26 PM EST) Pathologist [facility] Smooth Muscle (F-Actin) IgG Ab 8 <20 UNITS 12/24/2024 1:28 PM EST [facility] Comment: Interpretation: Negative Test performed at [facility], [address], [place] ??[address] ? [phone] Olivia Douglass MD, PhD - Sales And Marketing Coordinator Blood Venous blood specimen / Unknown Venipuncture / Unknown 12/20/2024 2:26 PM EST 12/20/2024 4:11 PM EST Smash Bucketner PA LAB BLOOD ORDERABLES Final Resu lt [facility] [address] [place] [address] * Ceruloplasmin (12/20/2024 2:26 PM EST) Pathologist [facility] Ceruloplasmin 29 20 - 60 mg/dL 12/24/2024 3:30 AM EST [facility] Comment: Test performed at [facility], [address], [place] ??[address] ? [phone] Olivia Douglass MD, PhD - Sales And Marketing Coordinator Blood Venous blood specimen / Unknown Venipuncture / Unknown 12/20/2024 2:26 PM EST 12/20/2024 4:11 PM EST us Smash Bucketner PA LAB BLOOD ORDERABLES Final Resu lt [facility] [address] [facility] [place] [address] * Triiodothyronine free (12/20/2024 2:26 PM EST) T3, Free 310 230 - 420 pcg/dL LAB CHEMISTRY METHOD 12/20/2024 5:00 PM EST [facility] Blood Venous blood specimen / Unknown Venipuncture / Unknown 12/20/2024 2:26 PM EST 12/20/2024 4:11 PM EST us Nadine Gautam PA LAB BLOOD ORDERABLES Final Resu lt Performing Organization Address City/[facility]/ZIP Co de Phone Number [facility] [address] [place] [address], [place] [phone] * Thyroxine total (12/20/2024 2:26 PM EST) [facility] T4, Total 6.6 4.5 - 10.9 mcg/dL LAB CHEMISTRY METHOD 12/20/2024 5:05 PM EST [facility] Blood Venous blood specimen / Unknown Venipuncture / Unknown 12/20/2024 2:26 PM EST 12/20/2024 4:11 PM EST [address]ine Gautam CT LAB BLOOD ORDERABLES Final Resu lt Performing Organization Address [facility]/ZIP Co de Phone Number [facility] [address] [place] [address], [place] [phone] * Hepatitis ELR State reportatbles (12/14/2024 1:59 PM EST) [facility] Hep B Core IgM Negative Negative LAB CHEMISTRY METHOD 12/14/2024 9:59 PM EST [facility] Hep B Core Total Ab 12/14/2024 9:59 PM EST [facility] Hep B Surface Ag Confirmation 12/14/2024 9:59 PM EST [facility] Blood Venous blood specimen / Unknown Venipuncture / Unknown 12/14/2024 1:59 PM EST 12/14/2024 3:59 PM EST [address]ine Gautam CT LAB BLOOD ORDERABLES Final Resu lt Performing Organization Address City/[facility]/ZIP Co de Phone Number [facility] [address] [place] [address], [place] [phone] * Hepatitis B surface antigen with reflex to confirmation (12/14/2024 1:59 PM EST) Pathologist [facility] Hepatitis B Surface Ag Negative Negative LAB CHEMISTRY METHOD 12/14/2024 8:16 PM EST [facility] Blood Venous blood specimen / Unknown Venipuncture / Unknown 12/14/2024 1:59 PM EST 12/14/2024 3:59 PM EST Narrative [facility] - 12/14/2024 8:16 PM EST Over the counter supplements containing high doses of biotin may interfere with this assay. ??If interference is suspected, patients shoud be retested after refraining from biotin supplements for 72 hours. Nadine ASHBY LAB BLOOD ORDERABLES Final Resu lt Performing Organization Address [facility]/ZIP Co de Phone Number [facility] [address] [place] [address], [place] [phone] * PATHOLOGIST REVIEW PROTEIN ELECTROPHORESIS (12/14/2024 1:59 PM EST) Pathologist [facility] Pathologist Interpretation Reviewed by Adriana Bangura MD 12/17/2024 11:57 AM EST [facility] Blood Venous blood specimen / Unknown Venipuncture / Unknown 12/14/2024 1:59 PM EST 12/14/2024 3:59 PM EST [address] G[address]am CT LAB BLOOD ORDERABLES Final Resu lt [facility] [address] [place] [address], [place] [phone] * (ABNORMAL) AST, ALT, Bilirubin ELR state reportables (12/14/2024 1:59 PM EST) Pathologist [facility] ALT (SGPT) 111(H) 10 - 60 unit/L LAB CHEMISTRY METHOD 12/14/2024 9:59 PM EST [facility] AST (SGOT) 64(H) 10 - 42 unit/L LAB CHEMISTRY METHOD 12/14/2024 9:59 PM EST [facility] Bilirubin, Direct 0.3 0.0 - 0.3 mg/dL LAB CHEMISTRY METHOD 12/14/2024 9:59 PM EST [facility] Total Bilirubin 1.1 0.0 - 1.4 mg/dL LAB CHEMISTRY METHOD 12/14/2024 9:59 PM EST [facility] Blood Venous blood specimen / Unknown Venipuncture / Unknown 12/14/2024 1:59 PM EST 12/14/2024 3:59 PM EST Nadine ASHBY LAB BLOOD ORDERABLES Final Resu lt Performing Organization Address [facility] Co de Phone Number [facility] [address] [place] [address], [place] [phone] * (ABNORMAL) Hepatitis A antibody total with reflex IgM (12/14/2024 1:59 PM EST) Hep A Total Ab Positive( A) Negative LAB CHEMISTRY METHOD 12/14/2024 8:44 PM EST [facility] Blood Venous blood specimen / Unknown Venipuncture / Unknown 12/14/2024 1:59 PM EST 12/14/2024 3:59 PM EST Narrative [facility] - 12/14/2024 8:44 PM EST Over the counter supplements containing high doses of biotin may interfere with this assay. ??If interference is suspected, patients shoud be retested after refraining from biotin supplements for 72 hours. us Nadine ASHBY LAB BLOOD ORDERABLES Final Resu lt Performing Organization Address [facility]/ZIP Co de Phone Number [facility] [address] [place] [address], [place] [phone] * CARMICHAEL fibrotest liver diease (12/14/2024 1:59 PM EST) CARMICHAEL [employer]roSure SEE SCANS 12/20/2024 8:[address] [facility] Comment: CARMICHAEL FibroSure(R) Plus SEE REPORT UNDER SEPARATE COVER. REPORT WILL BE SENT TO THE ORDERING LABORATORY VIA PRINTER OR FAX. ADDITIONAL COPIES OF THE ORIGINAL REPORT MAY ALSO BE OBTAINED BY CALLING [facility] CLIENT SERVICES at [phone] Corrected result: Previously reported as See Below on 12/19/2024 at 1657 EST. Blood Venous blood specimen / Unknown Venipuncture / Unknown 12/14/2024 1:59 PM EST 12/14/2024 3:59 PM EST [employer] LAB BLOOD ORDERABLES Edited Res ult - Final [facility] [address] [place] [address] * Endomysial antibody, IgA (12/14/2024 1:59 PM EST) Pathologist [facility] Endomysial IgA Negative Negative 12/19/2024 11:56 AM EST [facility] Blood Venous blood specimen / Unknown Venipuncture / Unknown 12/14/2024 1:59 PM EST 12/14/2024 3:59 PM EST [address]am CT LAB BLOOD ORDERABLES Final Resu lt [facility] [address] [place] [address], [place] [phone] * DAVID IFA with titer and pattern (12/14/2024 1:59 PM EST) DAVID Negative Negative 12/17/2024 10:12 AM EST [facility] Blood Venous blood specimen / Unknown Venipuncture / Unknown 12/14/2024 1:59 PM EST 12/14/2024 3:59 PM EST Nadineedwar [address] CT LAB BLOOD ORDERABLES Final Resu lt Performing Organization Address City/[facility]/ZIP Co de Phone Number [facility] [address] [place] [address], [place] [phone] * Hepatitis C virus quantitative molecular study (12/14/2024 1:59 PM EST) [facility] HCV Qual Interp Not Detected Not Detected LAB MOLECULAR DIAGNOSTICS METHOD 12/18/2024 11:29 AM EST [facility] Comment:HCV RNA not detected , unable to report quantitative results. Blood Venous blood specimen / Unknown Venipuncture / Unknown 12/14/2024 1:59 PM EST 12/14/2024 3:59 PM EST [address]am CT LAB BLOOD ORDERABLES Final Resu lt Performing Organization Address [facility] Co de Phone Number [facility] [address] [place] [address], [place] [phone] * (ABNORMAL) Hepatitis A antibody IgM (12/14/2024 1:59 PM EST) [facility] Hepatitis A Antibody IgM Positive( A) Negative LAB CHEMISTRY METHOD 12/14/2024 9:51 PM EST [facility] Blood Venous blood specimen / Unknown Venipuncture / Unknown 12/14/2024 1:59 PM EST 12/14/2024 3:59 PM EST Narrative [facility] - 12/14/2024 9:51 PM EST Over the counter supplements containing high doses of biotin may interfere with this assay. ??If interference is suspected, patients shoud be retested after refraining from biotin supplements for 72 hours. Nadine Gautam [employer] LAB BLOOD ORDERABLES Final Resu lt Performing Organization Address [facility]/ZIP Co de Phone Number [facility] [address] [place] [address], [place] [phone] * Tissue transglutaminase, IgA (12/14/2024 1:59 PM EST) Pathologist [facility] Tissue Transglutaminase Ab, IgA Quant 2 <4 unit/mL LAB CHEMISTRY METHOD 12/19/2024 12:06 PM EST [facility] Tissue Transglutaminase Ab, IgA Negative Negative LAB CHEMISTRY METHOD 12/19/2024 12:06 PM EST [facility] Blood Venous blood specimen / Unknown Venipuncture / Unknown 12/14/2024 1:59 PM EST 12/14/2024 3:59 PM EST us Nadine ASHBY LAB BLOOD ORDERABLES Final Resu lt Performing Organization Address [facility] de Phone Number [facility] [address] [place] [address], [place] [phone] * Hepatitis B core antibody IgM (12/14/2024 1:59 PM EST) [facility] Hep B Core IgM Negative Negative LAB CHEMISTRY METHOD 12/14/2024 8:44 PM EST [facility] Blood Venous blood specimen / Unknown Venipuncture / Unknown 12/14/2024 1:59 PM EST 12/14/2024 3:59 PM EST Narrative [facility] - 12/14/2024 8:44 PM EST Over the counter supplements containing high doses of biotin may interfere with this assay. ??If interference is suspected, patients shoud be retested after refraining from biotin supplements for 72 hours. us Nadine ASHBY LAB BLOOD ORDERABLES Final Resu lt Performing Organization Address [facility]/ZIP Co de Phone Number [facility] [address] [place] [address], [place] [phone] * Antimitochondrial antibody (12/14/2024 1:59 PM EST) [facility] Mitochondrial Antibody Quantitative 5.3 <=20.0 units LAB CHEMISTRY METHOD 12/19/2024 11:56 AM EST [facility] Mitochondrial Antibody Qualitative Negative Negative LAB CHEMISTRY METHOD 12/19/2024 11:56 AM EST [facility] Blood Venous blood specimen / Unknown Venipuncture / Unknown 12/14/2024 1:59 PM EST 12/14/2024 3:59 PM EST [address]ine G[address]am CT LAB BLOOD ORDERABLES Final Resu lt [facility] [address] [place] [address], * Hepatitis B surface antibody (12/14/2024 1:59 PM EST) Hepatitis B Surface Ab Negative Negative LAB CHEMISTRY METHOD 12/14/2024 8:05 PM EST [facility] Hepatitis B Surface Ab Quantitative 7.8 mIU/mL LAB CHEMISTRY METHOD 12/14/2024 8:05 PM EST [facility] Blood Venous blood specimen / Unknown Venipuncture / Unknown 12/14/2024 1:59 PM EST 12/14/2024 3:59 PM EST Narrative [facility] - 12/14/2024 8:05 PM EST >=10 mIU/mL is considered to be consistent with immunity. Nadine ASHBY LAB BLOOD ORDERABLES Final Resu lt [facility] [address] [place] [address], * (ABNORMAL) Thyroid stimulating hormone (12/14/2024 1:59 PM EST) TSH 5.37(H) 0.40 - 4.00 mcIU/mL LAB CHEMISTRY METHOD 12/17/2024 9:27 AM EST [facility] Blood Venous blood specimen / Unknown Venipuncture / Unknown 12/14/2024 1:59 PM EST 12/14/2024 3:59 PM EST us Nadine ASHBY LAB BLOOD ORDERABLES Final Resu lt [facility] [address] [place] [address], * Protein electrophoresis, serum (12/14/2024 1:59 PM EST) Total Protein 7.8 6.0 - 8.0 g/dL LAB CHEMISTRY METHOD 12/17/2024 12:04 PM [facility] Albumin, Serum 4.0 2.9 - 4.1 g/dL LAB CHEMISTRY METHOD 12/17/2024 12:04 PM [facility] Alpha 1 Globulin (g/dL) 0.2 0.1 - 0.5 g/dL LAB CHEMISTRY METHOD 12/17/2024 12:04 PM [facility] Alpha 2 Globulin (g/dL) 1.3 0.7 - 1.5 g/dL LAB CHEMISTRY METHOD 12/17/2024 12:04 PM [facility] Beta (g/dL) 1.2 0.7 - 1.5 g/dL LAB CHEMISTRY METHOD 12/17/2024 12:04 PM [facility] Gamma Globulin (g/dL) 1.2 0.7 - 1.9 g/dL LAB CHEMISTRY METHOD 12/17/2024 12:04 PM [facility] SPEP Interpretation Essentially normal pattern. No M-George seen. LAB CHEMISTRY METHOD 12/17/2024 12:04 PM [facility] Blood Venous blood specimen / Unknown Venipuncture / Unknown 12/14/2024 1:59 PM EST 12/14/2024 3:59 PM EST us Nadine ASHBY LAB BLOOD ORDERABLES Final Resu lt Performing Organization Address [facility] de Phone Number [facility] [address] [place] [address], [place] [phone] * Protein, total (12/14/2024 1:59 PM EST) Pathologist [facility] Total Protein 7.8 6.0 - 8.0 g/dL LAB CHEMISTRY METHOD 12/14/2024 10:11 PM EST [facility] Blood Venous blood specimen / Unknown Venipuncture / Unknown 12/14/2024 1:59 PM EST 12/14/2024 3:59 PM EST [address]ine G[address]am CT LAB BLOOD ORDERABLES Final Resu lt Performing Organization Address [facility] de Phone Number [facility] [address] [place] [address], [place] [phone] * GGT (12/14/2024 1:59 PM EST) Pathologist [facility] GGT 49 7 - 64 unit/L LAB CHEMISTRY METHOD 12/14/2024 8:04 PM EST [facility] Blood Venous blood specimen / Unknown Venipuncture / Unknown 12/14/2024 1:59 PM EST 12/14/2024 3:59 PM EST [address] G[address]am CT LAB BLOOD ORDERABLES Final Resu lt Performing Organization Address [facility] Co de Phone Number [facility] [address] [place] [address], [place] [phone] * Lipid panel with reflex to direct LDL (10/25/2024 12:47 PM EST) [facility] Cholesterol 124 0 - 200 mg/dL LAB CHEMISTRY METHOD 10/25/2024 4:50 PM EST [facility] Triglycerides 88 0 - 150 mg/dL LAB CHEMISTRY METHOD 10/25/2024 4:50 PM [facility] HDL 47 >=40 mg/dL LAB CHEMISTRY METHOD 10/25/2024 4:50 PM EST [facility] LDL Calculated 59 0 - 100 mg/dL LAB CHEMISTRY METHOD 10/25/2024 4:50 PM [facility] VLDL Cholesterol Damian 17.6 mg/dL LAB CHEMISTRY METHOD 10/25/2024 4:50 PM EST [facility] Non HDL Chol. (LDL+VLDL) 77 <145 mg/dL LAB CHEMISTRY METHOD 10/25/2024 4:50 PM [facility] Chol/HDL Ratio 2.6 0.0 - 4.4 LAB CHEMISTRY METHOD 10/25/2024 4:50 PM [facility] Blood Venous blood specimen / Unknown Venipuncture / Unknown 10/25/2024 12:47 PM EST 10/25/2024 12:47 PM EST Patricia ASHBY LAB BLOOD ORDERABLES Final Re sult [facility] [address] [place] [address], * (ABNORMAL) Microalbumin creatinine urine ratio (10/25/2024 12:47 PM EST) Creatinine, Urine 371.0 mg/dL LAB CHEMISTRY METHOD 10/25/2024 3:52 PM [facility] Microalb, Ur 35.4(H) 0.0 - 29.0 mg/L LAB CHEMISTRY METHOD 10/25/2024 3:52 PM [facility] Microalb/Crea t Ratio 10 <30 mg/g creat LAB CHEMISTRY METHOD 10/25/2024 3:52 PM [facility] Urine Urine specimen from urethra / Unknown Non-blood Collection / Unknown 10/25/2024 12:47 PM EST 10/25/2024 12:47 PM EST us Patricia ASHBY LAB URINE ORDERABLES Final Re sult Performing Organization Address City/[facility]/ZIP Co de Phone Number [facility] [address] [place] [address], [place] [phone] * Hemoglobin A1c (10/25/2024 12:47 PM EST) Hemoglobin A1C 5.9 <6.5 % LAB CHEMISTRY METHOD 10/25/2024 8:13 PM EST [facility] Mean Bld Glu Estim. 123 mg/dL LAB CHEMISTRY METHOD 10/25/2024 8:13 PM [facility] Blood Venous blood specimen / Unknown Venipuncture / Unknown 10/25/2024 12:47 PM EST 10/25/2024 12:47 PM EST us Patricia ASHBY LAB BLOOD ORDERABLES Final Re sult Performing Organization Address [facility]/ZIP Co de Phone Number [facility] [address] [place] [address], [place] [phone] * (ABNORMAL) Comprehensive metabolic panel (10/25/2024 12:47 PM EST) Pathologist [facility] Sodium 136 133 - 145 mmol/L LAB CHEMISTRY METHOD 10/25/2024 4:50 PM [facility] Potassium 3.9 3.5 - 5.5 mmol/L LAB CHEMISTRY METHOD 10/25/2024 4:50 PM [facility] Chloride 101 96 - 110 mmol/L LAB CHEMISTRY METHOD 10/25/2024 4:50 PM [facility] CO2 28 21 - 32 mmol/L LAB CHEMISTRY METHOD 10/25/2024 4:50 PM [facility] Anion Gap 7 3 - 11 LAB CHEMISTRY METHOD 10/25/2024 4:50 PM [facility] Glucose 126(H) 70 - 100 mg/dL LAB CHEMISTRY METHOD 10/25/2024 4:50 PM [facility] BUN 17 5 - 25 mg/dL LAB CHEMISTRY METHOD 10/25/2024 4:50 PM [facility] Creatinine 1.24 0.70 - 1.30 mg/dL LAB CHEMISTRY METHOD 10/25/2024 4:50 PM [facility] eGFR 62 >=60 mL/min/1. 73m2 LAB CHEMISTRY METHOD 10/25/2024 4:50 PM [facility] Comment:Calculation based on the??Chronic Kidney Disease Epidemiology Collaboration (CKD-EPI) equation refit??without adjustment for race. BUN/Creatinine Ratio 13.7 LAB CHEMISTRY METHOD 10/25/2024 4:50 PM [facility] Calcium 9.7 8.5 - 10.5 mg/dL LAB CHEMISTRY METHOD 10/25/2024 4:50 PM [facility] AST (SGOT) 55(H) 10 - 42 unit/L LAB CHEMISTRY METHOD 10/25/2024 4:50 PM [facility] ALT (SGPT) 87(H) 10 - 60 unit/L LAB CHEMISTRY METHOD 10/25/2024 4:50 PM [facility] Alkaline Phosphatase 61 42 - 121 unit/L LAB CHEMISTRY METHOD 10/25/2024 4:50 PM [facility] Total Protein 7.7 6.0 - 8.0 g/dL LAB CHEMISTRY METHOD 10/25/2024 4:50 PM [facility] Albumin 4.3 3.2 - 5.0 g/dL LAB CHEMISTRY METHOD 10/25/2024 4:50 PM [facility] Total Bilirubin 1.2 0.0 - 1.4 mg/dL LAB CHEMISTRY METHOD 10/25/2024 4:50 PM [facility] Blood Venous blood specimen / Unknown Venipuncture / Unknown 10/25/2024 12:47 PM EST 10/25/2024 12:47 PM EST us Patricia ASHBY LAB BLOOD ORDERABLES Final Re sult [facility] [address] [place] [address], from Last 3 Months or Most Recently Relevant to Health Maintenance Insurance [employer] Care Teams Manager Wind Relationship Specialty Start Date End Date Antonio Castellanos MD [address] [place] [id number] PCP - General Internal Medicine 12/19/24
== END 2025-03-13 08:51 | disposition home or self-care (01) ==
LOC: HO.BBR 08:50
PROVIDERS: PCP Internal Medicine; Visit Provider Internal Medicine Gastroenterology
DX: Z13.89 Encounter for screening for other disorder (principal)

== ENCOUNTER 2025-03-27 08:50 | Outpatient (REF) | payer MEDICARE, SELFPAY ==
--- OUTSIDE RECORDS SUMMARY | 2025-03-27 09:14 | XMS_ITS | Clinical Summary ---
Author Organization [facility] Address [address] [place] [phone] Phone Care Team Providers Care Guideman Name Role Phone Antonio Castellanos MD Primary Care Provider [phone] Allergies Active Allergy Reactions Criticality Noted Date Comments Amlodipine 01/29/2022 Bilateral leg swelling Medications metoprolol tartrate (LOPRESSOR) 50 mg tablet Take [...] BEDTIME 90 tablet 1 02/13/20 25 Active cetirizine (ZyrTEC) 10 mg tablet Take 1 tablet (10 mg total) by mouth 1 (one) time each day. 90 each 02/28/20 25 Active losartan (Cozaar) 50 mg tablet Take 1 tablet (50 mg total) by mouth 1 (one) time each day. 90 each 1 03/06/20 25 Active omeprazole (PriLOSEC) [address] capsule Take 1 capsule (20 mg total) by mouth 1 (one) time each day. Do not crush or chew. 90 capsule 1 03/20/20 25 Active fluticasone propionate (FLONASE) 50 mcg/actuation nasal spray SHAKE GENTLY-USE 1 SPRAY IN EACH NOSTRIL 2X/DAY PRIME BEFORE 1ST USE & CLEAN TIP/REPLACE CAP AFTER 48 mL 1 03/21/20 Active omeprazole (PriLOSEC) [address] capsule Take 1 capsule (20 mg total) by mouth 1 (one) time each day. 025 Discontinued(Re order) fluticasone propionate (FLONASE) 50 mcg/actuation nasal spray 1 [place] by Nasal route daily. 07/18/20 23 025 Discontinued(Re order) lisinopriL (PRINIVIL,ZEST RIL) 20 mg tablet Take 1 tablet (20 mg total) by mouth 1 (one) time each day. 90 each 1 12/20/19 25 025 Discontinued fluticasone propionate (FLONASE) 50 mcg/actuation nasal spray Administer 1 spray into each nostril 2 (two) times a day. Shake gently. Before first use, prime pump. After use, clean tip and replace cap. 16 g 02/28/20 25 025 Discontinued Active Problems Problem Noted Date Diagnosed Date Hereditary hemochromatosis ([facility] V24) 025 Assessment & Plan (02/21/2025 4:58 PM EDT): [...] 30.0-34.9) 08/23/2023 Clear cell carcinoma of kidney ([facility]/HCC V24, CMS /HCC V28) 08/10/2023 Overview (09/10/2024): [...] Encounters Date Type Department Care Team Description 03/20/2025 2:30 PM EDT Office Visit Adult Medicine [address] [phone] Thomas King PA Essential hypertension, benign (Primary Dx); Hyperlipidemia, unspecified hyperlipidemia type; CKD (chronic kidney disease) stage 2, GFR 60-89 ml/min; Cough, unspecified type 03/06/2025 3:30 PM EDT Office Visit Adult Medicine [address] [phone] Chaparrita De La Torre MD Subacute cough (Primary Dx); Type 2 diabetes mellitus with diabetic microalbuminuria, without long-term current use of insulin ([facility] V24, [facility] V28); Essential hypertension, benign 03/06/2025 2:25 PM EDT - 03/06/2025 11:59 PM EDT Hospital Encounter [address] [phone] Subacute cough Discharge Disposition: Home or Self Care 03/05/2025 Telephone Adult [address] [phone] Aline Salgado RN 02/27/2025 10:00 AM EDT - 02/27/2025 11:59 PM EDT Hospital Encounter [address] [phone] Subacute cough Discharge Disposition: Home or Self Care 02/27/2025 9:45 AM EDT Office Visit [address] [phone] Patricia Workman PA Subacute cough (Primary Dx) 02/25/2025 Telephone Gastroenterology - [address] [phone] Lisa Thao MA Results 02/21/2025 10:30 AM EDT Office Visit Gastroenterology - [address] [phone] Nadine Gautam PA Hereditary hemochromatosis ([facility] V24) (Primary Dx) 02/14/2025 Telephone Gastroenterology - [address] [place] [phone] Lisa Thao MA Results 02/12/2025 Lab Requisition [facility] - Main Lab 299 [facility] [place] [phone] Sin Garvin MD Encounter for screening for malignant neoplasm of colon 02/01/2025 Telephone Gastroenterology - [address] [phone] Lindsay Lowery MA 01/14/2025 Telephone Gastroenterology - [address] [phone] Sin Garvin MD 01/14/2025 Telephone Gastroenterology - [address] [phone] Elise Sidhu MA Results 01/14/2025 Telephone Gastroenterology - [address] [phone] Elise Sidhu MA 01/04/2025 Telephone Gastroenterology - [address] [phone] Lisa Thao MA rescheduling 01/02/2025 Telephone Gastroenterology - [address] [phone] Sin Garvin MD 01/01/2025 Telephone Gastroenterology - [address] [phone] Nadine Gautam PA 12/31/2024 Telephone Gastroenterology - [address] [phone] Sin Garvin MD 12/28/2024 8:48 AM EST - 12/28/2024 11:59 PM EST Hospital Encounter [facility] Ultrasound [address] [place] [phone] Transaminitis Discharge Disposition: Home or Self Care from Last 3 Months Immunizations Name Administration Dates Next Due Hepatitis A Adult (Havrix; V aqta) 19yo and older 02/15/2024,08/17/2023 Hepatitis B (Txjodqw-D-Fobzq , Recombivax HB-Adult) 19yo and older 02/22/2024,09/21/2023,08/17/2023 [...] your loved ones. For example, childcare center administrator or elderly care for an older adult? [...] Sign Reading Time Taken Comments Blood Pressure 116/70 03/20/2025 2:48 PM EDT Pulse 64 03/20/2025 2:23 PM EDT Temperature 35.8 ??C (96.4 ??F) 03/20/2025 2:23 PM ED T Respiratory Rate 16 03/06/2025 3:16 PM EDT Oxygen Saturation 97% 03/20/2025 2:23 PM EDT Inhaled Oxygen Concentration - - Weight 93.7 kg (206 lb 9.6 oz) 03/20/2025 2:23 P M EDT Height 180.3 cm (5' 10.98 ) 03/20/2025 2:23 PM E DT Body Mass Index 28.83 03/20/2025 2:23 PM EDT Plan of Treatment Upcoming Encounters Date Type Department Care Team (Late st Contact Info) Description 10/01/2025 11:30 AM EST Office Visit Adult Medicine [facility] [address] [place] [phone] Antonio Castellanos MD [address] [place] [phone] Health Maintenance Due Date Last Done Comments Diabetes: Annual Foot Exam 1962 Diabetes: Annual Retina Eye Exam 1962 Zoster Vaccines (1 of 2) 1971 RSV Immunization Adult Patients (1 - Risk 60-74 years 1-dose series) 2012 COVID-19 Vaccine ( season) 2024 09/27/2022, 09/27/2022, 10/22/2021, Additional history exists Diabetes: Blood Sugar Control Test (HGBA1C) 09/17/2025 03/18/2025, 10/25/2024, 05/02/2024, Additional history exists Diabetes: Annual Urine Albumin-Creatinine Ratio (uACR) 10/25/2025 10/25/2024, 08/23/2023 Diabetes: Annual GFR (Glomerular Filtration Rate) 10/25/2025 10/25/2024, 05/02/2024, 05/02/2024 Hypertension/CHF/CAD Annual BMP Blood Test 10/25/2025 10/25/2024, 05/02/2024, 05/02/2024 Medicare Annual Wellness Visit 10/25/2025 10/25/2024 Social Influencers of Health Screening 10/25/2025 10/25/2024 Falls Risk Assessment 03/06/2026 03/06/2025, 024 Depression Screening 03/16/2026 03/16/2025 Cholesterol Screening (Lipid Panel) 10/25/2029 10/25/2024, 10/24/2023 [...] Procedure Name Priority Date/Time Associated Diagnosis Comments HEMOGLOBIN A1C Routine 03/18/2025 11:18 AM EDT Type 2 diabetes mellitus with diabetic microalbuminuria, without long-term current use of insulin ([facility] V24, [facility] V28) EXTERNAL CLINICAL LAB 03/14/2025 XR CHEST 2 VIEWS Routine 03/06/2025 2:36 PM EDT Subacute cough XR CHEST 2 VIEWS Routine 02/27/2025 10:2 7 AM EDT Subacute cough CBC WITH AUTO DIFFERENTIAL Routine 02/21/2025 10:54 AM EDT Hereditary hemochromatosis (CMS/HCC V24) HEPATIC FUNCTION PANEL Routine 02/21/2025 10:54 AM EDT Hereditary hemochromatosis [...] Routine 12/28/2024 9: 44 AM EST Transaminitis HEPATITIS C VIRUS QUANTITATIVE PCR [...] cancer screening Stage 3a chronic kidney disease ([facility], [facility]28) Type 2 diabetes mellitus with diabetic microalbuminuria, without long-term current use of insulin ([facility] [place]24, [facility] V28) Microalbuminuria Hyperplastic colonic polyp, unspecified part of colon LIPID PANEL WITH REFLEX TO DIRECT LDL Routine 10/25/2024 12:47 PM EST Mixed hyperlipidemia from Last 3 Months or Most Recently Relevant to Health Maintenance Results * Hemoglobin A1c (03/18/2025 11:18 AM EDT) Hemoglobin A1C 5.4 <6.5 % LAB CHEMISTRY METHOD 03/18/2025 11:[address] [facility] Mean Bld Glu Estim. 108 mg/dL LAB CHEMISTRY METHOD 03/18/2025 11:[address] [facility] Blood Venous blood specimen / Unknown Venipuncture / Unknown 03/18/2025 11:18 AM EDT 03/18/2025 11:18 AM EDT Chaparrita De La Torre MD LAB BLOOD ORDERABLES Final Resul t [facility] [address] [place] [address], * External clinical lab (03/14/2025) Only the most recent of4 resultswithin the time period is included. us Provider [facility] LAB BLOOD ORDERABLES Fin al Result * XR Chest 2 Views (03/06/2025 2:36 [...] Signed Date: 03/06/2025 17:43 ET Workstation ID: [id number] Transcribed By: Self Edit Transcribed Date: 03/06/2025 [...] Signed Date: 03/06/2025 17:43 ET Workstation ID: [id number] Transcribed By: Self Edit Transcribed Date: 03/06/2025 17:42 ET us Patricia ASHBY IMG XR PROCEDURES Final Resul t * (ABNORMAL) CBC auto differential (02/21/2025 10:54 AM EDT) WBC 6.9 4.8 - 10.8 K/[facility] LAB HEMETOLOGY METHOD 02/21/2025 11:[address] [facility] RBC 4.50 4.50 - 5.50 M/[facility] LAB HEMETOLOGY METHOD 02/21/2025 11:[address] [facility] Hemoglobin 14.1 13.5 - 17.5 g/dL LAB HEMETOLOGY METHOD 02/21/2025 11:[address] [facility] Hematocrit 41.6(L) 42.0 - 54.0 % LAB HEMETOLOGY METHOD 02/21/2025 11:[address] [facility] MCV 93.5 79.0 - 98.0 FL LAB HEMETOLOGY METHOD 02/21/2025 11:[address] [facility] MCH 31.7 27.0 - 32.0 [...] LAB HEMETOLOGY METHOD 02/21/2025 11:[address] [facility] Eosinophils Relative 2.6 % LAB HEMETOLOGY METHOD 02/21/2025 11:[address] [facility] Basophils Relative 0.9 % LAB HEMETOLOGY METHOD 02/21/2025 11:[address] [facility] Immature Granulocytes Relative 0.3 % LAB HEMETOLOGY METHOD 02/21/2025 11:[address] [facility] Neutrophils Absolute 4.05 1.50 - 7.00 K/mcL LAB HEMETOLOGY METHOD 02/21/2025 11:[address] [facility] Lymphocytes Absolute 1.94 1.00 - 5.00 K/mcL LAB HEMETOLOGY METHOD 02/21/2025 11:[address] [facility] Monocytes Absolute 0.69 0.20 - 1.00 K/mcL LAB HEMETOLOGY METHOD 02/21/2025 11:[address] [facility] Eosinophils Absolute 0.18 0.00 - 0.50 K/mcL LAB HEMETOLOGY METHOD 02/[facility] Basophils Absolute 0.06 0.00 - 0.20 K/mcL LAB HEMETOLOGY METHOD 02/21/2025 11:[address] [facility] Immature Granulocytes Absolute 0.02 0.00 - 0.03 K/mcL LAB HEMETOLOGY METHOD 02/21/2025 11:[address] [facility] Blood Venous blood specimen / Unknown Venipuncture / Unknown 02/21/2025 10:54 AM EDT 02/21/2025 11:25 AM EDT us Nadine ASHBY LAB BLOOD ORDERABLES Final Resu lt [facility] [address] [place] [address], [place] [phone] * Iron and TIBC (02/21/2025 10:54 AM EDT) Pathologist [facility] Iron 137 50 - 160 mcg/dL LAB CHEMISTRY METHOD 02/21/2025 12:[address] [facility] TIBC 408 250 - 450 mcg/dL LAB CHEMISTRY METHOD 02/21/2025 12:[address] [facility] Iron Saturation 34 20 - 50 % LAB CHEMISTRY METHOD 02/21/2025 12:[address] [facility] Blood Venous blood specimen / Unknown Venipuncture / Unknown 02/21/2025 10:54 AM EDT 02/21/2025 11:23 AM EDT Nadine ASHBY LAB BLOOD ORDERABLES Final Resu lt Performing Organization Address City/[facility] [address]/ZIP Co de Phone Number [facility] [address] [place] [address], [place] [phone] * Ferritin (02/21/2025 10:54 AM EDT) [facility] Ferritin 234 26 - 388 ng/mL LAB CHEMISTRY METHOD 02/21/2025 1:[address] [facility] Blood Venous blood specimen / Unknown Venipuncture / Unknown 02/21/2025 10:54 AM EDT 02/21/2025 11:23 AM EDT Nadine Gautam [place] LAB BLOOD ORDERABLES Final Resu lt [facility] [address] [place] [address], [place] [phone] * (ABNORMAL) Hepatic function panel (02/21/2025 10:54 AM EDT) Total Protein 7.2 6.0 - 8.0 g/dL LAB CHEMISTRY METHOD 02/21/2025 1:[address] [facility] Albumin 3.8 3.2 - 5.0 g/dL LAB CHEMISTRY METHOD 02/21/2025 1:02 [facility] Total Bilirubin 0.8 0.0 - 1.4 mg/dL LAB CHEMISTRY METHOD 02/21/2025 1:02 [facility] Bilirubin, Direct 0.2 0.0 - 0.3 mg/dL LAB CHEMISTRY METHOD 02/21/2025 1:[address] [facility] Bilirubin, Indirect 0.6 0.0 - 1.1 mg/dL LAB CHEMISTRY METHOD 02/21/2025 1:[address] [facility] ALT (SGPT) 52 10 - 60 unit/L LAB CHEMISTRY METHOD 02/21/2025 1:[address] [facility] AST (SGOT) 43(H) 10 - 42 unit/L LAB CHEMISTRY METHOD 02/21/2025 1:[address] [facility] Alkaline Phosphatase 67 42 - 121 unit/L LAB CHEMISTRY METHOD 02/21/2025 1:[address] [facility] Blood Venous blood specimen / Unknown Venipuncture / Unknown 02/21/2025 10:54 AM EDT 02/21/2025 11:23 AM EDT Nadine ASHBY LAB BLOOD ORDERABLES Final Resu lt [facility] [address] [place] [address], * External Colonoscopy Report (02/12/2025 4:49 PM EDT) Anatomical Region Laterality Modality Endoscopy Historical Provider GI~PROCEDURE ORDERABLES F inal Result * Tissue Exam (02/12/2025) Final Diagnosis Rectum, polyp: Tubular adenoma. 02/13/2025 3:[address] [facility] Clinical Information Screening for colorectal malignant neoplasm Polyp 02/13/2025 3:[address] [facility] Gross Description A. Colon, rectum polyp: With labeled rectum polyp . Received in formalin is a 0.3 cm irregular gasca mucosal tissue fragment which is wrapped in paper and submitted in toto in one cassette, one piece, multiple levels on one slide. PARAS 02/13/2025 3:[address] [facility] Disclaimer Unless otherwise specified, all tissue is 10% NB formalin fixed and paraffin embedded. 02/13/2025 3:[address] [facility] Tissue Colon structure / Unknown 02/12/2025 02/12/2025 3:34 PM EDT us Sin Garvin MD LAB PATHOLOGY ORDERABLES Yasmin isaac Result [facility] [address] [place] [address], * US Abdomen Limited (12/28/2024 9:44 AM [...] Signed Date: 01/07/2025 12:16 ET Workstation ID: [id number] Transcribed By: Self Edit Transcribed Date: 01/07/2025 12:12 ET Narrative 01/07/2025 12:16 PM EST History: Transaminitis. Comparison: Abdominal ultrasound 6 12/16/22, 07/24/20 (outside studies), abdominal MRI 12/21/22 ([facility]) Findings: Real-time imaging of the [...] 12/16/22, 07/24/20 (outside studies),abdominal MRI 12/21/22 ([facility]) Findings: Real-time imaging of the [...] No enhancing hepatic lesion was identified on [id number] MRI. The portal vein is patent and [...] Signed Date: 01/07/2025 12:16 ET Workstation ID: [id number] Transcribed By: Self Edit Transcribed Date: 01/07/2025 12:12 ET Nadine ASHBY IMG US PROCEDURES Final Result * Hepatitis C virus quantitative molecular study (12/14/2024 1:59 PM EST) [facility] HCV Qual Interp Not Detected Not Detected LAB MOLECULAR DIAGNOSTICS METHOD 12/18/2024 11:[address] [facility] Comment:HCV RNA not detected , unable to report quantitative results. Blood Venous blood specimen / Unknown Venipuncture / Unknown 12/14/2024 1:59 PM EST 12/14/2024 3:59 PM EST Nadine ASHBY LAB BLOOD ORDERABLES Final Resu lt [facility] [address] [place] [address], [place] [phone] * Lipid panel with reflex to direct LDL (10/25/2024 12:47 PM EST) [facility] Cholesterol 124 0 - 200 mg/dL LAB CHEMISTRY METHOD 10/25/2024 4:[address] [facility] Triglycerides 88 0 - 150 mg/dL LAB CHEMISTRY METHOD 10/25/2024 4:50 PM [facility] HDL 47 >=40 mg/dL LAB CHEMISTRY METHOD 10/25/2024 4:50 PM [facility] LDL Calculated 59 0 - 100 mg/dL LAB CHEMISTRY METHOD 10/25/2024 4:50 PM [facility] VLDL Cholesterol Damian 17.6 mg/dL LAB CHEMISTRY METHOD 10/25/2024 4:50 PM [facility] Non HDL Chol. (LDL+VLDL) 77 <145 mg/dL LAB CHEMISTRY METHOD 10/25/2024 4:50 PM [facility] Chol/HDL Ratio 2.6 0.0 - 4.4 LAB CHEMISTRY METHOD 10/25/2024 4:50 PM [facility] Blood Venous blood specimen / Unknown Venipuncture / Unknown 10/25/2024 12:47 PM EST 10/25/2024 12:47 PM EST Patricia ASHBY LAB BLOOD ORDERABLES Final Re sult [facility] [address] [place] [address], * (ABNORMAL) Microalbumin creatinine urine ratio (10/25/2024 12:47 PM EST) Creatinine, Urine 371.0 mg/dL LAB CHEMISTRY METHOD 10/25/2024 3:52 PM [facility] Microalb, Ur 35.4(H) 0.0 - 29.0 mg/L LAB CHEMISTRY METHOD 10/25/2024 3:52 PM [facility] Microalb/Crea t Ratio 10 <30 mg/g creat LAB CHEMISTRY METHOD 10/25/2024 3:52 PM [facility] Urine Urine specimen from urethra / Unknown Non-blood Collection / Unknown 10/25/2024 12:47 PM EST 10/25/2024 12:47 PM EST us Patricia ASHBY LAB URINE ORDERABLES Final Re sult [facility] [address] [place] [address], * (ABNORMAL) Comprehensive metabolic panel (10/25/2024 12:47 PM EST) Sodium 136 133 - 145 mmol/L LAB CHEMISTRY METHOD 10/25/2024 4:50 PM [facility] Potassium 3.9 3.5 - 5.5 mmol/L LAB CHEMISTRY METHOD 10/25/2024 4:50 PM [facility] Chloride 101 96 - 110 mmol/L LAB CHEMISTRY METHOD 10/25/2024 4:50 PM [facility] CO2 28 21 - 32 mmol/L LAB CHEMISTRY METHOD 10/25/2024 4:50 PM [facility] Anion Gap 7 3 - 11 LAB CHEMISTRY METHOD 10/25/2024 4:50 PM [facility] Glucose 126(H) 70 - 100 mg/dL LAB CHEMISTRY METHOD 10/25/2024 4:50 PM [facility] BUN 17 5 - 25 mg/dL LAB CHEMISTRY METHOD 10/25/2024 4:50 PM [facility] Creatinine 1.24 0.70 - 1.30 mg/dL LAB CHEMISTRY METHOD 10/25/2024 4:50 PM [facility] eGFR 62 >=60 mL/min/1. 73m2 LAB CHEMISTRY METHOD 10/25/2024 4:50 PM [facility] Comment:Calculation based on the??Chronic Kidney Disease Epidemiology Collaboration (CKD-EPI) equation refit??without adjustment for race. BUN/Creatinine Ratio 13.7 LAB CHEMISTRY METHOD 10/25/2024 4:50 PM [facility] Calcium 9.7 8.5 - 10.5 mg/dL LAB CHEMISTRY METHOD 10/25/2024 4:50 PM [facility] AST (SGOT) 55(H) 10 - 42 unit/L LAB CHEMISTRY METHOD 10/25/2024 4:50 PM [facility] ALT (SGPT) 87(H) 10 - 60 unit/L LAB CHEMISTRY METHOD 10/25/2024 4:50 PM [facility] Alkaline Phosphatase 61 42 - 121 unit/L LAB CHEMISTRY METHOD 10/25/2024 4:50 PM [facility] Total Protein 7.7 6.0 - 8.0 g/dL LAB CHEMISTRY METHOD 10/25/2024 4:50 PM [facility] Albumin 4.3 3.2 - 5.0 g/dL LAB CHEMISTRY METHOD 10/25/2024 4:50 PM [facility] Total Bilirubin 1.2 0.0 - 1.4 mg/dL LAB CHEMISTRY METHOD 10/25/2024 4:50 PM [facility] Blood Venous blood specimen / Unknown Venipuncture / Unknown 10/25/2024 12:47 PM EST 10/25/2024 12:47 PM EST Patricia ASHBY LAB BLOOD ORDERABLES Final Re sult [facility] [address] [place] [address], from Last 3 Months or Most Recently Relevant to Health Maintenance Insurance [employer] Care Teams Guideman Relationship Specialty Start Date End Date Antonio Castellanos MD [address] [place] [id number] PCP - General Internal Medicine 12/19/24
--- OUTSIDE RECORDS SUMMARY | 2025-03-27 09:14 | XMS_ITS | Encounter Summary ---
Author Organization [employer] Address [address] [place] [address] Care Team Providers Care Senior Payroll Specialist Name Role Phone Antonio Castellanos MD Primary Care Provider [phone] Encounter Details Date Type Department Care Team (Late st Contact Info) Description 02/12/2025 Lab Requisition [facility] - Main Lab [address] [facility] [place] [phone] Sin Garvin MD [address] [address] Encounter for screening for malignant neoplasm of [...] your loved ones. For example, child care development specialist or elderly care for an older [...] 11:30 AM EST Office Visit Adult Medicine [address] [phone] Antonio Castellanos MD [address] [place] [address] documented as of this encounter Procedures Procedure Name Priority Date/Time Associated Diagnosis Comments TISSUE EXAM Routine 02/12/2025 Encounter for screening for malignant neoplasm of colon documented in this encounter Results * Tissue Exam (02/12/2025) Final Diagnosis Rectum, polyp: Tubular adenoma. 02/13/2025 3:06 PM EDT [facility] Clinical Information Screening for colorectal malignant neoplasm Polyp 02/13/2025 3:06 PM EDT [facility] Gross Description A. Colon, rectum polyp: With labeled rectum polyp . Received in formalin is a 0.3 cm irregular gasca mucosal tissue fragment which is wrapped in paper and submitted in toto in one cassette, one piece, multiple levels on one slide. PARAS 02/13/2025 3:06 PM EDT [facility] Disclaimer Unless otherwise specified, all tissue is 10% NB formalin fixed and paraffin embedded. 02/13/2025 3:06 PM EDT [facility] Tissue Colon structure / Unknown 02/12/2025 02/12/2025 3:34 PM EDT us Sin Garvin MD LAB PATHOLOGY ORDERABLES Yasmin isaac Result [facility] [address] [place] [address], documented in this encounter Visit Diagnoses Diagnosis Encounter for screening for malignant neoplasm of colon documented in this encounter Additional Health Concerns Assessment Noted Time PHQ-9 Depression Total Score: 0 10/25/20 24 11:55 AM EST A fall risk assessment has been complete d for the patient 10/25/2024 11:56 AM EST documented as of this encounter Care Teams Senior Payroll Specialist Relationship Specialty Start Date End Date Antonio Castellanos MD [address] [place] [id number] PCP - General Internal Medicine 12/19/24 documented as of this encounter
== END 2025-03-27 08:51 | disposition home or self-care (01) ==
LOC: HO.BBR 08:50
PROVIDERS: PCP Internal Medicine; Visit Provider Internal Medicine Gastroenterology
DX: Z13.89 Encounter for screening for other disorder (principal)

== ENCOUNTER 2025-04-10 09:49 | Outpatient (REF) | payer MEDICARE, SELFPAY ==
--- OUTSIDE RECORDS SUMMARY | 2025-04-10 11:11 | XMS_ITS | Encounter Summary ---
Author Organization [place] [address] Care Team Providers Care Truck Guard Name Role Phone Antonio Castellanos MD Primary Care Provider [phone] Encounter Details Date Type Department Care Team (Late st Contact Info) Description 02/12/2025 Lab Requisition [facility] - Main Lab 299 [facility] [place] [phone] Sin Garvin MD [address] [address] Encounter for screening for malignant neoplasm of [...] for your loved ones. For example, child monitor or elderly care for an older adult? [...] 11:30 AM EST Office Visit Adult Medicine [address] [phone] Antonio Castellanos MD [address] [place] [address] documented as of this encounter Procedures Procedure Name Priority Date/Time Associated Diagnosis Comments TISSUE EXAM Routine 02/12/2025 Encounter for screening for malignant neoplasm of colon documented in this encounter Results * Tissue Exam (02/12/2025) Final Diagnosis Rectum, polyp: Tubular adenoma. 02/13/2025 3:06 PM EDT [facility] Clinical Information Screening for colorectal malignant neoplasm Polyp 02/13/2025 3:06 PM EDT [facility] Gross Description A. Colon, rectum polyp: With labeled rectum polyp . Received in formalin is a 0.3 cm irregular gasca mucosal tissue fragment which is wrapped in paper and submitted in toto in one cassette, one piece, multiple levels on one slide. PARAS 02/13/2025 3:06 PM EDT [facility] Disclaimer Unless otherwise specified, all tissue is 10% NB formalin fixed and paraffin embedded. 02/13/2025 3:06 PM EDT [facility] Tissue Colon structure / Unknown 02/12/2025 02/12/2025 3:34 PM EDT us Sin Garvin MD LAB PATHOLOGY ORDERABLES Yasmin isaac Result [facility] [address] [place] [address], documented in this encounter Visit Diagnoses Diagnosis Encounter for screening for malignant neoplasm of colon documented in this encounter Additional Health Concerns Assessment Noted Time PHQ-9 Depression Total Score: 0 10/25/20 24 11:55 AM EST A fall risk assessment has been complete d for the patient 10/25/2024 11:56 AM EST documented as of this encounter Care Teams Truck Guard Relationship Specialty Start Date End Date Antonio Castellanos MD [address] [place] [id number] PCP - General Internal Medicine 12/19/24 documented as of this encounter
--- OUTSIDE RECORDS SUMMARY | 2025-04-10 11:11 | XMS_ITS | Clinical Summary ---
Author Organization [facility] 444 [facility] Address [address] [place] [phone] Phone Care Team Providers Care Operations Executive Name Role Phone Antonio Castellanos MD Primary Care Provider [phone] Allergies Active Allergy Reactions Criticality Noted Date [...] Date Diagnosed Date Hereditary hemochromatosis (CMS/HCC V24) 025 Assessment & Plan (02/21/2025 4:58 [...] Description 03/20/2025 2:30 PM EDT Office Visit [address] [phone] Thomas King PA Essential hypertension, benign (Primary Dx); Hyperlipidemia, unspecified hyperlipidemia type; CKD (chronic kidney disease) stage 2, GFR 60-89 ml/min; Cough, unspecified type; Gastroesophageal reflux disease, unspecified whether esophagitis present; Type 2 diabetes mellitus with diabetic microalbuminuria, 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 V24, CMS/HCC V28) 03/06/2025 3:30 PM EDT Office Visit [address] [phone] Chaparrita De La Torre MD Subacute cough (Primary Dx); Type 2 diabetes mellitus with diabetic microalbuminuria, without long-term current use of insulin ([facility] V24, [facility] V28); Essential hypertension, benign 03/06/2025 2:25 PM EDT - 03/06/2025 11:59 PM EDT Hospital Encounter [id number] [phone] Subacute cough Discharge Disposition: Home or Self Care 03/05/2025 Telephone Adult Medicine [address] [phone] Aline Salgado RN 02/27/2025 10:00 AM EDT - 02/27/2025 11:59 PM EDT Hospital Encounter [address] [phone] Subacute cough Discharge Disposition: Home or Self Care 02/27/2025 9:45 AM EDT Office Visit Adult Medicine [address] [phone] Patricia Workman PA Subacute cough (Primary Dx) 02/25/2025 Telephone Gastroenterology - [address] [phone] Lisa Thao MA Results 02/21/2025 10:30 AM EDT Office Visit Gastroenterology - [address] [place] [phone] Nadine Gautam PA Hereditary hemochromatosis ([facility] V24) (Primary Dx) 02/14/2025 Telephone Gastroenterology - [address] [phone] Lisa Thao MA Results 02/12/2025 Lab Requisition [facility] - Main Lab 299 [facility] [place] [phone] Sin Garvin MD Encounter for screening for malignant neoplasm of colon 02/01/2025 Telephone Gastroenterology - [address] [place] [phone] Lindsay Lowery MA 01/14/2025 Telephone Gastroenterology - [address] [place] [phone] Sin Garvin MD 01/14/2025 Telephone Gastroenterology - [address] [facility] [address] [phone] Elise Sidhu MA Results 01/14/2025 Telephone Gastroenterology - [address] [place] [phone] Elise Sidhu MA from Last 3 Months Immunizations Name Administration Dates Next Due Hepatitis A Adult (Havrix; V aqta) 19yo and older 02/15/2024,08/17/2023 Hepatitis B (Zutmjqv-A-Ndqnt , Recombivax HB-Adult) 19yo and older 02/22/2024,09/21/2023,08/17/2023 [...] COMMENT: negative COLONOSCOPY W/ BIOPSIES 2013 PROCEDURE: PA COLONOSCOPY W/BIOPSY SINGLE/MULTIPLE; COMMENT: 5 mm sigmoid [...] for your loved ones. For example, childcare provider or elderly care for an older adult? [...] 11:30 AM EST Office Visit Adult Medicine [address] [phone] Antonio Castellanos MD [address] [place] [phone] Health Maintenance Due Date Last Done Comments Diabetes: Annual Foot Exam 1962 Diabetes: Annual Retina Eye Exam 1962 Zoster Vaccines (1 of 2) 1971 RSV Immunization Adult Patients (1 - Risk 60-74 years 1-dose series) 2012 COVID-19 Vaccine ( - season) 2024 09/27/2022, 09/27/2022, 10/22/2021, Additional history [...] Date/Time Associated Diagnosis Comments EXTERNAL CLINICAL LAB 03/28/2025 HEMOGLOBIN A1C Routine 03/18/2025 11:18 AM EDT Type 2 diabetes mellitus with diabetic microalbuminuria, 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 V24, CMS/HCC V28) EXTERNAL CLINICAL LAB 03/14/2025 XR CHEST 2 VIEWS Routine 03/06/2025 2:36 PM EDT Subacute cough XR CHEST 2 VIEWS Routine 02/27/2025 10:2 7 AM EDT Subacute cough CBC WITH AUTO DIFFERENTIAL Routine 02/21/2025 10:54 AM EDT Hereditary hemochromatosis ([facility]/HCC V24) HEPATIC FUNCTION PANEL Routine 02/21/2025 10:54 AM EDT Hereditary hemochromatosis ([facility]/HCC V24) FERRITIN Routine 02/21/2025 10:54 AM EDT Hereditary hemochromatosis (CMS/HCC V24) IRON AND TIBC Routine 02/21/2025 10:54 AM EDT Hereditary hemochromatosis ([facility]/HCC V24) CBC AND DIFFERENTIAL Routine 02/21/2025 10:54 AM EDT Hereditary hemochromatosis ([facility]/HCC V24) EXTERNAL COLONOSCOPY REPORT Routine 02/12/2025 4:49 PM EDT TISSUE EXAM Routine 02/12/2025 Encounter for screening for malignant neoplasm of colon EXTERNAL CLINICAL LAB 01/31/2025 EXTERNAL CLINICAL LAB 01/24/2025 EXTERNAL CLINICAL LAB 01/17/2025 HEPATITIS C VIRUS QUANTITATIVE PCR Routine 12/14/2024 1:59 PM EST Transaminitis MICROALBUMIN CREATININE URINE RATIO Routine 10/25/2024 12:47 PM EST Type 2 diabetes mellitus with diabetic microalbuminuria, without long-term current use of insulin ([facility] V24, [facility] V28) Microalbuminuria COMPREHENSIVE METABOLIC PANEL Routine 10/25/2024 12:47 PM EST 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, CMS/HCC V28) Mixed hyperlipidemia Obesity (BMI 30.0-34.9) Essential hypertension, benign Prostate cancer screening Stage 3a chronic kidney disease (CMS/HCC V24, [facility] V28) Type 2 diabetes mellitus with diabetic microalbuminuria, 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 V24, CMS/HCC V28) Microalbuminuria Hyperplastic colonic polyp, unspecified part of colon LIPID PANEL WITH REFLEX TO DIRECT LDL Routine 10/25/2024 12:47 PM EST Mixed hyperlipidemia from Last 3 Months or Most Recently Relevant to Health Maintenance Results * External clinical lab (03/28/2025) Only the most recent of5 resultswithin the time period is included. Provider [facility] LAB BLOOD ORDERABLES Fin al Result * Hemoglobin A1c (03/18/2025 11:18 AM EDT) Hemoglobin A1C 5.4 <6.5 % LAB CHEMISTRY METHOD 03/18/2025 11:26 PM EDT [facility] Mean Bld Glu Estim. 108 mg/dL LAB CHEMISTRY METHOD 03/18/2025 11:26 PM EDT [facility] Blood Venous blood specimen / Unknown Venipuncture / Unknown 03/18/2025 11:18 AM EDT 03/18/2025 11:18 AM EDT us Chaparrita De La Torre MD LAB BLOOD ORDERABLES Final Resul t [facility] [address] [place] [address], [place] [phone] * XR Chest 2 Views (03/06/2025 2:36 [...] Signed Date: 03/06/2025 17:43 ET Workstation ID: [id number] Transcribed By: Self Edit Transcribed Date: 03/06/2025 [...] Signed Date: 03/06/2025 17:43 ET Workstation ID: [id number] Transcribed By: Self Edit Transcribed Date: 03/06/2025 17:42 ET us Patricia ASHBY IMG XR PROCEDURES Final Resul t * (ABNORMAL) CBC auto differential (02/21/2025 10:54 AM EDT) WBC 6.9 4.8 - 10.8 K/mcL LAB HEMETOLOGY METHOD 02/21/2025 11:37 AM EDT [facility] RBC 4.50 4.50 - 5.50 M/mcL LAB HEMETOLOGY METHOD 02/21/2025 11:37 AM [facility] Hemoglobin 14.1 13.5 - 17.5 g/dL LAB HEMETOLOGY METHOD 02/21/2025 11:37 AM [facility] Hematocrit 41.6(L) 42.0 - 54.0 % LAB HEMETOLOGY METHOD 02/21/2025 11:37 AM [facility] MCV 93.5 79.0 - 98.0 FL LAB HEMETOLOGY METHOD 02/21/2025 11:37 AM [facility] MCH 31.7 27.0 - 32.0 pcg LAB HEMETOLOGY METHOD 02/21/2025 11:37 AM [facility] MCHC 33.9 32.0 - 37.0 g/dL LAB HEMETOLOGY METHOD 02/21/2025 11:37 AM [facility] RDW 13.2 11.0 - 15.0 % LAB HEMETOLOGY METHOD 02/21/2025 11:37 AM [facility] Platelets 279 130 - 400 K/mcL LAB HEMETOLOGY METHOD 02/21/2025 11:37 AM [facility] MPV 10.9 7.0 - 11.0 FL LAB HEMETOLOGY METHOD 02/21/2025 11:37 AM [facility] NRBC 0.0 <1.0 % LAB HEMETOLOGY METHOD 02/21/2025 11:37 AM [facility] NRBC Absolute 0.00 <0.10 K/mcL LAB HEMETOLOGY METHOD 02/21/2025 11:37 AM [facility] Neutrophils Relative 58.3 % LAB HEMETOLOGY METHOD 02/21/2025 11:37 AM [facility] Lymphocytes Relative 28.0 % LAB HEMETOLOGY METHOD 02/21/2025 11:37 AM [facility] Monocytes Relative 9.9 % LAB HEMETOLOGY METHOD 02/21/2025 11:37 AM [facility] Eosinophils Relative 2.6 % LAB HEMETOLOGY METHOD 02/21/2025 11:37 AM [facility] Basophils Relative 0.9 % LAB HEMETOLOGY METHOD 02/21/2025 11:37 AM [facility] Immature Granulocytes Relative 0.3 % LAB HEMETOLOGY METHOD 02/21/2025 11:37 AM [facility] Neutrophils Absolute 4.05 1.50 - 7.00 K/mcL LAB HEMETOLOGY METHOD 02/21/2025 11:37 AM [facility] Lymphocytes Absolute 1.94 1.00 - 5.00 K/mcL LAB HEMETOLOGY METHOD 02/21/2025 11:37 AM [facility] Monocytes Absolute 0.69 0.20 - 1.00 K/mcL LAB HEMETOLOGY METHOD 02/21/2025 11:37 AM [facility] Eosinophils Absolute 0.18 0.00 - 0.50 K/mcL LAB HEMETOLOGY METHOD 02/21/2025 11:37 AM EDT [facility] Basophils Absolute 0.06 0.00 - 0.20 K/[facility] LAB HEMETOLOGY METHOD 02/21/2025 11:37 AM EDT [facility] Immature Granulocytes Absolute 0.02 0.00 - 0.03 K/[facility] LAB HEMETOLOGY METHOD 02/21/2025 11:37 AM EDT [facility] Blood Venous blood specimen / Unknown Venipuncture / Unknown 02/21/2025 10:54 AM EDT 02/21/2025 11:25 AM EDT Nadine ASHBY LAB BLOOD ORDERABLES Final Resu lt Performing Organization Address [facility]/ZIP Co de Phone Number [facility] [address] [place] [address], [place] [phone] * Iron and TIBC (02/21/2025 10:54 AM EDT) Iron 137 50 - 160 mcg/dL LAB CHEMISTRY METHOD 02/21/2025 12:57 PM EDT [facility] TIBC 408 250 - 450 mcg/dL LAB CHEMISTRY METHOD 02/21/2025 12:57 PM EDT [facility] Iron Saturation 34 20 - 50 % LAB CHEMISTRY METHOD 02/21/2025 12:57 PM EDT [facility] Blood Venous blood specimen / Unknown Venipuncture / Unknown 02/21/2025 10:54 AM EDT 02/21/2025 11:23 AM EDT Nadine ASHBY LAB BLOOD ORDERABLES Final Resu lt [facility] [address] [place] [address], [place] [phone] * Ferritin (02/21/2025 10:54 AM EDT) Ferritin 234 26 - 388 ng/mL LAB CHEMISTRY METHOD 02/21/2025 1:02 PM T [facility] Blood Venous blood specimen / Unknown Venipuncture / Unknown 02/21/2025 10:54 AM EDT 02/21/2025 11:23 AM EDT us Nadine ASHBY LAB BLOOD ORDERABLES Final Resu lt [facility] [address] [place] [address], [place] [phone] * (ABNORMAL) Hepatic function panel (02/21/2025 10:54 AM EDT) Total Protein 7.2 6.0 - 8.0 g/dL LAB CHEMISTRY METHOD 02/21/2025 1:02 PM [facility] Albumin 3.8 3.2 - 5.0 g/dL LAB CHEMISTRY METHOD 02/21/2025 1:02 PM [facility] Total Bilirubin 0.8 0.0 - 1.4 mg/dL LAB CHEMISTRY METHOD 02/21/2025 1:02 PM [facility] Bilirubin, Direct 0.2 0.0 - 0.3 mg/dL LAB CHEMISTRY METHOD 02/21/2025 1:02 PM [facility] Bilirubin, Indirect 0.6 0.0 - 1.1 mg/dL LAB CHEMISTRY METHOD 02/21/2025 1:02 PM [facility] ALT (SGPT) 52 10 - 60 unit/L LAB CHEMISTRY METHOD 02/21/2025 1:02 PM [facility] AST (SGOT) 43(H) 10 - 42 unit/L LAB CHEMISTRY METHOD 02/21/2025 1:02 PM [facility] Alkaline Phosphatase 67 42 - 121 unit/L LAB CHEMISTRY METHOD 02/21/2025 1:02 PM [facility] Blood Venous blood specimen / Unknown Venipuncture / Unknown 02/21/2025 10:54 AM EDT 02/21/2025 11:23 AM EDT Nadine ASHBY LAB BLOOD ORDERABLES Final Resu lt Performing Organization Address [facility]/ZIP Co de Phone Number [facility] [address] [place] [address], * External Colonoscopy Report (02/12/2025 4:49 PM [...] MD LAB PATHOLOGY ORDERABLES Yasmin l Result Performing Organization Address [facility]/ZIP Co de Phone Number [facility] [address] [place] [address], * Hepatitis C virus quantitative molecular study (12/14/2024 1:59 PM EST) Pathologist [facility] HCV Qual Interp Not Detected Not Detected LAB MOLECULAR DIAGNOSTICS METHOD 12/18/2024 11:29 AM EST [facility] Comment:HCV RNA not detected , unable to report quantitative results. Blood Venous blood specimen / Unknown Venipuncture / Unknown 12/14/2024 1:59 PM EST 12/14/2024 3:59 PM EST us Nadine ASHBY LAB BLOOD ORDERABLES Final Resu lt [facility] [address] [place] [address], [place] [phone] * Lipid panel with reflex to direct LDL (10/25/2024 12:47 PM EST) [facility] Cholesterol 124 0 - 200 mg/dL LAB CHEMISTRY METHOD 10/25/2024 4:50 PM [facility] Triglycerides 88 0 - 150 mg/dL LAB CHEMISTRY METHOD 10/25/2024 4:50 PM [facility] HDL 47 >=40 mg/dL LAB CHEMISTRY METHOD 10/25/2024 4:50 PM [facility] LDL Calculated 59 0 - 100 mg/dL LAB CHEMISTRY METHOD 10/25/2024 4:50 PM [facility] VLDL Cholesterol Damian 17.6 mg/dL LAB CHEMISTRY METHOD 10/25/2024 4:50 PM [facility] Non HDL Chol. (LDL+VLDL) 77 <145 mg/dL LAB CHEMISTRY METHOD 10/25/2024 4:50 PM [facility] Chol/HDL Ratio 2.6 0.0 - 4.4 LAB CHEMISTRY METHOD 10/25/2024 4:50 PM [facility] Blood Venous blood specimen / Unknown Venipuncture / Unknown 10/25/2024 12:47 PM EST 10/25/2024 12:47 PM EST us Patricia ASHBY LAB BLOOD ORDERABLES Final Re sult [facility] [address] [place] [address], [place] [phone] * (ABNORMAL) Microalbumin creatinine urine ratio (10/25/2024 12:47 PM EST) Creatinine, Urine 371.0 mg/dL LAB CHEMISTRY METHOD 10/25/2024 3:52 PM EST [facility] Microalb, Ur 35.4(H) 0.0 - 29.0 mg/L LAB CHEMISTRY METHOD 10/25/2024 3:52 PM EST [facility] Microalb/Crea t Ratio 10 <30 mg/g creat LAB CHEMISTRY METHOD 10/25/2024 3:52 PM EST [facility] Urine Urine specimen from urethra / Unknown Non-blood Collection / Unknown 10/25/2024 12:47 PM EST 10/25/2024 12:47 PM EST us Patricia ASHBY LAB URINE ORDERABLES Final Re sult Performing Organization Address [facility]/ZIP Co de Phone Number [facility] [address] [place] [address], [place] [phone] * (ABNORMAL) Comprehensive metabolic panel (10/25/2024 12:47 PM EST) Sodium 136 133 - 145 mmol/L LAB CHEMISTRY METHOD 10/25/2024 4:50 PM EST [facility] Potassium 3.9 3.5 - 5.5 mmol/L LAB CHEMISTRY METHOD 10/25/2024 4:50 PM EST [facility] Chloride 101 96 - 110 mmol/L LAB CHEMISTRY METHOD 10/25/2024 4:50 PM EST [facility] CO2 28 21 - 32 mmol/L LAB CHEMISTRY METHOD 10/25/2024 4:50 PM [facility] Anion Gap 7 3 - 11 LAB CHEMISTRY METHOD 10/25/2024 4:50 PM [facility] Glucose 126(H) 70 - 100 mg/dL LAB CHEMISTRY METHOD 10/25/2024 4:50 PM [facility] BUN 17 5 - 25 mg/dL LAB CHEMISTRY METHOD 10/25/2024 4:50 PM [facility] Creatinine 1.24 0.70 - 1.30 mg/dL LAB CHEMISTRY METHOD 10/25/2024 4:50 PM [facility] eGFR 62 >=60 mL/min/1. 73m2 LAB CHEMISTRY METHOD 10/25/2024 4:50 PM [facility] Comment:Calculation based on the??Chronic Kidney Disease Epidemiology Collaboration (CKD-EPI) equation refit??without adjustment for race. BUN/Creatinine Ratio 13.7 LAB CHEMISTRY METHOD 10/25/2024 4:50 PM [facility] Calcium 9.7 8.5 - 10.5 mg/dL LAB CHEMISTRY METHOD 10/25/2024 4:50 PM [facility] AST (SGOT) 55(H) 10 - 42 unit/L LAB CHEMISTRY METHOD 10/25/2024 4:50 PM [facility] ALT (SGPT) 87(H) 10 - 60 unit/L LAB CHEMISTRY METHOD 10/25/2024 4:50 PM [facility] Alkaline Phosphatase 61 42 - 121 unit/L LAB CHEMISTRY METHOD 10/25/2024 4:50 PM [facility] Total Protein 7.7 6.0 - 8.0 g/dL LAB CHEMISTRY METHOD 10/25/2024 4:50 PM [facility] Albumin 4.3 3.2 - 5.0 g/dL LAB CHEMISTRY METHOD 10/25/2024 4:50 PM EST [facility] Total Bilirubin 1.2 0.0 - 1.4 mg/dL LAB CHEMISTRY METHOD 10/25/2024 4:50 PM EST [facility] Blood Venous blood specimen / Unknown Venipuncture / Unknown 10/25/2024 12:47 PM EST 10/25/2024 12:47 PM EST us Patricia ASHBY LAB BLOOD ORDERABLES Final Re sult [facility] [address] [place] [address], from Last 3 Months or Most Recently Relevant to Health Maintenance Insurance [employer] Care Teams Operations Executive Relationship Specialty Start Date End Date Antonio Castellanos MD [address] [place] [phone] PCP - General Internal Medicine 12/19/24
--- OUTSIDE RECORDS SUMMARY | 2025-04-10 11:11 | XMS_ITS | Clinical Summary ---
Author Organization [employer] Address 1 [facility] [place] [address] Care Team Providers Care Station Inspector Name Role Phone Emanuel BLISS MD, Antonio [...] TABLET BY MOUTH EVERY DAY 04/25/2023 Active lisinopriL (PRINIVIL) 20 MG tablet Take 1 tablet (20 mg total) by mouth 12/20/2024 Active omeprazole (PriLOSEC) 20 MG capsule Take 1 capsule (20 mg total) by mouth Active fluticasone propionate (Flonase Allergy Relief) 50 mcg/actuation nasal spray Instill 1 spray into each nostril daily Active Encounters Date Type Department Care Team Description 02/25/2025 10:00 AM EDT Office Visit [place] [address] [address] [place] [address] Nitish Medina NP Subacute cough (Primary Dx); Acute pharyngitis, unspecified etiology; Hypertension, unspecified type; Postnasal drip 01/24/2025 4:50 PM EST Office Visit [place] [id number] [place] [address] Roselia Gold NP Other acute sinusitis, recurrence [...] Screening every 10 yrs (or Modifier) 1950 [facility] Screening Reminder: Krystal bell for all adults ([facility]) 1970 Colorectal Cancer Screening 45 -75 Yrs (or HM Modifier) 1997 Colorectal Cancer: FLEXIBLE SIGMOIDOSCOPY Screening every 5 yrs 1997 Colorectal Cancer: Fecal Immunochemical Test (FIT) Annually [facility] 1997 Colorectal Cancer: High-sens itivity gFOBT Screening Annually [facility] 1997 Colorectal Cancer: Stool Col oguard Screening every 3 yrs 1997 Colorectal Cancer:CT Colonog jillian Screening every 5 yrs 1997 Zoster/Shingles Vaccine Seri es Screening: Adults aged 18+ yrs (or HM Modifiers)([facility]) (1 of 2) 2002 COVID-19 Vaccine Screening: Initial Series and Booster Status ([facility]) ( season) 2024 09/27/2022, 10/22/2021, 02/18/2021, Additional history exists Flu Vaccination: Ages 65+: Y early High Dose Recommended (or Modifier)([facility]) 06/21/2025 09/23/2023, 09/23/2023, 09/27/2022 Depression: Screening Annual ly using PHQ-2/9 in Adults 18 yrs or above (or HM Modifier)([facility]) 02/23/2026 02/23/2025 RSV Vaccines (1 - 1-dose 75+ series) 2027 zzRETIRED Lipid Screening: E very 5 yrs for Men aged 35+ (or HM Modifier) ([facility]) 10/25/2029 10/25/2024, 10/24/2023 DTaP/Tdap/Td Vaccines ([facility]) (3 - Td or Tdap) 03/31/2032 03/31/2022, 03/27/2012, 03/25/2005 Pneumococcal Vaccination Scr eening: Patients 50+ yrs of age ([facility] ) Completed 10/10/2019, 08/21/2018 Hepatitis C Virus Infection in Adolescents and Adults: Screening (or Modifier) ([facility] ) Completed 12/14/2024 Medical Devices Not on file Procedures Procedure Name Priority Date/Time Associated Diagnosis Comments STREP MOLECULAR POCT Routine 02/25/2025 10:13 AM EDT Acute pharyngitis, unspecified etiology from Last 3 Months Results * Strep Molecular POCT (02/25/2025 10:13 AM EDT) Pathologist [facility] POC MOLECULAR STREP A Negative Negative, Invalid, Not Tested, ERRONEOUS [place] [id number] INTERNAL CONTROLS VALID Yes--Test working appropriately [employer] [id number] Expiration Date [id number] [employer] [id number] Lot Number [id number] [employer] [id number] TEST BRAND NAME_ STREP MOLECULAR ID Now Strep [place] [id number] Throat 02/25/2025 10:1 3 AM EDT us Nitish Medina NP POINT OF CARE TEST ORDERABLES Final Result [place] [id number] [address] [place] [address], from Last 3 Months Insurance [employer] MEDICARE Care Teams Station Inspector Relationship Specialty Start Date End Date Antonio Castellanos III, MD [address] [place] [address] PCP - General Internal Medicine 02/25/25
== END 2025-04-10 09:50 | disposition home or self-care (01) ==
LOC: HO.BBR 09:49
PROVIDERS: PCP Internal Medicine; Visit Provider Internal Medicine Gastroenterology
DX: Z13.89 Encounter for screening for other disorder (principal)

== ENCOUNTER 2025-08-21 13:47 | Outpatient (REF) | payer MEDICARE, SELFPAY ==
--- OUTSIDE RECORDS SUMMARY | 2025-08-21 15:01 | XMS_ITS | Encounter Summary ---
Author [place] [address] Care Team Providers Care Fios Line Installer Name Role Phone Antonio Castellanos MD Primary Care Provider [phone] Encounter Details Date Type Department Care Team (Late st Contact Info) Description 02/12/2025 Lab Requisition [facility] - Main Lab [address] [facility] [place] [phone] Sin Garvin MD [address] [address] Encounter for screening for malignant neoplasm of [...] your loved ones. For example, child care director or elderly care for an older [...] Date Recorded What is your living situation? Unrecognized valu e 10/25/2024 Sex and Gender Information Value Date Recorded [...] 11:30 AM EST Office Visit Adult Medicine [address] [phone] Antonio Castellanos MD [address] [place] [address] documented as of this encounter Procedures Procedure Name Priority Date/Time Associated Diagnosis Comments TISSUE EXAM Routine 02/12/2025 Encounter for screening for malignant neoplasm of colon documented in this encounter Results * Tissue Exam (02/12/2025) Final Diagnosis Rectum, polyp: Tubular adenoma. 02/13/2025 3:06 PM EDT [facility] Clinical Information Screening for colorectal malignant neoplasm Polyp 02/13/2025 3:06 PM EDT [facility] Gross Description A. Colon, rectum polyp: With labeled rectum polyp . Received in formalin is a 0.3 cm irregular gasca mucosal tissue fragment which is wrapped in paper and submitted in toto in one cassette, one piece, multiple levels on one slide. PARAS 02/13/2025 3:06 PM EDT [facility] Disclaimer Unless otherwise specified, all tissue is 10% NB formalin fixed and paraffin embedded. 02/13/2025 3:06 PM EDT [facility] Tissue Colon structure / Unknown 02/12/2025 02/12/2025 3:34 PM EDT us Sin Garvin MD LAB PATHOLOGY ORDERABLES Yasmin isaac Result [facility] [address] [place] [address], documented in this encounter Visit Diagnoses Diagnosis Encounter for screening for malignant neoplasm of colon documented in this encounter Additional Health Concerns Assessment Noted Time PHQ-9 Depression Total Score: 0 10/25/20 11:55 AM EST A fall risk assessment has been complete d for the patient 10/25/2024 11:56 AM EST documented as of this encounter Care Teams Fios Line Installer Relationship Specialty Start Date End Date Antonio Castellanos MD [address] [place] [address] PCP - General Internal Medicine 12/19/24 documented as of this encounter
--- OUTSIDE RECORDS SUMMARY | 2025-08-21 15:01 | XMS_ITS | Clinical Summary ---
Author Organization [employer] Address 1 [facility] [place] [address] Care Team Providers Care Wedding Florist Name Role Phone Emanuel BLISS MD, Antonio [...] 1 spray into each nostril daily Active Immunizations Immunization Administration Dates Next Due Hepatitis A 02/15/2024,08/17/2023 [...] 66 02/25/2025 9:55 AM EDT Temperature 36.5 C (97.7 F) 02/25/2025 9:55 AM EDT Respiratory Rate 18 02/25/2025 9:55 AM EDT Oxygen Saturation 100% 02/25/2025 9:55 AM EDT Inhaled Oxygen Concentration - - Weight - - Height - - Body Mass Index - - Plan of Treatment Health Maintenance Due Date Last Done Comments [facility] Screening Reminder: Krystal bell for all adults ([facility]) 1970 Colorectal Cancer: FLEXIBLE SIGMOIDOSCOPY Screening every 5 yrs 1997 Colorectal Cancer: Fecal Immunochemical Test (FIT) Annually [facility] 1997 Colorectal Cancer: High-sens itivity gFOBT Screening Annually [facility] 1997 Colorectal Cancer: Stool Col oguard Screening every 3 yrs 1997 Colorectal Cancer:CT Colonog jillian Screening every 5 yrs 1997 Zoster/Shingles Vaccine Seri es Screening: Adults aged 18+ yrs (or HM Modifiers)([facility]) (1 of 2) 2002 Flu Vaccination: Ages 65+: Y early High Dose Recommended (or Modifier)([facility]) 06/21/2025 10/25/2024, 10/25/2024, 09/23/2023, Additional history exists COVID-19 Vaccine Screening: Initial Series and Booster Status ([facility]) (2024- season) 2025 09/27/2022, 10/22/2021, 02/18/2021, Additional history exists Depression: Screening Annual ly using PHQ-2/9 in Adults 18 yrs or above (or HM Modifier)([facility]) 02/23/2026 02/23/2025 RSV Vaccines (1 - 1-dose 75+ series) 2027 DTaP/Tdap/Td Vaccines ([facility]) (3 - Td or Tdap) 03/31/2032 03/31/2022, 03/27/2012, 03/25/2005 Colorectal Cancer Screening 45 -75 Yrs (or HM Modifier) 02/12/2035 Colorectal Cancer: COLONOSCO PY Screening every 10 yrs (or Modifier) 02/12/2035 02/12/2025 Pneumococcal Vaccination Scr eening: Patients 50+ yrs of age ([facility]) Completed 10/10/2019, 08/21/2018 Hepatitis C Virus Infection in Adolescents and Adults: Screening (or Modifier) ([facility]) Completed 12/14/2024 Medical Devices Not on file Insurance [employer] MEDICARE Care Teams Wedding Florist Relationship Specialty Start Date End Date Antonio Castellanos III, MD [address] [place] [address] PCP - General Internal Medicine 02/25/25
--- OUTSIDE RECORDS SUMMARY | 2025-08-21 15:01 | XMS_ITS | Clinical Summary ---
Author Organization [facility] [address] [facility] Address [address] [place] [phone] Phone Care Team Providers Care Personalized Living Manager Name Role Phone Antonio Castellanos MD Primary Care Provider [phone] Allergies Active Allergy Reactions Criticality Noted Date Comments Amlodipine 01/29/2022 Bilateral leg swelling Medications atorvastatin (LIPITOR) 10 mg tablet TAKE 1 TABLET BY MOUTH EVERYDAY AT BEDTIME 90 tablet 1 5 Active losartan (Cozaar) 50 mg tablet Take 1 tablet (50 mg total) by mouth 1 (one) time each day. 90 each 1 5 Active omeprazole (PriLOSEC) [address] capsule Take 1 capsule (20 mg total) by mouth 1 (one) time each day. Do not crush or chew. 90 capsule 1 5 Active fluticasone propionate (FLONASE) 50 mcg/actuation nasal spray SHAKE GENTLY-USE 1 SPRAY IN EACH NOSTRIL 2X/DAY PRIME BEFORE 1ST USE & CLEAN TIP/REPLACE CAP AFTER 48 mL 1 5 Active Allergy Relief, cetirizine, 10 mg tablet TAKE 1 TABLET BY MOUTH 1 TIME EACH DAY. 90 tablet 1 5 Active metoprolol tartrate (LOPRESSOR) 50 mg tablet Take 1 tablet (50 mg total) by mouth 1 (one) time each day. 90 tablet 1 5 026 Active hydroCHLOROthi azide (HYDRODIURIL) 25 mg tablet TAKE 1 TABLET BY MOUTH 1 TIME EACH DAY. 90 tablet 5 Active hydroCHLOROthi azide (HYDRODIURIL) 25 mg tablet Take 1 tablet (25 mg total) by mouth 1 (one) time each day. 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 Hepatic steatosis 07/31/2020 Hyperlipidemia 07/31/2020 Colonic polyp 09/08/2014 Overview (09/10/2024): Hyperplastic polyp 01/16/2014 Elevated ferritin 09/08/2014 Overview (09/10/2024): 2 copies of H63D, felt to be at low risk for clinical hemochromatosis although susceptible to iron overload by Dr. Cronin Type II diabetes mellitus wi th renal manifestations ([facility]/HCC V24, [facility]/HCC V28) 09/08/2014 Transaminitis 09/18/2012 Assessment & Plan [...] Encounters Date Type Department Care Team Description 08/12/2025 11:30 AM EDT Lab Draw Station - [address] [phone] Hereditary hemochromatosis (CMS/HCC V24) 08/08/2025 Telephone Gastroenterology - [address] [phone] Nadine Gautam PA 06/07/2025 Telephone Gastroenterology - [address] [phone] Lindsay Lowery MA from Last 3 Months Immunizations Immunization Administration Dates Next Due Hepatitis A Adult (Havrix; V aqta) 19yo and older 02/15/2024,08/17/2023 Hepatitis B (Sdiecea-F-Nahmd , Recombivax HB-Adult) 19yo and older 02/22/2024,09/21/2023,08/17/2023 [...] COMMENT: negative COLONOSCOPY W/ BIOPSIES 2013 PROCEDURE: WA COLONOSCOPY W/BIOPSY SINGLE/MULTIPLE; COMMENT: 5 mm sigmoid [...] for your loved ones. For example, child center assistant or elderly care for an older adult? [...] 66 03/20/2025 2:23 PM EDT Temperature 35.8 C (96.4 F) 03/20/2025 2:23 PM EDT Respiratory Rate 16 03/06/2025 3:16 [...] 11:30 AM EST Office Visit Adult Medicine [facility] [address] [place] [address] Antonio Castellanos MD [address] [place] [phone] Health Maintenance Due Date Last Done Comments Diabetes: Annual Foot Exam 1962 Zoster Vaccines (1 of 2) 1971 RSV Immunization Adult Patients (1 - Risk 60-74 years 1-dose series) 2012 COVID-19 Vaccine ( season) 2025 09/27/2022, 09/27/2022, 10/22/2021, Additional history exists Influenza Vaccine (#1) 2025 , 09/23/2023, 09/23/2023, Additional history exists Diabetes: Blood Sugar Control Test (HGBA1C) 09/17/2025 03/18/2025, 10/25/2024, 05/02/2024, Additional history exists Diabetes: Annual Urine Albumin-Creatinine Ratio (uACR) 10/25/2025 10/25/2024, 08/23/2023 Diabetes: Annual GFR (Glomerular Filtration Rate) 10/25/2025 10/25/2024, 05/02/2024, 05/02/2024 Hypertension/CHF/CAD Annual BMP Blood Test 10/25/2025 10/25/2024, 05/02/2024, 05/02/2024 Medicare Annual Wellness Visit 10/25/2025 10/25/2024 Social Influencers of Health Screening 10/25/2025 10/25/2024 Falls Risk Assessment 03/06/2026 03/06/2025, 024 Diabetes: Annual Retina Eye Exam 06/05/2026 06/05/2025 Cholesterol Screening (Lipid Panel) 10/25/2029 10/25/2024, 10/24/2023 DTaP,Tdap,and Td Vaccines (5 - Td or Tdap) 03/31/2032 03/31/2022, 03/27/2012, 03/25/2005, Additional history exists Colorectal Cancer Screening: Colonoscopy 02/12/2035 02/12/2025, 09/18/2010 Pneumococcal Vaccine: 50+ Years Completed 10/10/2019, 08/21/2018 Hepatitis A Vaccines Aged Out 02/15/2024, 08/17/20 23 No longer eligible based on patient's age to complete this topic Hepatitis B Vaccines Completed 02/22/2024, 09/21/2023, 08/17/2023 Hepatitis C Screening Completed 12/14/2024, 023 Depression Screening Completed 03/16/2025 HIB Vaccines Aged Out No longer eligi [...] Procedure Name Priority Date/Time Associated Diagnosis Comments CBC WITH AUTO DIFFERENTIAL Routine 08/12/2025 11:30 AM EDT Hereditary hemochromatosis (CMS/HCC V24) CBC AND DIFFERENTIAL Routine 08/12/2025 11:30 AM EDT Hereditary hemochromatosis (CMS/HCC V24) IRON AND TIBC Routine 08/12/2025 11:30 AM EDT Hereditary hemochromatosis (CMS/HCC V24) FERRITIN Routine 08/12/2025 11:30 AM EDT Hereditary hemochromatosis (CMS/HCC V24) CBC WITH AUTO DIFFERENTIAL Routine 06/05/2025 2:39 PM EDT Hereditary hemochromatosis (CMS/HCC V24) CBC AND DIFFERENTIAL Routine 06/05/2025 2:39 PM EDT Hereditary hemochromatosis (CMS/HCC V24) IRON AND TIBC Routine 06/05/2025 2:39 PM EDT Hereditary hemochromatosis (CMS/HCC V24) FERRITIN Routine 06/05/2025 2:39 PM EDT Hereditary hemochromatosis (CMS/HCC V24) HEMOGLOBIN A1C Routine 03/18/2025 11:18 AM EDT Type 2 diabetes mellitus with diabetic microalbuminuria, 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 V24, CMS/HCC V28) EXTERNAL COLONOSCOPY REPORT Routine 02/12/2025 4:49 PM EDT HEPATITIS C VIRUS QUANTITATIVE PCR Routine 12/14/2024 [...] Recently Relevant to Health Maintenance Results * (ABNORMAL) CBC auto differential (08/12/2025 11:30 AM EDT) Only the most recent of2 resultswithin the time period is included. [facility] WBC 7.2 4.8 - 10.8 K/mcL LAB [facility] RBC 5.40 4.50 - 5.50 M/mcL LAB HEMETOLOGY METHOD 08/12[facility]2025 [facility] Hemoglobin 14.5 13.5 - 17.5 g/dL LAB HEMETOLOGY METHOD 08/12[facility]2025 [facility] Hematocrit 44.6 42.0 - 54.0 % LAB HEMETOLOGY METHOD 08/12/2025 2:[facility] MCV 82.6 79.0 - 98.0 FL LAB HEMETOLOGY METHOD 08/12/2025 2[facility] MCH 26.9(L) 27.0 - 32.0 pcg LAB HEMETOLOGY METHOD 08/12/2025 2:27 PM [facility] MCHC 32.5 32.0 - 37.0 g/dL LAB HEMETOLOGY METHOD 08/12/2025 2[facility] RDW 16.5(H) 11.0 - 15.0 % LAB HEMETOLOGY METHOD 08/12/2025 2[facility] Platelets 246 130 - 400 K/mcL LAB HEMETOLOGY METHOD 08/12/2025 2:27 PM [facility] MPV 11.3(H) 7.0 - 11.0 FL LAB HEMETOLOGY METHOD 08/12/2025 2[facility] NRBC 0.0 <1.0 % LAB HEMETOLOGY METHOD 08/12/2025 2:27 PM EDT [facility] NRBC Absolute 0.00 <0.10 K/mcL LAB HEMETOLOGY METHOD 08/12/2025 2:[facility] Neutrophils Relative 60.5 % LAB HEMETOLOGY METHOD 08/12/2025 2:27 [facility] Lymphocytes Relative 28.6 % LAB HEMETOLOGY METHOD 08/12/2025 2:27 [facility] Monocytes Relative 7.5 % LAB HEMETOLOGY METHOD 08/12/2025 2:27 [facility] Eosinophils Relative 2.4 % LAB HEMETOLOGY METHOD 08/12/2025 2:27 [facility] Basophils Relative 0.7 % LAB HEMETOLOGY METHOD 08/12/2025 2:27 [facility] Immature Granulocytes Relative 0.3 % LAB HEMETOLOGY METHOD 08/12/2025 2:27 [facility] Neutrophils Absolute 4.38 1.50 - 7.00 K/mcL LAB HEMETOLOGY METHOD 08/12/2025 2[facility] Lymphocytes Absolute 2.07 1.00 - 5.00 K/mcL LAB HEMETOLOGY METHOD 08/12/2025 2:27 PM EDT [facility] Monocytes Absolute 0.54 0.20 - 1.00 K/mcL LAB HEMETOLOGY METHOD 08/12/2025 2:27 PM EDT [facility] Eosinophils Absolute 0.17 0.00 - 0.50 K/mcL LAB HEMETOLOGY METHOD 08/12/2025 2[facility] Basophils Absolute 0.05 0.00 - 0.20 K/mcL LAB HEMETOLOGY METHOD 08/12/2025 2:27 PM EDT [facility] Immature Granulocytes Absolute 0.02 0.00 - 0.03 K/mcL LAB HEMETOLOGY METHOD 08/12/2025 2:27 PM EDT [facility] Blood Venous blood specimen / Unknown Venipuncture / Unknown 08/12/2025 11:30 AM EDT 08/12/2025 11:30 AM EDT Nadine Gautam [place] LAB BLOOD ORDERABLES Final Resu lt Performing Organization Address City/[facility]/ZIP Co de Phone Number [facility] [address] [place] [address], [place] [phone] * (ABNORMAL) Iron and TIBC (08/12/2025 11:30 AM EDT) Only the most recent of2 resultswithin the time period is included. Iron 107 50 - 160 mcg/dL LAB CHEMISTRY METHOD 08/12/2025 4:28 PM EDT [facility] TIBC 480(H) 250 - 450 mcg/dL LAB CHEMISTRY METHOD 08/12/2025 4:28 PM EDT [facility] Iron Saturation 22 20 - 50 % LAB CHEMISTRY METHOD 08/12/2025 4:28 PM EDT [facility] Blood Venous blood specimen / Unknown Venipuncture / Unknown 08/12/2025 11:30 AM EDT 08/12/2025 11:30 AM EDT Nadine Gautam [place] LAB BLOOD ORDERABLES Final Resu lt [facility] [address] [place] [address], [place] [phone] * (ABNORMAL) Ferritin (08/12/2025 11:30 AM EDT) Only the most recent of2 resultswithin the time period is included. Ferritin 21(L) 26 - 388 ng/mL LAB CHEMISTRY METHOD 08/12/2025 4:29 PM EDT [facility] Blood Venous blood specimen / Unknown Venipuncture / Unknown 08/12/2025 11:30 AM EDT 08/12/2025 11:30 AM EDT us Nadine ASHBY LAB BLOOD ORDERABLES Final Resu lt Performing Organization Address City/[facility]/ZIP Co de Phone Number [facility] [address] [place] [address], [place] [phone] * Hemoglobin A1c (03/18/2025 11:18 AM EDT) [facility] Hemoglobin A1C 5.4 <6.5 % LAB CHEMISTRY METHOD 03/18/2025 11:26 PM EDT [facility] Mean Bld Glu Estim. 108 mg/dL LAB CHEMISTRY METHOD 03/18/2025 11:26 PM EDT [facility] Blood Venous blood specimen / Unknown Venipuncture / Unknown 03/18/2025 11:18 AM EDT 03/18/2025 11:18 AM EDT us Chaparrita De La Torre MD LAB BLOOD ORDERABLES Final Resul t Performing Organization Address [facility] de Phone Number [facility] [address] [place] [address], [place] [phone] * External Colonoscopy Report (02/12/2025 4:49 PM EDT) Anatomical Region Laterality Modality Endoscopy Historical Provider GI~PROCEDURE ORDERABLES F inal Result * Hepatitis C virus quantitative molecular study (12/14/2024 1:59 PM EST) [facility] HCV Qual Interp Not Detected Not Detected LAB MOLECULAR DIAGNOSTICS METHOD 12/18/2024 11:29 AM EST [facility] Comment:HCV RNA not detected , unable to report quantitative results. Blood Venous blood specimen / Unknown Venipuncture / Unknown 12/14/2024 1:59 PM EST 12/14/2024 3:59 PM EST Nadine ASHBY LAB BLOOD ORDERABLES Final Resu lt [facility] [address] [place] [address], [place] [phone] * Lipid panel with reflex to direct LDL (10/25/2024 12:47 PM EST) Cholesterol 124 0 - 200 mg/dL LAB CHEMISTRY METHOD 10/25/2024 4:50 PM EST [facility] Triglycerides 88 0 - 150 mg/dL LAB CHEMISTRY METHOD 10/25/2024 4:50 PM EST [facility] HDL 47 >=40 mg/dL LAB CHEMISTRY METHOD 10/25/2024 4:50 PM EST [facility] LDL Calculated 59 0 - 100 mg/dL LAB CHEMISTRY METHOD 10/25/2024 4:50 PM EST [facility] VLDL Cholesterol Damian 17.6 mg/dL LAB CHEMISTRY METHOD 10/25/2024 4:50 PM EST [facility] Non HDL Chol. (LDL+VLDL) 77 <145 mg/dL LAB CHEMISTRY METHOD 10/25/2024 4:50 PM EST [facility] Chol/HDL Ratio 2.6 0.0 - 4.4 LAB CHEMISTRY METHOD 10/25/2024 4:50 PM EST [facility] Blood Venous blood specimen / Unknown Venipuncture / Unknown 10/25/2024 12:47 PM EST 10/25/2024 12:47 PM EST Patricia ASHBY LAB BLOOD ORDERABLES Final Re sult Performing Organization Address City/[facility]/ZIP Co de Phone Number [facility] [address] [place] [address], [place] [phone] * (ABNORMAL) Microalbumin creatinine urine ratio (10/25/2024 [...] ASHBY LAB URINE ORDERABLES Final Re sult [facility] [address] [place] [address], [place] [phone] * (ABNORMAL) Comprehensive metabolic panel (10/25/2024 12:47 PM EST) Pathologist [facility] Sodium 136 133 - 145 mmol/L LAB [...] PM [facility] Comment:Calculation based on the Chronic Kidney Disease Epidemiology Collaboration (CKD-EPI) equation refit without adjustment for race. BUN/Creatinine Ratio 13.7 LAB [...] LAB BLOOD ORDERABLES Final Re sult [facility] [address] [place] [address], from Last 3 Months or Most Recently Relevant to Health Maintenance Insurance [employer] MED[employer]VANTAGE Care Teams Personalized Living Manager Relationship Specialty Start Date End Date Antonio Castellanos MD [address] [place] [phone] PCP - General Internal Medicine 12/19/24
--- OUTSIDE RECORDS SUMMARY | 2025-08-21 15:01 | XMS_ITS ---
Author Name [facility] Organization Unknown Care Team Organization Name Specialty Phone Email Start Date End Da te [facility] ARCELIA CATHERINE Primary Care 09/28/2022 4
== END 2025-08-21 13:48 | disposition home or self-care (01) ==
LOC: HO.BBR 13:47
PROVIDERS: PCP Internal Medicine; Visit Provider Internal Medicine Gastroenterology
DX: Z13.89 Encounter for screening for other disorder (principal)